=== PATIENT | female | born 1965 | race Caucasian/White ===

== ENCOUNTER 2019-12-26 17:59 | Emergency (ER) | payer OTHER, SELFPAY ==
[2019-12-26 18:18] VITALS: BP 133/88; PULSE 90; RESP 16; TEMP 37.1; O2SAT 97; BMI 26.2
--- NOTE | 2019-12-26 18:21 | XR_ITS ---
WS: [id number] XR chest 1V portable [id number] REASON FOR EXAM: cp FINDINGS: Borderline cardiomegaly is noted. The lung cain are well aerated. No pneumonia, pleural effusion, pulmonary edema, no mass effect. No pneumothorax. The hilum and apices are normal. No osseous abnormalities. XR/XR chest 1V portable [id number] IMPRESSION: Borderline cardiomegaly. Negative chest.
--- NOTE | 2019-12-26 18:22 | ECG_ITS ---
Measurements Intervals [place] Rate: 75 P: 45 OR: 196 QRS: 21 QRSD: 89 T: 41 QT: 399 QTc: 446 SINUS RHYTHM LOW QRS VOLTAGE IN PRECORDIAL LEADS [QRS DEFLECTION < 1.0 mV IN CHEST LEADS] POSSIBLE INFERIOR MYOCARDIAL INFARCTION , PROBABLY OLD [30 ms Q WAVE IN II/aVF] No previous ECG available for comparison Electronically Signed On 12-27-2019 16:54:36 [employer] CART[employer] by Polo Blanco M.D. [id number]
[2019-12-26 18:42] VITALS: BP 140/102; PULSE 74; RESP 18; O2SAT 98
--- NOTE | 2019-12-26 18:42 | CTR_ITS ---
PROCEDURE INFORMATION: Exam: CT Angiography Chest With Contrast Exam date and time: 12/26/2019 8:05 PM Age: 54 years old Clinical indication: Other: Chest pain; Additional info: Dyspnea TECHNIQUE: Imaging protocol: Computed tomographic angiography of the chest with intravenous contrast. 3D rendering: MIP and/or 3D reconstructed images were created by the technologist. Total DLP: 558.66 mGy-cm Radiation optimization: All CT scans at this facility use at least one of these dose optimization techniques: automated exposure control; mA and/or kV adjustment per patient size (includes targeted exams where dose is matched to clinical indication); or iterative reconstruction. Contrast material: OMNI; Contrast volume: 95 ml; Contrast route: IV; COMPARISON: CR XR chest 1V portable [id number] 12/26/2019 6:48 PM FINDINGS: Pulmonary arteries: There is no evidence of filling defects within the pulmonary arterial circulation to suggest pulmonary embolism. Aorta: Unremarkable. No aortic aneurysm. No aortic dissection. Lungs: Severe centrilobular emphysematous changes are present. There is mild dependent atelectasis at the lung bases. Pleural space: Unremarkable. No pneumothorax. No pleural effusion. Heart: Unremarkable. No cardiomegaly. No pericardial effusion. Lymph nodes: There are few mildly prominent prevascular lymph nodes measuring up to 9 x 18 mm. There also some mildly prominent subcarinal and paraesophageal lymph nodes but no gross adenopathy. Bones/joints: Unremarkable. No acute fracture. Soft tissues: Unremarkable. CT/CT angio chest PE protcl [id number] IMPRESSION: No evidence of pulmonary embolism. Radiation Dose CTDIVOL = (mGy): DLP = 558.66 (mGy-cm)
--- NOTE | 2019-12-26 18:47 | W.ED.CHESTPA ---
HPI - Chest Pain General: Chief Complaint: Chest Pain Stated Complaint: cp Time Seen by Provider: 12/26/19 18:36 Source: patient Mode of arrival: ambulatory Limitations: no limitations History of Present Illness: HPI narrative: 54-year-old female states she had chest pain over the last couple hours. States the pain is in the left chest and is a pressure type pain. She denies any vomiting or diarrhea but has had nausea. States she also has pain with deep inspiration. She has had swelling over her left leg over the last day or 2. Denies any worsening or improving factors. MD complaint: chest pain Onset (ago): hour(s) Timing of current episode: constant Onset: during rest Pain radiation: left arm Severity: moderate Quality: heaviness Relieving factors: nothing Exacerbating factors: nothing Associated symptoms: Reports dyspnea and nausea; Deny abdominal pain, fever(s) or vomiting Review of Systems Const: Denies: fever, chills, body aches or change in appetite Eyes: Denies: blurry vision or eye discomfort ENMT: Denies: throat pain or dental pain Card: Reports: chest pain Resp: Reports: shortness of breath GI: Reports: nausea; Denies: abdominal pain, vomiting or diarrhea : Denies: painful urination Musc: Denies: neck pain or back pain Skin/Breast: Denies: rash Neuro: Denies: headache Psych: Denies: depression Nixon/Lymph: Denies: easy bruising All/Imm: Denies: hives [facility] ED PFSH: Social History Smoking and tobacco status: current every day smoker Physical Exam Const: COMMON NORMALS: no apparent distress, oriented x3 and healthy appearing HENMT: COMMON NORMALS: normocephalic and head/scalp atraumatic HEAD & SCALP: normocephalic and atraumatic Eye: COMMON NORMALS: PERRL and EOMs intact bilaterally PUPIL: Yes PERRL Neck/C-Spine: COMMON NORMALS: full ROM and supple Chest: COMMONS NORMALS: inspection of chest normal and palpation of chest normal Resp: COMMON NORMALS: normal respiratory effort, no retractions, no use of accessory muscles and clear to auscultation bilaterally AUSCULTATION: clear to auscultation bilaterally Cardio: COMMON NORMALS: regular rate, regular rhythm and no murmurs RATE: regular rate RHYTHM: regular rhythm GI: COMMON NORMALS: normal to inspection, nondistended, normoactive bowel sounds, soft to palpation, non-tender and no masses PALPATION: Yes soft Extremity: COMMON NORMALS: normal to inspection and full ROM NARRATIVE EXTREMITY EXAM: left lower leg swelling Neuro: COMMON NORMALS: oriented x3, moves all extremities and no focal motor deficits Psych: COMMON NORMALS: mental status grossly normal, thought process normal and cooperative THOUGHT PROCESS: normal thought process Skin: COMMON NORMALS: no rashes or lesions noted and no wounds GENERAL SKIN EXAM: no rashes or lesions noted Course Vital Signs: Vital signs: Vital Signs Temperature 98.8 F 12/26/19 18:18 Pulse Rate 90 12/26/19 21:50 Respiratory Rate 18 12/26/19 21:50 Blood Pressure 129/75 12/26/19 21:50 Pulse Oximetry 94 12/26/19 21:50 MDM - Chest Pain MDM Narrative: Medical decision making narrative: Patient presents here with chest pain that is atypical in nature. Patient's initial and repeat troponin are both negative. CT scan here showed no sign of pulmonary embolism. Her pain is resolved here. Patient has minimal risk factors and is well-appearing here. I did discuss possible admission with her and discussed her heart score and her risk factors smoking in both of her heart enzymes being negative. She stated she would rather follow-up outpatient get an outpatient stress test. I believe this is acceptable as well informed her she needs to follow-up with her primary care doctor within a week for follow-up and return to the ER if she has any chest pain. She understands and agrees to this plan. Lab Data: Labs: Lab Results 12/26/19 12/26/19 12/26/19 Range/Units 18:40 18:40 18:40 WBC 14.3 H (4.0-10.0) 10^3/ uL RBC 4.91 (4.1-5.3) 10^6/u L Hgb 14.8 (11.5-15.3) g/dL Hct 44.7 (37.0-47.0) % MCV 91.0 (81-99) fL MCH 30.1 (28.0-34.0) pg MCHC 33.1 (30.0-36.0) g/dL RDW 13.2 (12.1-15.1) % Plt Count 340 (130-400) 10^3/c mm MPV 11.3 H (7.4-10.4) fL Neut % (Auto) 57.6 % Lymph % (Auto) 34.8 % [place] % (Auto) 4.8 % Eos % (Auto) 2.0 % Baso % (Auto) 0.6 % Neut # (Auto) 8.3 H (1.8-7.7) 10^3/u L Lymph # (Auto) 5.0 H (0.8-4.8) 10^3/u L [place] # (Auto) 0.7 (0.2-0.9) 10^3/u L Eos # (Auto) 0.3 (0.0-0.8) 10^3/u L Baso # (Auto) 0.1 (0.0-0.1) 10^3/u L Nucleated RBC % (a uto) 0 % Nucleated RBCs # 0.0 /100WBC Sodium 140 (136-145) mmol/L Potassium 3.4 L (3.5-5.1) mmol/L Chloride 104 (98-107) mmol/L Carbon Dioxide 23 (22-29) mmol/L Anion Gap 16.4 (5-19) BUN 11 (6-20) mg/dL Creatinine 0.5 (0.5-0.9) mg/dL GFR Calculation 129.1 (90-130) mL/min Glucose 85 (65-115) mg/dL Calcium 9.8 (8.5-10.5) mg/dL Total Bilirubin 0.2 (0.15-1.2) mg/dL AST 15 (0-32) U/L ALT 13 (0-33) U/L Alkaline Phosphata se 86 (35-105) IU/L Troponin T Baselin e 6 (0-10) ng/mL Troponin T 120 Min [place] (0-10) ng/mL Delta Troponin T (0-10) ABS# NT-Pro-B Natriuret Pep 49 (0-125) pg/mL Total Protein 7.7 (6.6-8.7) g/dL Albumin 4.5 (3.5-5.2) g/dL Globulin 3.2 (1.3-4.6) g/dL 03/04/20 Range/Units 20:35 WBC (4.0-10.0) 10^3/ uL RBC (4.1-5.3) 10^6/u L Hgb (11.5-15.3) g/dL Hct (37.0-47.0) % MCV (81-99) fL MCH (28.0-34.0) pg MCHC (30.0-36.0) g/dL RDW (12.1-15.1) % Plt Count (130-400) 10^3/c mm MPV (7.4-10.4) fL Neut % (Auto) % Lymph % (Auto) % [place] % (Auto) % Eos % (Auto) % Baso % (Auto) % Neut # (Auto) (1.8-7.7) 10^3/u L Lymph # (Auto) (0.8-4.8) 10^3/u L [place] # (Auto) (0.2-0.9) 10^3/u L Eos # (Auto) (0.0-0.8) 10^3/u L Baso # (Auto) (0.0-0.1) 10^3/u L Nucleated RBC % (a uto) % Nucleated RBCs # /100WBC Sodium (136-145) mmol/L Potassium (3.5-5.1) mmol/L Chloride (98-107) mmol/L Carbon Dioxide (22-29) mmol/L Anion Gap (5-19) BUN (6-20) mg/dL Creatinine (0.5-0.9) mg/dL GFR Calculation (90-130) mL/min Glucose (65-115) mg/dL Calcium (8.5-10.5) mg/dL Total Bilirubin (0.15-1.2) mg/dL AST (0-32) U/L ALT (0-33) U/L Alkaline Phosphata se (35-105) IU/L Troponin T Baselin e (0-10) ng/mL Troponin T 120 Min [place] 6.00 (0-10) ng/mL Delta Troponin T 0 (0-10) ABS# NT-Pro-B Natriuret Pep (0-125) pg/mL Total Protein (6.6-8.7) g/dL Albumin (3.5-5.2) g/dL Globulin (1.3-4.6) g/dL Imaging Data^: CXR: Attestation: I personally reviewed and interpreted this imaging study as follows: My impression: no acute abnormality CT Chest: Attestation: I personally reviewed and interpreted this imaging study as follows: Radiologist's impression: [address] [address] [address] Scan Report Signed Patient: Guillermina Mosquera Unit #: [id number] : 1965 Age/Sex: 54 / F ADM Date: 12/26/19 Loc: ER Room/Bed: Attending Dr: Ordering Provider/Ordering MD: Yarelis Elmore MD Date of Service: 12/26/19 Procedure(s): CT angio chest PE protcl [id number] Accession Number(s): [id number] Report Number: [id number] PROCEDURE INFORMATION: Exam: CT Angiography Chest With Contrast Exam date and time: 12/26/2019 8:05 PM Age: 54 years old Clinical indication: Other: Chest pain; Additional info: Dyspnea TECHNIQUE: Imaging protocol: Computed tomographic angiography of the chest with intravenous contrast. 3D rendering: MIP and/or 3D reconstructed images were created by the technologist. Total DLP: 558.66 mGy-cm Radiation optimization: All CT scans at this facility use at least one of these dose optimization techniques: automated exposure control; mA and/or kV adjustment per patient size (includes targeted exams where dose is matched to clinical indication); or iterative reconstruction. Contrast material: OMNI; Contrast volume: 95 ml; Contrast route: IV; COMPARISON: CR XR chest 1V portable [id number] 12/26/2019 6:48 PM FINDINGS: Pulmonary arteries: There is no evidence of filling defects within the pulmonary arterial circulation to suggest pulmonary embolism. Aorta: Unremarkable. No aortic aneurysm. No aortic dissection. Lungs: Severe centrilobular emphysematous changes are present. There is mild dependent atelectasis at the lung bases. Pleural space: Unremarkable. No pneumothorax. No pleural effusion. Heart: Unremarkable. No cardiomegaly. No pericardial effusion. Lymph nodes: There are few mildly prominent prevascular lymph nodes measuring up to 9 x 18 mm. There also some mildly prominent subcarinal and paraesophageal lymph nodes but no gross adenopathy. Bones/joints: Unremarkable. No acute fracture. Soft tissues: Unremarkable. CT/CT angio chest PE protcl [id number] IMPRESSION: No evidence of pulmonary embolism. EKG Data^: EKG 1: Attestation: I personally reviewed and interpreted this EKG as follows: EKG interpretation date: 12/26/19 EKG interpretation time: 08:33 Interpretation: nsr hr [address] or t wave abnormalities qrs 88 qtc 400 Discharge Plan Discharge Patient Disposition: Home, Self-Care Clinical Impression: Chest pain Qualifiers: Chest pain type: unspecified Qualified Code(s): R07.9 - Chest pain, unspecified Condition: Stable Prescriptions: No Action ibuprofen 200 mg Tablet 200 mg PO Q6H PRN (Reason: Pain) RF: 0 Super B/C Capsule 1 cap PO DAILY RF: 0 Aleve PM 220-25 mg Tablet 1 tab PO QPM RF: 0 bupropion HCl (smoking deter) 150 mg Tablet Extended Release 12 Hr 150 mg PO DAILY RF: 0 Discharge Orders: Discharge Order (Routine); Ordered 12/26/19 Ordered By: Yarelis Elmore Referrals: Sherrie Chen MD [Primary Care Provider] - 4-7 days Discharge Diet: Advance as tolerated Discharge Activity: Resume usual activity Patient Instructions: Chest Pain (ED) Stand Alone Forms: Work/School Release Discharge Date/Time: 12/26/19 21:54 Coding Level of Care Code 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
[2019-12-26] MEDS: nitroglycerin 0.4 mg sublingual Tablet SUBLINGUAL (18:50)
[2019-12-26 19:05] LABS: Basophils # 0.1 10^3/uL (0.0-0.1); Basophils % 0.6 %; Eosinophils # 0.3 10^3/uL (0.0-0.8); Hematocrit 44.7 % (37.0-47.0); Hemoglobin 14.8 g/dL (11.5-15.3); Lymphocytes % 34.8 %; Mean Corpuscular HGB Conc 33.1 g/dL (30.0-36.0); Mean Corpuscular Hemoglobin 30.1 pg (28.0-34.0); Mean Platelet Volume 11.3 fL (7.4-10.4); Monocytes # 0.7 10^3/uL (0.2-0.9); Monocytes % 4.8 %; Neutrophils # 8.3 10^3/uL (1.8-7.7); Neutrophils % 57.6 %; Nucleated Red Blood Cells % 0 %; Platelet Count 340 10^3/cmm (130-400); Red Blood Count 4.91 10^6/uL (4.1-5.3); Red Cell Distribution Width 13.2 % (12.1-15.1); White Blood Count 14.3 10^3/uL (4.0-10.0)
[2019-12-26 19:22] LABS: Troponin(5th) Baseline 6 ng/mL (0-10)
[2019-12-26 19:29] LABS: Alanine Aminotransferase 13 U/L (0-33); Albumin Level 4.5 g/dL (3.5-5.2); Alkaline Phosphatase 86 IU/L (35-105); Anion Gap 16.4 (5-19); Aspartate Amino Transferase 15 U/L (0-32); Blood Urea Nitrogen 11 mg/dL (6-20); Calcium 9.8 mg/dL (8.5-10.5); Carbon Dioxide 23 mmol/L (22-29); Chloride 104 mmol/L (98-107); Globulin 3.2 g/dL (1.3-4.6); Glomerular Filtration Rate 129.1 mL/min (90-130); Glucose 85 mg/dL (65-115); NT Pro B Type Natriuretic Pept 49 pg/mL (0-125); Potassium 3.4 mmol/L (3.5-5.1); Sodium 140 mmol/L (136-145); Total Bilirubin 0.2 mg/dL (0.15-1.2); Total Protein 7.7 g/dL (6.6-8.7)
--- NOTE | 2019-12-26 20:22 | ECG_ITS ---
Measurements Intervals [place] Rate: 76 P: 58 [place]: 193 QRS: 20 QRSD: 88 T: 56 QT: 370 QTc: 417 SINUS RHYTHM WITH OCCASIONAL ECTOPIC PREMATURE COMPLEXES WITH MARKED RHYTHM IRREGULARITY, POSSIBLE NON-CONDUCTED PAC, SA BLOCK, LOW QRS VOLTAGE IN PRECORDIAL LEADS [QRS DEFLECTION < 1.0 mV IN CHEST LEADS] POSSIBLE INFERIOR MYOCARDIAL INFARCTION [30 ms Q WAVE IN II/aVF], PROBABLY OLD ABNORMAL RHYTHM ECG No previous ECG available for comparison Electronically Signed On 12-27-2019 17:00:57 COMPUT[employer]ED MILL RECORDER by Polo Blanco M.D. [id number]
--- NOTE | 2019-12-26 20:35 | PC.NURSE ---
EKG done at 2031 and shown to ER doctor
[2019-12-26] MEDS: iohexol 350 mg/mL 100 mL Btl 95 ML IV (20:53)
[2019-12-26 21:04] LABS: Troponin 5 2HR Delta 0 ABS# (0-10)
[2019-12-26 21:50] VITALS: BP 129/75; PULSE 90; RESP 18; O2SAT 94
== END 2019-12-26 21:54 | disposition home or self-care (01) ==
PROVIDERS: Emergency Provider Emergency Medicine; Family Provider Family Medicine; PCP Family Medicine
DX: R07.9 Chest pain, unspecified (principal); F17.210 Nicotine dependence, cigarettes, uncomplicated; R06.00 Dyspnea, unspecified; R11.0 Nausea; M79.602 Pain in left arm; R94.31 Abnormal electrocardiogram [ECG] [EKG]
CPT/HCPCS: 12345; 36415; 71045; 71275; 80053; 83880; 84484; 85025; 93005; 99282; 99284; Q9967

== ENCOUNTER 2020-03-04 08:12 | Outpatient (CLI) | payer OTHER, SELFPAY ==
--- NOTE | 2020-03-04 08:37 | ECG_ITS ---
NAME OF STUDY: LEXISCAN SESTAMIBI STRESS TEST INDICATION: Chest Pressure, PROCEDURE: At the baseline, the EKG revealed sinus bradycardia with some nonspecific T wave changes. The baseline blood pressure was 132/70 mm Hg with a heart rate of 58 beats/min. Lexiscan was infused over a period of 20 seconds. A total of 0.4 milligrams of Lexiscan was infused. The stress phase was continued for a total of 5 minutes. Heart rate at the end of the stress phase was 84 with a blood pressure 119/68. The EKG at the peak infusion revealed no significant changes. Sestamibi was injected 20 seconds after the Lexiscan infusion. Blood pressure at the end of the recovery phase was 120/71 with a heart rate of 84 per minute. CONCLUSION: 1. No significant EKG changes with the LexiScan infusion 2. No LexiScan induced chest pain or cardiac arrhythmia 3. Normal blood pressure and heart rate response 4. Sestamibi/sestamibi perfusion scan pending; see separate report. Electronically Signed On 03-05-2020 10:49:43 CDT by Taylor Robles M.D. [id number]
--- NOTE | 2020-03-04 08:38 | NMCV_ITS ---
NM nikolay perf SPECT r/s* [id number] Guillermina Mosquera Age: 54 Gender: F : 1965 Exam Date: 03/04/2020 09:37 Ordering Phys: Sherrie Chen MD Technologist: HELENA Vergara Exam [facility]: [facility] Indications: Chest pressure STRESS TEST Please see separate stress test report in [facility] for full findings IMAGE PROTOCOL Rest/Stress 1 Lexiscan Day Radiopharmaceutical Dose (mCi) Administration Site Administered by Rest: Tc-99m 10.6 IV HELENA Vergara Sestamibi Stress:Tc-99m 32.9 IV HELENA Vergara Sestamibi Rest: 03/04/2020 60 Discovery 630 Stress: 03/04/2020 45 Discovery 630 0.4mg Lexiscan. Images obtained in supine and prone position. SPECT RESULTS Technical Quality: Good Raw Data Analysis: Breast attenuation Image Corrections: No attenuation or motion correction applied Summed Stress Score: 4 Summed Rest Score: 0 Summed Difference Score: 4 PERFUSION FINDINGS Small area of decreased tracer uptake in the apical inferior and LV apex, with some reversibility FUNCTIONAL RESULTS (calculated via Gated SPECT) Stress Image LV EF (%): 79 Stress EDV (mL):81 TID: 1 Stress ESV (mL):17 FUNCTIONAL FINDINGS: LV wall motion analysis revealing no gross wall motion normalities. IMPRESSIONS 1. Myocardial perfusion imaging revealing a small area of reversible defect in the apical inferior and LV apex, suggestive of ischemia in the distribution of the right coronary artery. 2. Normal LV ejection fraction 79%. 3. LV wall motion analysis revealing no gross wall motion abnormalities. 4. Normal LV volume. No similar previous studies are available for comparison Dr Taylor Robles MD FACC (Electronically Signed) Final Date: 04 Mar 2020 13:14 S
[2020-03-04 09:25] VITALS: BMI 29.1
[2020-03-04] MEDS: regadenoson 0.4 Mg/5 ml Syringe IVP (10:28)
[2020-03-04 10:50] VITALS: BP 117/67; PULSE 83
== END 2020-03-04 08:13 | disposition home or self-care (01) ==
LOC: RAD 08:15
PROVIDERS: Family Provider Family Medicine; PCP Family Medicine; Visit Provider Family Medicine
DX: R07.89 Other chest pain (principal)
CPT/HCPCS: 78452; 93017; A9500; J2785

== ENCOUNTER 2020-04-14 12:07 | Inpatient (IN) | payer OTHER, SELFPAY ==
[2020-04-14] VITALS (21 sets, daily range): BP systolic 90–127; BP diastolic 53–85; PULSE 61–84; RESP 16–20; TEMP 36.5–37.1; O2SAT 91–99; BMI 28.8
--- NOTE | 2020-04-14 12:15 | XRR_ITS ---
PROCEDURE INFORMATION: Exam: XR Chest, 1 View Exam date and time: 04/14/2020 12:31 PM Age: 54 years old Clinical indication: Chest pain; Type not specified TECHNIQUE: Imaging protocol: XR of the chest Views: 1 view. COMPARISON: No relevant prior studies available. FINDINGS: Lungs: Hyperinflation and interstitial prominence. No acute airspace disease. Pleural space: No pleural effusion. Heart/Mediastinum: Cardiac silhouette upper limits of normal in size. Bones/joints: Unremarkable. XR/XR chest 1V portable [id number] IMPRESSION: Hyperinflation and interstitial prominence, without acute airspace disease.
--- NOTE | 2020-04-14 12:16 | ECG_ITS ---
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 Measurements Intervals [place] Rate: 72 P: 24 [place]: 200 QRS: -14 QRSD: 90 T: 12 QT: 406 QTc: 445 Interpretive Statements SINUS RHYTHM POSSIBLE ANTERIOR MYOCARDIAL INFARCTION , PROBABLY OLD [30 ms Q WAVE IN V3/V4, OR R < 0.2 mV IN V4] Compared to ECG 12/26/2019 20:37:04 No significant changes Electronically Signed On 04-14-2020 18:26:56 CDT by Lyndsay Wyatt M.D. [id number]
--- NOTE | 2020-04-14 12:26 | ED_ITS ---
HPI - Chest Pain General: Chief Complaint: Chest Pain Stated Complaint: CHEST PAIN Time Seen by Provider: 04/14/20 12:15 History of Present Illness: HPI narrative: Guillermina is a nice 54-year-old female comes in for chest pain. She is been having chest pain off and on since December. Patient has had an abnormal stress test and is scheduled to have a echo done tomorrow to look for wall motion abnormalities by the order of Dr. Robles. Patient states that her chest pain got severe today and that is what prompted her to come in. She took 1 sublingual nitroglycerin and then was given 3 more by EMS and her pain is now a 1 or 2 out of 10. Patient states that she had associated shortness of breath but denies any nausea vomiting or diaphoresis. Associated symptoms: Reports dyspnea; Deny abdominal pain, diaphoresis, fever(s), nausea, palpitations, syncope or vomiting Review of Systems Const: Denies: fever(s), chills, body aches, fatigue, malaise or diaphoresis Eyes: Denies: change in vision, blurry vision, blind spots, photophobia, eye discharge or eye redness ENMT: Denies: throat pain, odynophagia, hoarseness, swelling of lips/tongue, oral sores, ear or mastoid pain, ear discharge, change in hearing or nasal discharge Card: Reports: chest pain; Denies: palpitations, irregular heart rhythm, edema, lightheadedness, syncope, pre-syncope, dyspnea on exertion or orthopnea Resp: Reports: dyspnea; Denies: productive cough, non-productive cough, wheezing, hemoptysis or chest congestion GI: Denies: abdominal pain, nausea, vomiting, hematemesis, coffee ground emesis, heartburn, diarrhea, constipation, GI cramping, hematochezia or melena : Denies: flank pain, dysuria, urinary frequency, urinary urgency or hematuria Musc: Denies: neck pain, back pain, extremity pain, extremity swelling, joint pain, joint swelling, joint redness, joint warmth or joint stiffness Skin/Breast: Denies: rash, pruritus, erythema, skin tenderness or jaundice Neuro: Denies: headache(s), numbness in extremities, weakness in extremities, sensory changes, lack of coordination, difficulty walking, dizziness, vertigo, confusion, Slurred speech present or seizure-like activity Nixon/Lymph: Denies: easy bruising, easy bleeding, petechiae, purpura or enlarged lymph nodes All/Imm: Denies: urticaria, throat swelling, tongue swelling, facial swelling or acute wheezing PFSH ED PFSH: Medical History Atypical chest pain The EKG from 12/26/2019 revealed normal sinus rhythm with some nonspecific T wave changes. Features of possible old inferior wall myocardial infarction. Normal IA and QRS duration. Dyslipidemia Smoking SOB (shortness of breath) Tobacco abuse Surgical History History of arthroscopic knee surgery Hx of cholecystectomy Family History Father CAD (coronary artery disease) Hyperlipidemia Hypertension Lung disease Other Cancer Stroke Social History Smoking and tobacco status: current every day smoker Alcohol intake: never Physical Exam Const: COMMON NORMALS: no acute distress, patient oriented x3, no limitations, healthy appearing and well nourished GENERAL APPEARANCE: cooperative, well kempt and well developed HENMT: COMMON NORMALS: normocephalic, atraumatic, external ears normal, EAC's normal and Normal external nose present HEAD & SCALP: normal to inspection, normocephalic and atraumatic FACE & SINUS: normal facial exam and face symmetric NOSE: Normal external nose present and Normal nares present EXTERNAL EAR: Yes external ears normal EXTERNAL AUDITORY CANAL: EAC's normal MOUTH: Normal oral and palatal mucosa present, lip normal and tongue normal Eye: COMMON NORMALS: Equal, round and reactive pupils present and conjunctivae normal GENERAL EYE: appearance normal, both eyes and all related structures ALIGNMENT: Yes alignment normal PERIORBITAL: periorbital findings normal EYELID: eyelids normal CONJUNCTIVA: Yes conjunctivae normal SCLERA: sclerae normal PUPIL: Yes Equal, round and reactive pupils present Neck/C-Spine: COMMON NORMALS: full ROM, no lymphadenopathy, supple, no meningeal signs and no JVD GENERAL: Yes normal visual inspection and Yes trachea midline Chest: COMMONS NORMALS: normal inspection of the chest and normal palpation of entire chest wall Resp: COMMON NORMALS: normal respiratory effort, No retractions and No use of accessory muscles EFFORT & INSPECTION: Yes able to speak in complete sentences and Yes symmetric chest movement AUSCULTATION: no crackles, no rales, no rhonchi and no wheezes Cardio: COMMON NORMALS: no JVD, regular rate, regular rhythm, S1 normal heart sound present and S2 normal heart sound present RATE: regular rate RHYTHM: regular rhythm HEART SOUNDS: S1 normal heart sound present, S2 normal heart sound present, no click, no gallops, no murmurs, no rubs and abnormal split S2 GI: COMMON NORMALS: Soft to palpation and No hepatosplenomegaly present PALPATION: Yes Soft to palpation, No Tenderness to palpation present (GI), No Guarding due to palpation present (GI), No Rigid due to palpation, Yes No hepatosplenomegaly present, No Hernia present, No Palpable mass present and No Pulsatile mass present : COMMON NORMALS: Yes no CVA tenderness BLADDER/KIDNEY EXAM: Yes no CVA tenderness EXTERNAL FEMALE EXAM: No Hernia present Back/Pelvis: COMMON NORMALS: no CVA tenderness, thoracic and lumbar spine normal to inspection, no thoracic nor lumbar tenderness and thoraco-lumbar ROM normal Extremity: COMMON NORMALS: normal to inspection, full ROM, capillary refill normal, no joint enlargement, no clubbing, cyanosis or edema and no calf tenderness Neuro: COMMON NORMALS: patient oriented x3, CN's II-XII intact bilaterally, moves all extremities, no focal motor deficits and no sensory deficits noted MENINGEAL SIGNS: Yes no meningeal signs SPEECH: speech normal Psych: COMMON NORMALS: mental status grossly normal, Normal thought process present, cooperative, normal affect, speech normal and activity/motor behavior normal APPEARANCE: Yes well kempt SPEECH: Yes normal speech THOUGHT PROCESS: Normal thought process present Skin: COMMON NORMALS: no rashes or lesions noted, turgor normal, no jaundice, no petechiae and no mottling GENERAL SKIN EXAM: no rashes or lesions noted and turgor normal Course ED course: 1239 -Case reviewed with Dr. Robles. Patient was to have a stress echo tomorrow but he states that the possibility of having to work her up further exists. He would like her to go ahead and to be admitted to the hospitalist service, he would like to be consulted and he will evaluate further from there. Vital Signs: Vital signs: Vital Signs Temperature 97.9 F 06/22/20 12:16 Pulse Rate 84 04/14/20 17:51 Respiratory Rate 18 04/14/20 17:51 Blood Pressure 127/85 04/14/20 17:51 Pulse Oximetry 98 04/14/20 17:51 MDM - Chest Pain MDM Narrative: Medical decision making narrative: The patient has had ongoing chest pain and is supposed to have a outpatient stress echo tomorrow. The case was reviewed with Dr. 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 He believes the patient should be admitted to the hospital for further evaluation and care. I will move forward with this plan. The case was reviewed with Dr. Reyes he is agreeable to admission. Lab Data: Attestation: I reviewed the patient's lab results. Labs: Lab Results 04/14/20 04/14/20 04/14/20 Range/Units 12:50 12:50 12:50 WBC 8.1 (4.0-10.0) 10^3/ uL RBC 4.32 (4.1-5.3) 10^6/u L Hgb 13.1 (11.5-15.3) g/dL Hct 40.9 (37.0-47.0) % MCV 94.7 (81-99) fL MCH 30.3 (28.0-34.0) pg MCHC 32.0 (30.0-36.0) g/dL RDW 13.1 (12.1-15.1) % Plt Count 280 (130-400) 10^3/c mm MPV 11.6 H (7.4-10.4) fL Neut % (Auto) 44.3 % Lymph % (Auto) 46.0 % Pacific % (Auto) 5.8 % Eos % (Auto) 2.5 % Baso % (Auto) 1.0 % Neut # (Auto) 3.6 (1.8-7.7) 10^3/u L Lymph # (Auto) 3.7 (0.8-4.8) 10^3/u L Pacific # (Auto) 0.5 (0.2-0.9) 10^3/u L Eos # (Auto) 0.2 (0.0-0.8) 10^3/u L Baso # (Auto) 0.1 (0.0-0.1) 10^3/u L Nucleated RBC % (a uto) 0 % Nucleated RBCs # 0.0 /100WBC PT 13.10 (10.5-13.3) SECO NDS INR 0.96 (0.8-1.2) D-Dimer <= 0.27 (0-0.59) ug/mIFE U Sodium 141 (136-145) mmol/L Potassium 3.5 (3.5-5.1) mmol/L Chloride 106 (98-107) mmol/L Carbon Dioxide 22 (22-29) mmol/L Anion Gap 16.5 (5-19) BUN 9 (6-20) mg/dL Creatinine 0.5 (0.5-0.9) mg/dL GFR Calculation 129.1 (90-130) mL/min Glucose 90 (65-115) mg/dL Estimat Average Gl ucose Hemoglobin A1c (4.0-6.0) % Calculated Osmolal ity 288 (285-295) mOsm/k g Calcium 9.0 (8.5-10.5) mg/dL Magnesium 2.1 (1.7-2.3) mg/dL Total Bilirubin 0.2 (0.15-1.2) mg/dL AST 12 (0-32) U/L ALT 11 (0-33) U/L Alkaline Phosphata se 71 (35-105) IU/L Troponin T Baselin e (0-10) ng/L NT-Pro-B Natriuret Pep 55 (0-125) pg/mL Total Protein 6.9 (6.6-8.7) g/dL Albumin 3.9 (3.5-5.2) g/dL Globulin 3.0 (1.3-4.6) g/dL Lipase 20 (13-60) U/L Urine Color (Yellow) Urine Appearance (CLEAR) Urine pH (5-7) Ur Specific Gravit y (1.005-1.030) Urine Protein (Negative) Urine Glucose (UA) (Normal) Urine Ketones (Negative) Urine Blood (Negative) Urine Nitrate (Negative) Urine Bilirubin (NEGATIVE) Urine Urobilinogen (Negative) mg/dL Ur Leukocyte Mary ase (Negative) Urine RBC (0-2) /hpf Urine WBC (0-5) /hpf Ur Squamous Epith Cells (0-5) Amorphous Sediment Urine Bacteria (NONE) 04/14/20 04/14/20 04/14/20 Range/Units 12:50 12:50 12:50 WBC (4.0-10.0) 10^3/ uL RBC (4.1-5.3) 10^6/u L Hgb (11.5-15.3) g/dL Hct (37.0-47.0) % MCV (81-99) fL MCH (28.0-34.0) pg MCHC (30.0-36.0) g/dL RDW (12.1-15.1) % Plt Count (130-400) 10^3/c mm MPV (7.4-10.4) fL Neut % (Auto) % Lymph % (Auto) % Pacific % (Auto) % Eos % (Auto) % Baso % (Auto) % Neut # (Auto) (1.8-7.7) 10^3/u L Lymph # (Auto) (0.8-4.8) 10^3/u L Pacific # (Auto) (0.2-0.9) 10^3/u L Eos # (Auto) (0.0-0.8) 10^3/u L Baso # (Auto) (0.0-0.1) 10^3/u L Nucleated RBC % (a uto) % Nucleated RBCs # /100WBC PT (10.5-13.3) SECO NDS INR (0.8-1.2) D-Dimer (0-0.59) ug/mIFE U Sodium (136-145) mmol/L Potassium (3.5-5.1) mmol/L Chloride (98-107) mmol/L Carbon Dioxide (22-29) mmol/L Anion Gap (5-19) BUN (6-20) mg/dL Creatinine (0.5-0.9) mg/dL GFR Calculation (90-130) mL/min Glucose (65-115) mg/dL Estimat Average Gl ucose 108 Hemoglobin A1c 5.4 (4.0-6.0) % Calculated Osmolal ity (285-295) mOsm/k g Calcium (8.5-10.5) mg/dL Magnesium (1.7-2.3) mg/dL Total Bilirubin (0.15-1.2) mg/dL AST (0-32) U/L ALT (0-33) U/L Alkaline Phosphata se (35-105) IU/L Troponin T Baselin e 6 (0-10) ng/L NT-Pro-B Natriuret Pep (0-125) pg/mL Total Protein (6.6-8.7) g/dL Albumin (3.5-5.2) g/dL Globulin (1.3-4.6) g/dL Lipase (13-60) U/L Urine Color Yellow (Yellow) Urine Appearance Cloudy (CLEAR) Urine pH 6.5 (5-7) Ur Specific Gravit y 1.010 (1.005-1.030) Urine Protein Neg (Negative) Urine Glucose (UA) Norm (Normal) Urine Ketones Negative (Negative) Urine Blood Neg (Negative) Urine Nitrate Negative (Negative) Urine Bilirubin Neg (NEGATIVE) Urine Urobilinogen Neg (Negative) mg/dL Ur Leukocyte Mary ase Negative (Negative) Urine RBC None (0-2) /hpf Urine WBC 0-4 H (0-5) /hpf Ur Squamous Epith Cells 0-4 H (0-5) Amorphous Sediment 1+ Urine Bacteria 3+ H (NONE) Imaging Data^: CXR: My impression: Borderline cardiomegaly, otherwise no acute findings. EKG Data^: EKG 1: Attestation: I personally reviewed and interpreted this EKG as follows: EKG interpretation date: 04/14/20 EKG interpretation time: 12:38 Interpretation: Normal sinus rhythm at 72 beats a minute, inversions in V2 with prominent R wave, prominent R wave is consistent with previous EKGs but T wave is slightly more inverted than previous. Otherwise no acute ST-T wave changes. Discharge Plan Discharge Patient Disposition: Admitted As Inpatient Admit Provider: Johnson Reyes Clinical Impression: Chest pain Qualifiers: Chest pain type: unspecified Qualified Code(s): R07.9 - Chest pain, unspecified Condition: Stable Discharge Date/Time: 04/14/20 16:00 Coding Level of Care Code ED Construction Assistant for g Fwd Exam Comprehensive
[2020-04-14] MEDS: nitroglycerin 1 gm/inch oint Pkt 1 INCH TOPICAL (12:54)
[2020-04-14] MEDS: HYDROmorphone 1 mg/mL INJ 1 mL 0.5 MG IVP ×2 (12:54→15:35)
[2020-04-14] MEDS: ondansetron 2 mg/ML SDV 2 mL 4 MG IVP ×2 (12:54→15:35)
[2020-04-14 13:04] LABS: Basophils # 0.1 10^3/uL (0.0-0.1); Eosinophils # 0.2 10^3/uL (0.0-0.8); Eosinophils % 2.5 %; Hematocrit 40.9 % (37.0-47.0); Hemoglobin 13.1 g/dL (11.5-15.3); Lymphocytes # 3.7 10^3/uL (0.8-4.8); Mean Corpuscular Hemoglobin 30.3 pg (28.0-34.0); Mean Corpuscular Volume 94.7 fL (81-99); Mean Platelet Volume 11.6 fL (7.4-10.4); Monocytes # 0.5 10^3/uL (0.2-0.9); Monocytes % 5.8 %; Neutrophils # 3.6 10^3/uL (1.8-7.7); Neutrophils % 44.3 %; Nucleated Red Blood Cells % 0 %; Platelet Count 280 10^3/cmm (130-400); Red Blood Count 4.32 10^6/uL (4.1-5.3); Red Cell Distribution Width 13.1 % (12.1-15.1); White Blood Count 8.1 10^3/uL (4.0-10.0)
[2020-04-14 13:12] LABS: INR 0.96 (0.8-1.2)
[2020-04-14 13:15] LABS: D Dimer <= 0.27 ug/mIFEU (0-0.59)
[2020-04-14 13:20] LABS: Bilirubin Urine Neg (NEGATIVE); Blood Urine Neg (Negative); Glucose Urine UA Norm (Normal); Ketones Urine Negative (Negative); Leukocyte Esterase Urine Negative (Negative); Nitrate Urine Negative (Negative); Protein Urine Neg (Negative); Urine Appearance Cloudy (CLEAR); Urine Color Yellow (Yellow); Urobilinogen Urine Neg (Negative); pH Urine 6.5 (5-7)
[2020-04-14 13:25] LABS: Add Urine Culture? Yes; Amorphous Sediment Urine 1+; Bacteria Urine 3+; Squamous Epithelial Cell Urine 0-4 (0-5); WBC Urine 0-4 /hpf (0-5)
[2020-04-14 13:30] LABS: Troponin(5th) Baseline 6 ng/L (0-10)
[2020-04-14 13:40] LABS: Alanine Aminotransferase 11 U/L (0-33); Albumin Level 3.9 g/dL (3.5-5.2); Alkaline Phosphatase 71 IU/L (35-105); Anion Gap 16.5 (5-19); Aspartate Amino Transferase 12 U/L (0-32); Blood Urea Nitrogen 9 mg/dL (6-20); Carbon Dioxide 22 mmol/L (22-29); Chloride 106 mmol/L (98-107); Glomerular Filtration Rate 129.1 mL/min (90-130); Glucose 90 mg/dL (65-115); Lipase 20 U/L (13-60); Magnesium 2.1 mg/dL (1.7-2.3); NT Pro B Type Natriuretic Pept 55 pg/mL (0-125); Osmolality Calculated 288 mOsm/kg (285-295); Potassium 3.5 mmol/L (3.5-5.1); Sodium 141 mmol/L (136-145); Total Bilirubin 0.2 mg/dL (0.15-1.2); Total Protein 6.9 g/dL (6.6-8.7)
--- NOTE | 2020-04-14 14:16 | ECG_ITS ---
[facility] Test Date: 2020-04-14 Pat Name: Guillermina Mosquera Department: Room: Gender: Female Natural Resources Specialist: : 1965 Requested By: Talita Davison Order Number: [id number] Fawn MD: Lyndsay Wyatt M.D. Measurements Intervals [place] Rate: 64 P: 33 CT: 205 QRS: 4 QRSD: 91 T: 9 QT: 422 QTc: 436 Interpretive Statements SINUS RHYTHM LOW QRS VOLTAGE IN PRECORDIAL LEADS [QRS DEFLECTION < 1.0 mV IN CHEST LEADS] INFERIOR MYOCARDIAL INFARCTION , PROBABLY OLD [40+ ms Q WAVE AND/OR ST/T ABNORMALITY IN II/aVF] Compared to ECG 04/14/2020 12:38:05 Low QRS voltage now present Myocardial infarct finding still present Electronically Signed On 04-14-2020 18:35:43 CDT by Lyndsay Wyatt M.D. [id number]
--- NOTE | 2020-04-14 14:22 | P.HP_ITS ---
Providers/Chief Complaint Primary Care Provider: Sherrie Chen MD Chief Complaint: CHEST PAIN History of Present Illness Guillermina Mosquera is a 54 year old female who is a current smoker, recent history of positive stress test and chest pain, presents to [facility] due to complaints of chest pain. Patient states that since November she has been having chest pain, her typical chest pain is substernal, nonradiating, described as a pressure-like pain, something sitting on her chest, pain is usually 3-4 out of 10, associate with shortness of breath, can occur at rest, can exert with exertion, can occur during the night waking her up from sleep, no lightheadedness, no dizziness, no diaphoresis, has an extensive family history of CAD, did have an ER visit back in November which prompted a stress test, her stress test was positive, so she followed up with Dr. Robles, Dr. Robles set up a stress echocardiogram to be done tomorrow. 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 No recent fevers, cough, chest wall pain, no recent sick contacts no exposure to COVID-19. Review of Systems Const: Denies: fever(s), chills, fatigue or malaise Eyes: Denies: change in vision or blurry vision ENMT: Denies: nasal congestion Card: Reports: chest pain and dyspnea on exertion; Denies: palpitations, irregular heart rhythm, lightheadedness, syncope, pre- syncope or orthopnea Resp: Denies: dyspnea, productive cough, non-productive cough or wheezing GI: Denies: abdominal pain, nausea, vomiting, hematemesis, diarrhea, constipation, hematochezia or melena : Denies: flank pain, dysuria or urinary frequency Musc: Denies: neck pain or back pain Skin/Breast: Denies: rash Neuro: Denies: headache(s), dizziness or vertigo Psych: Denies: anxiety or depression Endo: Denies: polyuria or polydipsia Medications/Allergies Home Medications Medication Instructions Recorded Confirmed Last Taken Type bupropion HCl (smoking deter) 150 mg PO DAILY 12/26/19 04/14/20 04/14/20 History ibuprofen 200 mg PO Q6H PRN 12/26/19 04/14/20 12/26/19 History aspirin 81 mg tablet,delayed 81 mg PO DAILY 30 Days #30 tab 03/12/20 04/14/20 04/13/20 Rx release metoprolol tartrate 25 mg tablet 12.5 mg PO BID 30 Days #30 tab 03/12/20 04/14/20 04/14/20 Rx nitroglycerin 0.4 mg sublingual 0.4 mg SUBLINGUAL Q5M PRN 30 Days 03/12/20 04/14/20 Unknown Rx tablet #30 tab rosuvastatin 10 mg PO DAILY 04/14/20 04/14/20 04/13/20 History Allergies Allergy/AdvReac Type Severity Reaction Status Date / Time morphine Allergy ADR-Vomitin Verified 12/26/19 18:23 g PFSH Acute PFSH: Medical History Atypical chest pain The EKG from 12/26/2019 revealed normal sinus rhythm with some nonspecific T wave changes. Features of possible old inferior wall myocardial infarction. Normal OH and QRS duration. Dyslipidemia Smoking SOB (shortness of breath) Tobacco abuse Surgical History History of arthroscopic knee surgery Hx of cholecystectomy Family History Father CAD (coronary artery disease) Hyperlipidemia Hypertension Lung disease Other Cancer Stroke Social History Smoking and tobacco status: current every day smoker Alcohol intake: never Vitals/I&O/Wt Last Vital Signs Temp 97.9 F 04/14/20 12:16 Pulse 81 04/14/20 12:16 Resp 18 04/14/20 12:54 BP 106/72 04/14/20 12:16 Pulse Ox 98 04/14/20 12:54 Weight last 48 hrs Weight 78.471 kg Physical Exam Const: COMMON NORMALS: no acute distress and patient oriented x3 GENERAL APPEARANCE: cooperative and comfortable HENMT: COMMON NORMALS: normocephalic HEAD & SCALP: normocephalic Eye: COMMON NORMALS: Equal, round and reactive pupils present, EOMs intact bilaterally and no papilledema GENERAL EYE: appearance normal, both eyes and all related structures PUPIL: Yes Equal, round and reactive pupils present DIRECT OPHTHALMOSCOPY: Yes no papilledema Neck/C-Spine: COMMON NORMALS: full ROM, no lymphadenopathy, no JVD and Thyroid normal THYROID: Thyroid normal Lymph: LYMPHATIC: no lymphadenopathy noted Resp: COMMON NORMALS: normal respiratory effort, No retractions, No use of accessory muscles and clear to auscultation bilaterally AUSCULTATION: clear t o auscultation bilaterally Cardio: COMMON NORMALS: no JVD, regular rate, regular rhythm, S1 normal heart sound present, S2 normal heart sound present, No gallops present (Cardio), No clicks present (Cardio) and No murmurs present (Cardio) RATE: regular rate RHYTHM: regular rhythm HEART SOUNDS: S1 normal heart sound present and S2 normal heart sound present GI: COMMON NORMALS: Normal to inspection, nondistended, normoactive bowel sounds present, Soft to palpation, non-tender and No hepatosplenomegaly present PALPATION: Yes Soft to palpation and Yes No hepatosplenomegaly present Extremity: COMMON NORMALS: normal to inspection, full ROM and no pedal edema Neuro: COMMON NORMALS: patient oriented x3, CN's II-XII intact bilaterally, moves all extremities and no focal motor deficits Psych: COMMON NORMALS: mental status grossly normal, Normal thought process present and cooperative THOUGHT PROCESS: Normal thought process present Data : 04/14/20 12:50 04/14/20 12:50 A&P Assessment and plan (1) Chest pain: -Chest pain sounds cardiac in nature -Has extensive family history of CAD including both her parents, has a family history of sudden cardiac -EKG does show T wave inversions V1 V2 -Initial troponin 6 -She did have a cardiac stress test on March 04, 2020, which showed a small area of reversible defect in the apical inferior and left ventricular apex, suggestive of ischemia in the distribution of the right coronary artery -Patient also had a CT angiogram of her chest on December 26, 2019, no evidence of pulmonary embolism, aortic aneurysm, aortic dissection Plan: -Aspirin, statin, beta-jian -Nitroglycerin for pain -Continue telemetry monitoring -N.p.o. midnight, for a stress echocardiogram tomorrow morning -Dr. Robles on consult Status: Acute (2) SOB (shortness of breath): -Patient has greater than 19-maxp-yxwm history of smoking, likely has COPD -We will start her on albuterol inhaler as needed and Advair daily -CT angiogram of the chest on 12/26/2019 showed severe centrilobular emphysematous changes Status: Acute (3) Smoking: Advised of smoking cessation Status: Acute (4) Dyslipidemia: Status: Acute Attestations Medical Necessity Statement*: Patient requires hospitalization, outpatient, for chest pain Coding Level of Care Code Acute Division Controller for [facility] Diagnoses Chest pain R07.9 SOB (shortness of breath) R06.02 Smoking F17.200 Dyslipidemia E78.5
[2020-04-14 15:20] LABS: Troponin 5 2HR Delta 0 ABS# (0-10)
--- NOTE | 2020-04-14 15:22 | ECG_ITS ---
[facility] Test Date: 2020-04-14 Pat Name: Guillermina Mosquera Department: Room: 104 Gender: Female Family Sociologist: : 1965 Requested By: Talita Davison Order Number: [id number] Fawn MD: Lyndsay Wyatt M.D. Measurements Intervals [place] Rate: 60 P: 31 DC: 204 QRS: -5 QRSD: 89 T: 6 QT: 429 QTc: 431 Interpretive Statements SINUS RHYTHM LOW QRS VOLTAGE IN PRECORDIAL LEADS [QRS DEFLECTION < 1.0 mV IN CHEST LEADS] SEPTAL MYOCARDIAL INFARCTION , PROBABLY OLD [40+ ms Q WAVE IN V1/V2] INFERIOR MYOCARDIAL INFARCTION , PROBABLY OLD [40+ ms Q WAVE AND/OR ST/T ABNORMALITY IN II/aVF] Compared to ECG 04/14/2020 14:30:19 No significant changes Electronically Signed On 04-14-2020 18:26:30 CDT by Lyndsay Wyatt M.D. [id number]
--- NOTE | 2020-04-14 15:59 | USCV_ITS ---
Demetri Guillermina Age: 54 Gender: F : 1965 Exam Date: 04/14/2020 21:43 Ordering Phys: Johnson Reyes MD Technologist: Nando Genao Exam Location: [facility] [place] Indication: CHEST PAIN BP: 134 / 74 HR: 61 Rhythm: Sinus Technical Quality: Fair MEASUREMENTS (Male / Female) Normal Values 2D ECHO LVOT Diameter 2.1 cm LV Ejection Fraction MOD 2C 73.6 % LV Ejection Fraction 2C AL 73.3 % LA Diameter 4.9 cm LA Width 3.1 cm LA Height 5.6 cm RA Width 3.2 cm RA Height 5.0 cm Aorta at Sinotubular Diameter 3.0 cm M-MODE LV Diastolic Diameter MM 5.1 cm 4.2 - 5.9 / 3.9 - 5.3 cm LV Systolic Diameter MM 4.2 cm LV Ejection Fraction MM Teich 36.2 % IVS Diastolic Thickness MM 0.9 cm 0.6 - 1.0 / 0.6 - 0.9 cm IVS Systolic Thickness MM 1.4 cm LVPW Diastolic Thickness MM 0.9 cm 0.6 - 1.0 / 0.6 - 0.9 cm LVPW Systolic Thickness MM 1.5 cm RV Diastolic Diameter MM 1.4 cm Aortic Annulus Diameter 4.0 cm LA Ao Ratio MM 1.2 MV E Point Septal Separation 1.4 cm DOPPLER AV Peak Velocity 155.0 cm/s LVOT Peak Velocity 104.0 cm/s AV Area Cont Eq vti 2.6 cm squared AV Area Cont Eq pk 2.3 cm squared MV Area PHT 4.6 cm squared Mitral E to A Ratio 1.5 MV E' Velocity 11.0 cm/s Mitral E to MV E' Ratio 7.8 Mitral E to LV E' Lateral Ratio 9.6 Mitral E to LV E' Septal Ratio 6.6 TR Peak Velocity 182.0 cm/s TR Peak Gradient 13.2 mmHg TV Peak E Velocity 74.0 cm/s Right Atrial Pressure 3.0 mmHg Pulmonary Artery Systolic Pressu 16.2 mmHg FINDINGS Left Ventricle Normal left ventricular size and systolic function, EF 72 %. No regional wall motion abnormalities. Right Ventricle The right ventricle is normal in size and function. Right Atrium The right atrium is normal in size. Left Atrium The left atrium is normal in size. Mitral Valve Thickened mitral valve. Aortic Valve No gross abnormalities noted Tricuspid Valve No gross abnormalities noted Pulmonic Valve Structurally normal pulmonic valve without significant stenosis. There is no pulmonic regurgitation. Pericardium No pericardial effusion. Aorta Normal ascending aorta dimension. CONCLUSIONS Normal left ventricular size and systolic function, EF 72 %. No regional wall motion abnormalities. Thickened mitral valve. No significant stenotic or regurgitant lesions. Normal chamber sizes. No pericardial effusion. Technically somewhat difficult study because of the poor ultrasonic window. No previous study is available for comparison. Dr Taylor Robles MD FAC (Electronically Signed) Final Date: 15 April 2020 06:51 S
--- NOTE | 2020-04-14 16:30 | PC.NURSE ---
Patient denies the need for a password to be placed on her account at this time.
[2020-04-14 16:53] LABS: Estmated Average Glucose 108; Hemoglobin A1C 5.4 % (4.0-6.0)
[2020-04-14] MEDS: enoxaparin 40 mg/0.4 mL Syringe SUBCUT ×2 (17:11→22:19)
--- NOTE | 2020-04-14 17:11 | PC.NURSE ---
medication rounding delayed due to patient care
--- NOTE | 2020-04-14 17:38 | P.CONIM_ITS ---
Providers/Reason For Consult Consulting Physican/Specialty*: Myke Robles MD/cardiology Reason for Consult*: Patient with chest pain and abnormal myocardial perfusion imaging Attending Physician: Johnson Reyes MD Primary Care Provider: Sherrie Chen MD History of Present Illness History of Present Illness Guillermina Mosquera is a 54 year old female with a history of her smoking abuse and dyslipidemia, is admitted to hospital through the emergency room, where she presented with complaints of rather sudden onset of substernal chest pain. 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 All of a sudden, she started having pain in the upper substernal region, associate with the shortness of breath, nausea, sweating and dizziness. The intensity of the pain was 9/10. She has no other associated symptoms or radiation of pain. She took 1 sublingual nitro which brought down the intensity of the pain to 6/10. At that point, her employer called the ambulance. In the ambulance, she was given 3 more sublingual nitroglycerin and and a baby aspirin. Her's pain level came down to 2/10. She was given pain medications , GI cocktail and other symptomatic measures. The pain level came down to around 1/10 now. As of December of this year, patient has been having a more or less constant feeling of tightness in the chest with intermittent waxing and waning. She had more low similar presentation of the symptoms at that time. She was seen in the emergency room and had initial cardiac work-up which were negative. She subsequently had a myocardial perfusion imaging on 04 March and was found to have a small area of reversible defect in the distribution of the left circumflex artery. Further treatment options were discussed and it was decided to optimize her medical treatment. She denies any fever, chills or cough. Continues to smoke but lately is cutting back to 4 cigarettes a day. She has a 30 to 40 pack year history of smoking abuse. She has no previous history for any myocardial infarction, or congestive heart failure. She has been having shortness of breath with activities. She continues to smoke. No recent respiratory infections. Review of Systems Narrative: CONSTITUTIONAL: No fever or chills. EYES: No blurring of vision or other visual disturbances lately. ENT: No hoarseness of voice, auditory disturbances or sore throat. CARDIOVASCULAR: As mentioned above. RESPIRATORY: No significant cough. GASTROINTESTINAL: No hematemesis or melena. GENITOURINARY: No dysuria or hematuria. INTEGUMENTARY: No skin rashes or history of skin cancer. NEURO: No transient ischemic attacks or amaurosis. PSYCHIATRIC: No history of psychosis or major depression. HEMATOLOGIC: No bleeding disorders or significant anemia. ENDOCRINE: No history of polyuria or polydipsia. MUSCULOSKELETAL: No recent joint pain or swelling. ALLERGY/IMMUNOLOGY: As mentioned above. Meds/Allergies Home Medications and Allergies Home Medications Medication Instructions Recorded Confirmed Last Taken Type bupropion HCl (smoking deter) 150 mg PO DAILY 12/26/19 04/14/20 04/14/20 History ibuprofen 200 mg PO Q6H PRN 12/26/19 04/14/20 12/26/19 History aspirin 81 mg tablet,delayed 81 mg PO DAILY 30 Days #30 tab 03/12/20 04/14/20 04/13/20 Rx release metoprolol tartrate 25 mg tablet 12.5 mg PO BID 30 Days #30 tab 03/12/20 04/14/20 04/14/20 Rx nitroglycerin 0.4 mg sublingual 0.4 mg SUBLINGUAL Q5M PRN 30 Days 03/12/20 04/14/20 Unknown Rx tablet #30 tab rosuvastatin 10 mg PO DAILY 04/14/20 04/14/20 04/13/20 History Allergies Allergy/AdvReac Type Severity Reaction Status Date / Time morphine Allergy ADR-Vomitin Verified 12/26/19 18:23 g Current Medications Current Medications Generic Name Dose Route Start Last Admin Trade Name Freq PRN Reason Stop Dose Admin Enoxaparin Sodium 40 mg 04/14/20 15:59 04/14/20 17:11 Lovenox SUBCUT 40 mg Q24H BRIGITTE Administration PFSH Acute PFSH: Medical History Atypical chest pain The EKG from 12/26/2019 revealed normal sinus rhythm with some nonspecific T wave changes. Features of possible old inferior wall myocardial infarction. Normal [place] and QRS duration. Dyslipidemia Smoking SOB (shortness of breath) Tobacco abuse Surgical History History of arthroscopic knee surgery Hx of cholecystectomy Family History Father CAD (coronary artery disease) Hyperlipidemia Hypertension Lung disease Other Cancer Stroke Social History Smoking and tobacco status: current every day smoker Alcohol intake: never Vitals/I&O/Wt Last Vital Signs Temp 97.9 F 04/14/20 12:16 Pulse 61 04/14/20 16:12 Resp 16 04/14/20 16:12 BP 90/53 04/14/20 16:12 Pulse Ox 93 04/14/20 16:12 Weight last 48 hrs Weight 173 lb Physical Exam Narrative: EXAM NARRATIVE: GENERAL: The patient is alert and oriented times three. Not in any acute distress. HEENT: No significant pallor, icterus or lymphadenopathy. The pupils are reactant to light. Oral cavity: There are no mucous membrane lesions. Funduscopic examination: The disk margins appear to be sharp with no exudates or hemorrhages. NECK: Trachea appears to be central. No masses noted. No JVD or thyromegaly appreciated. No carotid bruit. RESPIRATORY: Chest is symmetrical. No intercostals muscle retraction or any accessory muscle activation. There is no chest wall tenderness. Breath sounds are heard bilaterally. No rales or rhonchi heard. No evidence of any consolidation. BREASTS: Deferred. HEART: The PMI is in the 5th left intercostals space just inside the midclavicular line. No palpable precordial events. S1 and S2 are normal. No S3 or S4 heard. No pericardial rub or any click heard. ABDOMEN: No vessel pulsations or distention. No tenderness. No organomegaly appreciated. No abdominal bruit. Bowel sounds are normally heard. : Deferred. RECTAL: Deferred. LYMPHATIC: No lymphadenopathy noted in the neck or groin. EXTREMITIES: No edema or cyanosis. No clubbing. The pulses are symmetrical bilaterally. The radial, femoral, dorsalis pedis and the posterior tibial pulses are palpated and found to be in good volume and amplitude. MUSCULOSKELETAL: No acute joint deformities or swelling SKIN: There are no significant scars or skin rash noted. NEUROPSYCHIATRIC: The patient is alert and oriented x3. Appears to be in a good mood. The higher functions are grossly within normal limits. No tremors or rigidity noted. Data Labs: Other Labs: Laboratory Last Values WBC 8.1 10^3/uL (4.0- 10.0) 04/14/20 12:50 RBC 4.32 10^6/uL (4.1 -5.3) 04/14/20 12:50 Hgb 13.1 g/dL (11.5-1 5.3) 04/14/20 12:50 Hct 40.9 % (37.0-47.0 ) 04/14/20 12:50 MCV 94.7 fL (81-99) 04/14/20 12:50 MCH 30.3 pg (28.0-34. 0) 04/14/20 12:50 MCHC 32.0 g/dL (30.0-3 6.0) 04/14/20 12:50 RDW 13.1 % (12.1-15.1 ) 04/14/20 12:50 Plt Count 280 10^3/cmm (130 -400) 04/14/20 12:50 MPV 11.6 fL (7.4-10.4 ) H 04/14/20 12:50 Neut % (Auto) 44.3 % 04/14/20 12:50 Lymph % (Auto) 46.0 % 04/14/20 12:50 [place] % (Auto) 5.8 % 04/14/20 12:50 Eos % (Auto) 2.5 % 04/14/20 12:50 Baso % (Auto) 1.0 % 04/14/20 12:50 Neut # (Auto) 3.6 10^3/uL (1.8- 7.7) 04/14/20 12:50 Lymph # (Auto) 3.7 10^3/uL (0.8- 4.8) 04/14/20 12:50 [place] # (Auto) 0.5 10^3/uL (0.2- 0.9) 04/14/20 12:50 Eos # (Auto) 0.2 10^3/uL (0.0- 0.8) 04/14/20 12:50 Baso # (Auto) 0.1 10^3/uL (0.0- 0.1) 04/14/20 12:50 Nucleated RBC % (a uto) 0 % 04/14/20 12:50 Nucleated RBCs # 0.0 /100WBC 04/14/20 12:50 PT 13.10 SECONDS (10 .5-13.3) 04/14/20 12:50 INR 0.96 (0.8-1.2) 04/14/20 12:50 D-Dimer <= 0.27 ug/mIFEU (0-0.59) 04/14/20 12:50 Sodium 141 mmol/L (136-1 45) 04/14/20 12:50 Potassium 3.5 mmol/L (3.5-5 .1) 04/14/20 12:50 Chloride 106 mmol/L (98-10 7) 04/14/20 12:50 Carbon Dioxide 22 mmol/L (22-29) 04/14/20 12:50 Anion Gap 16.5 (5-19) 04/14/20 12:50 BUN 9 mg/dL (6-20) 04/14/20 12:50 Creatinine 0.5 mg/dL (0.5-0. 9) 04/14/20 12:50 GFR Calculation 129.1 mL/min (90- 130) 04/14/20 12:50 Glucose 90 mg/dL (65-115) 04/14/20 12:50 Estimat Average Gl ucose 108 04/14/20 12:50 Hemoglobin A1c 5.4 % (4.0-6.0) 04/14/20 12:50 Calculated Osmolal ity 288 mOsm/kg (285- 295) 04/14/20 12:50 Calcium 9.0 mg/dL (8.5-10 .5) 04/14/20 12:50 Magnesium 2.1 mg/dL (1.7-2. 3) 04/14/20 12:50 Total Bilirubin 0.2 mg/dL (0.15-1 .2) 04/14/20 12:50 AST 12 U/L (0-32) 04/14/20 12:50 ALT 11 U/L (0-33) 04/14/20 12:50 Alkaline Phosphata se 71 IU/L (35-105) 04/14/20 12:50 Troponin T Baselin e 6 ng/L (0-10) 04/14/20 12:50 Troponin T 120 Min [place] 6.00 ng/L (0-10) 04/14/20 14:51 Delta Troponin T 0 ABS# (0-10) 04/14/20 14:51 NT-Pro-B Natriuret Pep 55 pg/mL (0-125) 04/14/20 12:50 Total Protein 6.9 g/dL (6.6-8.7 ) 04/14/20 12:50 Albumin 3.9 g/dL (3.5-5.2 ) 04/14/20 12:50 Globulin 3.0 g/dL (1.3-4.6 ) 04/14/20 12:50 Lipase 20 U/L (13-60) 04/14/20 12:50 Urine Color Yellow (Yellow) 04/14/20 12:50 Urine Appearance Cloudy (CLEAR) 04/14/20 12:50 Urine pH 6.5 (5-7) 04/14/20 12:50 Ur Specific Gravit y 1.010 (1.005-1.0 30) 04/14/20 12:50 Urine Protein Neg (Negative) 04/14/20 12:50 Urine Glucose (UA) Norm (Normal) 04/14/20 12:50 Urine Ketones Negative (Negati ve) 04/14/20 12:50 Urine Blood Neg (Negative) 04/14/20 12:50 Urine Nitrate Negative (Negati ve) 04/14/20 12:50 Urine Bilirubin Neg (NEGATIVE) 04/14/20 12:50 Urine Urobilinogen Neg mg/dL (Negati ve) 04/14/20 12:50 Ur Leukocyte [place] Negative (Negati ve) 04/14/20 12:50 Urine RBC None /hpf (0-2) 04/14/20 12:50 Urine WBC 0-4 /hpf (0-5) H 04/14/20 12:50 Ur Squamous Epith Cells 0-4 (0-5) H 04/14/20 12:50 Amorphous Sediment 1+ 04/14/20 12:50 Urine Bacteria 3+ (NONE) H 04/14/20 12:50 Imaging^: CXR: My impression: The chest x-ray from 04/14/2020 revealed normal cardiac silhouette with no lung infiltrate. No acute pathology noted. Myocardial perfusion imaging: My impression: 03/04/2020 1. Myocardial perfusion imaging revealing a small area of reversible defect in the apical inferior and LV apex, suggestive of ischemia in the distribution of the right coronary artery. 2. Normal LV ejection fraction 79%. 3. LV wall motion analysis revealing no gross wall motion abnormalities. 4. Normal LV volume. EKG^: EKG 1: My Interpretation: The EKG revealed normal sinus rhythm with nonspecific T wave changes in the anterior leads. Low voltage complexes in the precordial leads. Possible old inferior wall myocardial infarction with posterior extension A&P Assessment and plan (1) Unstable angina: Patient's chest pain symptoms may suggest an unstable angina. Her EKGs are nonspecific. In view of her risk factors and abnormal myocardial perfusion imaging, possibility of her having underlying coronary disease causing this is a strong consideration. Myocardial infarction will be ruled out with serial enzymes and EKGs. Patient may be treated with subcu Lovenox, beta-jian, aspirin and statin. Echocardiogram will be helpful to evaluate LV function and rule out any other pathology. Status: Acute (2) Dyslipidemia: Patient may be continued on the current dose of the rosuvastatin. Status: Acute (3) Smoking: Patient is strongly advised to quit smoking. The cardiovascular implications were discussed. Status: Acute (4) SOB (shortness of breath): This could be multifactorial. Ongoing smoking abuse, coronary ischemia, etc. are contributing factors. Status: Acute Additional A&P Information After reviewing the above and also based on the patient clinical progress, further recommendations will be made. For further evaluation of the symptoms, it would be appropriate to go ahead and do a cardiac authorization. The risk of bleeding, hematoma, vascular injury, myocardial infarction, CVA, renal failure and other concomitant complications were explained in detail. Patient understood this well and consented to proceed. We may go ahead and made arrangements to have the angiogram done tomorrow, unless echocardiogram shows something different Coding Level of Care Code Acute Multiple Coil Winder for g Fwd History Detailed Exam Detailed Medical Decision Making High Complexity Diagnoses Unstable angina I20.0 Dyslipidemia E78.5 Smoking F17.200 SOB (shortness of breath) R06.02
--- NOTE | 2020-04-14 18:16 | ECG_ITS ---
[facility] ED Test Date: 2020-04-14 Pat Name: Guillermina Mosquera Department: Room: 104 Gender: Female [employer]: : 1965 Requested By: Talita Davison Order Number: [id number] Fawn MD: Lyndsay Wyatt M.D. Measurements Intervals [place] Rate: 67 P: 28 IA: 211 QRS: -9 QRSD: 93 T: 7 QT: 408 QTc: 431 Interpretive Statements SINUS RHYTHM WITH FIRST DEGREE AV BLOCK LOW QRS VOLTAGE IN PRECORDIAL LEADS [QRS DEFLECTION < 1.0 mV IN CHEST LEADS] NON SPECIFIC T WAVE ABNORMALITY Compared to ECG 04/14/2020 15:35:20 First degree AV block now present Myocardial infarct finding no longer present Electronically Signed On 04-14-2020 18:33:08 CDT by Lyndsay Wyatt M.D. [id number]
--- NOTE | 2020-04-14 19:25 | PC.NURSE ---
Patient c/o headache and chest pain 03/02. Informed Dr Reyes and received orders for Tylenol 650mg PO every 4 hours and an order for Morphine 1mg IVP every 4 hour both as needed. Patient refused to take Morphine stating it makes me sick and nauseous . Informed Dr Mauricio that patient refused the morphine. No other order received.
[2020-04-14] MEDS: acetaminophen 325 mg Tablet 650 MG PO ×2 (19:28→23:26)
--- NOTE | 2020-04-14 19:38 | PC.NURSE ---
Received bedside report from Liv Oden RN. Patient lying in bed. C/o headache and chest pain which Dr Reyes was notified. l See previous RN note. Assessment completed as documented.
[2020-04-14 19:43] LABS: Troponin 5 6HR Delta 0 ng/L (0-12)
--- NOTE | 2020-04-14 21:50 | PC.NURSE ---
Received call from Dr Robles verifying need for Lovenox. Reported to Dr Robles that patient was given Lovenox 40mg SQ at 1711. Dr requested one additional dose of Lovenox 40mg SQ to be given now and then start Lovenox 80mg SQ every 12 hours to begin on 04/15/20 at 0900.
--- NOTE | 2020-04-14 23:31 | PC.NURSE ---
Obtanined consent for Left Heart Catheterization scheduled for 04/15/20. Patient has been prepped for procedure as well. Patient expressed understanding of expectations during procedure. Patient stated, I have all the li in Dr Robles. I really like him. He has been my 's doctor for a while .
[2020-04-15] VITALS (62 sets, daily range): BP systolic 93–125; BP diastolic 56–83; PULSE 57–92; RESP 16–21; TEMP 36.6–37.6; O2SAT 91–96
[2020-04-15 04:47] LABS: Basophils # 0.1 10^3/uL (0.0-0.1); Basophils % 0.6 %; Eosinophils # 0.2 10^3/uL (0.0-0.8); Eosinophils % 1.6 %; Hematocrit 36.7 % (37.0-47.0); Hemoglobin 11.9 g/dL (11.5-15.3); Lymphocytes # 4.2 10^3/uL (0.8-4.8); Lymphocytes % 35.5 %; Mean Corpuscular HGB Conc 32.4 g/dL (30.0-36.0); Mean Corpuscular Hemoglobin 30.4 pg (28.0-34.0); Mean Corpuscular Volume 93.6 fL (81-99); Mean Platelet Volume 11.6 fL (7.4-10.4); Monocytes # 0.6 10^3/uL (0.2-0.9); Neutrophils # 6.7 10^3/uL (1.8-7.7); Nucleated Red Blood Cells % 0 %; Platelet Count 266 10^3/cmm (130-400); Red Blood Count 3.92 10^6/uL (4.1-5.3); Red Cell Distribution Width 13.3 % (12.1-15.1); White Blood Count 11.8 10^3/uL (4.0-10.0)
[2020-04-15 05:04] LABS: Alanine Aminotransferase 9 U/L (0-33); Albumin Level 3.6 g/dL (3.5-5.2); Alkaline Phosphatase 65 IU/L (35-105); Anion Gap 14.6 (5-19); Aspartate Amino Transferase 10 U/L (0-32); Blood Urea Nitrogen 13 mg/dL (6-20); Carbon Dioxide 23 mmol/L (22-29); Chloride 108 mmol/L (98-107); Globulin 2.5 g/dL (1.3-4.6); Glucose 88 mg/dL (65-115); Osmolality Calculated 290 mOsm/kg (285-295); Phosphorus 3.9 mg/dL (2.5-4.5); Potassium 3.6 mmol/L (3.5-5.1); Sodium 142 mmol/L (136-145); Total Bilirubin 0.4 mg/dL (0.15-1.2); Total Protein 6.1 g/dL (6.6-8.7)
[2020-04-15 05:13] LABS: Chol HDL Ratio 3.87 mg/dL (0.0-4.40); Cholesterol 151 mg/dL (0-200); HDL Cholesterol 39 mg/dL (60-100); LDL Cholesterol Calculated 90 mg/dL (50-129); LDL HDL Ratio 2.31 RATIO (0.00-3.22); Triglycerides 112 mg/dL (0-150)
[2020-04-15] MEDS: diphenhydrAMINE 50 mg Capsule PO (05:58)
[2020-04-15] MEDS: sodium chloride 0.9% 1,000 ML 50 ML IV (05:59)
--- NOTE | 2020-04-15 07:00 | XACV_ITS ---
Exam Room: [facility] Ht: 165 cm Wt: 78 kg BSA: 1.92 m2 Gender: Female : 1965 Any Known Allergies: Morphine Exam Priority: Routine Procedure(s): Procedure Description: Diagnostic procedure Procedure Description: PCI procedure Procedure Description: Left Heart Catheterization Procedure Description: Left ventriculography Procedure Description: Drug Eluting Coronary Stent Procedure Description: PTCA Procedure Description: Coronary Angiography Diagnostic Cath Status: Elective Diagnostic Findings LM has 0% stenosis. LAD has 0% stenosis. CX has 0% stenosis. Mid Right Coronary Artery: Severe 90% stenosis, 12.00 mm in length, minimally calcified, eccentric plaque, minimal proximal segment tortuosity, moderately angulated segment, KIKI: 3 flow, non-high/c lesion. Mid Right Coronary Artery: has lesion. Coronary angiography shows right dominance. The left main is a medium caliber vessel with no significant stenotic lesion. The left anterior descending artery is a medium caliber vessel which appears to wrap around the LV apex minimally. Right after the first diagonal branch, there is a 40% narrowing in the mid LAD. Intimal irregularities were noted throughout the mid LAD. The left circumflex artery circumflex are dominant vessel which was found to have no significant stenotic lesions. The right coronary artery is a medium caliber vessel, codominant vessel which appears to bifurcates to the PDA and PLV branch right after the first RV branch. PDA branch was found to have a high-grade stenosis of around 90% in the proximal segment. The PLV branch appears to be of a small caliber vessel. PCI Status: Elective PCI LVEF Assessed: Yes PCI Indication: NSTE - ACS Interventional Findings The right coronary artery is a codominant vessel with a 99% stenosis at the acute margin. The stent would not pass without predilatation. Angioplasty was performed followed by a 2.5 mm x 15 mm stent placement without incident. Decision for PCI with Surgical Consult: No PCI for Multi-vessel Disease: No Conclusions This is a 54-year-old white female with history of high cholesterol and smoking abuse, presenting with recurrent episodes of chest pain. Her clinical features are consistent with unstable angina. For further evaluation of her coronary status, a cardiac catheterization was recommended. She had a myocardial perfusion imaging, few months ago which revealed a small area of ischemia in the apical lateral segment. Patient underwent left heart catheterization with a left and right coronary angiogram and LV angiogram today. The findings are as follows. High-grade lesion in the proximal segment of the PDA branch of the right coronary artery, a codominant vessel. Mild diffuse disease in the other vessels. LV ejection fraction 55%. LVEDP of 13 mmHg. Based on the angiogram findings and the patient's clinical presentation, PCI of the RCA lesion was thought to be appropriate. I discussed and reviewed the cardiac catheterization data with Dr. Blanco. Who agreed with this plan and took over further management of this patient at this point. Recommendations Continue current medical management and risk factor modification. Diagnostic RX Recommendation: PCI w/o planned CABG Ejection Fraction: 55.0 % LV EDP: 13 mmHg Left Ventriculography Findings: LV gram was performed the VALDEZ position. There was mild hypokinesia of the LV apex. No significant mitral valve prolapse or mitral regurgitation. No filling defects were noted. Pressures Phase:Rest AO : 110 mmHg / 66 mmHg ( 85 mmHg ) @ 2:49:00 AM 109 mmHg / 65 mmHg ( 84 mmHg ) @ 2:49:00 AM 109 mmHg / 63 mmHg ( 83 mmHg ) @ 2:50:00 AM 119 mmHg / 64 mmHg ( 86 mmHg ) @ 3:05:00 AM 117 mmHg / 62 mmHg ( 85 mmHg ) @ 3:05:00 AM 91 mmHg / 64 mmHg ( 77 mmHg ) @ 3:26:00 AM 90 mmHg / 72 mmHg ( 81 mmHg ) @ 3:36:00 AM LV : 103 mmHg / 4 mmHg / @ 2:49:00 AM 104 mmHg / 3 mmHg / @ 2:49:00 AM 117 mmHg / -7 mmHg / @ 3:02:00 AM 121 mmHg / -11 mmHg / @ 3:03:00 AM 113 mmHg / 0 mmHg / @ 3:04:00 AM 110 mmHg / 0 mmHg / @ 3:05:00 AM Valves Phase:DefaultPhase AV : 0.0 mmHg @ 8:43:39 AM 0.0 mmHg @ 1:34:33 PM 0.0 mmHg @ 1:34:54 PM 0.0 mmHg @ 1:34:54 PM AV Mean Gradient: 0.0 mmHg @ 8:43:39 AM 0.0 mmHg @ 1:34:33 PM 0.0 mmHg @ 1:34:54 PM 0.0 mmHg @ 1:34:54 PM Clinical Evaluation EBL: 5mL-10mL Procedural Details Procedure Consent Obtained. Current Diagnosis : Chest Pain. Pre-Procedure Time Out. Identified patient by full name and date of as verbalized by the patient/guarantor. Does the consent match the physician's order: Yes. Accurate & Complete Informed Consent: Yes. Inpatient/Outpatient History & Physical on Chart: Yes. If H&P is completed, is and addenduem needed: No; If yes, is the addendum complete: N/A. Visualize and Verify Site with Patient/Guarantor: N/A. Relevant Radiology Images available: Yes. Pre-op teaching completed and patient verbalized understanding. The risks, benefits, and alternatives of sedation and/or procedure were discussed by physician. The patient agrees to continue. Procedure started. [facility] Clinical Fraility Score: 3: Managing Well. Accounting Manager Indications: Suspected CAD. Chest Pain Symptom Assessment: Typical Angina Symptoms. Correct patient, site and procedure confirmed by cath team. Current diagnosis: Chest Pain. PERRLA. 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 Lungs clear x 5 lobes. IV Site on Arrival: 18 gauge in the left anticubital. IV Fluids: 0.9% NaCl at KVO. 0 mL infused prior to [employer]. Pre Procedural Pulses: bilateral dorsalis pedis was 2+. Pre Procedural Pulses: bilateral posterior tibial was 2+. Pre Procedural Pulses: bilateral radial was 2+. Oxygen started at 2liters/min via nasal canula. right groin was prepped with chloroprep then draped in the usual sterile fashion. right radial was prepped with chloroprep then draped in the usual sterile fashion. Physician notified. Dr. Robles will update family by phone after the procedure. Physician arrived. Baseline sample Acquired. HR: 75 BPM. Physician scrubbed in. Immediate Pre-Procedure Time Out. Correct Patient: Yes; Correct Procedure: Yes; Correct Site: Yes; Correct Patient Position: Yes; Correct Supplies: Yes; Dried Flammable Prep: Yes; Blood Products Available: N/A;. Lidocaine 1% infiltrated to the right radial. Arterial access obtained. A 5 nigerian Praneeth catheter in over wire. Catheter removed over the exchange wire. Catheter removed over the exchange wire. TR band placed. Hemostasis obtained. A TR Band was successful obtaining hemostatsis at the Right Radial artery insertion site. Lidocaine 1% infiltrated to the right groin. Arterial access obtained with micropuncture set. A 5 nigerian JL4 catheter in over wire. EDP Sample taken: LV 103/4,13; HR: 72 BPM; SpO2: 97%. Pullback taken: LV 104/3,14; AO 110/66(85); Mean: 0mmHg, Peak to Peak: 0mmHg, SEP: 5sec/min; HR: 74 BPM; SpO2: 97%. Multiple views taken of left coronary artery. Catheter removed over the exchange wire. A 5 nigerian JR4 catheter in over wire. Multiple views taken of right coronary artery. Catheter removed over the standard wire. A 5 nigerian Angled Pig catheter in over wire. Dr. Blanco called to review films. EDP Sample taken: LV 117/-8,16; HR: 77 BPM; SpO2: 98%. EDP Sample taken: LV 121/-12,14; HR: 74 BPM; SpO2: 98%. LV gram performed in VALDEZ @ 10 mL/second for a total of 30 mL. EDP Sample taken: LV 113/0,12; HR: 75 BPM; SpO2: 98%. Pullback taken: LV 110/0,11; AO 119/64(86); Mean: 0mmHg, Peak to Peak: 0mmHg, SEP: 4sec/min; HR: 72 BPM; SpO2: 98%. Catheter removed over the standard wire. Dr. Robles scrubbed out. Dr. Blanco arrived. Dr. Blanco scrubbed in to perform intervention. Patient's family updated. Sheath upsized to a 6 Fr. 6 nigerian JR 4 guide catheter was inserted over the wire. Plaza guidewire was advanced through the guide catheter to lesion in the mid RCA. 2.5x15 Russell stent inserted and advanced OTW. Intact stent out OTW. Inflation number : 1 A AB TREK 2.50X12 RX BALLOON was prepped and advanced across the Mid RCA , then inflated to 10 KOKO for 0:30 seconds. Balloon out. Inflation Number : 2 A MDT R NARCISO 2.5X15 HAIM -Lot Number# _[id number] Exp. 09/30/2021 was prepped and advanced across the Mid RCA. The stent was deployed at 12 KOKO for 0:46 seconds. Stent balloon and wire out. Guide catheter out. Sheath(s) sutured into position with 2-0 silk and sterile 4x4's and Op-site applied over the site. No oozing or signs and symptoms of hematoma noted. Arterial sheath flushed and connected to tranducer and pressure bag with heparinized saline. Post Procedure: Pulses reassessed and unchanged. PERRLA. 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 No VTE prophylaxis required. Medication's Wasted: Heparin = 1000 units. Medication's Wasted: Lidocaine 1% = 2 mL. Medication's Wasted: Nitro = 49.5 mcg. Medication's Wasted: Other = Fentanyl 50 mg. Total IV fluids: 300 mL. Contrast type used: Visipaque 320 mgI/mL, 500 mL bottle. PCI Indication: New Onset Angina. Post-op diagnosis: CAD. Complications: None. Estimated blood loss: 5mL-10mL. Procedure completed. Patient transferred by bed to 1st floor. A Suture was successful obtaining hemostatsis at the Right Femoral artery insertion site. Vital chart was stopped. Procedure Consent Obtained. Current Diagnosis : Chest Pain. Pre-Procedure Time Out. Identified patient by full name and date of as verbalized by the patient/guarantor. Does the consent match the physician's order: Yes. Accurate & Complete Informed Consent: Yes. Inpatient/Outpatient History & Physical on Chart: Yes. If H&P is completed, is and addenduem needed: No; If yes, is the addendum complete: N/A. Visualize and Verify Site with Patient/Guarantor: N/A. Relevant Radiology Images available: Yes. Pre-op teaching completed and patient verbalized understanding. The risks, benefits, and alternatives of sedation and/or procedure were discussed by physician. The patient agrees to continue. Procedure started. [facility] Clinical Fraility Score: 3: Managing Well. Accounting Manager Indications: Suspected CAD. Chest Pain Symptom Assessment: Typical Angina Symptoms. Correct patient, site and procedure confirmed by cath team. Current diagnosis: Chest Pain. PERRLA. 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 Lungs clear x 5 lobes. IV Site on Arrival: 18 gauge in the left anticubital. IV Fluids: 0.9% NaCl at KVO. 0 mL infused prior to [employer]. Pre Procedural Pulses: bilateral dorsalis pedis was 2+. Pre Procedural Pulses: bilateral posterior tibial was 2+. Pre Procedural Pulses: bilateral radial was 2+. Oxygen started at 2liters/min via nasal canula. right groin was prepped with chloroprep then draped in the usual sterile fashion. right radial was prepped with chloroprep then draped in the usual sterile fashion. Physician notified. Dr. Robles will update family by phone after the procedure. Physician arrived. Baseline sample Acquired. HR: 75 BPM. Physician scrubbed in. Immediate Pre-Procedure Time Out. Correct Patient: Yes; Correct Procedure: Yes; Correct Site: Yes; Correct Patient Position: Yes; Correct Supplies: Yes; Dried Flammable Prep: Yes; Blood Products Available: N/A;. Lidocaine 1% infiltrated to the right radial. Arterial access obtained. A 5 nigerian Praneeth catheter in over wire. Catheter removed over the exchange wire. A 5Fr Tig catheter inserted OTW. Catheter removed over the exchange wire. TR band placed. Hemostasis obtained. A TR Band was successful obtaining hemostatsis at the Right Radial artery insertion site. Lidocaine 1% infiltrated to the right groin. Arterial access obtained with micropuncture set. A 5 nigerian JL4 catheter in over wire. EDP Sample taken: LV 103/4,13; HR: 72 BPM; SpO2: 97%. Pullback taken: LV 104/3,14; AO 110/66(85); Mean: 0mmHg, Peak to Peak: 0mmHg, SEP: 5sec/min; HR: 74 BPM; SpO2: 97%. Multiple views taken of left coronary artery. Catheter removed over the exchange wire. A 5 nigerian JR4 catheter in over wire. Multiple views taken of right coronary artery. Catheter removed over the standard wire. A 5 nigerian Angled Pig catheter in over wire. Dr. Blanco called to review films. EDP Sample taken: LV 117/-8,16; HR: 77 BPM; SpO2: 98%. EDP Sample taken: LV 121/-12,14; HR: 74 BPM; SpO2: 98%. LV gram performed in VALDEZ @ 10 mL/second for a total of 30 mL. EDP Sample taken: LV 113/0,12; HR: 75 BPM; SpO2: 98%. Pullback taken: LV 110/0,11; AO 119/64(86); Mean: 0mmHg, Peak to Peak: 0mmHg, SEP: 4sec/min; HR: 72 BPM; SpO2: 98%. Catheter removed over the standard wire. Dr. Robles scrubbed out. Dr. Blanco arrived. Dr. Blanco scrubbed in to perform intervention. Patient's family updated. Sheath upsized to a 6 Fr. 6 nigerian JR 4 guide catheter was inserted over the wire. Plaza guidewire was advanced through the guide catheter to lesion in the mid RCA. 2.5x15 Russell stent inserted and advanced OTW. Intact stent out OTW. Inflation number : 1 A AB TREK 2.50X12 RX BALLOON was prepped and advanced across the Mid RCA , then inflated to 10 KOKO for 0:30 seconds. Balloon out. Inflation Number : 2 Ramirez Angela NARCISO 2.5X15 HAIM -Lot Number# _[id number] Exp. 09/30/2021 was prepped and advanced across the Mid RCA. The stent was deployed at 12 KOKO for 0:46 seconds. Stent balloon and wire out. Guide catheter out. Sheath(s) sutured into position with 2-0 silk and sterile 4x4's and Op-site applied over the site. No oozing or signs and symptoms of hematoma noted. Arterial sheath flushed and connected to tranducer and pressure bag with heparinized saline. Post Procedure: Pulses reassessed and unchanged. PERRLA. 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 No VTE prophylaxis required. Medication's Wasted: Heparin = 1000 units. Medication's Wasted: Lidocaine 1% = 2 mL. Medication's Wasted: Nitro = 49.5 mcg. Medication's Wasted: Other = Fentanyl 50 mg. Total IV fluids: 300 mL. Contrast type used: Visipaque 320 mgI/mL, 500 mL bottle. PCI Indication: New Onset Angina. Post-op diagnosis: CAD. Complications: None. Estimated blood loss: 5mL-10mL. Procedure completed. Patient transferred by bed to 1st floor. A Suture was successful obtaining hemostatsis at the Right Femoral artery insertion site. Vital chart was stopped. Procedure Consent Obtained. Current Diagnosis : Chest Pain. Pre-Procedure Time Out. Identified patient by full name and date of as verbalized by the patient/guarantor. Does the consent match the physician's order: Yes. Accurate & Complete Informed Consent: Yes. Inpatient/Outpatient History & Physical on Chart: Yes. If H&P is completed, is and addenduem needed: No; If yes, is the addendum complete: N/A. Visualize and Verify Site with Patient/Guarantor: N/A. Relevant Radiology Images available: Yes. Pre-op teaching completed and patient verbalized understanding. The risks, benefits, and alternatives of sedation and/or procedure were discussed by physician. The patient agrees to continue. Procedure started. [facility] Clinical Fraility Score: 3: Managing Well. Accounting Manager Indications: Suspected CAD. Chest Pain Symptom Assessment: Typical Angina Symptoms. Correct patient, site and procedure confirmed by cath team. Current diagnosis: Chest Pain. PERRLA. 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 Lungs clear x 5 lobes. IV Site on Arrival: 18 gauge in the left anticubital. IV Fluids: 0.9% NaCl at KVO. 0 mL infused prior to [employer]. Pre Procedural Pulses: bilateral dorsalis pedis was 2+. Pre Procedural Pulses: bilateral posterior tibial was 2+. Pre Procedural Pulses: bilateral radial was 2+. Oxygen started at 2liters/min via nasal canula. right groin was prepped with chloroprep then draped in the usual sterile fashion. right radial was prepped with chloroprep then draped in the usual sterile fashion. Physician notified. Dr. Robles will update family by phone after the procedure. Physician arrived. Baseline sample Acquired. HR: 75 BPM. Physician scrubbed in. Immediate Pre-Procedure Time Out. Correct Patient: Yes; Correct Procedure: Yes; Correct Site: Yes; Correct Patient Position: Yes; Correct Supplies: Yes; Dried Flammable Prep: Yes; Blood Products Available: N/A;. Lidocaine 1% infiltrated to the right radial. Arterial access obtained. A 5 nigerian Praneeth catheter in over wire. Catheter removed over the exchange wire. A 5Fr Tig catheter inserted OTW. Catheter removed over the exchange wire. TR band placed. Hemostasis obtained. A TR Band was successful obtaining hemostatsis at the Right Radial artery insertion site. Lidocaine 1% infiltrated to the right groin. Arterial access obtained with micropuncture set. A 5 nigerian JL4 catheter in over wire. EDP Sample taken: LV 103/4,13; HR: 72 BPM; SpO2: 97%. Pullback taken: LV 104/3,14; AO 110/66(85); Mean: 0mmHg, Peak to Peak: 0mmHg, SEP: 5sec/min; HR: 74 BPM; SpO2: 97%. Multiple views taken of left coronary artery. Catheter removed over the exchange wire. A 5 nigerian JR4 catheter in over wire. Multiple views taken of right coronary artery. Catheter removed over the standard wire. A 5 nigerian Angled Pig catheter in over wire. Dr. Blanco called to review films. EDP Sample taken: LV 117/-8,16; HR: 77 BPM; SpO2: 98%. EDP Sample taken: LV 121/-12,14; HR: 74 BPM; SpO2: 98%. LV gram performed in VALDEZ @ 10 mL/second for a total of 30 mL. EDP Sample taken: LV 113/0,12; HR: 75 BPM; SpO2: 98%. Pullback taken: LV 110/0,11; AO 119/64(86); Mean: 0mmHg, Peak to Peak: 0mmHg, SEP: 4sec/min; HR: 72 BPM; SpO2: 98%. Catheter removed over the standard wire. Dr. Robles scrubbed out. Dr. Blanco arrived. Dr. Blanco scrubbed in to perform intervention. Patient's family updated. Sheath upsized to a 6 Fr. 6 nigerian JR 4 guide catheter was inserted over the wire. Plaza guidewire was advanced through the guide catheter to lesion in the mid RCA. 2.5x15 Narciso stent inserted and advanced OTW. Intact stent out OTW. Inflation number : 1 A AB TREK 2.50X12 RX BALLOON was prepped and advanced across the Mid RCA , then inflated to 10 KOKO for 0:30 seconds. Balloon out. Inflation Number : 2 A PATRICE Angela NARCISO 2.5X15 HAIM -Lot Number# _[id number] Exp. 09/30/2021 was prepped and advanced across the Mid RCA. The stent was deployed at 12 KOKO for 0:46 seconds. Stent balloon and wire out. Guide catheter out. Sheath(s) sutured into position with 2-0 silk and sterile 4x4's and Op-site applied over the site. No oozing or signs and symptoms of hematoma noted. Arterial sheath flushed and connected to tranducer and pressure bag with heparinized saline. Post Procedure: Pulses reassessed and unchanged. PERRLA. 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 No VTE prophylaxis required. Medication's Wasted: Heparin = 1000 units. Medication's Wasted: Lidocaine 1% = 2 mL. Medication's Wasted: Nitro = 49.5 mcg. Medication's Wasted: Other = Fentanyl 50 mg. Total IV fluids: 300 mL. Contrast type used: Visipaque 320 mgI/mL, 500 mL bottle. PCI Indication: New Onset Angina. Post-op diagnosis: CAD. Complications: None. Estimated blood loss: 5mL-10mL. Procedure completed. Patient transferred by bed to 1st floor. A Suture was successful obtaining hemostatsis at the Right Femoral artery insertion site. Vital chart was stopped. Site: Right Radial artery Sheath Size: 6 Fr Hemostasis Method: TR Band Hemostasis Success: Successful Site: Right Femoral artery Sheath Size: 5 Fr Hemostasis Method: Suture Hemostasis Success: Successful Complication Findings: No complications occurred during the procedure. Intra/Post-Procedure Events Stroke - Undetermined: No Cardiac Arrest: No Procedure Medications Start: 7:16 AM Stop: 7:16 AM Medication: Versed Amount: 1 mg Route: I.V. Start: 7:21 AM Stop: 7:21 AM Medication: Nitrogylcerin Amount: 50 mcg Start: 7:25 AM Stop: 7:25 AM Medication: 0.9% Saline Amount: 250 ml Route: I.V. bolus Start: 7:25 AM Stop: 7:25 AM Medication: Verapamil Amount: 5 mg Route: I.A. Start: 7:25 AM Stop: 7:25 AM Medication: Nitrogylcerin Amount: 200 mcg Route: I.A. Start: 7:29 AM Stop: 7:29 AM Medication: Heparin Amount: 5000 units Route: I.V. Start: 7:43 AM Stop: 7:43 AM Medication: Versed 1 mg and Fentanyl 25 mcg Amount: 1 Route: I.V. Start: 7:44 AM Stop: 7:44 AM Medication: Versed 1 mg and Fentanyl 25 mcg Amount: 1 Route: I.V. Start: 8:37 AM Stop: 8:37 AM Medication: Plavix Amount: 600 mg Route: P.O. I, the attending physician, have reviewed and verified all procedure medications. Yes, all medications given per verbal order History/Risk Factors Hypertension: No Dyslipidemia: Yes Peripheral Arterial Disease (PAD): No Myocardial Infarction ([place]): No Obesity: No Renal Disease: No Tobacco Use: Current/Recent(w/in 1 year) Prior Interventions PCI: No CABG: No Valve Surgery: No Report Signatures Diagnostic Workflow - Finalized by:Dr Taylor Robles MD [facility] on 04/16/2020 10:10:55 AM Interventional Workflow - Finalized by: Dr. Polo Blanco MD on 04/15/2020 8:53:15 AM
--- NOTE | 2020-04-15 07:01 | W.PM.OPSUD ---
Surgery/Procedure H&P Update DATE OF PROCEDURE: April 15, 2020 DATE H&P PERFORMED: 04/14/20 H&P UPDATE INFORMATION: I have reviewed H&P completed within last 30 days, I have examined patient prior to procedure and No changes to prior documentation PREOP DIAGNOSIS: Unstable angina PLANNED PROCEDURE: Operation Date: 04/15/20 07:00 Proposed Procedures p Cardiac Catheterization(Not Applicable) - Taylor Robles MD PATIENT REASSESSED PRIOR TO SEDATION, WITH NO CHANGE NOTED: Yes PHYSICAL EXAM: alert, oriented x 3, clear to auscultation bilaterally and regular rate & rhythm AIRWAY EVAL/ANESTHESIA PLAN: normal airway, ASA III, Monitored Anesthesia, Local Anesthesia, Risks, benefits & alternatives of sedation and/or procedure discussed and Patient agrees to continue as planned
--- NOTE | 2020-04-15 07:02 | PM.PN ---
Subjective Subjective: Interval history: Patient continues to have chest pain through the night. Her vital signs remained stable. No significant arrhythmias are noted on the monitor. Denies any fever, chills or cough. No other specific complaints. Medications: Reviewed: Yes Medication Review Details: Current Medications Acetaminophen (Tylenol) 650 mg PO Q4H PRN PRN Reason: MILD PAIN OR INCREASE TEMP Last Admin: 04/14/20 23:26 Dose: 650 mg Documented by: Albuterol Sulfate (Albuterol) 2.5 mg INHALATION Q4H.RESPIRATORY PRN PRN Reason: SHORTNESS OF BREATH Aspirin (Aspirin Ec) 81 mg PO DAILY [facility] Atorvastatin Calcium (Lipitor) 40 mg PO DAILY [facility] Bupropion HCl (Wellbutrin Xl (24 Hr)) 150 mg PO DAILY [facility] Enoxaparin Sodium (Lovenox) 80 mg SUBCUT Q12H [facility] Sodium Chloride (Sodium Chloride 0.9%) 1,000 mls @ 50 mls/hr IV .Q20H ONE Stop: 04/16/20 01:59 Last Admin: 04/15/20 05:59 Dose: 50 mls/hr Documented by: Metoprolol Tartrate (Lopressor) 12.5 mg PO BID [facility] Last Admin: 04/14/20 18:12 Dose: Not Given Documented by: Nitroglycerin (Nitrostat) 0.4 mg SUBLINGUAL Q5M PRN PRN Reason: chest pain Ondansetron HCl (Zofran) 4 mg IVP Q8H PRN PRN Reason: vomiting, or N/V if npo Fluticasone/Salmeterol (Advair Diskus 100-50) 1 puff INHALATION BID.RESPIRATORY [facility] Last Admin: 04/14/20 19:39 Dose: 1 puff Documented by: Vitals/I&O/Wt Last Vital Signs Temp 97.9 F 04/15/20 03:42 Pulse 71 04/15/20 03:42 Resp 18 04/15/20 03:42 BP 117/65 04/15/20 03:42 Pulse Ox 94 04/15/20 03:42 04/14/20 04/15/20 04/15/20 22:59 06:59 14:59 Intake Total 240 / 240 Balance 240 / 240 Weight last 48 hrs Weight 173 lb Physical Exam Narrative: EXAM NARRATIVE: GENERAL: The patient is alert and oriented times three. Not in any acute distress. HEENT: No significant pallor, icterus or lymphadenopathy. The pupils are reactant to light. Oral cavity: There are no mucous membrane lesions. NECK: Trachea appears to be central. No masses noted. No JVD or thyromegaly appreciated. No carotid bruit. RESPIRATORY: Chest is symmetrical. No intercostals muscle retraction or any accessory muscle activation. There is no chest wall tenderness. Breath sounds are heard bilaterally. No rales or rhonchi heard. No evidence of any consolidation. BREASTS: Deferred. HEART: The PMI is in the 5th left intercostals space just inside the midclavicular line. No palpable precordial events. S1 and S2 are normal. No S3 or S4 heard. No pericardial rub or any click heard. ABDOMEN: No vessel pulsations or distention. No tenderness. No organomegaly appreciated. No abdominal bruit. Bowel sounds are normally heard. : Deferred. RECTAL: Deferred. LYMPHATIC: No lymphadenopathy noted in the neck or groin. EXTREMITIES: No edema or cyanosis. No clubbing. The pulses are symmetrical bilaterally. The radial, femoral, dorsalis pedis and the posterior tibial pulses are palpated and found to be in good volume and amplitude. MUSCULOSKELETAL: No acute joint deformities or swelling SKIN: There are no significant scars or skin rash noted. NEUROPSYCHIATRIC: The patient is alert and oriented x3. Appears to be in a good mood. The higher functions are grossly within normal limits. No tremors or rigidity noted. Const: COMMON NORMALS: alert Resp: COMMON NORMALS: clear to auscultation bilaterally AUSCULTATION: clear to auscultation bilaterally Neuro: SENSORIUM/ORIENTATION: Yes alert Data : 04/16/20 03:07 04/16/20 03:07 A&P Assessment and plan (1) Unstable angina: In view of her ongoing symptoms and the abnormal myocardial perfusion imaging, in order to further evaluate her coronary status, a cardiac catheterization would be appropriate. The risk of bleeding, hematoma, vascular injury, myocardial infarction, CVA, renal failure and other concomitant complications were explained in detail. Patient understood this well and consented to proceed. Status: Acute (2) Dyslipidemia: Patient may be continued on the current dose of the rosuvastatin. Status: Acute (3) Smoking: Patient is strongly advised to quit smoking. The cardiovascular implications were discussed. Status: Acute (4) SOB (shortness of breath): This could be multifactorial. Ongoing smoking abuse, coronary ischemia, etc. are contributing factors. Status: Acute Additional A&P Information Based on the results of the cardiac catheterization, further recommendations will be made. Attestations Medical Necessity Statement*: Patient requires continued hospital stay for close monitoring and further management Coding Level of Care Code Acute Medical Oncologist for [facility] Fwd Exam Expanded Problem Focused Diagnoses Unstable angina I20.0 Dyslipidemia E78.5 Smoking F17.200 SOB (shortness of breath) R06.02
--- NOTE | 2020-04-15 07:52 | PC.NURSE ---
off unit to lab associate pt is still in the lab associate
[2020-04-15] MEDS: ondansetron 2 mg/ML SDV 2 mL 4 MG IVP (09:45)
[2020-04-15] MEDS: aspirin 81 mg EC Tablet PO (09:48)
[2020-04-15] MEDS: metoprolol tartrate 25 mg Tablet 12.5 MG PO ×2 (09:48→17:40)
[2020-04-15] MEDS: atorvastatin 40 mg Tablet PO (09:49)
[2020-04-15] MEDS: buPROPion XL (24 HR) 150 mg Tablet PO (09:49)
[2020-04-15] MEDS: sodium chloride 0.9% 1,000 ML 100 ML IV (09:50)
--- NOTE | 2020-04-15 09:51 | PC.NURSE ---
From pharmaceutical laboratory technician Received pt via bed. Pt is awake, alert, oriented. Pain on back is relieved by positioning HOB 20 degrees. Tr Band intact. no hematoma or swelling or pain. radial pulse is palpable +3. Right froin has 6 fr sheath attached to pressure bag. no hematoma, swelling or bleeding. DP and PT are palpable +3. Instructed pt on activity restrictions and bedrest. and to monitor for unusual pain, wetness and pain. pt verbalizes understanding.
[2020-04-15] MEDS: fentaNYL 50 mcg/mL INJ 2mL IVP (11:10)
--- NOTE | 2020-04-15 11:15 | PC.NURSE ---
TR Band removal/Femoral Sheath removal TR Band removed on right wrist. No hematoma, swelling, bleeding noted. Small 2x1 cm bruising noted above the TR band. No Hematoma palpated. Mild soreness and tenderness reported by pt. Radial pulse is palpable +3. Dressing applied to site. Covered with transparent dressing. Explained to pt about sheath removal. Pre-medicated with Fentanyl as ordered pior to sheath removal. Right Femoral Artery palpated. Sheath removed in right groin. No hematoma, swelling or bleeding noted. Activity restrictions discuss to pt. Pt verbalizes understanding. Will monitor.
--- NOTE | 2020-04-15 12:53 | PC.CHAP ---
Pastoral Care Encounter/Spiritual Assessment Type of Contact [] Declined reconnaissance crewmember visit [] Patient/Family/Request visit [] Outpatient visit [] Follow-up visit [] Physician referral [] Code/Alert [x] Routine visit [] Staff referral [] Actively dying [] Patient sleeping [] Family support [] [] Out of room [] Palliative care [] [x] Receiving care in room [] Pre-surgical visit [] Trauma [] Long length of stay [] ICU visit [] Other: Relational/Emotional Strength [x] Patient feels connected with others/family/visitors/staff [] Distress [] Loneliness/isolation [] Abandonment Spirituality of Patient [x] Person of Ashley [] Attends Jain of their Ashley [x] Believes in Prayer [] Reads Bible or Adventism materials [] There are Spiritual issues to be addressed Deckhand Fishing Vessel Interventions [x] Prayer [x] Active listening [x] Non-anxious presence [x] Spiritual/emotional support [] Crisis/trauma care [x] Spiritual counseling [] Bereavement support [] Provided bereavement packet [] Provided Bible/devotional materials [] Provided toy/stuffed animal, coloring book to patient or family member [] Provided Communion [] Anointing/[place] [] Salvation [x] Completed spiritual assessment [] Other: Impact on Illness or Injury [] Angry [] Fearful [] Anxious [] Often cries [] Exhaustion [] Unable to work [] Unable to attend yazidism [] Unable to walk/stand [] Unable to read [] Unable to drive [] Unable to eat/drink [] Unable to sleep [] Unable to be with family [] Patient intubated [] Other: Summary Chest / replaced battery in pacemaker Time spent with patient 10 mins
--- NOTE | 2020-04-15 13:39 | PM.PN ---
Subjective Subjective: Interval history: This morning patient was seen after her cardiac catheterization procedure, she had a stent placed to RCA, she states that she is doing better, no shortness of breath, no chest pain currently, is eating breakfast Vitals/I&O/Wt Last Vital Signs Temp 97.9 F 04/15/20 03:42 Pulse 73 04/15/20 09:15 Resp 18 04/15/20 09:00 BP 109/66 04/15/20 09:15 Pulse Ox 92 04/15/20 11:10 04/14/20 04/15/20 04/15/20 22:59 06:59 14:59 Intake Total 240 / 240 360 / 360 Output Total 950 / 950 Balance 240 / 240 -590 / -590 Weight last 48 hrs Weight 78.471 kg Physical Exam Const: COMMON NORMALS: no acute distress and patient oriented x3 HENMT: COMMON NORMALS: normocephalic HEAD & SCALP: normocephalic Neck/C-Spine: COMMON NORMALS: no JVD Resp: COMMON NORMALS: normal respiratory effort, No retractions, No use of accessory muscles and clear to auscultation bilaterally AUSCULTATION: clear to auscultation bilaterally Cardio: COMMON NORMALS: no JVD, regular rate, regular rhythm, S1 normal heart sound present and S2 normal heart sound present RATE: regular rate RHYTHM: regular rhythm HEART SOUNDS: S1 normal heart sound present and S2 normal heart sound present GI: COMMON NORMALS: Normal to inspection, nondistended, normoactive bowel sounds present, Soft to palpation, non-tender, No hepatosplenomegaly present, no masses and no bruits PALPATION: Yes Soft to palpation and Yes No hepatosplenomegaly present Extremity: COMMON NORMALS: capillary refill normal, no clubbing, cyanosis or edema, no calf tenderness and no pedal edema Neuro: COMMON NORMALS: patient oriented x3 Psych: COMMON NORMALS: mental status grossly normal Data : 04/15/20 03:47 04/15/20 03:47 Micro: Microbiology 04/14/20 12:50 Urine Culture - Preliminary Urine,Clean Catch A&P Assessment and plan (1) Chest pain: -Chest pain sounds cardiac in nature -Has extensive family history of CAD including both her parents, has a family history of sudden cardiac -EKG does show T wave inversions V1 V2 -Initial troponin 6 -She did have a cardiac stress test on March 04, 2020, which showed a small area of reversible defect in the apical inferior and left ventricular apex, suggestive of ischemia in the distribution of the right coronary artery -Patient also had a CT angiogram of her chest on December 26, 2019, no evidence of pulmonary embolism, aortic aneurysm, aortic dissection -Status post coronary angiogram this morning, 98% lesion in RCA, status post stent placement Plan: -Aspirin, Plavix, statin, beta-jian -Nitroglycerin for pain -Continue telemetry monitoring -Dr. Robles on consult Status: Acute Qualifiers: Chest pain type: unspecified Qualified Code(s): R07.9 - Chest pain, unspecified (2) SOB (shortness of breath): -Patient has greater than 15-dlhy-syww history of smoking, likely has COPD -We will start her on albuterol inhaler as needed and Advair daily -CT angiogram of the chest on 12/26/2019 showed severe centrilobular emphysematous changes Status: Acute (3) Smoking: Advised of smoking cessation Status: Acute (4) Dyslipidemia: Status: Acute Attestations Medical Necessity Statement*: Patient requires continued hospitalization for chest pain, status post cardiac stenting to RCA, Coding Level of Care Code Acute Allocations Clerk for [facility] Diagnoses Chest pain R07.9 Chest pain type: unspecified SOB (shortness of breath) R06.02 Smoking F17.200 Dyslipidemia E78.5
--- NOTE | 2020-04-15 18:04 | PC.NURSE ---
Ambulated Pt up in room to go to bedside commode. Pt voided. Tolerated activity well. Dressing to right wrist and groin are dry and intact. No hematoma, swelling or bleeding noted. Radial, DP, PT pulses are palpable +3.
--- NOTE | 2020-04-15 19:03 | PC.NURSE ---
Received bedside report from ÁNGELA Roldan. Patient resting in bed watching tv. Patient is s/p [facility] with attempted right radial access and right femoral access. Dressings to both sites remain c,d,i. No s/s of bleeding or hematoma formation observed. Patient denies discomfort to both sites. Patient is able to ambulate and reposition as needed.
[2020-04-16] VITALS (7 sets, daily range): BP systolic 92–117; BP diastolic 64–81; PULSE 75–85; RESP 14–20; TEMP 36.5–37.2; O2SAT 91–96
[2020-04-16 03:53] LABS: Basophils % 0.4 %; Eosinophils # 0.1 10^3/uL (0.0-0.8); Eosinophils % 1.3 %; Hematocrit 38.9 % (37.0-47.0); Hemoglobin 12.4 g/dL (11.5-15.3); Lymphocytes # 3.9 10^3/uL (0.8-4.8); Mean Corpuscular HGB Conc 31.9 g/dL (30.0-36.0); Mean Corpuscular Hemoglobin 29.2 pg (28.0-34.0); Mean Corpuscular Volume 91.5 fL (81-99); Mean Platelet Volume 11.7 fL (7.4-10.4); Monocytes # 0.8 10^3/uL (0.2-0.9); Monocytes % 6.9 %; Neutrophils # 6.3 10^3/uL (1.8-7.7); Neutrophils % 56.2 %; Nucleated Red Blood Cells % 0 %; Platelet Count 269 10^3/cmm (130-400); Red Blood Count 4.25 10^6/uL (4.1-5.3); Red Cell Distribution Width 13.2 % (12.1-15.1); White Blood Count 11.1 10^3/uL (4.0-10.0)
[2020-04-16 04:52] LABS: Alanine Aminotransferase 8 U/L (0-33); Albumin Level 3.5 g/dL (3.5-5.2); Alkaline Phosphatase 71 IU/L (35-105); Anion Gap 16.5 (5-19); Aspartate Amino Transferase 9 U/L (0-32); Blood Urea Nitrogen 7 mg/dL (6-20); Calcium 8.9 mg/dL (8.5-10.5); Carbon Dioxide 22 mmol/L (22-29); Chloride 105 mmol/L (98-107); Globulin 3.2 g/dL (1.3-4.6); Glucose 93 mg/dL (65-115); Magnesium 2.1 mg/dL (1.7-2.3); Osmolality Calculated 286 mOsm/kg (285-295); Phosphorus 3.2 mg/dL (2.5-4.5); Potassium 3.5 mmol/L (3.5-5.1); Sodium 140 mmol/L (136-145); Total Bilirubin 0.5 mg/dL (0.15-1.2); Total Protein 6.7 g/dL (6.6-8.7)
[2020-04-16] MEDS: metoprolol tartrate 25 mg Tablet 12.5 MG PO (08:02)
[2020-04-16] MEDS: clopidogrel 75 mg Tablet PO (08:02)
[2020-04-16] MEDS: atorvastatin 40 mg Tablet PO (08:02)
[2020-04-16] MEDS: buPROPion XL (24 HR) 150 mg Tablet PO (08:02)
[2020-04-16] MEDS: aspirin 81 mg EC Tablet PO (08:02)
--- NOTE | 2020-04-16 09:32 | P.PN_ITS ---
Subjective Subjective: Interval history: Heart catheterization with a left and right coronary angiogram and LV angiogram study. She was found to have a high-grade lesion in the right coronary artery for which she underwent PCI. Since the PCI, she has been doing okay with no significant chest pain. She is getting up and moving around without any specific complaints. Medications: Reviewed: Yes Medication Review Details: Current Medications Acetaminophen (Tylenol) 650 mg PO Q4H PRN PRN Reason: MILD PAIN OR INCREASE TEMP Last Admin: 04/14/20 23:26 Dose: 650 mg Documented by: Albuterol Sulfate (Albuterol) 2.5 mg INHALATION Q4H.RESPIRATORY PRN PRN Reason: SHORTNESS OF BREATH Aspirin (Aspirin Ec) 81 mg PO DAILY [facility] Last Admin: 04/16/20 08:02 Dose: 81 mg Documented by: Atorvastatin Calcium (Lipitor) 40 mg PO DAILY [facility] Last Admin: 04/16/20 08:02 Dose: 40 mg Documented by: Bupropion HCl (Wellbutrin Xl (24 Hr)) 150 mg PO DAILY [facility] Last Admin: 04/16/20 08:02 Dose: 150 mg Documented by: Clopidogrel Bisulfate (Plavix) 75 mg PO DAILY [facility] Last Admin: 04/16/20 08:02 Dose: 75 mg Documented by: Fentanyl (Sublimaze) 50 mcg IVP PRN PRN PRN Reason: Prior to sheath removal Last Admin: 04/15/20 11:10 Dose: 50 mcg Documented by: Metoprolol Tartrate (Lopressor) 12.5 mg PO BID [facility] Last Admin: 04/16/20 08:02 Dose: 12.5 mg Documented by: Nitroglycerin (Nitrostat) 0.4 mg SUBLINGUAL Q5M PRN PRN Reason: chest pain Ondansetron HCl (Zofran) 4 mg IVP Q8H PRN PRN Reason: vomiting, or N/V if npo Last Admin: 04/15/20 09:45 Dose: 4 mg Documented by: Fluticasone/Salmeterol (Advair Diskus 100-50) 1 puff INHALATION BID.RESPIRATORY [facility] Last Admin: 04/16/20 07:44 Dose: Not Given Documented by: Vitals/I&O/Wt Last Vital Signs Temp 98.4 F 04/16/20 07:48 Pulse 82 04/16/20 09:23 Resp 16 04/16/20 09:23 BP 116/81 04/16/20 09:23 Pulse Ox 94 04/16/20 09:23 04/15/20 04/16/20 04/16/20 22:59 06:59 14:59 Intake Total 1360 / 1720 840 / 840 Output Total Balance 1360 / 770 838 / 838 Weight last 48 hrs Weight 173 lb Physical Exam Narrative: EXAM NARRATIVE: GENERAL: The patient is alert and oriented times three. Not in any acute distress. HEENT: No significant pallor, icterus or lymphadenopathy. The pupils are reactant to light. Oral cavity: There are no mucous membrane lesions. NECK: Trachea appears to be central. No masses noted. No JVD or thyromegaly appreciated. No carotid bruit. RESPIRATORY: Chest is symmetrical. No intercostals muscle retraction or any accessory muscle activation. There is no chest wall tenderness. Breath sounds ar e heard bilaterally. No rales or rhonchi heard. No evidence of any consolidation. BREASTS: Deferred. HEART: The heart sounds are normal with no S3 or S4. No significant murmurs. No pericardial rub. ABDOMEN: No vessel pulsations or distention. No tenderness. No organomegaly appreciated. No abdominal bruit. Bowel sounds are normally heard. : Deferred. RECTAL: Deferred. LYMPHATIC: No lymphadenopathy noted in the neck or groin. EXTREMITIES: The right radial pulse is good. No hematoma or bleeding at the arterial puncture site. No hematoma bleeding in the right groin. MUSCULOSKELETAL: No acute joint deformities or swelling SKIN: There are no significant scars or skin rash noted. NEUROPSYCHIATRIC: The patient is alert and oriented x3. Appears to be in a good mood. The higher functions are grossly within normal limits. No tremors or rigidity noted. Const: COMMON NORMALS: alert Resp: COMMON NORMALS: clear to auscultation bilaterally AUSCULTATION: clear to auscultation bilaterally Neuro: SENSORIUM/ORIENTATION: Yes alert Data : 04/16/20 03:07 04/16/20 03:07 Micro: Microbiology 04/14/20 12:50 Urine Culture - Preliminary Urine,Clean Catch A&P Assessment and plan (1) Unstable angina: Patient status post cardiac catheterization , status post PCI. Currently stable. May continue on the current medications. Status: Acute (2) Dyslipidemia: Patient may be continued on the current dose of the rosuvastatin. Status: Acute (3) Smoking: Patient is strongly advised to quit smoking. The cardiovascular implications were discussed. Status: Acute (4) SOB (shortness of breath): Has significantly improved since the PCI. Status: Acute Additional A&P Information Since the patient remained stable with no new symptoms, she may be discharged home today. May continue on the metoprolol, Plavix, aspirin and Crestor. She need to be seen in the heart care services next Tuesday by the nurse practitioner. I may see her in the office in 1 month. In the event of she developing any chest pain, palpitations or any new symptoms, advised to give us a call. Attestations Medical Necessity Statement*: Possible discharge home today. Coding Level of Care Code Acute Staging Technician for [facility] Diagnoses Unstable angina I20.0 Dyslipidemia E78.5 Smoking F17.200 SOB (shortness of breath) R06.02
--- NOTE | 2020-04-16 09:57 | PC.CHAP ---
Pastoral Care Encounter/Spiritual Assessment Type of Contact [] Declined sueding machine operator visit [] Patient/Family/Request visit [] Outpatient visit [] Follow-up visit [] Physician referral [] Code/Alert [x] Routine visit [] Staff referral [] Actively dying [] Patient sleeping [] Family support [] [] Out of room [] Palliative care [] [] Receiving care in room [] Pre-surgical visit [] Trauma [] Long length of stay [] ICU visit [] Other: Relational/Emotional Strength [] Patient feels connected with others/family/visitors/staff [] Distress [] Loneliness/isolation [] Abandonment Spirituality of Patient [] Person of Ashley [] Attends Faith of their [place] [] Believes in Prayer [] Reads Bible or Hindu materials [] There are Spiritual issues to be addressed Animal Eviscerator Interventions [x] Prayer [x] Active listening [x] Non-anxious presence [x] Spiritual/emotional support [] Crisis/trauma care [] Spiritual counseling [] Bereavement support [] Provided bereavement packet [] Provided Bible/devotional materials [] Provided toy/stuffed animal, coloring book to patient or family member [] Provided Communion [] Anointing/[place] [] Salvation [x] Completed spiritual assessment [] Other: Impact on Illness or Injury [] Angry [] Fearful [] Anxious [] Often cries [] Exhaustion [] Unable to work [] Unable to attend presybeterian [] Unable to walk/stand [] Unable to read [] Unable to drive [] Unable to eat/drink [] Unable to sleep [] Unable to be with family [] Patient intubated [] Other: Summary Patient feeling amazingly better. Praises her doctors. Time spent with patient 10 min
--- NOTE | 2020-04-16 11:04 | P.DS_ITS ---
Discharge Providers Date of Admission: 04/15/20 09:06 Date of Discharge: April 16, 2020 Attending Provider at Admission: Johnson Reyes MD Attending Provider at Discharge: Johnson Reyes MD Primary Care Provider: Sherrie Chen MD Diagnoses at Discharge Discharge Diagnosis (1) Unstable angina: Status: Acute (2) Dyslipidemia: Status: Acute (3) Smoking: Status: Acute (4) SOB (shortness of breath): Status: Acute Reason for Visit Reason for Visit: CHEST PAIN Hospital Course Discharge Summary: Guillermina Mosquera is a 54 year old female who is a current smoker, recent history of positive stress test and chest pain, presents to [facility] due to complaints of chest pain. Patient was admitted to [facility] for unstable angina, she received a left and right cardiac angiogram, and left ventricular angiogram study by Dr. Robles, she was found to have a high-grade lesion in the right coronary artery status post PCI, tolerated this procedure well, no chest pain afterwards. Patient was discharged on aspirin, Plavix, statin, beta-jian, with close follow-up with cardiology as outpatient. In addition patient was advised to quit smoking on discharge. Patient has a greater than 25-qcul-fudy history of smoking, CT angiogram on 12/26/2019 showed severe centrilobular emphysematous changes, likely she has COPD. Patient was discharged on albuterol, Advair, with close follow-up with Dr. Rodriguez as outpatient for pulmonary function testing. Physical Exam Const: COMMON NORMALS: no acute distress and patient oriented x3 HENMT: COMMON NORMALS: normocephalic HEAD & SCALP: normocephalic Neck/C-Spine: COMMON NORMALS: no JVD Resp: COMMON NORMALS: normal respiratory effort, No retractions, No use of accessory muscles and clear to auscultation bilaterally AUSCULTATION: clear to auscultation bilaterally Cardio: COMMON NORMALS: no JVD, regular rate, regular rhythm, S1 normal heart sound present and S2 normal heart sound present RATE: regular rate RHYTHM: regular rhythm HEART SOUNDS: S1 normal heart sound present and S2 normal heart sound present GI: COMMON NORMALS: Normal to inspection, nondistended, normoactive bowel sounds present, Soft to palpation, non-tender, No hepatosplenomegaly present, no masses and no bruits PALPATION: Yes Soft to palpation and Yes No hepatosplenomegaly present Extremity: COMMON NORMALS: capillary refill normal, no clubbing, cyanosis or edema, no calf tenderness and no pedal edema Neuro: COMMON NORMALS: patient oriented x3 Psych: COMMON NORMALS: mental status grossly normal Discharge Data Data Completed and Pending: Completed Studies During Hospitalization Category Date Time Status 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 Routin e Exams 04/15/20 07:00 Completed XR chest 1V marybeth ble [id number] Stat Exams 04/14/20 12:15 Completed CV echo complete* [id number] Routine Ultrasound 04/14/20 15:59 Completed Pending at discharge Category Date Time Status Complete Blood Co unt w/Auto AM LABS Lab 04/17/20 04:00 Ordered Comprehensive Met abolic Panel AM LA BS Lab 04/17/20 04:00 Ordered Magnesium AM LABS Lab 04/17/20 04:00 Ordered Phosphorus AM LAB S Lab 04/17/20 04:00 Ordered Urine Culture Sta t Lab 04/14/20 12:50 Results Labs from last 24 hours 04/16/20 04/16/20 03:07 03:07 WBC 11.1 H RBC 4.25 Hgb 12.4 Hct 38.9 MCV 91.5 MCH 29.2 MCHC 31.9 RDW 13.2 Plt Count 269 MPV 11.7 H Neut % (Auto) 56.2 Lymph % (Auto) 35.0 Pender % (Auto) 6.9 Eos % (Auto) 1.3 Baso % (Auto) 0.4 Neut # (Auto) 6.3 Lymph # (Auto) 3.9 [place] # (Auto) 0.8 Eos # (Auto) 0.1 Baso # (Auto) 0.0 Nucleated RBC % (a uto) 0 Nucleated RBCs # 0.0 Sodium 140 Potassium 3.5 Chloride 105 Carbon Dioxide 22 Anion Gap 16.5 BUN 7 Creatinine 0.4 L GFR Calculation 167.0 H Glucose 93 Calculated Osmolal ity 286 Calcium 8.9 Phosphorus 3.2 Magnesium 2.1 Total Bilirubin 0.5 AST 9 ALT 8 Alkaline Phosphata se 71 Total Protein 6.7 Albumin 3.5 Globulin 3.2 Vitals: Last Vital Signs Temp 98.4 F 04/16/20 07:48 Pulse 82 04/16/20 09:23 Resp 16 04/16/20 09:23 BP 116/81 04/16/20 09:23 Pulse Ox 94 04/16/20 09:23 Discharge Plan Discharge Patient Disposition: Home, Self-Care Condition: Stable Prescriptions: New Crestor 20 mg tablet 20 mg PO DAILY 30 Days Qty: 30 RF: 0 clopidogrel 75 mg Tablet 75 mg PO DAILY 30 Days Qty: 30 RF: 0 Advair Diskus 100-50 mcg/dose Blister With Device 1 ea inhalation BID.RESPIRATORY Qty: 60 RF: 0 albuterol sulfate 90 mcg/actuation HFA aerosol inhaler 1 inh INHALATION Q6H PRN (Reason: shortness of breath or wheezing) Qty: 18 RF: 0 Continued bupropion HCl (smoking deter) 150 mg Tablet Extended Release 12 Hr 150 mg PO DAILY RF: 0 Adult Aspirin Regimen 81 mg tablet,delayed release (DR/EC) 81 mg PO DAILY 30 Days Qty: 30 RF: 0 nitroglycerin 0.4 mg tablet, sublingual 0.4 mg SUBLINGUAL Q5M PRN (Reason: chest pain) 3 Days Qty: 3 RF: 0 metoprolol tartrate 25 mg tablet 12.5 mg PO BID 30 Days Qty: 30 RF: 0 Discontinued ibuprofen 200 mg Tablet 200 mg PO Q6H PRN (Reason: Pain) RF: 0 rosuvastatin 10 mg tablet 10 mg PO DAILY RF: 0 Discharge Orders: Discharge Order (Routine); Ordered 04/16/20 Ordered By: Johnson Reyes Other Ambulatory Orders: Complete Blood Count w/Auto (Routine) Timeframe: 1 Week Location: Determined by Patient Ordered By: Johnson Reyes Comprehensive Metabolic Panel (Routine) Timeframe: 1 Week Facility: [facility] - Location: Lab - Main Lab Ordered By: Johnson Reyes Referrals: Taylor Robles MD [Physician] - 1 week (s/p cath) Cammy Esposito FNP [Nurse Practitioner] - Marilyn Rodriguez MD [Physician] - 2 weeks (copd) Patient Instructions: Left Heart Catheterization (DC), How to Stop Smoking (GEN), Emphysema (GEN), Chronic Obstructive Pulmonary Disease (GEN), Chest Pain Stoplight, Post Angiogram Home Care Instructions Activity Restrictions/Additional Instructions: -If you have recurrent chest pain please come back to the emergency room -Please monitor for bloody or black stools or lightheadedness or dizziness and if so come back to emergency room -Please use inhalers as prescribed -Please follow-up with Dr. Rodriguez for pulmonary function testing -Please follow-up with Dr. Robles office in 1 week Discharge Attestations Time Spent in Discharge Care*: less than 30 min Quality Metrics Clinical Quality Measures During this hospital stay, did patient experience: AMI Clinical Trial Participant: No Contraindication to aspirin (AMI): Aspirin given Contraindication to statin: Statin prescribed Coding Level of Care Code Acute Clinical Nurse Leader for [facility] Fwd Diagnoses Unstable angina I20.0 Dyslipidemia E78.5 Smoking F17.200 SOB (shortness of breath) R06.02
--- NOTE | 2020-04-16 13:54 | PC.NURSE ---
Patient called asking for clarification of which medications were administered this morning and which meds the patient should take tonight. This nurse went through discharge medications with patient. Patient now verbalized understanding of when to take medications. Patient instructed to call back for any further questions.
--- NOTE | 2020-04-16 15:24 | PC.RESP ---
Smoking Cessation information and a schedule of classes to patient.
== END 2020-04-16 12:09 | disposition home or self-care (01) | DRG 247 ==
LOC: ER 12:54 → CSU 15:21
PROVIDERS: Emergency Medicine; Internal Medicine Cardiovascular Disease; Admitting Provider Family Medicine; PCP Family Medicine; Visit Provider Family Medicine
PROC: 027034Z Dilation of Coronary Artery, One Artery with Drug-eluting Intraluminal Device, Percutaneous Approach (ICD-10-PCS; principal; 2020-04-15 07:00)
DX: I25.110 Atherosclerotic heart disease of native coronary artery with unstable angina pectoris (principal); E78.5 Hyperlipidemia, unspecified; F17.210 Nicotine dependence, cigarettes, uncomplicated; Z79.82 Long term (current) use of aspirin; Z82.49 Family history of ischemic heart disease and other diseases of the circulatory system
CPT/HCPCS: 12345; 36415; 71045; 80053; 80061; 81001; 83036; 83690; 83735; 83880; 84100; 84484; 85025; 85378; 85610; 87086; 93005; 93306; 93452; 94640; 94664; 96372; 96375; 99282; C1725; C1769; C1874; C1887; C1894; C9600; J1170; J1644; J1650; J2001; J2250; J2405; J3010; J3490; J7030; Q0163; Q9967

== ENCOUNTER → 2020-04-22 11:00 | Outpatient (BNVA) | payer OTHER, SELFPAY | PROVIDERS: PCP Family Medicine; Visit Provider Internal Medicine Cardiovascular Disease | DX: I25.10 Atherosclerotic heart disease of native coronary artery without angina pectoris (principal); E78.5 Hyperlipidemia, unspecified; F17.200 Nicotine dependence, unspecified, uncomplicated | CPT/HCPCS: 80048; 85025 ==

== ENCOUNTER 2020-05-14 08:16 | Outpatient (CLI) | payer OTHER, SELFPAY ==
[2020-05-14 09:08] VITALS: O2SAT 98
--- NOTE | 2020-05-14 14:22 | PFTS_ITS ---
Date of Study:05/14/20 Date of Dictation: MECHANICS: Forced vital capacity (FVC) is normal. Forced expiratory volume in one second (FEV1) is normal. FEV1/FVC is normal. FLOW VOLUME LOOP: There is no peak in the early forced expiratory maneuver. The shape of the flow volume loop is likely effort related. LUNG VOLUMES: Total lung capacity (TLC) is normal. Residual volume (RV) is reduced. DIFFUSING CAPACITY FOR CARBON MONOXIDE: Normal. INTERPRETATION: Spirometry is normal. Total lung capacity is normal with mild reduction in residual volume which is nonspecific. Gas exchange (DLCO) is normal. The shape of the flow volume loop is likely effort related. However absence of peak expiratory flow and a plateau of the expiratory flow can be seen in intrathoracic variable obstruction from endoluminal occlusion. MTDD
== END 2020-05-14 08:17 | disposition home or self-care (01) ==
LOC: RT 08:19
PROVIDERS: PCP Family Medicine; Visit Provider Internal Medicine Critical Care Medicine
DX: J43.9 Emphysema, unspecified (principal)
CPT/HCPCS: 94010; 94726; 94729

== ENCOUNTER 2020-05-14 13:16 | Outpatient (RCR) | payer OTHER, SELFPAY | END 2020-05-23 23:59 | disposition home or self-care (01) | LOC: CR 13:16 | PROVIDERS: Family Provider Family Medicine; PCP Family Medicine; Referring Provider Internal Medicine Cardiovascular Disease; Visit Provider Internal Medicine Cardiovascular Disease | DX: I25.10 Atherosclerotic heart disease of native coronary artery without angina pectoris (principal); Z95.5 Presence of coronary angioplasty implant and graft | CPT/HCPCS: 93798 ==

== ENCOUNTER 2020-05-27 09:18 | Outpatient (RCR) | payer OTHER, SELFPAY | END 2020-06-23 23:59 | disposition home or self-care (01) | LOC: CR 09:18 | PROVIDERS: Family Provider Family Medicine; PCP Family Medicine; Referring Provider Internal Medicine Cardiovascular Disease; Visit Provider Internal Medicine Cardiovascular Disease | DX: Z95.5 Presence of coronary angioplasty implant and graft (principal) | CPT/HCPCS: 93798 ==

== ENCOUNTER 2020-06-24 12:26 | Outpatient (RCR) | payer OTHER, SELFPAY | END 2020-07-23 23:59 | disposition home or self-care (01) | LOC: CR 12:26 | PROVIDERS: Family Provider Family Medicine; PCP Family Medicine; Referring Provider Internal Medicine Cardiovascular Disease; Visit Provider Internal Medicine Cardiovascular Disease | DX: I25.10 Atherosclerotic heart disease of native coronary artery without angina pectoris (principal); Z95.5 Presence of coronary angioplasty implant and graft; Z98.890 Other specified postprocedural states | CPT/HCPCS: 93798 ==

== ENCOUNTER 2020-07-02 13:46 | Observation (INO) | payer OTHER, SELFPAY ==
[2020-07-02] VITALS (7 sets, daily range): BP systolic 97–126; BP diastolic 61–82; PULSE 66–72; RESP 18; TEMP 36.4–36.7; O2SAT 92–98; BMI 31.2
--- NOTE | 2020-07-02 13:52 | XRR_ITS ---
PROCEDURE INFORMATION: Exam: XR Chest, 1 View Exam date and time: 07/02/2020 2:17 PM Age: 55 years old Clinical indication: Chest pain TECHNIQUE: Imaging protocol: XR of the chest Views: 1 view. COMPARISON: CR XR chest 1V portable [id number] 04/14/2020 12:36 PM FINDINGS: Lungs: Unremarkable. No consolidation. Pleural space: Unremarkable. No pleural effusion. No pneumothorax. Heart/Mediastinum: Unremarkable. No cardiomegaly. Bones/joints: Unremarkable. XR/XR chest 1V portable [id number] IMPRESSION: No acute findings.
--- NOTE | 2020-07-02 13:53 | ECG_ITS ---
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 Measurements Intervals [place] Rate: 66 P: 23 OR: 190 QRS: 4 QRSD: 102 T: 6 QT: 417 QTc: 438 Interpretive Statements SINUS RHYTHM LOW QRS VOLTAGE IN PRECORDIAL LEADS [QRS DEFLECTION < 1.0 mV IN CHEST LEADS] POSSIBLE ANTERIOR MYOCARDIAL INFARCTION , OF INDETERMINATE AGE [30 ms Q WAVE IN V3/V4, OR R < 0.2 mV IN V4] Compared to ECG 04/14/2020 17:47:46 Myocardial infarct finding now present First degree AV block no longer present T-wave abnormality no longer present Electronically Signed On 07-02-2020 19:54:00 CDT by Taylor Robles M.D. [id number]
--- NOTE | 2020-07-02 14:12 | W.ED.CHESTPA ---
HPI - Chest Pain General: Chief Complaint: Chest Pain Stated Complaint: chest pain Time Seen by Provider: 07/02/20 13:54 Source: patient Mode of arrival: ambulatory Limitations: no limitations History of Present Illness: HPI narrative: Guillermina is a nice 55-year-old female who comes in complaining of worsening chest pain for the past week. She states that she has pain that describes stabbing in the center of her chest that radiates through to her back. She has associated shortness of breath with this. She also has associated diaphoresis. Patient states that rest and nitroglycerin make her symptoms better but any type of exertion or heavy activity will makes her symptoms worse. Patient states this is similar to when she had a heart problem back in March of this year. Patient states that she came and and ultimately had a stent placed in her heart at that time. Patient denies any fevers, chills, vomiting or nausea. She denies any productive cough or nonproductive cough. She states been compliant with her medications and the nitroglycerin does make her symptoms better and she is having to take up to 4 of them a day. Currently she states her pain is a 4 out of 10. Associated symptoms: Reports diaphoresis and dyspnea; Deny abdominal pain, fever(s), nausea, palpitations, syncope or vomiting Review of Systems Const: Reports: diaphoresis; Denies: fever(s), chills, body aches, fatigue or malaise Eyes: Denies: change in vision, blurry vision, photophobia, eye discomfort, eye discharge or eye redness ENMT: Denies: throat pain, odynophagia, hoarseness, swelling of lips/tongue, ear or mastoid pain, ear discharge, change in hearing or nasal discharge Card: Reports: chest pain; Denies: palpitations, irregular heart rhythm, edema, lightheadedness, syncope, pre-syncope, dyspnea on exertion or orthopnea Resp: Reports: dyspnea; Denies: productive cough, non-productive cough, wheezing, hemoptysis or chest congestion GI: Denies: abdominal pain, nausea, vomiting, hematemesis, coffee ground emesis, heartburn, diarrhea, constipation, GI cramping, hematochezia or melena : Denies: flank pain, dysuria, urinary frequency, urinary urgency or hematuria Musc: Denies: neck pain, back pain, extremity pain, extremity swelling, joint pain, joint swelling, joint redness, joint warmth or joint stiffness Skin/Breast: Denies: rash, pruritus, erythema or skin tenderness Neuro: Denies: headache(s), numbness in extremities, weakness in extremities, sensory changes, lack of coordination, difficulty walking, dizziness, vertigo, confusion, Slurred speech present or seizure-like activity Nixon/Lymph: Denies: easy bruising, easy bleeding, petechiae, purpura or enlarged lymph nodes All/Imm: Denies: urticaria, throat swelling, tongue swelling, facial swelling or acute wheezing PFSH ED PFSH: Medical History Atherosclerotic heart disease of [place] coronary artery without angina pectoris Patient had a high-grade lesion of the RCA which was intervened. Atypical chest pain The EKG from 12/26/2019 revealed normal sinus rhythm with some nonspecific T wave changes. Features of possible old inferior wall myocardial infarction. Normal IL and QRS duration. ANDERSON (dyspnea on exertion) Dyslipidemia Dyslipidemia (high LDL; low HDL) Smoking SOB (shortness of breath) Tobacco abuse Unstable angina Surgical History History of arthroscopic knee surgery Hx of cholecystectomy Family History Father CAD (coronary artery disease) Hyperlipidemia Hypertension Lung disease Other Cancer Stroke Social History Smoking and tobacco status: former smoker Quit status (tobacco): has quit using tobacco Year quit tobacco: 2019 - 0.5 PPD x 40 Years Alcohol intake: never Lives independently: Yes Household members: spouse Marital status: Current occupational status: employed 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 Current occupational exposures/hazards: No History of recent travel: No Current gender identity: Female Physical Exam Const: COMMON NORMALS: no acute distress, patient oriented x3, no limitations, healthy appearing and well nourished GENERAL APPEARANCE: cooperative, well kempt and well developed HENMT: COMMON NORMALS: normocephalic, atraumatic, external ears normal, EAC's normal and Normal external nose present HEAD & SCALP: normal to inspection, normocephalic and atraumatic FACE & SINUS: normal facial exam and face symmetric NOSE: Normal external nose present and Normal nares present EXTERNAL EAR: Yes external ears normal EXTERNAL AUDITORY CANAL: EAC's normal MOUTH: Normal oral and palatal mucosa present, lip normal and tongue normal Eye: COMMON NORMALS: Equal, round and reactive pupils present and conjunctivae normal GENERAL EYE: appearance normal, both eyes and all related structures ALIGNMENT: Yes alignment normal PERIORBITAL: periorbital findings normal EYELID: eyelids normal CONJUNCTIVA: Yes conjunctivae normal SCLERA: sclerae normal PUPIL: Yes Equal, round and reactive pupils present Neck/C-Spine: COMMON NORMALS: full ROM, no lymphadenopathy, supple, no meningeal signs and no JVD GENERAL: Yes normal visual inspection and Yes trachea midline Chest: COMMONS NORMALS: normal inspection of the chest and normal palpation of entire chest wall Resp: COMMON NORMALS: normal respiratory effort, No retractions, No use of accessory muscles and clear to auscultation bilaterally EFFORT & INSPECTION: Yes able to speak in complete sentences and Yes symmetric chest movement AUSCULTATION: clear to auscultation bilaterally, no crackles, no rales, no rhonchi and no wheezes Cardio: COMMON NORMALS: no JVD, regular rate, regular rhythm, S1 normal heart sound present and S2 normal heart sound present RATE: regular rate RHYTHM: regular rhythm HEART SOUNDS: S1 normal heart sound present, S2 normal heart sound present, no click, no gallops, no murmurs, no rubs and abnormal split S2 GI: COMMON NORMALS: Soft to palpation and No hepatosplenomegaly present PALPATION: Yes Soft to palpation, No Tenderness to palpation present (GI), No Guarding due to palpation present (GI), No Rigid due to palpation, Yes No hepatosplenomegaly present, No Hernia present, No Palpable mass present and No Pulsatile mass present : COMMON NORMALS: Yes no CVA tenderness BLADDER/KIDNEY EXAM: Yes no CVA tenderness EXTERNAL FEMALE EXAM: No Hernia present Back/Pelvis: COMMON NORMALS: no CVA tenderness, thoracic and lumbar spine normal to inspection, no thoracic nor lumbar tenderness and thoraco-lumbar ROM normal Extremity: COMMON NORMALS: normal to inspection, full ROM, capillary refill normal, no joint enlargement, no clubbing, cyanosis or edema and no calf tenderness Neuro: COMMON NORMALS: patient oriented x3, CN's II-XII intact bilaterally, moves all extremities, no focal motor deficits and no sensory deficits noted MENINGEAL SIGNS: Yes no meningeal signs SPEECH: speech normal Psych: COMMON NORMALS: mental status grossly normal, Normal thought process present, cooperative, normal affect, speech normal and activity/motor behavior normal APPEARANCE: Yes well kempt SPEECH: Yes normal speech THOUGHT PROCESS: Normal thought process present Skin: COMMON NORMALS: no rashes or lesions noted, turgor normal, no jaundice, no petechiae and no mottling GENERAL SKIN EXAM: no rashes or lesions noted and turgor normal Course ED course: 1450 -patient is chest pain-free after 2 sublingual nitroglycerin. Vital Signs: Vital signs: Vital Signs Temperature 97.8 F 07/02/20 13:48 Pulse Rate 70 07/02/20 13:48 Respiratory Rate 18 07/02/20 13:48 Blood Pressure 126/82 07/02/20 13:48 Pulse Oximetry 96 07/02/20 14:18 MDM - Chest Pain Lab Data: Labs: Lab Results 07/02/20 07/02/20 07/02/20 Range/Units 14:08 14:08 14:08 WBC 9.7 (4.0-10.0) 10^3/ uL RBC 4.57 (4.1-5.3) 10^6/u L Hgb 13.3 (11.5-15.3) g/dL Hct 41.9 (37.0-47.0) % MCV 91.7 (81-99) fL MCH 29.1 (28.0-34.0) pg MCHC 31.7 (30.0-36.0) g/dL RDW 13.0 (12.1-15.1) % Plt Count 332 (130-400) 10^3/c mm MPV 10.9 H (7.4-10.4) fL Neut % (Auto) 50.3 % Lymph % (Auto) 39.9 % [place] % (Auto) 6.4 % Eos % (Auto) 2.4 % Baso % (Auto) 0.8 % Neut # (Auto) 4.85 (1.8-7.7) 10^3/u L Lymph # (Auto) 3.9 (0.8-4.8) 10^3/u L [place] # (Auto) 0.6 (0.2-0.9) 10^3/u L Eos # (Auto) 0.2 (0.0-0.8) 10^3/u L Baso # (Auto) 0.1 (0.0-0.1) 10^3/u L Nucleated RBC % (a uto) 0 % Nucleated RBCs # 0.0 /100WBC Sodium 139 (136-145) mmol/L Potassium 3.7 (3.5-5.1) mmol/L Chloride 106 (98-107) mmol/L Carbon Dioxide 21 L (22-29) mmol/L Anion Gap 15.7 (5-19) BUN 10 (6-20) mg/dL Creatinine 0.5 (0.5-0.9) mg/dL GFR Calculation 128.6 (90-130) mL/min Glucose 96 (65-115) mg/dL Calculated Osmolal ity 284 L (285-295) mOsm/k g Calcium 9.0 (8.5-10.5) mg/dL Total Bilirubin 0.3 (0.15-1.2) mg/dL AST 12 (0-32) U/L ALT 11 (0-33) U/L Alkaline Phosphata se 85 (35-105) IU/L Troponin T Baselin e 6 (0-10) ng/L Total Protein 7.5 (6.6-8.7) g/dL Albumin 4.0 (3.5-5.2) g/dL Globulin 3.5 (1.3-4.6) g/dL Lipase (13-60) U/L 07/02/20 Range/Units 14:08 WBC (4.0-10.0) 10^3/ uL RBC (4.1-5.3) 10^6/u L Hgb (11.5-15.3) g/dL Hct (37.0-47.0) % MCV (81-99) fL MCH (28.0-34.0) pg MCHC (30.0-36.0) g/dL RDW (12.1-15.1) % Plt Count (130-400) 10^3/c mm MPV (7.4-10.4) fL Neut % (Auto) % Lymph % (Auto) % [place] % (Auto) % Eos % (Auto) % Baso % (Auto) % Neut # (Auto) (1.8-7.7) 10^3/u L Lymph # (Auto) (0.8-4.8) 10^3/u L [place] # (Auto) (0.2-0.9) 10^3/u L Eos # (Auto) (0.0-0.8) 10^3/u L Baso # (Auto) (0.0-0.1) 10^3/u L Nucleated RBC % (a uto) % Nucleated RBCs # /100WBC Sodium (136-145) mmol/L Potassium (3.5-5.1) mmol/L Chloride (98-107) mmol/L Carbon Dioxide (22-29) mmol/L Anion Gap (5-19) BUN (6-20) mg/dL Creatinine (0.5-0.9) mg/dL GFR Calculation (90-130) mL/min Glucose (65-115) mg/dL Calculated Osmolal ity (285-295) mOsm/k g Calcium (8.5-10.5) mg/dL Total Bilirubin (0.15-1.2) mg/dL AST (0-32) U/L ALT (0-33) U/L Alkaline Phosphata se (35-105) IU/L Troponin T Baselin e (0-10) ng/L Total Protein (6.6-8.7) g/dL Albumin (3.5-5.2) g/dL Globulin (1.3-4.6) g/dL Lipase 19 (13-60) U/L Imaging Data^: CXR: Attestation: I personally reviewed and interpreted this imaging study as follows: My impression: No acute cardiopulmonary findings. EKG Data^: EKG 1: Attestation: I personally reviewed and interpreted this EKG as follows: EKG interpretation date: 07/02/20 EKG interpretation time: 14:03 Interpretation: Normal sinus rhythm at 66 beats a minute, normal axis, no blocks, normal intervals, T wave inversion in V1, V2 and V3. Findings are similar to previous. Discharge Plan Discharge Prescriptions: No Action Anoro Ellipta 62.5-25 mcg/actuation blister with device 1 inh INHALATION Q24H 30 Days Qty: 60 RF: 2 metoprolol tartrate 25 mg tablet 12.5 mg PO BID Qty: 90 RF: 1 rosuvastatin 20 mg tablet 20 mg PO DAILY Qty: 90 RF: 3 clopidogrel 75 mg tablet 75 mg PO DAILY Qty: 90 RF: 3 bupropion HCl (smoking deter) 150 mg Tablet Extended Release 12 Hr 150 mg PO DAILY RF: 0 albuterol sulfate 90 mcg/actuation HFA aerosol inhaler 1 inh INHALATION Q6H PRN (Reason: shortness of breath or wheezing) Qty: 18 RF: 0 aspirin [Adult Aspirin Regimen] 81 mg tablet,delayed release (DR/EC) 81 mg PO DAILY 30 Days Qty: 30 RF: 0 nitroglycerin 0.4 mg tablet, sublingual 0.4 mg SUBLINGUAL Q5M PRN (Reason: chest pain) 3 Days Qty: 3 RF: 0 Pepcid AC 20 mg Tablet 20 mg PO DAILY RF: 0 Coding Level of Care Code 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
[2020-07-02] MEDS: aspirin 325 mg Tablet PO (14:13)
[2020-07-02] MEDS: nitroglycerin 0.4 mg sublingual Tablet SUBLINGUAL ×2 (14:14→14:47)
[2020-07-02 14:19] LABS: Basophils # 0.1 10^3/uL (0.0-0.1); Basophils % 0.8 %; Eosinophils # 0.2 10^3/uL (0.0-0.8); Eosinophils % 2.4 %; Hematocrit 41.9 % (37.0-47.0); Hemoglobin 13.3 g/dL (11.5-15.3); Lymphocytes # 3.9 10^3/uL (0.8-4.8); Lymphocytes % 39.9 %; Mean Corpuscular HGB Conc 31.7 g/dL (30.0-36.0); Mean Corpuscular Hemoglobin 29.1 pg (28.0-34.0); Mean Corpuscular Volume 91.7 fL (81-99); Mean Platelet Volume 10.9 fL (7.4-10.4); Monocytes # 0.6 10^3/uL (0.2-0.9); Monocytes % 6.4 %; Neutrophils # 4.85 10^3/uL (1.8-7.7); Neutrophils % 50.3 %; Nucleated Red Blood Cells % 0 %; Platelet Count 332 10^3/cmm (130-400); Red Blood Count 4.57 10^6/uL (4.1-5.3); White Blood Count 9.7 10^3/uL (4.0-10.0)
[2020-07-02 14:33] LABS: Alanine Aminotransferase 11 U/L (0-33); Alkaline Phosphatase 85 IU/L (35-105); Anion Gap 15.7 (5-19); Aspartate Amino Transferase 12 U/L (0-32); Blood Urea Nitrogen 10 mg/dL (6-20); Carbon Dioxide 21 mmol/L (22-29); Chloride 106 mmol/L (98-107); Globulin 3.5 g/dL (1.3-4.6); Glomerular Filtration Rate 128.6 mL/min (90-130); Glucose 96 mg/dL (65-115); Osmolality Calculated 284 mOsm/kg (285-295); Potassium 3.7 mmol/L (3.5-5.1); Sodium 139 mmol/L (136-145); Total Bilirubin 0.3 mg/dL (0.15-1.2); Total Protein 7.5 g/dL (6.6-8.7); Troponin(5th) Baseline 6 ng/L (0-10)
[2020-07-02 14:47] LABS: Lipase 19 U/L (13-60)
[2020-07-02] MEDS: nitroglycerin 1 gm/inch oint Pkt 1 INCH TOPICAL (15:11)
--- NOTE | 2020-07-02 15:46 | ECG_ITS ---
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 Measurements Intervals [place] Rate: 71 P: 188 IN: 137 QRS: 76 QRSD: 10 T: 0 QT: 110 QTc: 120 Interpretive Statements SINUS RHYTHM WITH OCCASIONAL ECTOPIC PREMATURE COMPLEXES LOW QRS VOLTAGE [QRS DEFLECTION < 0.5/1.0 mV IN LIMB/CHEST LEADS] POSSIBLE ANTERIOR MYOCARDIAL INFARCTION , OF INDETERMINATE AGE [30 ms Q WAVE IN V3/V4, OR R < 0.2 mV IN V4] T wave changes, suggestive of anterior wall ischemia. Compared to ECG 07/02/2020 14:03:30 ST (T wave) deviation now present Myocardial infarct finding still present Electronically Signed On 07-02-2020 19:57:17 CDT by Taylor Robles M.D. [id number]
--- NOTE | 2020-07-02 15:53 | ECG_ITS ---
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 Measurements Intervals [place] Rate: 59 P: 16 AR: 194 QRS: -12 QRSD: 85 T: -5 QT: 428 QTc: 426 Interpretive Statements SINUS BRADYCARDIA LOW QRS VOLTAGE IN PRECORDIAL LEADS [QRS DEFLECTION < 1.0 mV IN CHEST LEADS] Compared to ECG 07/02/2020 16:02:49 Nonspecific T wave changes Sinus rhythm no longer present Myocardial infarct finding no longer present ST (T wave) deviation no longer present Electronically Signed On 07-02-2020 20:12:18 CDT by Taylor Robles M.D. [id number]
[2020-07-02] MEDS: enoxaparin 80 mg/0.8 mL Syringe SUBCUT (16:11)
[2020-07-02] MEDS: HYDROmorphone 1 mg/mL INJ 1 mL 0.5 MG IVP (16:12)
--- NOTE | 2020-07-02 16:30 | PM.HP ---
Providers/Chief Complaint Admitting Physician: Jimmy Paige MD Chief Complaint: chest pain History of Present Illness Guillermina Mosquera is a 55 year old female presenting to the hospital with complaints of chest discomfort. She reports it is sharp, substernal. This can occur at rest or with activity. She reports it is very responsive to nitroglycerin, and typically will go away for 2 days hours after taking. She reports for the last week it is been worse than usual, and she has had to take 2 nitroglycerin every day. She states it was rather rare before with 1 nitroglycerin every 4 weeks. Discomfort is very similar to her pain she had when coronary stenting was required. She has a past history of coronary disease with history of RCA stenting in March 2020. Over the last week or so she added Pepcid to her regimen of medicine just in case reflux could be playing a role. She denies any specific reflux but does admit to dysphagia, with food lodging in her epigastric area, solids, if she does not chew well. She occasionally will regurgitate if it will not go down with liquid. She does not have dysphagia to liquid alone. She denies any blood in her stool or black or tarry bowel movements. She has had no hematemesis. She has been compliant with her Plavix. No anti-inflammatories. Some nausea lately. No history of COVID, or exposure to COVID. Review of Systems General: Reports: 10 or more systems reviewed and unremarkable except in HPI and below Const: Denies: fever(s) Eyes: Denies: change in vision ENMT: Denies: throat pain Card: Reports: chest pain Resp: Denies: dyspnea GI: Reports: nausea; Denies: abdominal pain or vomiting : Denies: flank pain Musc: Denies: neck pain Skin/Breast: Denies: rash Neuro: Denies: headache(s) Psych: Denies: anxiety Endo: Denies: polyuria Nixon/Lymph: Denies: easy bruising All/Imm: Denies: urticaria Medications/Allergies Home Medications Medication Instructions Recorded Confirmed Last Taken Type bupropion HCl (smoking deter) 150 mg PO DAILY 12/26/19 07/02/20 07/02/20 History albuterol sulfate 1 inh INHALATION Q6H PRN #18 gm 04/16/20 07/02/20 07/02/20 Rx aspirin [Adult Aspirin Regimen] 81 mg PO DAILY 30 Days #30 tab 04/16/20 07/02/20 07/02/20 Rx nitroglycerin 0.4 mg SUBLINGUAL Q5M PRN 3 Days 04/16/20 07/02/20 07/02/20 Rx #3 tab umeclidinium 62.5 mcg-vilanterol 1 inh INHALATION Q24H 30 Days #60 04/30/20 07/02/20 07/02/20 Rx 25 mcg/actuation powdr for each inhalation metoprolol tartrate 25 mg tablet 12.5 mg PO BID #90 tab 05/12/20 07/02/20 07/02/20 Rx clopidogrel 75 mg tablet 75 mg PO DAILY #90 tab 05/13/20 07/02/20 07/02/20 Rx rosuvastatin 20 mg tablet 20 mg PO DAILY #90 tab 05/13/20 07/02/20 07/01/20 Rx famotidine [Pepcid AC] 20 mg PO DAILY 07/02/20 07/02/20 07/01/20 History Allergies Allergy/AdvReac Type Severity Reaction Status Date / Time morphine Allergy ADR-Vomitin Verified 07/02/20 14:22 g PFSH Acute PFSH: Medical History (Updated 07/02/20 @ 16:40 by Jimmy Paige MD) Atherosclerotic heart disease of [place] coronary artery without angina pectoris Patient had a high-grade lesion of the RCA which was intervened March, Atypical chest pain COPD (chronic obstructive pulmonary disease) ANDERSON (dyspnea on exertion) Dyslipidemia (high LDL; low HDL) GERD (gastroesophageal reflux disease) SOB (shortness of breath) Tobacco abuse Unstable angina Surgical History (Updated 07/02/20 @ 16:35 by Jimmy Paige MD) History of arthroscopic knee surgery History of coronary angiogram Hx of cholecystectomy Family History Father CAD (coronary artery disease) Hyperlipidemia Hypertension Lung disease Other Cancer Stroke Social History Smoking and tobacco status: former smoker Quit status (tobacco): has quit using tobacco Year quit tobacco: 2020 - 0.5 PPD x 40 Years Alcohol intake: never Lives independently: Yes Household members: spouse Marital status: Current occupational status: employed Current occupation: [employer] Current occupational exposures/hazards: No History of recent travel: No Current gender identity: Female Vitals/I&O/Wt Last Vital Signs Temp 97.8 F 07/02/20 13:48 Pulse 70 07/02/20 13:48 Resp 18 07/02/20 16:12 BP 126/82 07/02/20 13:48 Pulse Ox 96 07/02/20 16:12 Weight last 48 hrs Weight 85.275 kg Physical Exam Narrative: EXAM NARRATIVE: General exam is a white female, no apparent distress HEENT: Pupils equally round. Oropharynx clear. Neck is supple no lymphadenopathy or thyromegaly Cardiovascular regular rate and rhythm without murmur. No pain to palpation. No S3. Lungs clear no wheezing or crackles Abdomen is soft with positive bowel sounds. No obvious organomegaly was deferred Extremities no cyanosis clubbing or edema, cap refill brisk Skin no rash Neuro no focal deficits Data : 07/02/20 14:08 07/02/20 14:08 Other data: Chest x-ray no infiltrate EKG demonstrates normal sinus rhythm, normal axis, flipped T waves 3, V1 and V2. This is unchanged from prior EKG. LFTs and lipase are within normal limits A&P Assessment and plan (1) Atypical chest pain: Chest pain is somewhat atypical. There is no exertional component.. However, she reports this is similar to the discomfort she had prompting the stenting of her right coronary artery. She reports the pain has not seemed to improve with Pepcid that she has been taking at home. Full dose anticoagulation with Lovenox was started in the emergency department We will arrange for nuclear stress testing. However, with history of nitroglycerin use fairly significant over the last several months cardiology consultation will be obtained as well. Serial troponins Continue aspirin, beta-jian, statin, Plavix Status: Acute (2) Dysphagia: Initiate Protonix 40 mg twice daily Consider upper GI, following cardiac evaluation. Status: Acute (3) Atherosclerotic heart disease of [place] coronary artery without angina pectoris: See notation under chest pain above Status: Acute Qualifiers: [place] vs. transplanted heart: [place] heart Qualified Code(s): I25.10 - Atherosclerotic heart disease of [place] coronary artery without angina pectoris Additional A&P Information Hyperlipidemia, continue statin GERD. Escalate to Protonix considering dysphagia History of COPD. Continue home meds Full code Lovenox for DVT prophylaxis Attestations Medical Necessity Statement*: Will need less than 2 midnight stay for evaluation and treatment of chest discomfort. 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 transplanted heart: tling[place] heart
[2020-07-02 16:33] LABS: Troponin 5 2HR Delta 0 ABS# (0-10)
[2020-07-02] MEDS: sodium chloride 0.9% 1,000 ML 50 ML IV (17:23)
--- NOTE | 2020-07-02 17:33 | PM.CONSULT ---
Providers/Reason For Consult Consulting Physican/Specialty*: Cardiology Reason for Consult*: Chest pain Attending Physician: Jimmy Paige MD History of Present Illness History of Present Illness Guillermina Mosquera is a 55 year old female past medical history significant for history of coronary artery disease with unstable angina status post drug-eluting stent to distal RCA in March of this year, history of hypertension hyperlipidemia was in usual state of health post cath when she started noticing recurrence of chest pain off and on basis going on for the last 4 to 5 weeks. She called on to her primary care physician who according to the patient optimize her medicine but did not do anything different. In the last 10 days patient noticed that chest pain started coming back with increased frequency and duration at rest and upon exertion now to the extent that she has been taking nitroglycerin 5-6 times a day. She does notice that nitroglycerin relieves the chest pain. Mild to moderate exertion bring the chest pain on. She has to sit down for 5 to 10 minutes to get over it. It is the reason she decided to come to the ER. She was admitted to rule out for acute coronary syndrome. She denies being noncompliant to the medicine. She thinks pain characteristics is similar to what she had when she had her stent put in. She also gives history of dysphagia but told me that it has never provoked the chest pain. She also told me that she does not have any signs and symptoms of GERD. She would not also like to go through the stress test as she thinks something is going on and then we must look into her coronary arteries. She is very nervous, she thinks she is going to end up in a heart attack. Review of Systems General: Reports: 10 or more systems reviewed and unremarkable except in HPI and below Const: Reports: diaphoresis; Denies: fever(s), chills, body aches, fatigue or malaise Eyes: Denies: change in vision, blurry vision, photophobia, eye discomfort, eye discharge or eye redness ENMT: Denies: throat pain, odynophagia, hoarseness, swelling of lips/tongue, ear or mastoid pain, ear discharge, change in hearing or nasal discharge Card: Reports: chest pain; Denies: palpitations, irregular heart rhythm, edema, lightheadedness, syncope, pre-syncope, dyspnea on exertion or orthopnea Resp: Denies: dyspnea, productive cough, non-productive cough, wheezing, hemoptysis or chest congestion GI: Reports: nausea; Denies: abdominal pain, vomiting, hematemesis, coffee ground emesis, heartburn, diarrhea, constipation, GI cramping, hematochezia or melena : Denies: flank pain, dysuria, urinary frequency, urinary urgency or hematuria Musc: Denies: neck pain, back pain, extremity pain, extremity swelling, joint pain, joint swelling, joint redness, joint warmth or joint stiffness Skin/Breast: Denies: rash, pruritus, erythema or skin tenderness Neuro: Denies: headache(s), numbness in extremities, weakness in extremities, sensory changes, lack of coordination, difficulty walking, dizziness, vertigo, confusion, Slurred speech present or seizure-like activity Psych: Denies: anxiety Endo: Denies: polyuria Nixon/Lymph: Denies: easy bruising, easy bleeding, petechiae, purpura or enlarged lymph nodes All/Imm: Denies: urticaria, throat swelling, tongue swelling, facial swelling or acute wheezing Meds/Allergies Home Medications and Allergies Home Medications Medication Instructions Recorded Confirmed Last Taken Type bupropion HCl (smoking deter) 150 mg PO DAILY 12/26/19 07/02/20 07/02/20 History albuterol sulfate 1 inh INHALATION Q6H PRN #18 gm 04/16/20 07/02/20 07/02/20 Rx aspirin [Adult Aspirin Regimen] 81 mg PO DAILY 30 Days #30 tab 04/16/20 07/02/20 07/02/20 Rx nitroglycerin 0.4 mg SUBLINGUAL Q5M PRN 3 Days 04/16/20 07/02/20 07/02/20 Rx #3 tab umeclidinium 62.5 mcg-vilanterol 1 inh INHALATION Q24H 30 Days #60 04/30/20 07/02/20 07/02/20 Rx 25 mcg/actuation powdr for each inhalation metoprolol tartrate 25 mg tablet 12.5 mg PO BID #90 tab 05/12/20 07/02/20 07/02/20 Rx clopidogrel 75 mg tablet 75 mg PO DAILY #90 tab 05/13/20 07/02/20 07/02/20 Rx rosuvastatin 20 mg tablet 20 mg PO DAILY #90 tab 05/13/20 07/02/2007/01/20 Rx famotidine [Pepcid AC] 20 mg PO DAILY 07/02/20 07/02/20 07/01/20 History Allergies Allergy/AdvReac Type Severity Reaction Status Date / Time morphine Allergy ADR-Vomitin Verified 07/02/20 14:22 g Current Medications Current Medications Generic Name Dose Route Start Last Admin Trade Name Freq PRN Reason Stop Dose Admin Sodium Chloride 1,000 mls @ 50 mls/hr 07/02/20 17:05 07/02/20 17:23 Sodium Chloride 0.9% IV 50 mls/hr .Q20H BRIGITTE Administration Nitroglycerin 0.4 mg 07/02/20 14:05 07/02/20 14:47 Nitrostat SUBLINGUAL 0.4 mg Q5M PRN Administration CHEST PAIN PFSH Acute PFSH: Medical History Atherosclerotic heart disease of [place] coronary artery without angina pectoris Patient had a high-grade lesion of the RCA which was intervened March, Atypical chest pain COPD (chronic obstructive pulmonary disease) ANDERSON (dyspnea on exertion) Dyslipidemia (high LDL; low HDL) GERD (gastroesophageal reflux disease) SOB (shortness of breath) Tobacco abuse Unstable angina Surgical History History of arthroscopic knee surgery History of coronary angiogram Hx of cholecystectomy Family History Father CAD (coronary artery disease) Hyperlipidemia Hypertension Lung disease Other Cancer Stroke Social History Smoking and tobacco status: former smoker Quit status (tobacco): has quit using tobacco Year quit tobacco: 2020 - 0.5 PPD x 40 Years Alcohol intake: never Lives independently: Yes Household members: spouse Marital status: Current occupational status: employed Current occupation: [employer] Current occupational exposures/hazards: No History of recent travel: No Current gender identity: Female Dietary Habits: Current diet type/program: regular Caffeine: Yes Caffeine intake frequency: coffee and tea Vitals/I&O/Wt Last Vital Signs Temp 98.1 F 07/02/20 17:05 Pulse 67 07/02/20 17:05 Resp 18 07/02/20 17:05 BP 112/74 07/02/20 17:05 Pulse Ox 97 07/02/20 17:05 Weight last 48 hrs Weight 188 lb Physical Exam Narrative: EXAM NARRATIVE: GENERAL: Patient is alert, awake and oriented x3. NECK: No jugular vein distension. HEENT: No cyanosis. No icterus. No pallor. HEART: Regular S1 and S2. No murmur, rub or gallop. LUNGS: Clear to auscultate bilaterally. ABDOMEN: Soft, nontender and nondistended. Positive bowel sounds. No guarding, rebound or tenderness. CENTRAL NERVOUS SYSTEM: Grossly nonfocal. EXTREMITIES: Lower extremities without edema bilaterally. Data Labs: Other Labs: SINUS BRADYCARDIA LOW QRS VOLTAGE IN PRECORDIAL LEADS [QRS DEFLECTION < 1.0 mV IN CHEST LEADS] Compared to ECG 07/02/2020 16:02:49 Nonspecific T wave changes Sinus rhythm no longer present Myocardial infarct finding no longer present ST (T wave) deviation no longer present A&P Assessment and plan (1) Chest pain: Worsening of chest pain relieved with nitroglycerin which is increasing frequency duration is suspicious for angina in a female who continues to smoke and history of stent placement few months ago. She has declined stress test however due to high suspicion for unstable angina we may will proceed with coronary angiogram tomorrow. Patient will be n.p.o. after 11 AM for possible 1630. Continue current regimen including beta-jian Plavix, PPI. Add isosorbide mononitrate to the regimen. I have personally explained all risk benefit and alternative for the procedure patient would like to proceed with it Status: Acute Qualifiers: Chest pain type: precordial pain Qualified Code(s): R07.2 - Precordial pain (2) Dysphagia: Continue PPI Status: Acute Qualifiers: Dysphagia type: other dysphagia Qualified Code(s): R13.19 - Other dysphagia (3) Dyslipidemia (high LDL; low HDL): Continue statin Status: Acute Consult Attestations Medical Necessity Statement: Patient require continuation hospitalization for above defined care. 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
[2020-07-02] MEDS: metoprolol tartrate 25 mg Tablet 12.5 MG PO (17:40)
[2020-07-02] MEDS: pantoprazole DR 40 mg Tablet PO (17:40)
--- NOTE | 2020-07-02 17:53 | PC.NURSE ---
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
--- NOTE | 2020-07-02 18:23 | PC.NURSE ---
END OF SHIFT SUMMARY pt arrived on unit at 1705 from ED in a wheelchair with present. pt has personal belongings in room (phone wire charger, change of clothes, and personal inhaler). pt states pain is better and has not experienced pain since on unit. pt able to swallow evening PO meds well and is A/Ox4. pt able to transfer well with 1 assist.
[2020-07-02 19:02] LABS: Thyroid Stimulating Hormone 1.42 uIU/mL (0.27-4.20)
--- NOTE | 2020-07-02 19:53 | ECG_ITS ---
Test Date: 2020-07-02 Pat Name: Guillermina Mosquera Department: Room: 261 Gender: Female Mink Farmer: : 1965 Requested By: Noemi Gunderson Order Number: [id number] Fawn MD: Taylor Robles M.D. Measurements Intervals [place] Rate: -1 P: MN: -1 QRS: 0 QRSD: -1 T: 0 QT: -1 QTc: Interpretive Statements Normal sinus rhythm ATYPICAL ECG Nonspecific T wave changes Poor R wave progression WARNING: DATA QUALITY MAY AFFECT INTERPRETATION Compared to ECG 07/02/2020 18:01:07 Sinus bradycardia no longer present Electronically Signed On 07-02-2020 20:21:55 CDT by Taylor Robles M.D. [id number]
[2020-07-02 21:06] LABS: Troponin 5 6HR Delta 0 ng/L (0-12)
[2020-07-02] MEDS: acetaminophen 325 mg Tablet 650 MG PO (23:18)
[2020-07-03] VITALS (42 sets, daily range): BP systolic 93–136; BP diastolic 57–89; PULSE 62–87; RESP 15–22; TEMP 36.6–36.7; O2SAT 91–97
[2020-07-03] MEDS: enoxaparin 80 mg/0.8 mL Syringe SUBCUT (04:18)
[2020-07-03 05:58] LABS: Basophils # 0.1 10^3/uL (0.0-0.1); Basophils % 0.8 %; Eosinophils # 0.2 10^3/uL (0.0-0.8); Eosinophils % 2.8 %; Hematocrit 37.6 % (37.0-47.0); Hemoglobin 11.9 g/dL (11.5-15.3); Lymphocytes # 3.6 10^3/uL (0.8-4.8); Lymphocytes % 42.1 %; Mean Corpuscular HGB Conc 31.6 g/dL (30.0-36.0); Mean Corpuscular Hemoglobin 29.3 pg (28.0-34.0); Mean Corpuscular Volume 92.6 fL (81-99); Mean Platelet Volume 11.2 fL (7.4-10.4); Monocytes # 0.5 10^3/uL (0.2-0.9); Monocytes % 6.2 %; Neutrophils % 47.9 %; Nucleated Red Blood Cells % 0 %; Platelet Count 290 10^3/cmm (130-400); Red Blood Count 4.06 10^6/uL (4.1-5.3); White Blood Count 8.6 10^3/uL (4.0-10.0)
--- NOTE | 2020-07-03 05:59 | PC.NURSE ---
SHIFT SUMMARY Has had a good night without c/o chest pain. To have cardiac cath today. Signed consent. IV infusing without difficulty
[2020-07-03 06:25] LABS: Partial Thromboplastin Time 39.9 SECONDS (23.9-36.7)
[2020-07-03 06:33] LABS: Anion Gap 11.7 (5-19); Blood Urea Nitrogen 11 mg/dL (6-20); Calcium 8.7 mg/dL (8.5-10.5); Carbon Dioxide 24 mmol/L (22-29); Chloride 106 mmol/L (98-107); Glomerular Filtration Rate 104.2 mL/min (90-130); Glucose 91 mg/dL (65-115); Osmolality Calculated 282 mOsm/kg (285-295); Potassium 3.7 mmol/L (3.5-5.1); Sodium 138 mmol/L (136-145)
[2020-07-03] MEDS: aspirin 81 mg EC Tablet PO (09:26)
[2020-07-03] MEDS: metoprolol tartrate 25 mg Tablet 12.5 MG PO ×2 (09:27→17:18)
[2020-07-03] MEDS: pantoprazole DR 40 mg Tablet PO ×2 (09:31→17:18)
[2020-07-03 09:32] LABS: SARS Covid-2 Antigen Negative (Negative)
[2020-07-03] MEDS: atorvastatin 40 mg Tablet 80 MG PO (09:32)
[2020-07-03] MEDS: clopidogrel 75 mg Tablet PO (09:35)
[2020-07-03] MEDS: sodium chloride 0.9% 1,000 ML 50 ML IV (10:20)
--- NOTE | 2020-07-03 11:19 | XACV_ITS ---
Exam Room: [facility] Ht: 165 cm Wt: 85 kg BSA: 2.01 m2 Gender: Female : 1965 Any Known Allergies: Morphine Exam Priority: Routine Procedure(s): Procedure Description: Diagnostic procedure Procedure Description: Left Heart Catheterization Diagnostic Cath Status: Elective Conclusions Indication for left heart cath: Recurrent visit of emergency room and now admission for chest pain with worsening of shortness of breath and chest pain despite of extensive work-up and optimization of medicine. Patient has history of prior distal RCA stent. She rates pain at the same intensity and of the same characteristics when she had her stent.#1 L eft main is normal #2 LAD is normal#3 LCx is normal#4 RCA has distal patent previously placed stent. Recommendations Continue medical management. Usual postop care. Diagnostic RX Recommendation: medical therapy and/or counseling Clinical Evaluation EBL: 5mL-10mL Procedural Details Procedure Consent Obtained. Admit Source: Out Patient. Pre-Procedure Time Out. Identified patient by full name and date of as verbalized by the patient/guarantor. Does the consent match the physician's order: Yes. Accurate & Complete Informed Consent: Yes. Inpatient/Outpatient History & Physical on Chart: Yes. If H&P is completed, is and addenduem needed: N/A; If yes, is the addendum complete: N/A. Visualize and Verify Site with Patient/Guarantor: N/A. Relevant Radiology Images available: N/A. Pre-op teaching completed and patient verbalized understanding. The risks, benefits, and alternatives of sedation and/or procedure were discussed by physician. The patient agrees to continue. Procedure started. Correct patient, site and procedure confirmed by cath team. PERRLA. Strong, equal hand duty manager bilaterally. Lungs clear x 5 lobes. IV Site on Arrival: 20 gauge in the left anticubital. Pre Procedural Pulses: bilateral dorsalis pedis was 3+. Pre Procedural Pulses: bilateral posterior tibial was 3+. Pre Procedural Pulses: bilateral radial was 3+. Oxygen started at 2liters/min via nasal canula. bilateral groins was prepped with chloroprep then draped in the usual sterile fashion. Baseline sample Acquired. HR: 68 BPM. Physician notified. Physician arrived. Physician scrubbed in. Immediate Pre-Procedure Time Out. Correct Patient: Yes; Correct Procedure: Yes; Correct Site: Yes; Correct Patient Position: Yes; Correct Supplies: Yes; Dried Flammable Prep: Yes; Blood Products Available: N/A;. Lidocaine 1% infiltrated to the right groin. Arterial access obtained with micropuncture set. A 5 maltese JL4 catheter in over wire. Multiple views taken of left coronary artery. Catheter out. A 5 maltese JR4 catheter in over wire. Multiple views taken of right coronary artery. Post Procedure: Pulses reassessed and unchanged. PERRLA. Strong, equal hand duty manager bilaterally. No VTE prophylaxis required. Contrast type used: Omnipaque 300 mgI/mL, 500 mL bottle. Contrast Material : Omnipaque 70 ml. A Mechanical Compression was successful obtaining hemostatsis at the Right Femoral artery insertion site. Sheath(s) sutured into position with 2-0 silk and sterile 4x4's and Op-site applied over the site. No oozing or signs and symptoms of hematoma noted. Arterial sheath flushed and connected to tranducer and pressure bag with heparinized saline. Post-op diagnosis: previous stent, non obstructive CAD. Complications: none. Estimated blood loss: 5mL-10mL. [facility] Clinical Fraility Score: 3: Managing Well. Sap Functional Analyst Indications: New Onset Angina. Chest Pain Symptom Assessment: Atypical Angina. Cardiovascular Instability: No,. Medication's Wasted: Heparin = 1000 units. Medication's Wasted: Lidocaine 1% = 5 mL. Total IV fluids: 75 mL. Procedure completed. Patient transferred by bed to 1st floor. Vital chart was stopped. Site: Right Femoral artery Sheath Size: 6 Fr Hemostasis Method: Mechanical Compression Hemostasis Success: Successful Procedure Medications Start: 11:41 AM Stop: 11:41 AM Medication: Versed Amount: 1 mg Route: I.V. Start: 11:41 AM Stop: 11:41 AM Medication: Fentanyl Amount: 50 mcg Route: I.V. Start: 11:42 AM Stop: 11:42 AM Medication: Versed Amount: 1 mg Route: I.V. Start: 11:42 AM Stop: 11:42 AM Medication: Fentanyl Amount: 50 mcg Route: I.V. I, the attending physician, have reviewed and verified all procedure medications. Yes, all medications given per verbal order History/Risk Factors Hypertension: No Dyslipidemia: Yes Peripheral Arterial Disease (PAD): No Myocardial Infarction (W[place]): No Obesity: Yes Renal Disease: No Tobacco Use: Current/Recent(w/in 1 year) Prior Interventions PCI: Yes CABG: No Valve Surgery: No Date of PCI: 04/02/2020 Report Signatures Finalized by:Reggie Moore MD on 07/15/2020 5:19:08 PM
--- NOTE | 2020-07-03 11:20 | W.PM.OPSUD ---
Surgery/Procedure H&P Update DATE OF PROCEDURE: July 03, 2020 DATE H&P PERFORMED: 07/02/20 H&P UPDATE INFORMATION: I have reviewed H&P completed within last 30 days, I have examined patient prior to procedure and No changes to prior documentation PREOP DIAGNOSIS: Unstable angina PLANNED PROCEDURE: Operation Date: 07/03/20 16:30 Proposed Procedures p Cardiac Catheterization(Left) - Reggie Moore MD PATIENT REASSESSED PRIOR TO SEDATION, WITH NO CHANGE NOTED: Yes PHYSICAL EXAM: alert, oriented x 3, clear to auscultation bilaterally and regular rate & rhythm AIRWAY EVAL/ANESTHESIA PLAN: ASA II, Risks, benefits & alternatives of sedation and/or procedure discussed and Patient agrees to continue as planned
--- NOTE | 2020-07-03 11:21 | P.PN_ITS ---
Subjective Subjective: Interval history: Patient reports no significant chest pain overnight but she suspects that is secondary to the nitroglycerin ointment she had on. Awaiting angiogram today. Medications: Reviewed: Yes Vitals/I&O/Wt Last Vital Signs Temp 97.9 F 07/03/20 08:00 Pulse 87 07/03/20 08:00 Resp 18 07/03/20 08:00 BP 112/74 07/03/20 08:00 Pulse Ox 95 07/03/20 08:00 07/02/20 07/03/20 07/03/20 22:59 06:59 14:59 Intake Total 240 / 240 300 / 540 847.5 / 847.5 Output Total 400 / 400 700 / 1100 Balance -160 / -160 -400 / -560 847.5 / 847.5 Weight last 48 hrs Weight 85.275 kg Physical Exam Narrative: EXAM NARRATIVE: General no apparent distress Cardiovascular regular rate and rhythm without murmur. No pain to palpation. N o S3. Lungs clear no wheezing or crackles Abdomen is soft with positive bowel sounds. No obvious organomegaly Extremities no cyanosis clubbing or edema, cap refill brisk Data : 07/03/20 05:20 07/03/20 05:20 A&P Assessment and plan (1) Atypical chest pain: Chest pain is somewhat atypical. There is no exertional component.. However, she reports this is similar to the discomfort she had prompting the stenting of her right coronary artery. She reports the pain has not seemed to improve with Pepcid that she has been taking at home. Full dose anticoagulation with Lovenox was started in the emergency department Cardiology evaluation has been completed, an angiogram will be performed today. Serial troponins with no elevation and no significant delta Continue aspirin, beta-jian, statin, Plavix Status: Acute (2) Dysphagia: Initiate Protonix 40 mg twice daily Consider upper GI, following cardiac evaluation, possibly as an outpatient Status: Acute Qualifiers: Dysphagia type: other dysphagia Qualified Code(s): R13.19 - Other dysphagia (3) Atherosclerotic heart disease of [place] coronary artery without angina pectoris: See notation under chest pain above Status: Acute Qualifiers: [place] vs. transplanted heart: [place] heart Qualified Code(s): I25.10 - Atherosclerotic heart disease of [place] coronary artery without angina pectoris Additional A&P Information Hyperlipidemia, continue statin GERD. Escalate to Protonix considering dysphagia History of COPD. Continue home meds Full code Lovenox for DVT prophylaxis Attestations Medical Necessity Statement*: Needs continued hospitalization pending definitive evaluation of chest discomfort with coronary angiogram Coding Level of Care Code Acute Custom Bike Builder for Chg Fwd Diagnoses Atypical chest pain R07.89 Dysphagia R13.19 Dysphagia type: other dysphagia Atherosclerotic heart disease of [place] coronary artery without angina pectoris I25.10 [place] vs. transplanted heart: [place] heart
--- NOTE | 2020-07-03 11:39 | PC.NURSE ---
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 Patient prepped for procedure. PO Benadryl not administered. Verbal order from Dr. Moore to discontinue order. Patient stable at this tiem.
--- NOTE | 2020-07-03 12:11 | PM.PN ---
Subjective Subjective: Interval history: Status post coronary angiogram which did not show any significant blockage prior stent to distal RCA was patent. Vitals/I&O/Wt Last Vital Signs Temp 97.9 F 07/03/20 08:00 Pulse 87 07/03/20 08:00 Resp 18 07/03/20 08:00 BP 112/74 07/03/20 08:00 Pulse Ox 95 07/03/20 08:00 07/02/20 07/03/20 07/03/20 22:59 06:59 14:59 Intake Total 240 / 240 300 / 540 847.5 / 847.5 Output Total 400 / 400 700 / 1100 Balance -160 / -160 -400 / -560 847.5 / 847.5 Weight last 48 hrs Weight 188 lb Physical Exam Narrative: EXAM NARRATIVE: GENERAL: Patient is alert, awake and oriented x3. NECK: No jugular vein distension. HEENT: No cyanosis. No icterus. No pallor. HEART: Regular S1 and S2. No murmur, rub or gallop. LUNGS: Clear to auscultate bilaterally. ABDOMEN: Soft, nontender and nondistended. Positive bowel sounds. No guarding, rebound or tenderness. CENTRAL NERVOUS SYSTEM: Grossly nonfocal. EXTREMITIES: Lower extremities without edema bilaterally. Data : 07/03/20 05:20 07/03/20 05:20 A&P Assessment and plan (1) Chest pain: Most likely atypical could be coronary spasm isosorbide mononitrate will be titrated up. Advised quitting smoking Status: Acute Qualifiers: Chest pain type: precordial pain Qualified Code(s): R07.2 - Precordial pain (2) Atherosclerotic heart disease of [place] coronary artery without angina pectoris: Nonobstructive coronary artery disease patent previously placed stent continue current regimen. Continue statin beta-jian aspirin and Plavix. Follow-up with Dr. Robles Status: Acute Qualifiers: [place] vs. transplanted heart: [place] heart Qualified Code(s): I25.10 - Atherosclerotic heart disease of [place] coronary artery without angina pectoris (3) Smoking: Status: Acute Attestations Medical Necessity Statement*: Require continuation hospitalization for post cath care Coding Level of Care Code Established Pt Acute Television News Producer for g Fwd Patient Type Established History Expanded Problem Focused Exam Expanded Problem Focused Medical Decision Making Moderate Complexity Diagnoses Chest pain R07.2 Chest pain type: precordial pain Atherosclerotic heart disease of [place] coronary artery without angina pectoris I25.10 [place] vs. transplanted heart: [place] heart Smoking F17.200
--- NOTE | 2020-07-03 12:15 | PC.NURSE ---
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 2 nurse verification of insertion site, asymptomatic, pressure bag attached. Patient educated on activity restrictions, verbalized understanding of teaching. Nurse to continue to monitor.
--- NOTE | 2020-07-03 13:26 | PC.RESP ---
Pulmonary Rehab information sent to patient.
--- NOTE | 2020-07-03 13:38 | PC.RESP ---
Pulmonary Rehab information to patient.
[2020-07-03] MEDS: fentaNYL 50 mcg/mL INJ 2mL IVP (14:37)
--- NOTE | 2020-07-03 15:15 | PC.NURSE ---
Sheath Pull Sheath pulled at 1445 per order. Direct pressure held for 20 minutes until hemostasis achieved. Site asymptomatic. Patient tolerated well. Neurovascular assessment WNL. Dressing applied. Nurse to continue to monitor.
--- NOTE | 2020-07-03 18:55 | PM.DCS ---
Discharge Providers Date of Admission: 07/02/20 15:16 Date of Discharge: July 03, 2020 Attending Provider at Admission: Jimmy Paige MD Attending Provider at Discharge: Jimmy Paige MD Primary Care Provider: DOCTOR NOT ON FILE Diagnoses at Discharge Discharge Diagnosis (1) Chest pain: Status: Acute Problem details: Angiogram performed July 03. No flow-limiting lesions noted. Qualifiers: Chest pain type: precordial pain Qualified Code(s): R07.2 - Precordial pain (2) Atherosclerotic heart disease of [place] coronary artery without angina pectoris: Status: Acute Problem details: Patient had a high-grade lesion of the RCA which was intervened March, Qualifiers: [place] vs. transplanted heart: [place] heart Qualified Code(s): I25.10 - Atherosclerotic heart disease of [place] coronary artery without angina pectoris (3) Smoking: Status: Acute Reason for Visit Reason for Visit: chest pain Hospital Course Hospital Course: Guillermina is a 55-year-old white female who presented to the hospital with chest discomfort, concerning for possible angina. Troponin was negative. EKG was unchanged from prior. She also gave a history of dysphagia. After review by cardiology, it was thought that angiogram was warranted. This was performed July 03 and demonstrated no flow-limiting lesions. While in the hospital she was placed on Protonix twice daily. At end of hospital stay she was chest discomfort free. It was thought she could be discharged home, for follow-up with her primary care provider for further investigation such as upper GI or referral for endoscopy regarding her dysphagia to solids. Physical Exam Narrative: EXAM NARRATIVE: See exam from prior in the day Distal perfusion of angiogram site intact, and angiogram site without significant hematoma. Discharge Data Data Completed and Pending: Completed Studies During Hospitalization Category Date Time Status XR chest 1V marybeth ble [id number] Urgent Exams 07/02/20 13:52 Completed Pending at discharge Category Date Time Status SYSTEMS ADMINISTRATION ANALYST request for service Routin e Exams 07/03/20 11:19 Ordered Basic Metabolic P livia AM LABS Lab 07/04/20 04:00 Ordered Complete Blood Co unt w/Auto AM LABS Lab 07/04/20 04:00 Ordered Labs from last 24 hours 07/03/20 07/03/20 07/03/20 08:45 05:20 05:20 WBC RBC Hgb Hct MCV MCH MCHC RDW Plt Count MPV Neut % (Auto) Lymph % (Auto) [place] % (Auto) Eos % (Auto) Baso % (Auto) Neut # (Auto) Lymph # (Auto) [place] # (Auto) Eos # (Auto) Baso # (Auto) Nucleated RBC % (a uto) Nucleated RBCs # APTT 39.9 H Sodium 138 Potassium 3.7 Chloride 106 Carbon Dioxide 24 Anion Gap 11.7 BUN 11 Creatinine 0.6 GFR Calculation 104.2 Glucose 91 Calculated Osmolal ity 282 L Calcium 8.7 Troponin T Hi Sens 6Hr Troponin T Hi Sens 6Hr Delta TSH SARS-CoV-2 Ag (Rap id) Negative 07/03/20 07/02/20 07/02/20 05:20 20:20 15:59 WBC 8.6 RBC 4.06 L Hgb 11.9 Hct 37.6 MCV 92.6 MCH 29.3 MCHC 31.6 RDW 13.0 Plt Count 290 MPV 11.2 H Neut % (Auto) 47.9 Lymph % (Auto) 42.1 [place] % (Auto) 6.2 Eos % (Auto) 2.8 Baso % (Auto) 0.8 Neut # (Auto) 4.10 Lymph # (Auto) 3.6 [place] # (Auto) 0.5 Eos # (Auto) 0.2 Baso # (Auto) 0.1 Nucleated RBC % (a uto) 0 Nucleated RBCs # 0.0 APTT Sodium Potassium Chloride Carbon Dioxide Anion Gap BUN Creatinine GFR Calculation Glucose Calculated Osmolal ity Calcium Troponin T Hi Sens 6Hr 6.00 Troponin T Hi Sens 6Hr Delta 0 TSH 1.42 SARS-CoV-2 Ag (Rap id) Vitals: Last Vital Signs Temp 98.1 F 07/03/20 15:21 Pulse 85 07/03/20 16:00 Resp 18 07/03/20 16:00 BP 106/76 07/03/20 16:00 Pulse Ox 91 07/03/20 16:00 Discharge Plan Discharge Patient Disposition: Home Condition: Stable Prescriptions: New pantoprazole [Protonix] 40 mg tablet,delayed release (DR/EC) 40 mg PO BID Qty: 60 RF: 0 Continued Anoro Ellipta 62.5-25 mcg/actuation blister with device 1 inh INHALATION Q24H 30 Days Qty: 60 RF: 2 metoprolol tartrate 25 mg tablet 12.5 mg PO BID Qty: 90 RF: 1 rosuvastatin 20 mg tablet 20 mg PO DAILY Qty: 90 RF: 3 clopidogrel 75 mg tablet 75 mg PO DAILY Qty: 90 RF: 3 bupropion HCl (smoking deter) 150 mg Tablet Extended Release 12 Hr 150 mg PO DAILY RF: 0 albuterol sulfate 90 mcg/actuation HFA aerosol inhaler 1 inh INHALATION Q6H PRN (Reason: shortness of breath or wheezing) Qty: 18 RF: 0 aspirin [Adult Aspirin Regimen] 81 mg tablet,delayed release (DR/EC) 81 mg PO DAILY 30 Days Qty: 30 RF: 0 nitroglycerin 0.4 mg tablet, sublingual 0.4 mg SUBLINGUAL Q5M PRN (Reason: chest pain) 3 Days Qty: 3 RF: 0 Discontinued Pepcid AC 20 mg Tablet 20 mg PO DAILY RF: 0 Discharge Orders: Discharge Order (Routine); Ordered 07/03/20 Ordered By: Jimmy Paige Referrals: Cammy Esposito FNP [Nurse Practitioner] - 1 week ([facility] will be calling to schedule a Post Procedure foillow up with APOLONIA Estrada to be seen in approx. 1 week. If you don't hear from them by tomorrow mid Morning please give them a call (They close at noon). Thank You) Discharge Diet: Cardiac Discharge Activity: Increase activity as tolerated Patient Instructions: Left Heart Catheterization (DC) Activity Restrictions/Additional Instructions: Take all medicine as prescribed Follow-up with your primary care provider in 3 to 5 days, and discuss evaluation of dysphagia Avoid caffeine, anti-inflammatory drugs. Take Protonix as prescribed. Discharge Attestations Time Spent in Discharge Care*: greater than 30 min Quality Metrics Clinical Quality Measures During this hospital stay, did patient experience: None Coding Level of Care Code Acute Scheduling Specialist for Janae Fwkendra Diagnoses Chest pain R07.2 Chest pain type: precordial pain Atherosclerotic heart disease of [place] coronary artery without angina pectoris I25.10 [place] vs. transplanted heart: [place] heart Smoking F17.200
--- NOTE | 2020-07-03 21:11 | PC.NURSE ---
Patient ambulated with nurse. VSS before and after. Right groin dressing/site WNL before and after. Pedal pulses present.
--- NOTE | 2020-07-03 21:30 | PC.NURSE ---
Dr. Vincent notified of patient asking for work excuse note, which was given to patient.
--- NOTE | 2020-07-03 21:48 | PC.NURSE ---
Patient was given discharge instructions and verbalized understanding. IV removed with catheter intact. VSS. Right groin site/dressing WNL. Patient is leaving with .
== END 2020-07-03 21:55 | disposition home or self-care (01) ==
LOC: ER 13:54 → MEDSURG 15:59 → CSU 07-03 10:12
PROVIDERS: Emergency Medicine; Internal Medicine Cardiovascular Disease; Physician Assistant; Admitting Provider Internal Medicine; Visit Provider Internal Medicine
DX: R07.2 Precordial pain (principal); I25.10 Atherosclerotic heart disease of native coronary artery without angina pectoris; R13.19 Other dysphagia; E78.5 Hyperlipidemia, unspecified; J44.9 Chronic obstructive pulmonary disease, unspecified; K21.9 Gastro-esophageal reflux disease without esophagitis; Z79.82 Long term (current) use of aspirin; Z88.5 Allergy status to narcotic agent; Z87.891 Personal history of nicotine dependence; Z95.5 Presence of coronary angioplasty implant and graft; Z82.49 Family history of ischemic heart disease and other diseases of the circulatory system
CPT/HCPCS: 12345; 36415; 71045; 80048; 80053; 83690; 84443; 84484; 85025; 85730; 87426; 93005; 93454; 96360; 96361; 96372; 96374; 96375; 99282; 99283; 99285; C1769; C1887; C1894; G0378; J1170; J1644; J1650; J2250; J3010; J7030; Q9967

== ENCOUNTER → 2020-07-09 09:15 | Outpatient (BNVA) | payer OTHER, SELFPAY | PROVIDERS: PCP Family Medicine; Visit Provider Nurse Practitioner Family | DX: I25.10 Atherosclerotic heart disease of native coronary artery without angina pectoris (principal) | CPT/HCPCS: 80048 ==

== ENCOUNTER 2020-07-16 12:00 | Outpatient (CLI) | payer OTHER, SELFPAY | END 2020-07-16 20:01 | disposition home or self-care (01) | LOC: SLEEP 07-29 14:30 | PROVIDERS: PCP Family Medicine; Visit Provider Internal Medicine Critical Care Medicine | DX: G47.10 Hypersomnia, unspecified (principal) | CPT/HCPCS: G0399 ==

== ENCOUNTER 2020-07-18 11:58 | Outpatient (CLI) | payer OTHER, SELFPAY ==
--- NOTE | 2020-07-18 12:08 | MM_ITS ---
WS: [id number] BILATERAL DIGITAL SCREENING MAMMOGRAPHY WITH CAD CLINICAL INFORMATION: SCREEN HISTORY: Screening mammogram. No current complaints. COMPARISON: January 11, 2019 TECHNIQUE: Bilateral CC and MLO views. FINDINGS: Scattered fibroglandular densities bilaterally. No suspicious focal mass, asymmetry, calcifications, or architectural distortion. No evidence of malignancy. MM/[place] [id number] IMPRESSION: BI-RADS: 1-Negative FOLLOW UP: 1 Year Follow-up Recommend return to annual screening mammography.
== END 2020-07-18 11:59 | disposition home or self-care (01) ==
LOC: RADSHAW 12:01
PROVIDERS: PCP Family Medicine; Visit Provider Family Medicine
DX: Z12.31 Encounter for screening mammogram for malignant neoplasm of breast (principal)
CPT/HCPCS: 77067

== ENCOUNTER 2020-07-25 09:08 | Outpatient (RCR) | payer OTHER, SELFPAY | END 2020-08-23 23:59 | disposition home or self-care (01) | LOC: CR 09:08 | PROVIDERS: Family Provider Family Medicine; PCP Family Medicine; Referring Provider Internal Medicine Cardiovascular Disease; Visit Provider Internal Medicine Cardiovascular Disease | DX: Z95.5 Presence of coronary angioplasty implant and graft (principal) | CPT/HCPCS: 93798 ==

== ENCOUNTER 2020-08-27 21:39 | Observation (INO) | payer OTHER, SELFPAY ==
[2020-08-27 21:42] VITALS: BP 127/73; PULSE 82; RESP 16; TEMP 36.6; O2SAT 96; BMI 32.1
--- NOTE | 2020-08-27 21:56 | XR_ITS ---
WS: [id number] XR chest 1V portable [id number] REASON FOR EXAM: Upper abdominal pain FINDINGS: The chest is unchanged compared to 07/02/2020. The heart and mediastinum are within normal limits. No active pulmonary parenchymal or pleural disease is noted. No significant abnormality of the bony thorax. XR/XR chest 1V portable [id number] IMPRESSION: No acute chest abnormality.
--- NOTE | 2020-08-27 21:57 | ECG_ITS ---
[facility] Test Date: 2020-08-27 Pat Name: Guillermina Mosquera Department: Room: Gender: Female Manifold Builder: : 1965 Requested By: Talita Davsion Order Number: [id number] Reading MD: AVERY TYSON Measurements Intervals [place] Rate: 67 P: FL: -1 QRS: 0 QRSD: 7 T: 0 QT: 107 QTc: 113 Interpretive Statements SINUS RHYTHM WITH 2ND DEGREE AV BLOCK, 2:1 OR MOBITZ TYPE II INDETERMINATE AXIS MARKED ST ELEVATION, CONSIDER ANTEROSEPTAL INJURY [MARKED ST ELEVATION W/O NORMALLY INFLECTED T WAVE IN V1-V4] ACUTE RI Compared to ECG 07/02/2020 19:54:08 Indeterminate axis now present ST (T wave) deviation now present Myocardial infarct finding now present T-wave abnormality no longer present Poor R-wave progression no longer present Electronically Signed On 08-29-2020 19:31:01 COTTON EXPERT by AVERY TYSON [id number]
--- NOTE | 2020-08-27 21:58 | W.ED.ABDPA2 ---
HPI - Abdominal Pain General: Chief Complaint: Abdominal Pain Stated Complaint: abd pain/ cant keep anything down Time Seen by Provider: 08/27/20 21:50 Source: patient Mode of arrival: ambulatory Limitations: no limitations History of Present Illness: HPI narrative: Guillermina is a nice 55-year-old female who comes in complaining of recurrent upper abdominal pain. She describes the pain is epigastric in location. She has had this pain numerous times in the past. Patient states she feels like she has a hard time getting fluids down and sometimes she will vomit. She denies any lower abdominal pain, diarrhea, constipation, urinary frequency urgency, dysuria, and she also denies fevers or chills. Patient denies any chest pain or shortness of breath. Patient states that her pain started about 1130 this morning and just will not resolve. She otherwise denies any new complaints or concerns. Associated Symptoms: Reports nausea and vomiting; Denies chills, coffee ground emesis, constipation, GI cramping, diarrhea, dysuria, fever(s), heartburn, hematochezia, hematuria, hematemesis, melena and syncope Review of Systems Const: Denies: fever(s), chills, body aches, fatigue, malaise or diaphoresis Eyes: Denies: change in vision, blurry vision, photophobia, eye discomfort, eye discharge, eye redness or yellow eyes ENMT: Denies: throat pain, odynophagia, hoarseness, swelling of lips/tongue, ear or mastoid pain, ear discharge, change in hearing or nasal discharge Card: Denies: chest pain, palpitations, irregular heart rhythm, edema, lightheadedness, syncope, pre-syncope, dyspnea on exertion or orthopnea Resp: Denies: dyspnea, productive cough, non-productive cough, wheezing, hemoptysis or chest congestion GI: Reports: abdominal pain, nausea and vomiting; Denies: hematemesis, coffee ground emesis, heartburn, diarrhea, constipation, GI cramping, hematochezia or melena : Denies: flank pain, dysuria, urinary frequency, urinary urgency or hematuria Musc: Denies: neck pain, back pain, extremity pain, extremity swelling, joint pain, joint swelling, joint redness, joint warmth or joint stiffness Skin/Breast: Denies: rash, pruritus, erythema, skin pain or skin tenderness Neuro: Denies: headache(s), numbness in extremities, weakness in extremities, sensory changes, lack of coordination, difficulty walking, dizziness, vertigo, confusion, Slurred speech present or seizure-like activity Nixon/Lymph: Denies: easy bruising, easy bleeding, petechiae, purpura or enlarged lymph nodes All/Imm: Denies: urticaria, throat swelling, tongue swelling, facial swelling or acute wheezing PFSH ED PFSH: Medical History (Updated 08/28/20 @ 01:40 by Talita Romero) Atherosclerotic heart disease of [place] coronary artery without angina pectoris Patient had a high-grade lesion of the RCA which was intervened March, Atypical chest pain Chest pain Angiogram performed July 03. No flow-limiting lesions noted. COPD (chronic obstructive pulmonary disease) ANDERSON (dyspnea on exertion) Dyslipidemia (high LDL; low HDL) GERD (gastroesophageal reflux disease) Smoking SOB (shortness of breath) Tobacco abuse Unstable angina Surgical History History of arthroscopic knee surgery History of coronary angiogram Hx of cholecystectomy Family History Father CAD (coronary artery disease) Hyperlipidemia Hypertension Lung disease Other Cancer Stroke Social History Smoking and tobacco status: former smoker Quit status (tobacco): has quit using tobacco Year quit tobacco: 2019 - 0.5 PPD x 40 Years Alcohol intake: never Lives independently: Yes Household members: spouse Marital status: Current occupational status: employed 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 Current occupational exposures/hazards: No History of recent travel: No Current gender identity: Female Physical Exam Const: COMMON NORMALS: no acute distress, patient oriented x3, no limitations and alert GENERAL APPEARANCE: cooperative HENMT: COMMON NORMALS: normocephalic, atraumatic, external ears normal, EAC's normal and Normal external nose present HEAD & SCALP: normal to inspection, normocephalic and atraumatic FACE & SINUS: normal facial exam and face symmetric NOSE: Normal external nose present and Normal nares present EXTERNAL EAR: Yes external ears normal EXTERNAL AUDITORY CANAL: EAC's normal MOUTH: Normal oral and palatal mucosa present, lip normal and tongue normal Eye: COMMON NORMALS: Equal, round and reactive pupils present and conjunctivae normal GENERAL EYE: appearance normal, both eyes and all related structures ALIGNMENT: Yes alignment normal PERIORBITAL: periorbital findings normal EYELID: eyelids normal CONJUNCTIVA: Yes conjunctivae normal SCLERA: sclerae normal PUPIL: Yes Equal, round and reactive pupils present Neck/C-Spine: COMMON NORMALS: full ROM, no lymphadenopathy, supple, no meningeal signs and no JVD GENERAL: Yes normal visual inspection and Yes trachea midline Chest: COMMONS NORMALS: normal inspection of the chest and normal palpation of entire chest wall Resp: COMMON NORMALS: normal respiratory effort, No retractions, No use of accessory muscles and clear to auscultation bilaterally EFFORT & INSPECTION: Yes able to speak in complete sentences and Yes symmetric chest movement AUSCULTATION: clear to auscultation bilaterally, no crackles, no rales, no rhonchi and no wheezes Cardio: COMMON NORMALS: no JVD, regular rate, regular rhythm, S1 normal heart sound present and S2 normal heart sound present RATE: regular rate RHYTHM: regular rhythm HEART SOUNDS: S1 normal heart sound present, S2 normal heart sound present, no click, no gallops, no murmurs and no rubs GI: COMMON NORMALS: Soft to palpation and No hepatosplenomegaly present PALPATION: Yes Soft to palpation, No Tenderness to palpation present (GI), No Guarding due to palpation present (GI), No Rigid due to palpation, Yes No hepatosplenomegaly present, No Hernia present, No Palpable mass present and No Pulsatile mass present : COMMON NORMALS: Yes no CVA tenderness BLADDER/KIDNEY EXAM: Yes no CVA tenderness EXTERNAL FEMALE EXAM: No Hernia present Back/Pelvis: COMMON NORMALS: no CVA tenderness, thoracic and lumbar spine normal to inspection, no thoracic nor lumbar tenderness and thoraco-lumbar ROM normal Extremity: COMMON NORMALS: normal to inspection, full ROM, capillary refill normal, no joint enlargement, no clubbing, cyanosis or edema and no calf tenderness Neuro: COMMON NORMALS: patient oriented x3, CN's II-XII intact bilaterally, moves all extremities, no focal motor deficits and no sensory deficits noted SENSORIUM/ORIENTATION: Yes alert MENINGEAL SIGNS: Yes no meningeal signs SPEECH: speech normal Psych: COMMON NORMALS: mental status grossly normal, Normal thought process present, cooperative, normal affect, speech normal and activity/motor behavior normal SPEECH: Yes normal speech THOUGHT PROCESS: Normal thought process present Skin: COMMON NORMALS: no rashes or lesions noted, turgor normal, no jaundice, no petechiae and no mottling GENERAL SKIN EXAM: no rashes or lesions noted and turgor normal Course Vital Signs: Vital signs: Vital Signs Temperature 97.8 F 08/27/20 21:42 Pulse Rate 83 08/28/20 01:04 Respiratory Rate 21 H 08/28/20 01:04 Blood Pressure 129/84 08/28/20 01:04 Pulse Oximetry 93 08/28/20 01:04 MDM - Abdominal Pain MDM Narrative: Medical decision making narrative: It appears as though the patient likely has a piece of chicken stuck in her distal esophagus. The patient is a difficult historian as she changes her story and gets very detailed information but it is hard to determine what happened and what order as far as this goes. The patient recurrently gives old information from previous episodes but ultimately at this time it appears as though she has likely recurrent esophageal food impactions that occur. She was able to keep some things down here but now she feels as though everything is coming back up. She is able to handle her own saliva. She has no discomfort at this time. I reviewed the CT findings and the case with Dr. Damico is agreeable to admit and he will likely scope the patient in the a.m. This time she has no discomfort and she is handling all her own secretions. Differential Diagnosis: Differential diagnosis abdominal pain: Likely abdominal pain, diverticulitis, gastroenteritis, pancreatitis and small bowel obstruction Lab Data: Attestation: I reviewed the patient's lab results. Labs: Lab Results 08/27/20 08/27/20 08/27/20 Range/Units 22:15 22:36 22:36 WBC 10.8 H (4.0-10.0) 10^3/ uL RBC 4.98 (4.1-5.3) 10^6/u L Hgb 14.5 (11.5-15.3) g/dL Hct 44.7 (37.0-47.0) % MCV 89.8 (81-99) fL MCH 29.1 (28.0-34.0) pg MCHC 32.4 (30.0-36.0) g/dL RDW 13.3 (12.1-15.1) % Plt Count 329 (130-400) 10^3/c mm MPV 10.9 H (7.4-10.4) fL Neut % (Auto) 64.7 % Lymph % (Auto) 28.7 % [place] % (Auto) 4.7 % Eos % (Auto) 0.9 % Baso % (Auto) 0.7 % Neut # (Auto) 6.96 (1.8-7.7) 10^3/u L Lymph # (Auto) 3.1 (0.8-4.8) 10^3/u L [place] # (Auto) 0.5 (0.2-0.9) 10^3/u L Eos # (Auto) 0.1 (0.0-0.8) 10^3/u L Baso # (Auto) 0.1 (0.0-0.1) 10^3/u L Nucleated RBC % (a uto) 0 % Nucleated RBCs # 0.0 /100WBC Sodium 142 (136-145) mmol/L Potassium 3.5 (3.5-5.1) mmol/L Chloride 106 (98-107) mmol/L Carbon Dioxide 25 (22-29) mmol/L Anion Gap 14.5 (5-19) BUN 8 (6-20) mg/dL Creatinine 0.7 (0.5-0.9) mg/dL GFR Calculation 87.2 L (90-130) mL/min Glucose 109 (65-115) mg/dL Calculated Osmolal ity 293 (285-295) mOsm/k g Calcium 9.7 (8.5-10.5) mg/dL Magnesium 2.3 (1.7-2.3) mg/dL Total Bilirubin 0.7 (0.15-1.2) mg/dL AST 20 (0-32) U/L ALT 21 (0-33) U/L Alkaline Phosphata se 89 (35-105) IU/L Troponin T Baselin e (0-10) ng/L Troponin T 120 Min estrellita (0-10) ng/L Delta Troponin T (0-10) ABS# Total Protein 7.9 (6.6-8.7) g/dL Albumin 4.5 (3.5-5.2) g/dL Globulin 3.4 (1.3-4.6) g/dL Lipase 18 (13-60) U/L Urine Color Yellow (Yellow) Urine Appearance Cloudy A (CLEAR) Urine pH 7.0 (5-7) Ur Specific Gravit y 1.015 (1.005-1.030) Urine Protein Neg (Negative) Urine Glucose (UA) Norm (Normal) Urine Ketones 1+ H (Negative) Urine Blood Neg (Negative) Urine Nitrate Negative (Negative) Urine Bilirubin Neg (Negative) Urine Urobilinogen 1 H (Negative) mg/dL Ur Leukocyte Mary [place] Trace H (Negative) Urine RBC 0-4 H (0-2) /hpf Urine WBC 15-25 H (0-5) /hpf Ur Squamous Epith Cells 5-10 H (0-5) /hpf Amorphous Sediment Not Reportable Urine Bacteria 3+ H (NONE) /hpf H. pylori IgG Anti body (Negative) 08/27/20 08/27/20 08/28/20 Range/Units 22:36 22:36 00:00 WBC (4.0-10.0) 10^3/ uL RBC (4.1-5.3) 10^6/u L Hgb (11.5-15.3) g/dL Hct (37.0-47.0) % MCV (81-99) fL MCH (28.0-34.0) pg MCHC (30.0-36.0) g/dL RDW (12.1-15.1) % Plt Count (130-400) 10^3/c mm MPV (7.4-10.4) fL Neut % (Auto) % Lymph % (Auto) % [place] % (Auto) % Eos % (Auto) % Baso % (Auto) % Neut # (Auto) (1.8-7.7) 10^3/u L Lymph # (Auto) (0.8-4.8) 10^3/u L [place] # (Auto) (0.2-0.9) 10^3/u L Eos # (Auto) (0.0-0.8) 10^3/u L Baso # (Auto) (0.0-0.1) 10^3/u L Nucleated RBC % (a uto) % Nucleated RBCs # /100WBC Sodium (136-145) mmol/L Potassium (3.5-5.1) mmol/L Chloride (98-107) mmol/L Carbon Dioxide (22-29) mmol/L Anion Gap (5-19) BUN (6-20) mg/dL Creatinine (0.5-0.9) mg/dL GFR Calculation (90-130) mL/min Glucose (65-115) mg/dL Calculated Osmolal ity (285-295) mOsm/k g Calcium (8.5-10.5) mg/dL Magnesium (1.7-2.3) mg/dL Total Bilirubin (0.15-1.2) mg/dL AST (0-32) U/L ALT (0-33) U/L Alkaline Phosphata se (35-105) IU/L Troponin T Baselin e 6 (0-10) ng/L Troponin T 120 Min estrellita 6.00 (0-10) ng/L Delta Troponin T 0 (0-10) ABS# Total Protein (6.6-8.7) g/dL Albumin (3.5-5.2) g/dL Globulin (1.3-4.6) g/dL Lipase (13-60) U/L Urine Color (Yellow) Urine Appearance (CLEAR) Urine pH (5-7) Ur Specific Gravit y (1.005-1.030) Urine Protein (Negative) Urine Glucose (UA) (Normal) Urine Ketones (Negative) Urine Blood (Negative) Urine Nitrate (Negative) Urine Bilirubin (Negative) Urine Urobilinogen (Negative) mg/dL Ur Leukocyte Mary ase (Negative) Urine RBC (0-2) /hpf Urine WBC (0-5) /hpf Ur Squamous Epith Cells (0-5) /hpf Amorphous Sediment Urine Bacteria (NONE) /hpf H. pylori IgG Anti body Negative (Negative) Imaging Data ^: CXR: Attestation: I personally reviewed and interpreted this imaging study as follows: My impression: No acute cardiopulmonary findings. CT Chest/Abdomen/Pelvis: Radiologist's impression: [address] [address] [address] Scan Report Signed Patient: Guillermina Mosquera Unit #: [id number] : 1965 Age/Sex: 55 / F ADM Date: 08/27/20 Loc: ER Room/Bed: Attending Dr: Ordering Provider/Ordering MD: Talita Romero DO Date of Service: 08/28/20 Procedure(s): CT angio chest w abd pel w con Accession Number(s): [id number] Report Number: [id number] PROCEDURE INFORMATION: Exam: CT Angiography Chest With Contrast Exam date and time: 08/28/2020 12:05 AM Age: 55 years old Clinical indication: Nausea and vomiting; Abdominal pain; Generalized; Shortness of breath; Chest pain; Type not specified; Prior surgery; Surgery type: Cholecystectomy TECHNIQUE: Imaging protocol: Computed tomographic angiography of the chest with intravenous contrast. 3D rendering (Not supervised by radiologist): MIP and/or 3D reconstructed images were created by the technologist. Radiation optimization: All CT scans at this facility use at least one of these dose optimization techniques: automated exposure control; mA and/or kV adjustment per patient size (includes targeted exams where dose is matched to clinical indication); or iterative reconstruction. Contrast material: OMNI 350; Contrast volume: 95 ml; Contrast route: INTRAVENOUS (IV); COMPARISON: CT angio chest PE protcl [id number] 12/26/2019 9:04 PM RADIATION DOSE METRICS: Total DLP (mGy-cm): 1526.84 FINDINGS: Pulmonary arteries: Normal. No pulmonary emboli. Aorta: Unremarkable. No aortic aneurysm. No aortic dissection. Lungs: Mild emphysema. Pleural space: Unremarkable. No pneumothorax. No pleural effusion. Heart: Unremarkable. No cardiomegaly. No pericardial effusion. Mediastinal space: Fluid and solid or semi-solid material are suggested within the esophagus. There is a question of small hiatal hernia. Lymph nodes: Lymph nodes are unchanged. Bones/joints: No acute fracture. Soft tissues: Unremarkable. IMPRESSION: Solid or semi-solid material at the distal thoracic esophagus raises consideration of impacted food bolus; alternatively, reflux or stasis would be possible. PROCEDURE INFORMATION: Exam: CT Abdomen And Pelvis With Contrast Exam date and time: 08/28/2020 12:05 AM Age: 55 years old Clinical indication: Nausea and vomiting; Abdominal pain; Generalized; Shortness of breath; Chest pain; Type not specified; Prior surgery; Surgery type: Cholecystectomy TECHNIQUE: Imaging protocol: Computed tomography of the abdomen and pelvis with intravenous contrast. Radiation optimization: All CT scans at this facility use at least one of these dose optimization techniques: automated exposure control; mA and/or kV adjustment per patient size (includes targeted exams where dose is matched to clinical indication); or iterative reconstruction. Contrast material: OMNI 350; Contrast volume: 95 ml; Contrast route: INTRAVENOUS (IV); COMPARISON: CT angio chest PE protcl [id number] 12/26/2019 9:04 PM RADIATION DOSE METRICS: Total DLP (mGy-cm): 1526.84 FINDINGS: Liver: Normal. No mass. Gallbladder and bile ducts: Cholecystectomy. Mild prominence of bile ducts can be a normal finding in this setting if there are no clinical or laboratory changes to suggest obstruction. Pancreas: Normal. No ductal dilation. Spleen: Normal. No splenomegaly. Adrenal glands: Low-density left adrenal nodule unchanged. Kidneys and ureters: Bilateral renal lesions are too small to fully characterize but are of doubtful significance. Stomach and bowel: Unremarkable. No obstruction. No mucosal thickening. Appendix: No evidence of appendicitis. Intraperitoneal space: Unremarkable. No free air. No significant fluid collection. Vasculature: Minimal vascular calcifications are noted. No findings of abdominal aortic aneurysm. Lymph nodes: Unremarkable. No enlarged lymph nodes. Urinary bladder: Unremarkable as visualized. Reproductive: Unremarkable as visualized. Bones/joints: No acute fracture. Soft tissues: Unremarkable. CT/CT angio chest w abd pel w con IMPRESSION: No acute findings. COMMENTS: Consistent with the [employer]'s Incidental Findings Committee white paper (J Am Len Radiol 2018): Any incidental renal lesion less than 1 cm or classified as too small to characterize, or any incidental cystic renal lesion characterized as simple-appearing, is likely benign. No follow-up imaging is recommended for these lesions per consensus recommendations based on imaging criteria. Radiation Dose CTDIVOL = (mGy): DLP = 1526.84 1526.84 (mGy-cm) Dictated By: Hansel Solano MD Signed By: Hansel Solano MD Signed Date/Time: 08/28/20123 DD/ 2 EKG Data ^: EKG 1: Attestation: I personally reviewed and interpreted this EKG as follows: EKG interpretation date: 08/27/20 EKG interpretation time: 22:21 Interpretation: Normal sinus rhythm at 68 beats a minute, Q waves inferiorly, mild ST segment depression with T wave inversions in V2 and V3. Nonspecific T wave changes in V4 and V5. Findings similar to previous. EKG 2: Attestation: I personally reviewed and interpreted this EKG as follows: EKG interpretation date: 08/28/20 EKG interpretation time: 00:54 Interpretation: Normal sinus rhythm at 69 beats a minute, Q waves inferiorly, T wave inversions in V2 through V3. Nonspecific ST and T wave changes V4 through V6. All changes similar to previous. 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
[2020-08-27 22:06] VITALS: BP 136/92; PULSE 74; RESP 18; O2SAT 97
--- NOTE | 2020-08-27 22:25 | PC.NURSE ---
Repeat EKG per doctors orders
[2020-08-27 22:40] VITALS: RESP 18; O2SAT 91
[2020-08-27] MEDS: HYDROmorphone 1 mg/mL INJ 1 mL IVP ×2 (22:40→23:44)
[2020-08-27] MEDS: ondansetron 2 mg/ML SDV 2 mL 4 MG IVP (22:41)
[2020-08-27] MEDS: sodium chloride 0.9% 1,000 ML 999 ML IV (22:41)
[2020-08-27 22:43] LABS: Basophils # 0.1 10^3/uL (0.0-0.1); Basophils % 0.7 %; Eosinophils # 0.1 10^3/uL (0.0-0.8); Eosinophils % 0.9 %; Hematocrit 44.7 % (37.0-47.0); Hemoglobin 14.5 g/dL (11.5-15.3); Lymphocytes # 3.1 10^3/uL (0.8-4.8); Lymphocytes % 28.7 %; Mean Corpuscular HGB Conc 32.4 g/dL (30.0-36.0); Mean Corpuscular Hemoglobin 29.1 pg (28.0-34.0); Mean Corpuscular Volume 89.8 fL (81-99); Mean Platelet Volume 10.9 fL (7.4-10.4); Monocytes # 0.5 10^3/uL (0.2-0.9); Monocytes % 4.7 %; Neutrophils # 6.96 10^3/uL (1.8-7.7); Neutrophils % 64.7 %; Nucleated Red Blood Cells % 0 %; Platelet Count 329 10^3/cmm (130-400); Red Blood Count 4.98 10^6/uL (4.1-5.3); Red Cell Distribution Width 13.3 % (12.1-15.1); White Blood Count 10.8 10^3/uL (4.0-10.0)
--- NOTE | 2020-08-27 23:04 | PC.NURSE ---
Patient oxygen dropped to 88%. Patient placed on 2L via nasal cannula. Patient reports that she wears a CPAP at home.
[2020-08-27 23:06] LABS: Bilirubin Urine Neg (Negative); Blood Urine Neg (Negative); Glucose Urine UA Norm (Normal); Ketones Urine 1+ (Negative); Leukocyte Esterase Urine Trace (Negative); Nitrate Urine Negative (Negative); Protein Urine Neg (Negative); Specific Gravity, Urine 1.015 (1.005-1.030); Urine Appearance Cloudy (CLEAR); Urine Color Yellow (Yellow); Urobilinogen Urine 1 mg/dL (Negative)
[2020-08-27 23:07] LABS: Add Urine Microscopic? YES; RBC Urine 0-4 /hpf (0-2); WBC Urine 15-25 /hpf (0-5)
[2020-08-27 23:08] LABS: Add Urine Culture? Yes; Bacteria Urine 3+ /hpf
[2020-08-27 23:23] LABS: Alanine Aminotransferase 21 U/L (0-33); Albumin Level 4.5 g/dL (3.5-5.2); Alkaline Phosphatase 89 IU/L (35-105); Anion Gap 14.5 (5-19); Aspartate Amino Transferase 20 U/L (0-32); Blood Urea Nitrogen 8 mg/dL (6-20); Calcium 9.7 mg/dL (8.5-10.5); Carbon Dioxide 25 mmol/L (22-29); Chloride 106 mmol/L (98-107); Globulin 3.4 g/dL (1.3-4.6); Glomerular Filtration Rate 87.2 mL/min (90-130); Glucose 109 mg/dL (65-115); Lipase 18 U/L (13-60); Magnesium 2.3 mg/dL (1.7-2.3); Osmolality Calculated 293 mOsm/kg (285-295); Potassium 3.5 mmol/L (3.5-5.1); Sodium 142 mmol/L (136-145); Total Bilirubin 0.7 mg/dL (0.15-1.2); Total Protein 7.9 g/dL (6.6-8.7)
[2020-08-27 23:25] LABS: Troponin(5th) Baseline 6 ng/L (0-10)
[2020-08-27 23:30] LABS: H. Pylori IgG Antibody Negative (Negative)
[2020-08-27 23:44] VITALS: RESP 17; O2SAT 98
[2020-08-27 23:47] VITALS: BP 145/81; PULSE 70; RESP 16; O2SAT 98
--- NOTE | 2020-08-27 23:57 | ECG_ITS ---
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: : 1965 Requested By: Talita Davison Order Number: [id number] Fawn MD: AVERY TYSON Measurements Intervals Pierz Rate: 68 P: 14 UT: 198 QRS: -18 QRSD: 85 T: -3 QT: 356 QTc: 379 Interpretive Statements SINUS RHYTHM WITH MARKED RHYTHM IRREGULARITY, POSSIBLE NON-CONDUCTED PAC, SA BLOCK, AV BLOCK, OR SINUS PAUSE LOW QRS VOLTAGE IN PRECORDIAL LEADS [QRS DEFLECTION < 1.0 mV IN CHEST LEADS] POSSIBLE ANTERIOR MYOCARDIAL INFARCTION , OF INDETERMINATE AGE [30 ms Q WAVE IN V3/V4, OR R < 0.2 mV IN V4] CRITICAL TEST RESULT Compared to ECG 08/27/2020 22:01:44 Low QRS voltage now present Indeterminate axis no longer present ST (T wave) deviation no longer present Myocardial infarct finding still present Electronically Signed On 08-29-2020 19:35:31 HOME HEALTH AIDE CAREGIVER by AVERY TYSON [id number]
[2020-08-28] VITALS (17 sets, daily range): BP systolic 103–147; BP diastolic 68–88; PULSE 67–89; RESP 16–21; TEMP 36.3–37.1; O2SAT 90–99
--- NOTE | 2020-08-28 00:02 | CTR_ITS ---
PROCEDURE INFORMATION: Exam: CT Angiography Chest With Contrast Exam date and time: 08/28/2020 12:05 AM Age: 55 years old Clinical indication: Nausea and vomiting; Abdominal pain; Generalized; Shortness of breath; Chest pain; Type not specified; Prior surgery; Surgery type: Cholecystectomy TECHNIQUE: Imaging protocol: Computed tomographic angiography of the chest with intravenous contrast. 3D rendering (Not supervised by radiologist): MIP and/or 3D reconstructed images were created by the technologist. Radiation optimization: All CT scans at this facility use at least one of these dose optimization techniques: automated exposure control; mA and/or kV adjustment per patient size (includes targeted exams where dose is matched to clinical indication); or iterative reconstruction. Contrast material: OMNI 350; Contrast volume: 95 ml; Contrast route: INTRAVENOUS (IV); COMPARISON: CT angio chest PE protcl [id number] 12/26/2019 9:04 PM RADIATION DOSE METRICS: Total DLP (mGy-cm): 1526.84 FINDINGS: Pulmonary arteries: Normal. No pulmonary emboli. Aorta: Unremarkable. No aortic aneurysm. No aortic dissection. Lungs: Mild emphysema. Pleural space: Unremarkable. No pneumothorax. No pleural effusion. Heart: Unremarkable. No cardiomegaly. No pericardial effusion. Mediastinal space: Fluid and solid or semi-solid material are suggested within the esophagus. There is a question of small hiatal hernia. Lymph nodes: Lymph nodes are unchanged. Bones/joints: No acute fracture. Soft tissues: Unremarkable. IMPRESSION: Solid or semi-solid material at the distal thoracic esophagus raises consideration of impacted food bolus; alternatively, reflux or stasis would be possible. PROCEDURE INFORMATION: Exam: CT Abdomen And Pelvis With Contrast Exam date and time: 08/28/2020 12:05 AM Age: 55 years old Clinical indication: Nausea and vomiting; Abdominal pain; Generalized; Shortness of breath; Chest pain; Type not specified; Prior surgery; Surgery type: Cholecystectomy TECHNIQUE: Imaging protocol: Computed tomography of the abdomen and pelvis with intravenous contrast. Radiation optimization: All CT scans at this facility use at least one of these dose optimization techniques: automated exposure control; mA and/or kV adjustment per patient size (includes targeted exams where dose is matched to clinical indication); or iterative reconstruction. Contrast material: OMNI 350; Contrast volume: 95 ml; Contrast route: INTRAVENOUS (IV); COMPARISON: CT angio chest PE protcl [id number] 12/26/2019 9:04 PM RADIATION DOSE METRICS: Total DLP (mGy-cm): 1526.84 FINDINGS: Liver: Normal. No mass. Gallbladder and bile ducts: Cholecystectomy. Mild prominence of bile ducts can be a normal finding in this setting if there are no clinical or laboratory changes to suggest obstruction. Pancreas: Normal. No ductal dilation. Spleen: Normal. No splenomegaly. Adrenal glands: Low-density left adrenal nodule unchanged. Kidneys and ureters: Bilateral renal lesions are too small to fully characterize but are of doubtful significance. Stomach and bowel: Unremarkable. No obstruction. No mucosal thickening. Appendix: No evidence of appendicitis. Intraperitoneal space: Unremarkable. No free air. No significant fluid collection. Vasculature: Minimal vascular calcifications are noted. No findings of abdominal aortic aneurysm. Lymph nodes: Unremarkable. No enlarged lymph nodes. Urinary bladder: Unremarkable as visualized. Reproductive: Unremarkable as visualized. Bones/joints: No acute fracture. Soft tissues: Unremarkable. CT/CT angio chest w abd pel w con IMPRESSION: No acute findings. COMMENTS: Consistent with the [employer] [place] [employer]'s Incidental Findings Committee white paper (J Am Len Radiol 2018): Any incidental renal lesion less than 1 cm or classified as too small to characterize, or any incidental cystic renal lesion characterized as simple-appearing, is likely benign. No follow-up imaging is recommended for these lesions per consensus recommendations based on imaging criteria. Radiation Dose CTDIVOL = (mGy): DLP = 1526.84~1526.84 (mGy-cm)
[2020-08-28] MEDS: lidocaine 2% viscous 15 ML, aluminum-mag hydrox-simethicon 30 ML, sucralfate oral liq 1 GM PO (00:06)
[2020-08-28 00:25] LABS: Troponin 5 2HR Delta 0 ABS# (0-10)
[2020-08-28] MEDS: iohexol 350 mg/mL 100 mL Btl IV (00:31)
[2020-08-28] MEDS: nitroglycerin 0.4 mg sublingual Tablet SUBLINGUAL (01:07)
[2020-08-28] MEDS: sodium chloride 0.9% 1,000 ML 100 ML IV (02:41)
[2020-08-28 04:35] LABS: Basophils # 0.1 10^3/uL (0.0-0.1); Basophils % 0.8 %; Eosinophils # 0.1 10^3/uL (0.0-0.8); Eosinophils % 0.7 %; Hematocrit 41.2 % (37.0-47.0); Hemoglobin 13.2 g/dL (11.5-15.3); Lymphocytes # 2.6 10^3/uL (0.8-4.8); Lymphocytes % 30.4 %; Mean Corpuscular Volume 90.5 fL (81-99); Mean Platelet Volume 11.2 fL (7.4-10.4); Monocytes # 0.5 10^3/uL (0.2-0.9); Monocytes % 5.9 %; Neutrophils # 5.29 10^3/uL (1.8-7.7); Nucleated Red Blood Cells % 0 %; Platelet Count 293 10^3/cmm (130-400); Red Blood Count 4.55 10^6/uL (4.1-5.3); Red Cell Distribution Width 13.4 % (12.1-15.1); White Blood Count 8.5 10^3/uL (4.0-10.0)
[2020-08-28] MEDS: HYDROmorphone 1 mg/mL INJ 1 mL 0.5 MG IVP (05:01)
[2020-08-28 05:05] LABS: Partial Thromboplastin Time 31.5 SECONDS (23.9-36.7)
[2020-08-28 05:11] LABS: Anion Gap 13.6 (5-19); Blood Urea Nitrogen 7 mg/dL (6-20); Calcium 8.9 mg/dL (8.5-10.5); Carbon Dioxide 25 mmol/L (22-29); Chloride 106 mmol/L (98-107); Glomerular Filtration Rate 104.2 mL/min (90-130); Glucose 106 mg/dL (65-115); Osmolality Calculated 290 mOsm/kg (285-295); Potassium 3.6 mmol/L (3.5-5.1); Sodium 141 mmol/L (136-145)
[2020-08-28 05:26] LABS: Troponin 5 6HR Delta 0 ng/L (0-12)
[2020-08-28 06:09] LABS: OR HCG Qualitative Urine Negative (Negative)
--- NOTE | 2020-08-28 06:57 | PM.HP ---
Providers/Chief Complaint Admitting Physician: Charles Damico MD Primary Care Provider: Daria Solano DO Chief Complaint: abd pain/ cant keep anything down History of Present Illness Guillermina Mosquera is a 55 year old female who presented to the ER last night with chest pain, nausea and vomiting. Patient states that she has been having difficulty with eating solid food for the last year and a half. She states that she usually is able to pass it or has to throw up the food when it gets stuck in her esophagus. Denies any significant history of acid reflux hematemesis or melena. She is currently on Pepcid. She states that she had a EGD long time ago after she developed some acid reflux following her cholecystectomy. No prior dilation in the past. Review of Systems General: Reports: 10 or more systems reviewed and unremarkable except in HPI and below Medications/Allergies Home Medications Medication Instructions Recorded Confirmed Last Taken Type bupropion HCl (smoking deter) 150 mg PO DAILY 12/26/19 07/09/20 07/02/20 History albuterol sulfate 1 inh INHALATION Q6H PRN #18 gm 04/16/20 07/09/20 07/02/20 Rx aspirin [Adult Aspirin Regimen] 81 mg PO DAILY 30 Days #30 tab 04/16/20 07/09/20 07/02/20 Rx nitroglycerin 0.4 mg SUBLINGUAL Q5M PRN 3 Days 04/16/20 07/09/20 07/02/20 Rx #3 tab metoprolol tartrate 25 mg tablet 12.5 mg PO BID #90 tab 05/12/20 07/09/20 07/02/20 Rx clopidogrel 75 mg tablet 75 mg PO DAILY #90 tab 05/13/20 07/09/20 07/02/20 Rx isosorbide mononitrate 30 mg 15 mg PO BID #90 tab 07/09/20 07/09/20 Unknown Rx tablet,extended release 24 hr rosuvastatin 20 mg tablet 40 mg PO DAILY tab 07/09/20 07/09/20 Unknown History umeclidinium 62.5 mcg-vilanterol 1 inh INHALATION Q24H 90 Days #180 08/19/20 Unknown Rx 25 mcg/actuation powdr for each inhalation Allergies Allergy/AdvReac Type Severity Reaction Status Date / Time morphine AdvReac ADR-Vomitin Verified 07/09/20 10:25 g pantoprazole AdvReac terrible Verified 07/09/20 10:25 diarrhea PFSH Acute PFSH: Medical History (Updated 08/28/20 @ 07:00 by Charles Damico MD) Atherosclerotic heart disease of [place] coronary artery without angina pectoris Patient had a high-grade lesion of the RCA which was intervened March, COPD (chronic obstructive pulmonary disease) Dyslipidemia (high LDL; low HDL) GERD (gastroesophageal reflux disease) Unstable angina Surgical History (Updated 08/28/20 @ 07:00 by Charles Damico MD) H/O esophagogastroduodenoscopy History of arthroscopic knee surgery History of coronary angiogram Hx of cholecystectomy Status post colonoscopy Family History Father CAD (coronary artery disease) Hyperlipidemia Hypertension Lung disease Other Cancer Stroke Social History Smoking and tobacco status: former smoker Quit status (tobacco): has quit using tobacco Year quit tobacco: 2019 - 0.5 PPD x 40 Years Alcohol intake: never Lives independently: Yes Household members: spouse Marital status: Current occupational status: employed 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 Current occupational exposures/hazards: No History of recent travel: No Current gender identity: Female Vitals/I&O/Wt Last Vital Signs Temp 98.1 F 08/28/20 05:41 Pulse 73 08/28/20 05:41 Resp 18 08/28/20 05:41 BP 115/75 08/28/20 05:41 Pulse Ox 91 08/28/20 05:41 08/27/20 08/27/20 08/28/20 14:59 22:59 06:59 Intake Total 1000 / 1000 Output Total 400 / 400 Balance 600 / 600 Weight last 48 hrs Weight 193 lb Physical Exam Narrative: EXAM NARRATIVE: HEENT: Normocephalic Eye: Sclera /conjunctiva normal Abdomen: Soft to palpation Neurological: Oriented to place person and time Skin: Intact, no lesions appreciated on gross exam Data : 08/28/20 03:55 08/28/20 03:55 A&P Assessment and plan (1) Food impaction of esophagus: 55-year-old female with 1 year history of intermittent dysphagia mainly to solids with now presents with possible food impaction in the esophagus as noted on CT scan. CT abdomen pelvis: Negative ,no evidence of esophageal perforation. Discussed options with the patient Plan for EGD with possible biopsy for disimpaction of food bolus. Discussed with the patient that even if she has a stricture we will most likely bring her back in couple of weeks for formal dilation. 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
--- NOTE | 2020-08-28 07:38 | PC.NURSE ---
i reported the low 02 level to the nurse90%. applied 1lt of 02 and brought it up to 94%
--- NOTE | 2020-08-28 07:58 | P.ANESASSM_ITS ---
Pre-Anesthetic Assessment Pre-Anesthetic Assessment: Height/Weight: Height 1.65 m Weight 87.543 kg Temp Pulse Resp BP Pulse Ox 98.1 F 67 18 109/69 98 08/28/20 07:55 08/28/20 07:55 08/28/20 07:55 08/28/20 07:55 08/28/20 07:55 Preop Diagnosis: food bolus Proposed Procedure: Operation Date: 08/28/20 08:30 Proposed Procedures p EGD(Not Applicable) - Charles Damico MD Familial anesthetic complications: None Was Beta Moses taken within 24 hours: Yes Last intake: Intake Food bolus Last Liquid Date 08/27/20 Last Liquid Time 21:00 Last Solid Date 08/27/20 Last Solid Time 21:00 Social: Social History: Tobacco Exam: Pre-Anes Outpt Exam: alert, oriented x 3, clear to auscultation bilaterally and regular rate & rhythm Airway: Cervical ROM: WNL MP: 2 Dentition: Chipped and Other (missing) Pulmonary: Pulmonary: COPD CV/HEM: CV/HEM: CAD ( S/p stent to RCA in march 2020, wasn't able to swallow her plavix last night) Metabolic: Metabolic: Hyperlipidemia Anesthetic Plan: ASA status: 3E Anesthesia: General Other: RSI for food bolus Risk of > 500 ml blood loss (7ml/kg in children): No Meds/Allergies Current Medications: Current Medications Generic Name Dose Route Start Last Admin Trade Name Freq PRN Reason Stop Dose Admin Hydromorphone HCl 0.5 mg 08/28/20 04:53 08/28/20 05:01 Dilaudid Inj IVP 0.5 mg Q4H PRN Administration PAIN Sodium Chloride 1,000 mls @ 100 m ls/hr 08/28/20 02:33 08/28/20 02:41 Sodium Chloride 0.9% IV 100 mls/hr .Q10H BRIGITTE Administration PFSH Anesthesia PFSH: Medical History (Updated 08/28/20 @ 07:00 by Charles Damico MD) Atherosclerotic heart disease of [place] coronary artery without angina pectoris Patient had a high-grade lesion of the RCA which was intervened March, COPD (chronic obstructive pulmonary disease) Dyslipidemia (high LDL; low HDL) GERD (gastroesophageal reflux disease) Unstable angina Surgical History (Updated 08/28/20 @ 07:00 by Charles Damico MD) H/O esophagogastroduodenoscopy History of arthroscopic knee surgery History of coronary angiogram Hx of cholecystectomy Status post colonoscopy Family History Father CAD (coronary artery disease) Hyperlipidemia Hypertension Lung disease Other Cancer Stroke Social History Smoking and tobacco status: former smoker Quit status (tobacco): has quit using tobacco Year quit tobacco: 2020 - 0.5 PPD x 40 Years Alcohol intake: never Lives independently: Yes Household members: spouse Marital status: Current occupational status: employed Current occupation: [employer] Current occupational exposures/hazards: No History of recent travel: No Current gender identity: Female Data Anesthesia CBC & Chem 7: 08/28/20 03:55 08/28/20 03:55 Other Labs: Laboratory Results - last 48 hr 08/27/20 08/27/20 08/27/20 22:15 22:15 22:36 WBC 10.8 H RBC 4.98 Hgb 14.5 Hct 44.7 MCV 89.8 MCH 29.1 MCHC 32.4 RDW 13.3 Plt Count 329 MPV 10.9 H Neut % (Auto) 64.7 Lymph % (Auto) 28.7 [place] % (Auto) 4.7 Eos % (Auto) 0.9 Baso % (Auto) 0.7 Neut # (Auto) 6.96 Lymph # (Auto) 3.1 [place] # (Auto) 0.5 Eos # (Auto) 0.1 Baso # (Auto) 0.1 Nucleated RBC % (auto) 0 Nucleated RBCs # 0.0 APTT Sodium Potassium Chloride Carbon Dioxide Anion Gap BUN Creatinine GFR Calculation Glucose Calculated Osmolality Calcium Magnesium Total Bilirubin AST ALT Alkaline Phosphatase Troponin T Baseline Troponin T 120 Minute Delta Troponin T Troponin T Hi Sens 6Hr Troponin T Hi Sens 6Hr Delta Total Protein Albumin Globulin Lipase Urine Color Yellow Urine Appearance Cloudy A Urine pH 7.0 Ur Specific [place] 1.015 Urine Protein Neg Urine Glucose (UA) Norm Urine Ketones 1+ H Urine Blood Neg Urine Nitrate Negative Urine Bilirubin Neg Urine Urobilinogen 1 H Ur Leukocyte Esterase Trace H Urine RBC 0-4 H Urine WBC 15-25 H Ur Squamous Epith Cells 5-10 H Amorphous Sediment Not Reportable Urine Bacteria 3+ H Urine HCG, Qual Negative H. pylori IgG Antibody 08/27/20 08/27/20 08/27/20 22:36 22:36 22:36 WBC RBC Hgb Hct MCV MCH MCHC RDW Plt Count MPV Neut % (Auto) Lymph % (Auto) [place] % (Auto) Eos % (Auto) Baso % (Auto) Neut # (Auto) Lymph # (Auto) [place] # (Auto) Eos # (Auto) Baso # (Auto) Nucleated RBC % (auto) Nucleated RBCs # APTT Sodium 142 Potassium 3.5 Chloride 106 Carbon Dioxide 25 Anion Gap 14.5 BUN 8 Creatinine 0.7 GFR Calculation 87.2 L Glucose 109 Calculated Osmolality 293 Calcium 9.7 Magnesium 2.3 Total Bilirubin 0.7 AST 20 ALT 21 Alkaline Phosphatase 89 Troponin T Baseline 6 Troponin T 120 Minute Delta Troponin T Troponin T Hi Sens 6Hr Troponin T Hi Sens 6Hr Delta Total Protein 7.9 Albumin 4.5 Globulin 3.4 Lipase 18 Urine Color Urine Appearance Urine pH Ur Specific [place] Urine Protein Urine Glucose (UA) Urine Ketones Urine Blood Urine Nitrate Urine Bilirubin Urine Urobilinogen Ur Leukocyte Esterase Urine RBC Urine WBC Ur Squamous Epith Cells Amorphous Sediment Urine Bacteria Urine HCG, Qual H. pylori IgG Antibody Negative 08/28/20 08/28/20 08/28/20 00:00 03:55 03:55 WBC 8.5 RBC 4.55 Hgb 13.2 Hct 41.2 MCV 90.5 MCH 29.0 MCHC 32.0 RDW 13.4 Plt Count 293 MPV 11.2 H Neut % (Auto) 62.0 Lymph % (Auto) 30.4 [place] % (Auto) 5.9 Eos % (Auto) 0.7 Baso % (Auto) 0.8 Neut # (Auto) 5.29 Lymph # (Auto) 2.6 [place] # (Auto) 0.5 Eos # (Auto) 0.1 Baso # (Auto) 0.1 Nucleated RBC % (auto) 0 Nucleated RBCs # 0.0 APTT Sodium Potassium Chloride Carbon Dioxide Anion Gap BUN Creatinine GFR Calculation Glucose Calculated Osmolality Calcium Magnesium Total Bilirubin AST ALT Alkaline Phosphatase Troponin T Baseline Troponin T 120 Minute 6.00 Delta Troponin T 0 Troponin T Hi Sens 6Hr 6.00 Troponin T Hi Sens 6Hr Delta 0 Total Protein Albumin Globulin Lipase Urine Color Urine Appearance Urine pH Ur Specific [place] Urine Protein Urine Glucose (UA) Urine Ketones Urine Blood Urine Nitrate Urine Bilirubin Urine Urobilinogen Ur Leukocyte Esterase Urine RBC Urine WBC Ur Squamous Epith Cells Amorphous Sediment Urine Bacteria Urine HCG, Qual H. pylori IgG Antibody 08/28/20 08/28/20 03:55 03:55 WBC RBC Hgb Hct MCV MCH MCHC RDW Plt Count MPV Neut % (Auto) Lymph % (Auto) [place] % (Auto) Eos % (Auto) Baso % (Auto) Neut # (Auto) Lymph # (Auto) [place] # (Auto) Eos # (Auto) Baso # (Auto) Nucleated RBC % (auto) Nucleated RBCs # APTT 31.5 Sodium 141 Potassium 3.6 Chloride 106 Carbon Dioxide 25 Anion Gap 13.6 BUN 7 Creatinine 0.6 GFR Calculation 104.2 Glucose 106 Calculated Osmolality 290 Calcium 8.9 Magnesium Total Bilirubin AST ALT Alkaline Phosphatase Troponin T Baseline Troponin T 120 Minute Delta Troponin T Troponin T Hi Sens 6Hr Troponin T Hi Sens 6Hr Delta Total Protein Albumin Globulin Lipase Urine Color Urine Appearance Urine pH Ur Specific [place] Urine Protein Urine Glucose (UA) Urine Ketones Urine Blood Urine Nitrate Urine Bilirubin Urine Urobilinogen Ur Leukocyte Esterase Urine RBC Urine WBC Ur Squamous Epith Cells Amorphous Sediment Urine Bacteria Urine HCG, Qual H. pylori IgG Antibody Cardiac Studies: No Data to Display
[2020-08-28] MEDS: sodium chloride 0.9% 1,000 ML 30 ML IV (08:01)
--- NOTE | 2020-08-28 10:10 | ANE.PACU2 ---
Inpatient post-anesthesia follow up: Airway intact: Yes Vital signs: Temperature 98.3 F Pulse Rate [Left] 82 Pulse Rate 67 Respiratory Rate 16 Blood Pressure [Le ft Arm] 127/73 Blood Pressure 120/77 Pulse Oximetry 92 Oxygen Delivery Me thod Room Air Oxygen Flow Rate 1 Fraction of Inspir ed Oxygen Hydration adequate: Yes Nausea and vomiting: No Pain level: 1 Mental status: Baseline
--- NOTE | 2020-08-28 10:34 | PC.RESP ---
PULMONARY REHAB INFORMATION SENT TO PATIENT.
--- NOTE | 2020-08-28 10:35 | PC.CHAP ---
Pastoral Care Encounter/Spiritual Assessment Type of Contact [] Declined surveyor chain helper visit [] Patient/Family/Request visit [] Outpatient visit [] Follow-up visit [] Physician referral [] Code/Alert [x] Routine visit [] Staff referral [] Actively dying [] Patient sleeping [] Family support [] [] Out of room [] Palliative care [] [x] Receiving care in room [] Pre-surgical visit [] Trauma [] Long length of stay [] ICU visit [] Other: Relational/Emotional Strength [x] Patient feels connected with others/family/visitors/staff [] Distress [] Loneliness/isolation [] Abandonment Spirituality of Patient [x] Person of Ashley [] Attends Taoism of their Ashley [x] Believes in Prayer [] Reads Bible or Yazidism materials [] There are Spiritual issues to be addressed Salesperson Burial Needs Interventions [x] Prayer [x] Active listening [x] Non-anxious presence [x] Spiritual/emotional support [] Crisis/trauma care [x] Spiritual counseling [] Bereavement support [] Provided bereavement packet [] Provided Bible/devotional materials [] Provided toy/stuffed animal, coloring book to patient or family member [] Provided Communion [] Anointing/[place] [] Salvation [x] Completed spiritual assessment [] Other: Impact on Illness or Injury [] Angry [] Fearful [] Anxious [] Often cries [] Exhaustion [] Unable to work [] Unable to attend christian [] Unable to walk/stand [] Unable to read [] Unable to drive [] Unable to eat/drink [] Unable to sleep [] Unable to be with family [] Patient intubated [] Other: Summary Had a procedure it went well, has a good attitude will be going home to family Time spent with patient 10 mins
[2020-08-28] MEDS: lactated ringers 1,000 ML 100 ML IV (12:01)
--- NOTE | 2020-08-28 12:29 | P.DS_ITS ---
Discharge Providers Date of Admission: 08/28/20 01:41 Date of Discharge: August 28, 2020 Attending Provider at Admission: Charles Damico MD Attending Provider at Discharge: Charles Damico MD Primary Care Provider: Daria Solano DO Diagnoses at Discharge Discharge Diagnosis (1) Food impaction of esophagus: Status: Resolved Qualifiers: Encounter type: initial encounter Qualified Code(s): T18.128A - Food in esophagus causing other injury, initial encounter Reason for Visit Reason for Visit: abd pain/ cant keep anything down Hospital Course Discharge Summary: This is a 55-year-old female who has been dealing with intermittent dysphagia for the last year and a half and presented to the ER yesterday with chest pain nausea and vomiting and was noted to have esophageal obstruction secondary to food bolus. Patient underwent EGD with disimpaction of food bolus. At time of discharge her vital signs are stable and she was t olerating a clear liquid diet Discharge Data Data Completed and Pending: Completed Studies During Hospitalization Category Date Time Status CT angio chest w abd pel w con Stat Cat Scan 08/28/20 00:02 Completed XR chest 1V marybeth ble [id number] Stat Exams 08/27/20 21:56 Completed Pending at discharge Category Date Time Status Urine Culture Sta t Lab 08/27/20 22:15 Received Labs from last 24 hours 08/28/20 08/28/20 08/28/20 03:55 03:55 03:55 WBC 8.5 RBC 4.55 Hgb 13.2 Hct 41.2 MCV 90.5 MCH 29.0 MCHC 32.0 RDW 13.4 Plt Count 293 MPV 11.2 H Neut % (Auto) 62.0 Lymph % (Auto) 30.4 [place] % (Auto) 5.9 Eos % (Auto) 0.7 Baso % (Auto) 0.8 Neut # (Auto) 5.29 Lymph # (Auto) 2.6 [place] # (Auto) 0.5 Eos # (Auto) 0.1 Baso # (Auto) 0.1 Nucleated RBC % (a uto) 0 Nucleated RBCs # 0.0 APTT 31.5 Sodium 141 Potassium 3.6 Chloride 106 Carbon Dioxide 25 Anion Gap 13.6 BUN 7 Creatinine 0.6 GFR Calculation 104.2 Glucose 106 Calculated Osmolal ity 290 Calcium 8.9 Magnesium Total Bilirubin AST ALT Alkaline Phosphata se Troponin T Baselin e Troponin T 120 Min [place] Delta Troponin T Troponin T Hi Sens 6Hr Troponin T Hi Sens 6Hr Delta Total Protein Albumin Globulin Lipase Urine Color Urine Appearance Urine pH Ur Specific [place] y Urine Protein Urine Glucose (UA) Urine Ketones Urine Blood Urine Nitrate Urine Bilirubin Urine Urobilinogen Ur Leukocyte [place] Urine RBC Urine WBC Ur Squamous Epith Cells Amorphous Sediment Urine Bacteria Urine HCG, Qual H. pylori IgG Anti body 08/28/20 08/28/20 08/27/20 03:55 00:00 22:36 WBC RBC Hgb Hct MCV MCH MCHC RDW Plt Count MPV Neut % (Auto) Lymph % (Auto) [place] % (Auto) Eos % (Auto) Baso % (Auto) Neut # (Auto) Lymph # (Auto) [place] # (Auto) Eos # (Auto) Baso # (Auto) Nucleated RBC % (a uto) Nucleated RBCs # APTT Sodium Potassium Chloride Carbon Dioxide Anion Gap BUN Creatinine GFR Calculation Glucose Calculated Osmolal ity Calcium Magnesium Total Bilirubin AST ALT Alkaline Phosphata se Troponin T Baselin e Troponin T 120 Min [place] 6.00 Delta Troponin T 0 Troponin T Hi Sens 6Hr 6.00 Troponin T Hi Sens 6Hr Delta 0 Total Protein Albumin Globulin Lipase Urine Color Urine Appearance Urine pH Ur Specific [place] Urine Protein Urine Glucose (UA) Urine Ketones Urine Blood Urine Nitrate Urine Bilirubin Urine Urobilinogen Ur Leukocyte [place] Urine RBC Urine WBC Ur Squamous Epith Cells Amorphous Sediment Urine Bacteria Urine HCG, Qual H. pylori IgG Anti body Negative 08/27/20 08/27/20 08/27/20 22:36 22:36 22:36 WBC 10.8 H RBC 4.98 Hgb 14.5 Hct 44.7 MCV 89.8 MCH 29.1 MCHC 32.4 RDW 13.3 Plt Count 329 MPV 10.9 H Neut % (Auto) 64.7 Lymph % (Auto) 28.7 [place] % (Auto) 4.7 Eos % (Auto) 0.9 Baso % (Auto) 0.7 Neut # (Auto) 6.96 Lymph # (Auto) 3.1 [place] # (Auto) 0.5 Eos # (Auto) 0.1 Baso # (Auto) 0.1 Nucleated RBC % (a uto) 0 Nucleated RBCs # 0.0 APTT Sodium 142 Potassium 3.5 Chloride 106 Carbon Dioxide 25 Anion Gap 14.5 BUN 8 Creatinine 0.7 GFR Calculation 87.2 L Glucose 109 Calculated Osmolal ity 293 Calcium 9.7 Magnesium 2.3 Total Bilirubin 0.7 AST 20 ALT 21 Alkaline Phosphata se 89 Troponin T Baselin e 6 Troponin T 120 Min [place] Delta Troponin T Troponin T Hi Sens 6Hr Troponin T Hi Sens 6Hr Delta Total Protein 7.9 Albumin 4.5 Globulin 3.4 Lipase 18 Urine Color Urine Appearance Urine pH Ur Specific [place] Urine Protein Urine Glucose (UA) Urine Ketones Urine Blood Urine Nitrate Urine Bilirubin Urine Urobilinogen Ur Leukocyte [place] Urine RBC Urine WBC Ur Squamous Epith Cells Amorphous Sediment Urine Bacteria Urine HCG, Qual H. pylori IgG Anti body 08/27/20 08/27/20 22:15 22:15 WBC RBC Hgb Hct MCV MCH MCHC RDW Plt Count MPV Neut % (Auto) Lymph % (Auto) [place] % (Auto) Eos % (Auto) Baso % (Auto) Neut # (Auto) Lymph # (Auto) [place] # (Auto) Eos # (Auto) Baso # (Auto) Nucleated RBC % (a uto) Nucleated RBCs # APTT Sodium Potassium Chloride Carbon Dioxide Anion Gap BUN Creatinine GFR Calculation Glucose Calculated Osmolal ity Calcium Magnesium Total Bilirubin AST ALT Alkaline Phosphata se Troponin T Baselin e Troponin T 120 Min [place] Delta Troponin T Troponin T Hi Sens 6Hr Troponin T Hi Sens 6Hr Delta Total Protein Albumin Globulin Lipase Urine Color Yellow Urine Appearance Cloudy A Urine pH 7.0 Ur Specific [place] 1.015 Urine Protein Neg Urine Glucose (UA) Norm Urine Ketones 1+ H Urine Blood Neg Urine Nitrate Negative Urine Bilirubin Neg Urine Urobilinogen 1 H Ur Leukocyte [place] Trace H Urine RBC 0-4 H Urine WBC 15-25 H Ur Squamous Epith Cells 5-10 H Amorphous Sediment Not Reportable Urine Bacteria 3+ H Urine HCG, Qual Negative H. pylori IgG Anti body Vitals: Last Vital Signs Temp 98.3 F 08/28/20 11:06 Pulse 67 08/28/20 11:06 Resp 16 08/28/20 11:06 BP 120/77 08/28/20 11:06 Pulse Ox 92 08/28/20 11:06 Discharge Plan Discharge Patient Disposition: Home Condition: Stable Prescriptions: New Protonix 40 mg tablet,delayed release (DR/EC) 40 mg PO BID 42 Days Qty: 84 RF: 3 Continued rosuvastatin 20 mg tablet 40 mg PO DAILY RF: 0 isosorbide mononitrate 30 mg tablet extended release 24 hr 15 mg PO BID Qty: 90 RF: 2 metoprolol tartrate 25 mg tablet 12.5 mg PO BID Qty: 90 RF: 1 clopidogrel 75 mg tablet 75 mg PO DAILY Qty: 90 RF: 3 Anoro Ellipta 62.5-25 mcg/actuation blister with device 1 inh INHALATION Q24H 90 Days Qty: 180 RF: 3 bupropion HCl (smoking deter) 150 mg Tablet Extended Release 12 Hr 150 mg PO DAILY RF: 0 albuterol sulfate 90 mcg/actuation HFA aerosol inhaler 1 inh INHALATION Q6H PRN (Reason: shortness of breath or wheezing) Qty: 18 RF: 0 aspirin [Adult Aspirin Regimen] 81 mg tablet,delayed release (DR/EC) 81 mg PO DAILY 30 Days Qty: 30 RF: 0 nitroglycerin 0.4 mg tablet, sublingual 0.4 mg SUBLINGUAL Q5M PRN (Reason: chest pain) 3 Days Qty: 3 RF: 0 Discharge Orders: Discharge Order (Routine); Ordered 08/28/20 Ordered By: Charles Damico Referrals: Charles Damico MD [Physician] - 09/12/20 9:00 am Daria Solano DO [Primary Care Provider] - 09/05/20 2:45 pm Discharge Diet: Advance as tolerated Discharge Activity: Resume usual activity Patient Instructions: Pantoprazole (By mouth), Upper Gastrointestinal Endoscopy (DC), Food Impaction (GEN) Discharge Attestations Time Spent in Discharge Care*: less than 30 min Quality Metrics Clinical Quality Measures During this hospital stay, did patient experience: None Coding Level of Care Code Acute Tip Stitcher for Chg Fwd Diagnoses Food impaction of esophagus T18.128A Encounter type: initial encounter
--- NOTE | 2020-08-28 13:45 | PC.NURSE ---
DC instructions given,voiced full understanding, IV DC'd cath intact bleeding controlled with 2x2 and coban, patient to main entrance via wheelchair to private vehicle with zero difficulties
== END 2020-08-28 13:45 | disposition home or self-care (01) ==
LOC: ER 08-28 01:40 → MEDSURG 08-28 01:55
PROVIDERS: Emergency Medicine; Admitting Provider Surgery; PCP Family Medicine; Visit Provider Surgery
PROC: 0DJ08ZZ Inspection of Upper Intestinal Tract, Via Natural or Artificial Opening Endoscopic (ICD-10-PCS; CPT 43235; principal; 2020-08-28 08:30)
DX: T18.128A Food in esophagus causing other injury, initial encounter (principal); Z79.82 Long term (current) use of aspirin; J44.9 Chronic obstructive pulmonary disease, unspecified; E78.5 Hyperlipidemia, unspecified; K21.9 Gastro-esophageal reflux disease without esophagitis; Z87.891 Personal history of nicotine dependence; I25.10 Atherosclerotic heart disease of native coronary artery without angina pectoris; Z95.5 Presence of coronary angioplasty implant and graft; Z79.02 Long term (current) use of antithrombotics/antiplatelets
CPT/HCPCS: 12345; 36415; 43239; 71045; 71275; 74177; 80048; 80053; 81001; 83690; 83735; 84484; 84703; 85025; 85730; 86677; 87077; 87086; 87186; 93005; 96360; 96361; 96374; 96375; 96376; 99284; 99285; G0378; J1170; J2405; J7030; Q9967

== ENCOUNTER → 2020-09-19 11:57 | Outpatient (BNVA) | payer OTHER, SELFPAY | PROVIDERS: PCP Family Medicine; Visit Provider Surgery | DX: Z20.828 Contact with and (suspected) exposure to other viral communicable diseases (principal); Z01.812 Encounter for preprocedural laboratory examination | CPT/HCPCS: 87635 ==

== ENCOUNTER 2020-09-25 08:03 | Day surgery (SDC) | payer OTHER, SELFPAY ==
[2020-09-23 13:33] VITALS: BMI 32.9
[2020-09-25 08:19] VITALS: BP 118/83; PULSE 86; RESP 18; TEMP 36.7; O2SAT 95
[2020-09-25] MEDS: sodium chloride 0.9% 1,000 ML 30 ML IV (08:29)
--- NOTE | 2020-09-25 08:30 | ANES.PREANE2 ---
Pre-Anesthetic Assessment Pre-Anesthetic Assessment: Height/Weight: Height 1.65 m Weight 89.811 kg Temp Pulse Resp BP Pulse Ox 98.1 F 86 18 118/83 95 09/25/20 08:19 09/25/20 08:19 09/25/20 08:19 09/25/20 08:19 09/25/20 08:19 Preop Diagnosis: Dysphagia/screening Proposed Procedure: Operation Date: 09/25/20 09:00 Proposed Procedures p EGD Dilation W/ Balloon [id number] R13.19 Z12.11(Not Applicable) - Charles Damico MD s Colonoscopy(Not Applicable) - Charles Damico MD Familial anesthetic complications: None Was Beta Moses taken within 24 hours: N/A Last intake: Intake Last Liquid Date 09/24/20 Last Liquid Time 21:30 Last Solid Date 09/23/20 Last Solid Time 20:00 Social: Comment: quit smoking in 2019 Exam: Pre-Anes Outpt Exam: alert, oriented x 3, clear to auscultation bilaterally and regular rate & rhythm Airway: Cervical ROM: WNL MP: 2 Dentition: Chipped (multiple broken teeth) Pulmonary: Pulmonary: COPD CV/HEM: CV/HEM: CAD (RCA HAIM stent in march 2020 - still taking plavix) GI: GI: GERD Metabolic: Metabolic: Hyperlipidemia Anesthetic Plan: ASA status: 3 Anesthesia: MAC Risk of > 500 ml blood loss (7ml/kg in children): No Meds/Allergies Current Medications: Current Medications Generic Name Dose Route Start Last Admin Trade Name Freq PRN Reason Stop Dose Admin Sodium Chloride 1,000 mls @ 30 ml s/hr 09/25/20 08:15 09/25/20 08:29 Sodium Chloride 0.9% IV 30 mls/hr .Q24H BRIGITTE Administration PFSH Anesthesia PFSH: Medical History Atherosclerotic heart disease of [place] coronary artery without angina pectoris Patient had a high-grade lesion of the RCA which was intervened March, COPD (chronic obstructive pulmonary disease) Dyslipidemia (high LDL; low HDL) GERD (gastroesophageal reflux disease) Surgical History H/O esophagogastroduodenoscopy (08/28/20) History of arthroscopic knee surgery History of coronary angiogram Hx of cholecystectomy Status post colonoscopy More than 10 yearsago Family History Father CAD (coronary artery disease) Hyperlipidemia Hypertension Lung disease Other Cancer Stroke Social History Smoking and tobacco status: former smoker Quit status (tobacco): has quit using tobacco Year quit tobacco: 2019 - 0.5 PPD x 40 Years Alcohol intake: never Lives independently: Yes Household members: spouse Marital status: Current occupational status: employed Current occupation: [employer] Current occupational exposures/hazards: No History of recent travel: No Current gender identity: Female Data Anesthesia Cardiac Studies: No Data to Display
--- NOTE | 2020-09-25 09:10 | W.PM.OPSUD ---
Surgery/Procedure H&P Update DATE OF PROCEDURE: September 25, 2020 DATE H&P PERFORMED: 09/12/20 H&P UPDATE INFORMATION: I have reviewed H&P completed within last 30 days, I have examined patient prior to procedure and No changes to prior documentation PREOP DIAGNOSIS: Dysphagia/screening PLANNED PROCEDURE: Operation Date: 09/25/20 09:00 Proposed Procedures p EGD Dilation W/ Balloon [id number] R13.19 Z12.11(Not Applicable) - Charles Damico MD s Colonoscopy(Not Applicable) - Charles Damico MD
--- NOTE | 2020-09-25 09:24 | PC.NURSE ---
PT BALLOON DIALATED USING 10,11,12, 12,13.5,15 AND 15,16.5,18
[2020-09-25 09:48] VITALS: BP 112/69; PULSE 70; RESP 18; TEMP 36.1; O2SAT 95
--- NOTE | 2020-09-25 09:54 | ANE.PACU2 ---
Inpatient post-anesthesia follow up: Airway intact: Yes Vital signs: Temperature 97.0 F Pulse Rate 70 Respiratory Rate 18 Blood Pressure 112/69 Pulse Oximetry 95 Oxygen Delivery Me thod Nasal Cannula Oxygen Flow Rate 3 Fraction of Inspir ed Oxygen Hydration adequate: Yes Nausea and vomiting: No Pain level: 1 Mental status: Baseline
[2020-09-25 10:03] VITALS: BP 124/85; PULSE 68; RESP 18; TEMP 36.3; O2SAT 97
== END 2020-09-25 10:20 | disposition home or self-care (01) ==
PROVIDERS: PCP Family Medicine; Visit Provider Surgery
PROC: 0DJD8ZZ Inspection of Lower Intestinal Tract, Via Natural or Artificial Opening Endoscopic (ICD-10-PCS; CPT 45378; 2020-09-25 09:00)
DX: Z12.11 Encounter for screening for malignant neoplasm of colon (principal); R13.19 Other dysphagia; I25.110 Atherosclerotic heart disease of native coronary artery with unstable angina pectoris; J44.9 Chronic obstructive pulmonary disease, unspecified; E78.5 Hyperlipidemia, unspecified; K21.9 Gastro-esophageal reflux disease without esophagitis; Z82.49 Family history of ischemic heart disease and other diseases of the circulatory system; Z87.891 Personal history of nicotine dependence; K22.2 Esophageal obstruction; K29.70 Gastritis, unspecified, without bleeding; K57.30 Diverticulosis of large intestine without perforation or abscess without bleeding; K64.8 Other hemorrhoids; I25.10 Atherosclerotic heart disease of native coronary artery without angina pectoris
CPT/HCPCS: 12345; 43235; 43249; 45378; 88305; J2704; J3010; J7030

== ENCOUNTER 2021-03-14 09:28 | Emergency (ER) | payer OTHER, SELFPAY ==
[2021-03-14 09:30] VITALS: BP 153/77; PULSE 81; RESP 16; TEMP 36; O2SAT 96; BMI 32.4
--- NOTE | 2021-03-14 09:37 | ED_ITS ---
HPI - Extremity Problem General: Chief complaint: Extremity Problem,Nontraumatic Stated complaint: left leg swollen Time Seen by Provider: 03/14/21 09:37 Source: patient Mode of arrival: ambulatory Limitations: no limitations History of Present Illness: HPI Narrative: Patient fell and hit her left knee about 7 to 10 days ago. Patient has extensive bruising to her left lower ex tremity. Patient reports no problems with ambulation or walking. Patient reports for the last 2 days she has had increased redness and swelling to the left lower extremity. Complaint: extremity swelling Onset (ago): day(s) Location: left Severity scale (1-10): 2 Quality: dull Review of Systems General: Reports: 10 or more systems reviewed and unremarkable except in HPI and below Musc: Reports: other (Left lower extremity redness and swelling.) PFS ED PFSH: Medical History Atherosclerotic heart disease of [place] coronary artery without angina pectoris Patient had a high-grade lesion of the RCA which was intervened March, COPD (chronic obstructive pulmonary disease) Dyslipidemia (high LDL; low HDL) GERD (gastroesophageal reflux disease) Surgical History H/O esophagogastroduodenoscopy (09/25/20) 08/28/20: disimpaction of food bolus History of arthroscopic knee surgery History of coronary angiogram Hx of cholecystectomy Status post colonoscopy (09/25/20) Family History Father CAD (coronary artery disease) Hyperlipidemia Hypertension Lung disease Clotting disorder Cancer Diabetes Mother Clotting disorder CAD (coronary artery disease) Chronic kidney disease (CKD) Diabetes Denies family history of Dementia Suicide Anesthesia complication Bleeding disorder Stroke Social History Smoking and tobacco status: former smoker Quit status (tobacco): has quit using tobacco Year quit tobacco: 2020 - 0.5 PPD x 40 Years Alcohol intake: never Lives independently: Yes Household members: spouse Marital status: Current occupational status: employed Current occupational exposures/hazards: No History of recent travel: No Current gender identity: Female Physical Exam Const: COMMON NORMALS: no acute distress and patient oriented x3 GENERAL APPEARANCE: cooperative HENMT: COMMON NORMALS: normocephalic and Normal external nose present HEAD & SCALP: normal to inspection and normocephalic NOSE: Normal external nose present Eye: GENERAL EYE: appearance normal, both eyes and all related structures Neck/C-Spine: COMMON NORMALS: full ROM Chest: COMMONS NORMALS: normal inspection of the chest Resp: COMMON NORMALS: normal respiratory effort EFFORT & INSPECTION: Yes able to speak in complete sentences Cardio: COMMON NORMALS: regular rate and regular rhythm RATE: regular rate RHYTHM: regular rhythm GI: COMMON NORMALS: non-tender Back/Pelvis: COMMON NORMALS: thoracic and lumbar spine normal to inspection Extremity: NARRATIVE EXTREMITY EXAM: Ecchymosis to the knee and lower extremity of the left leg, redness is to the anterior aspect of the left lower leg with mild increase in heat. Neuro: COMMON NORMALS: patient oriented x3 and moves all extremities Psych: COMMON NORMALS: mental status grossly normal and cooperative Skin: COMMON NORMALS: no rashes or lesions noted GENERAL SKIN EXAM: no rashes or lesions noted Course Vital Signs: Vital signs: Vital Signs Temperature 96.8 F L 03/14/21 09:30 Pulse Rate 67 03/14/21 11:04 Respiratory Rate 16 03/14/21 11:04 Blood Pressure 110/64 03/14/21 11:04 Pulse Oximetry 95 03/14/21 11:04 MDM - Extremity (Nontraumatic) MDM Narrative: Medical decision making narrative: Patient comes in for redness and swelling with ecchymosis to the left lower extremity. Patient had a injury over a week ago. Patient comes in today due to increased swelling in the extremity. On exam there is a negative Homans' sign. Pulses are intact distally. Significant swelling is noted from the knee to the lower part of the leg including the posterior ankle. Patient ambulates and bears weight without difficulty. Differential diagnosis includes contusion, peripheral vascular disease, DVT. Ultrasound noted no DVT. Reviewed exam with patient with recommendations for treatment with elevation of leg and cephalexin for probable cellulitis. Patient reported understanding of care plan and need for follow-up or return. Discharge Plan Discharge Patient Disposition: Home Clinical Impression: Cellulitis of left anterior lower leg Condition: Stable Prescriptions: New cephalexin 500 mg capsule 500 mg PO Q6H 7 Days Qty: 28 RF: 0 No Action isosorbide mononitrate 30 mg tablet extended release 24 hr 15 mg PO BID Qty: 90 RF: 2 clopidogrel 75 mg tablet 75 mg PO DAILY Qty: 90 RF: 3 Anoro Ellipta 62.5-25 mcg/actuation blister with device 1 inh INHALATION Q24H 90 Days Qty: 180 RF: 3 esomeprazole magnesium [Nexium] 40 mg capsule,delayed release(DR/EC) 40 mg PO QDAY Qty: 30 RF: 3 rosuvastatin 20 mg tablet 40 mg PO DAILY Qty: 90 RF: 3 Dexilant 60 mg capsule,biphase delayed releas 60 mg PO DAILY 90 Days Qty: 90 RF: 0 metoprolol tartrate 25 mg tablet See Rx Instructions .ROUTE .COMPLEX Qty: 90 RF: 3 aspirin 81 mg tablet,delayed release (DR/EC) See Rx Instructions .ROUTE .COMPLEX Qty: 90 RF: 3 albuterol sulfate 90 mcg/actuation HFA aerosol inhaler 1 inh INHALATION Q6H PRN (Reason: shortness of breath or wheezing) Qty: 18 RF: 0 nitroglycerin 0.4 mg tablet, sublingual 0.4 mg SUBLINGUAL Q5M PRN (Reason: chest pain) 3 Days Qty: 3 RF: 0 Discharge Orders: Discharge ED (Routine); Ordered 03/14/21 Ordered By: Nikolay Villa Referrals: Daria Solano DO [Primary Care Provider] - Discharge Diet: Usual diet Discharge Activity: Increase activity as tolerated Patient Instructions: Cellulitis (ED), Opioid Safety Activity Restrictions/Additional Instructions: Elevate leg is much as possible. Use acetaminophen and ibuprofen for pain. Take antibiotics as directed. Follow-up with primary care in 3 to 4 days for re check. Return to the ER for high fever or worsening symptoms. Stand Alone Forms: Work/School Release Coding Level of Care Code ED Engineering Consultant for Janae Fwd Exam Comprehensive
--- NOTE | 2021-03-14 09:41 | USR_ITS ---
PROCEDURE INFORMATION: Exam: US Duplex Left Lower Extremity Veins, Limited Exam date and time: 03/14/2021 10:13 AM Age: 55 years old Clinical indication: Pain; Leg, lower; Left; Prior surgery; Surgery date: 6+ months; Surgery type: Tibia surg to relocate patella in distant past; Patient HX: Fell on lt knee 1 week ago. It is very bruised. Now lower leg is red. ; Additional info: R/O dvt TECHNIQUE: Imaging protocol: Real-time Duplex ultrasound of the Left Lower Extremity with 2-D eric scale, color Doppler flow and spectral waveform analysis with image documentation. Limited exam focused on the left lower extremity veins. COMPARISON: MRI Knee w/o LEFT* [id number] 01/26/2019 6:11 PM FINDINGS: Left deep veins: Unremarkable. The common femoral, femoral, proximal profunda femoral and popliteal veins are patent without thrombus. Normal Doppler waveforms. Normal compressibility and/or augmentation response. Left superficial veins: Unremarkable. Saphenofemoral junction is patent without thrombus. Soft tissues: There is subcutaneous edema in the lower left leg.. US/CV venous duplex [facility] [id number] IMPRESSION: No evidence of deep vein thrombosis.
[2021-03-14 11:04] VITALS: BP 110/64; PULSE 67; RESP 16; O2SAT 95
[2021-03-14 11:31] VITALS: BP 117/74; PULSE 78; RESP 16; O2SAT 96
== END 2021-03-14 11:34 | disposition home or self-care (01) ==
PROVIDERS: Emergency Provider Nurse Practitioner Family; PCP Family Medicine
DX: L03.116 Cellulitis of left lower limb (principal); Z79.82 Long term (current) use of aspirin; Z79.02 Long term (current) use of antithrombotics/antiplatelets; J44.9 Chronic obstructive pulmonary disease, unspecified; E78.5 Hyperlipidemia, unspecified; Z87.891 Personal history of nicotine dependence
CPT/HCPCS: 93971; 99283

== ENCOUNTER 2021-09-04 09:12 | Outpatient (CLI) | payer OTHER, SELFPAY ==
--- NOTE | 2021-09-04 09:19 | CT_ITS ---
WS: [id number] LDCT LUNG CANCER SCREENING TECHNIQUE: Noncontrast CT of the chest with coronal and sagittal reformatted images. CLINICAL INFORMATION: HX OF TOBACCO USE COMPARISON: None. DLP: 56.17 mGy.cm DIvol: 1.[address] scans at [facility] use at least one of these dose optimization techniques: automat ed exposure control; mA and/or kV adjustment per patient size (includes targeted exams where dose is matched to clinical indication); or iterative reconstruction. FINDINGS: Moderate chronic emphysematous changes. No acute pulmonary infiltrates. No suspicious pulmonary paren chymal abnormalities. Coronary calcification. No mediastinal or hilar lymphadenopathy. No axillary ly mphadenopathy. Small to moderate esophageal hiatal hernia. Cholecystectomy clips. Mild thoracic kyphosis. CT/CT lung screening [id number] IMPRESSION: LUNG-RADS: 1-Negative FOLLOW UP: 12 Month: Continue annual screening with LDCT
== END 2021-09-04 09:13 | disposition home or self-care (01) ==
LOC: RAD 09:14
PROVIDERS: PCP Family Medicine; Visit Provider Registered Nurse
DX: Z12.2 Encounter for screening for malignant neoplasm of respiratory organs (principal); Z87.891 Personal history of nicotine dependence
CPT/HCPCS: 71271

== ENCOUNTER 2021-09-29 07:07 | Outpatient (CLI) | payer OTHER, SELFPAY ==
--- NOTE | 2021-09-29 07:11 | USCV_ITS ---
Demetri Guillermina Age: 56 Gender: F : 1965 Exam Date: 09/29/2021 07:27 Ordering Phys: Coral Alexander Technologist: LB Exam Location: [facility] [place] Indication: lower extremity edema, History of RCA stenting BP: / HR: 64 Rhythm: Sinus Technical Quality: Adequate MEASUREMENTS (Male / Female) Normal Values 2D ECHO LV Diastolic Diameter PLAX 3.9 cm 4.2 - 5.9 / 3.9 - 5.3 cm LV Systolic Diameter PLAX 2.5 cm IVS Diastolic Thickness 1.1 cm 0.6 - 1.0 / 0.6 - 0.9 cm IVS Systolic Thickness 1.3 cm LVPW Diastolic Thickness 1.1 cm 0.6 - 1.0 / 0.6 - 0.9 cm LVPW Systolic Thickness 1.3 cm LVOT Diameter 2.1 cm LV Ejection Fraction 2D Teich 67.0 % LV Ejection Fraction MOD 2C 72.5 % LV Ejection Fraction 2C AL 72.6 % LA Diameter 4.0 cm LA Width 3.0 cm LA Height 5.9 cm RA Width 2.9 cm RA Height 4.6 cm Aorta at Sinotubular Diameter 2.9 cm M-MODE Aortic Annulus Diameter 2.8 cm LA Ao Ratio MM 1.5 MV E Point Septal Separation 0.2 cm DOPPLER AV Peak Velocity 121.0 cm/s LVOT Peak Velocity 91.0 cm/s AV Area Cont Eq vti 2.9 cm squared AV Area Cont Eq pk 2.7 cm squared MV Peak Velocity 121.0 cm/s MV Area PHT 3.1 cm squared Mitral E to A Ratio 1.7 MV E' Velocity 62.5 cm/s Mitral E to MV E' Ratio 8.8 Mitral E to LV E' Lateral Ratio 8.3 Mitral E to LV E' Septal Ratio 9.5 TR Peak Velocity 94.0 cm/s TR Peak Gradient 3.5 mmHg TV Peak E Velocity 58.0 cm/s Right Atrial Pressure 3.0 mmHg Pulmonary Artery Systolic Pressu 6.5 mmHg PV Peak Velocity 66.7 cm/s RV Acceleration Time 0.1 s RV Ejection Time 0.4 s RV AcT/ET 0.2 FINDINGS Left Ventricle Normal left ventricular size, systolic function and wall thickness, with no regional wall motion abnormalities. Left ventricular ejection fraction is estimated at 65 %. Normal diastolic function. Right Ventricle Normal right ventricular size and systolic function. Right ventricular systolic pressure 6.5 mmHg. Right Atrium Normal right atrial size. Left Atrium Upper normal left atrial size. Mitral Valve Structurally normal mitral valve. No mitral valve stenosis. Trace mitral valve regurgitation. Aortic Valve Structurally normal trileaflet aortic valve. No aortic valve stenosis. No aortic valve regurgitation. Tricuspid Valve Structurally normal tricuspid valve. No tricuspid valve stenosis. Trace tricuspid valve regurgitation. Pulmonic Valve Structurally normal pulmonic valve. No pulmonary valve stenosis. Trace pulmonary valve regurgitation. Pericardium No pericardial effusion. Aorta Normal size aortic root and proximal ascending aorta. Normal sized inferior vena cava. CONCLUSIONS 1. Normal left ventricular size, systolic function and wall thickness, with no regional wall motion abnormalities. Left ventricular ejection fraction is estimated at 65 %. Normal diastolic function. 2. Trace mitral valve regurgitation. 3. Normal right ventricular size and systolic function. 4. No significant change when compared to previous echocardiogram dated 04/14/20. Lyndsay Wyatt MD (Electronically Signed) Final Date: 01 October 2021 19:49 S
== END 2021-09-29 07:08 | disposition home or self-care (01) ==
LOC: RAD 07:08
PROVIDERS: PCP Family Medicine; Visit Provider Registered Nurse
DX: R60.0 Localized edema (principal); I34.0 Nonrheumatic mitral (valve) insufficiency; Z98.61 Coronary angioplasty status
CPT/HCPCS: 93306

== ENCOUNTER 2022-01-24 19:55 | Observation (INO) | payer OTHER, SELFPAY ==
[2022-01-24] VITALS (8 sets, daily range): BP systolic 126–139; BP diastolic 78–85; PULSE 92–112; RESP 13–24; TEMP 37.7; O2SAT 92–96; BMI 39.4
--- NOTE | 2022-01-24 20:26 | ED_ITS ---
HPI - SOB/Dyspnea General: Chief Complaint: Shortness of Breath/Dyspnea Stated Complaint: SOB O2 Stats 93 Time Seen by Provider: 01/24/22 20:26 History of Present Illness: HPI Narrative: Ms. Mosquera is a 56-year-old lady with significant past medical history of hypertension, hyperlipidemia, COPD with former tobacco use, CAD who presents to the emergency department due to shortness of breath and chest discomfort. Onset of symptoms was yesterday afternoon and subacute. She describes pressure in the middle of her chest without significant radiation associated with shortness of breath and generalized malaise. Symptom intensity has persisted and is modera te. She does have worsening symptoms with exertion and noticed home oxygen saturation in the 80s. She has had cough. Denies sick contacts, was vaccinated against Covid and flu. No other specific changes in health, exacerbating, or alleviating factors identified. Onset (ago): hour(s) Timing: constant Severity: moderate Exacerbating factors: exertion and coughing Relieving factors: nothing Known history of: COPD Review of Systems General: Reports: 10 or more systems reviewed and unremarkable except in HPI and below PFSH ED PFSH: Medical History Atherosclerotic heart disease of [place] coronary artery without angina pectoris Patient had a high-grade lesion of the RCA which was intervened March, COPD (chronic obstructive pulmonary disease) Dyslipidemia (high LDL; low HDL) GERD (gastroesophageal reflux disease) Surgical History H/O esophagogastroduodenoscopy (09/25/20) 08/28/20: disimpaction of food bolus History of arthroscopic knee surgery History of coronary angiogram Hx of cholecystectomy Status post colonoscopy (09/25/20) Family History Father CAD (coronary artery disease) Hyperlipidemia Hypertension Lung disease Clotting disorder Cancer Diabetes Mother Clotting disorder CAD (coronary artery disease) Chronic kidney disease (CKD) Diabetes Denies family history of Dementia Suicide Anesthesia complication Bleeding disorder Stroke Social History Smoking and tobacco status: former smoker Quit status (tobacco): has quit using tobacco Year quit tobacco: 2020 - 0.5 PPD x 40 Years Alcohol intake: never Lives independently: Yes Household members: spouse Marital status: Current occupational status: employed Current occupational exposures/hazards: No History of recent travel: No Current gender identity: Female Physical Exam Const: COMMON NORMALS: alert GENERAL APPEARANCE: cooperative, well developed and ill appearing HENMT: COMMON NORMALS: normocephalic and atraumatic HEAD & SCALP: normocephalic and atraumatic THROAT: posterior oropharynx normal Eye: COMMON NORMALS: conjunctivae normal CONJUNCTIVA: Yes conjunctivae normal SCLERA: sclerae normal Neck/C-Spine: COMMON NORMALS: supple GENERAL: Yes trachea midline Resp: EFFORT & INSPECTION: Yes able to speak in complete sentences AUSCULTATION: diminished lung sounds Cardio: COMMON NORMALS: regular rhythm RATE: tachycardic RHYTHM: regular rhythm GI: COMMON NORMALS: Soft to palpation PALPATION: Yes Soft to palpation and No Tenderness to palpation present (GI) PERCUSSION: normal to percussion Extremity: GENERAL: Yes normal exam except as noted and No edema Neuro: COMMON NORMALS: moves all extremities SENSORIUM/ORIENTATION: Yes alert and No Orientation impaired Psych: COMMON NORMALS: mental status grossly normal and Normal thought process present THOUGHT PROCESS: Normal thought process present Course ED course: - Patient was seen and evaluated by me at bedside - Patient placed on cardiac monitors, IV access obtained - Initial evaluation notable for somewhat ill appearance, as above - Labs and xrays personally interpreted by me. EKG at 2337 recently interpreted by me. Sinus tachycardia, first-degree AV block, nonspecific ST segment abnorm alities. No STEMI. - Aspirin, analgesia, COPD exacerbation treatment ordered. - Labs notable for mild leukocytosis, normal hemoglobin. Metabolic panel with evidence of intravascular depletion. D-dimer elevated. - Imaging notable for no lobar consolidation or pneumothorax on chest x-ray. Patient intermediate [place] and D-dimer elevated therefore CTA was ordered. No acute finding to explain patient's symptoms. - Upon serial reexamination after treatment the patient was similar to minimally improved - Based on patient history, evaluation, and testing as interpreted the most likely cause of the patient's condition is COPD exacerbation and chest pain of unspecified etiology. - The results of ED evaluation were discussed with the patient including possible disposition options. Patient is moderate risk by heart score and intermittently requiring oxygen and therefore warrants inpatient management. I discussed plan for admission due to requirement for level of care not available if discharged to prevent significant worsening/deterioration. - Admitting service was contacted and Dr Pak with the hospitalist service agreed to admit the patient - Patient was admitted without further deterioration or significant events. Note: Click bubbles or prepopulated cain in note writing are used for assistance with data collection and billing and are inherently more limited than narrative and other text portions of this note. Please use narrative for additional clinical history and defer to narrative/free test for any case of contradictory information. If information appears in only free text or click bubble it should be considered present or absent as reported. Please contact note typewriter ribbon winder for clarifications of clinical information or contradictory information. MDM is a brief summary, contradictory or erroneous seeming information should be clarified and full note should be reviewed. Vital Signs: Vital signs: Vital Signs Temperature 98.2 F 01/27/22 14:28 Pulse Rate 81 01/27/22 14:28 Respiratory Rate 18 01/27/22 14:28 Blood Pressure 123/80 01/27/22 14:28 Pulse Oximetry 90 01/27/22 14:28 MDM - SOB/Dyspnea Medical Decision Making 56-year-old lady with history of COPD, hypertension, hyperlipidemia presenting with chest pain and shortness of breath. No clear explanation for symptoms on ED evaluation. Patient moderate risk by heart score and desires inpatient testing. Admitted for inpatient cardiac testing and management of COPD exacerbation. Medical Records I reviewed the patient's medical records. Lab Data I reviewed the patient's lab results. : 01/27/22 04:01 01/27/22 04:01 Labs/Radiology: Radiology Impressions Chest X-Ray 01/24/22 20:27 IMPRESSION: No acute findings. Chest CTA 01/24/22 22:08 IMPRESSION: 1. No pulmonary embolism. 2. Incidental findings above. Laboratory Results WBC 10.3 10^3/uL (4.0-10.0) H 01/24/22 20:34 RBC 4.86 10^6/uL (4.1-5.3) 01/24/22 20:34 Hgb 11.6 g/dL (11.5-15.3) 01/24/22 20:34 Hct 37.5 % (37.0-47.0) 01/24/22 20:34 MCV 77.2 fl (81-99) L 01/24/22 20:34 MCH 23.9 pg (28.0-34.0) L 01/24/22 20:34 MCHC 30.9 g/dL (30.0-36.0) 01/24/22 20:34 RDW 19.5 % (12.1-15.1) H 01/24/22 20:34 Plt Count 314 10^3/cmm (130-400) 01/24/22 20:34 MPV 11.2 fL (7.4-10.4) H 01/24/22 20:34 Neut % (Auto) 60.4 % 01/24/22 20:34 Lymph % (Auto) 30.3 % 01/24/22 20:34 [place] % (Auto) 7.9 % 01/24/22 20:34 Eos % (Auto) 0.5 % 01/24/22 20:34 Baso % (Auto) 0.6 % 01/24/22:34 Neut # (Auto) 6.21 10^3/uL (1.8-7.7) 01/24/22 20:34 Lymph # (Auto) 3.1 10^3/uL (0.8-4.8) 01/24/22 20:34 [place] # (Auto) 0.8 10^3/uL (0.2-0.9) 01/24/22 20:34 Eos # (Auto) 0.1 10^3/uL (0.0-0.8) 01/24/22 20:34 Baso # (Auto) 0.1 10^3/uL (0.0-0.1) 01/24/22 20:34 Nucleated RBC % (auto) 0 % 01/24/22:34 Nucleated RBCs # 0.0 /100WBC 01/24/22:34 D-Dimer 0.73 ug/mIFEU (0-0.59) H 01/24/22 20:39 Sodium 131 mmol/L (136-145) L 01/24/22 20:34 Potassium 3.6 mmol/L (3.5-5.1) 01/24/22 20:34 Chloride 101 mmol/L (98-107) 01/24/22 20:34 Carbon Dioxide 17 mmol/L (22-29) L 01/24/22 20:34 Anion Gap 16.6 (5-19) 01/24/22 20:34 BUN 6 mg/dL (6-20) 01/24/22 20:34 Creatinine 0.6 mg/dL (0.5-0.9) 01/24/22 20:34 GFR Calculation 103.8 mL/min (90-130) 01/24/22 20:34 Glucose 114 mg/dL (65-115) 01/24/22 20:34 Calculated Osmolality 270 mOsm/kg (285-295) L 01/24/22 20:34 Calcium 9.0 mg/dL (8.5-10.5) 01/24/22 20:34 Total Bilirubin 0.9 mg/dL (0.15-1.2) 01/24/22 20:34 AST 10 U/L (0-32) 01/24/22 20:34 ALT 8 U/L (0-33) 01/24/22 20:34 Alkaline Phosphatase 94 IU/L (35-105) 01/24/22 20:34 Troponin T Baseline 6 ng/L (0-10) 01/24/22 20:34 Troponin T 120 Minute 6.00 ng/L (0-10) 01/24/22 23:41 Delta Troponin T Not Reportable 01/24/22 23:41 C-Reactive Protein 156.7 mg/L (0.0-4.9) H 01/24/22 20:34 NT-Pro-B Natriuret Pep 95 pg/mL (0-125) 01/24/22 20:34 Total Protein 7.1 g/dL (6.6-8.7) 01/24/22 20:34 Albumin 3.7 g/dL (3.5-5.2) 01/24/22 20:34 Globulin 3.4 g/dL (1.3-4.6) 01/24/22 20:34 Procalcitonin 0.34 ng/mL (0-0.5) 01/24/22 20:34 TSH 1.17 uIU/mL (0.27-4.20) 01/24/22 20:34 Influenza Type A Ag Negative (Negative) 01/24/22 20:56 Influenza Type B Ag Negative (Negative) 01/24/22 20:56 SARS-CoV-2 Ag (Rapid) Negative (Negative) 01/24/22 20:56 Discharge Plan Discharge Patient Disposition: Placed in Observation Admit Provider: Rafael Pak Clinical Impression: Acute exacerbation of chronic obstructive airways disease, Chest pain Discharge Diet: Cardiac Discharge Activity: Increase activity as tolerated Coding Level of Care Code ED Proof Inspector for Janae Stinson
--- NOTE | 2022-01-24 20:27 | XRR_ITS ---
PROCEDURE INFORMATION: Exam: XR Chest Exam date and time: 01/24/2022 8:42 PM Age: 56 years old Clinical indication: Dyspnea; Additional info: SOB TECHNIQUE: Imaging protocol: XR of the chest. Views: 1 view. COMPARISON: CR XR chest 1V portable [id number] 08/27/2020 10:07 PM FINDINGS: Lungs: There is no consolidation. Pleural spaces: There is no pleural effusion or pneumothorax. Heart/Mediastinum: There is mild enlargement of the cardiac silhouette. Bones/joints: Bones are unremarkable. XR/XR chest 1V portable [id number] IMPRESSION: No acute findings.
--- NOTE | 2022-01-24 20:27 | ECG_ITS ---
[facility] Test Date: 2022-01-24 Pat Name: Guillermina Mosquera Department: Room: 266 Gender: Female Master At Arms: : 1965 Requested By: Zen Gilliland Order Number: [id number] Fawn MD: Polo Blanco M.D. Measurements Intervals [place] Rate: 15 P: -6 MO: 255 QRS: 207 QRSD: 3 T: -61 QT: 411 QTc: 206 Interpretive Statements Sinus rhythm ST depression and T wave inversions lead V1 through V3, possible anterior ischemia LOW QRS VOLTAGE IN EXTREMITY LEADS [QRS DEFLECTION < 0.5 mV IN LIMB LEADS] ST DEVIATION AND MODERATE T-WAVE ABNORMALITY, CONSIDER INFERIOR ISCHEMIA [-0.1+ mV T-WAVE IN II/aVF] CRITICAL TEST RESULT Compared to ECG 08/27/2020 22:21:24 T-wave abnormality now present Possible ischemia now present Myocardial infarct finding no longer present Electronically Signed On 01-26-2022 9:14:50 CDT by Polo Blanco M.D. [id number] f
[2022-01-24 20:39] LABS: Basophils # 0.1 10^3/uL (0.0-0.1); Basophils % 0.6 %; Eosinophils # 0.1 10^3/uL (0.0-0.8); Eosinophils % 0.5 %; Hematocrit 37.5 % (37.0-47.0); Hemoglobin 11.6 g/dL (11.5-15.3); Lymphocytes # 3.1 10^3/uL (0.8-4.8); Lymphocytes % 30.3 %; Mean Corpuscular HGB Conc 30.9 g/dL (30.0-36.0); Mean Corpuscular Hemoglobin 23.9 pg (28.0-34.0); Mean Corpuscular Volume 77.2 fl (81-99); Mean Platelet Volume 11.2 fL (7.4-10.4); Monocytes # 0.8 10^3/uL (0.2-0.9); Monocytes % 7.9 %; Neutrophils # 6.21 10^3/uL (1.8-7.7); Neutrophils % 60.4 %; Nucleated Red Blood Cells % 0 %; Platelet Count 314 10^3/cmm (130-400); Red Blood Count 4.86 10^6/uL (4.1-5.3); Red Cell Distribution Width 19.5 % (12.1-15.1); White Blood Count 10.3 10^3/uL (4.0-10.0)
[2022-01-24] MEDS: aspirin 81 mg Chew Tablet 324 MG PO (20:53)
[2022-01-24] MEDS: fentaNYL 50 mcg/mL INJ 2mL IVP (20:53)
[2022-01-24 21:10] LABS: Troponin(5th) Baseline 6 ng/L (0-10)
[2022-01-24 21:18] LABS: NT Pro B Type Natriuretic Pept 95 pg/mL (0-125); Procalcitonin 0.34 ng/mL (0-0.5); Thyroid Stimulating Hormone 1.17 uIU/mL (0.27-4.20)
[2022-01-24 21:29] LABS: Alanine Aminotransferase 8 U/L (0-33); Albumin Level 3.7 g/dL (3.5-5.2); Alkaline Phosphatase 94 IU/L (35-105); Anion Gap 16.6 (5-19); Aspartate Amino Transferase 10 U/L (0-32); Blood Urea Nitrogen 6 mg/dL (6-20); C Reactive Protein 156.7 mg/L (0.0-4.9); Carbon Dioxide 17 mmol/L (22-29); Chloride 101 mmol/L (98-107); Globulin 3.4 g/dL (1.3-4.6); Glomerular Filtration Rate 103.8 mL/min (90-130); Glucose 114 mg/dL (65-115); Osmolality Calculated 270 mOsm/kg (285-295); Potassium 3.6 mmol/L (3.5-5.1); Sodium 131 mmol/L (136-145); Total Bilirubin 0.9 mg/dL (0.15-1.2); Total Protein 7.1 g/dL (6.6-8.7)
[2022-01-24 21:45] LABS: Influenza A by IFA Negative (Negative); Influenza B by IFA Negative (Negative); SARS Covid-2 Antigen Negative (Negative)
[2022-01-24 22:06] LABS: D Dimer 0.73 ug/mIFEU (0-0.59)
--- NOTE | 2022-01-24 22:08 | CTR_ITS ---
PROCEDURE INFORMATION: Exam: CTA Chest With Contrast Exam date and time: 01/24/2022 11:04 PM Age: 56 years old Clinical indication: Shortness of breath; Patient HX: C/O cp and SOB - tachy w elev d-dimer; Additional info: Chest pain, SOB, tachy, elevated ddimer TECHNIQUE: Imaging protocol: Computed tomographic angiography of the chest with contrast. 3D rendering (Not supervised by radiologist): MIP and/or 3D reconstructed images were created by the technologist. Radiation optimization: All CT scans at this facility use at least one of these dose optimization techniques: automated exposure control; mA and/or kV adjustment per patient size (includes targeted exams where dose is matched to clinical indication); or iterative reconstruction. Contrast material: OMNI 350; Contrast volume: 62 ml; Contrast route: INTRAVENOUS (IV); COMPARISON: CT angio chest w abd pel w con 08/28/2020 12:28 AM RADIATION DOSE METRICS: Total DLP (mGy-cm): 503.19 FINDINGS: Pulmonary arteries: The pulmonary arteries are adequately opacified for evaluation to the subsegmental level. There is no filling defect to suggest embolism. Aorta: The aorta is unremarkable. There is no aneurysm. Lungs: There is subsegmental atelectasis in the lung bases. There is no consolidation. Pleural spaces: Unremarkable. No pneumothorax. No pleural effusion. Heart: There is lipomatous hypertrophy of the interatrial septum. There is mild cardiac enlargement. There is no pericardial effusion. There is moderate coronary artery calcification. Lymph nodes: There is no mediastinal or hilar lymphadenopathy. Diaphragm: There is a small sliding-type hiatal hernia. Spleen: The spleen is mildly enlarged. Bones/joints: Bones are unremarkable. Soft tissues: The extrathoracic soft tissues are unremarkable. CT/CT angio chest PE protcl [id number] IMPRESSION: 1. No pulmonary embolism. 2. Incidental findings above.
[2022-01-24] MEDS: ipratropium-albuterol 3 mL Neb INHALATION (22:24)
--- NOTE | 2022-01-24 22:27 | ECG_ITS ---
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 Measurements Intervals [place] Rate: 113 P: 34 NC: 203 QRS: -3 QRSD: 94 T: -4 QT: 353 QTc: 485 Interpretive Statements SINUS TACHYCARDIA LOW QRS VOLTAGE IN PRECORDIAL LEADS [QRS DEFLECTION < 1.0 mV IN CHEST LEADS] POSSIBLE ANTERIOR MYOCARDIAL INFARCTION , OF INDETERMINATE AGE [30 ms Q WAVE IN V3/V4, OR R < 0.2 mV IN V4] Compared to ECG 08/27/2020 22:21:24 No significant changes Electronically Signed On 01-26-2022 9:22:32 CDT by Polo Blanco M.D. [email or web address] point mature adult care unitZenPayrollcleveland clinic medina hospital.Mtime/store/OM/[id number].pdf
[2022-01-24] MEDS: iohexol 350 mg/mL 100 mL Btl IV (23:11)
[2022-01-25] VITALS (16 sets, daily range): BP systolic 105–120; BP diastolic 65–84; PULSE 76–116; RESP 14–24; TEMP 36.5–37.2; O2SAT 89–96; BMI 38.9
[2022-01-25] MEDS: doxycycline 100 MG in sodium chloride 0.9% (plus) 100 ML IV ×2 (00:33→08:47)
--- NOTE | 2022-01-25 01:09 | P.HP_ITS ---
Providers/Chief Complaint Admitting Physician: Rafael Pak Primary Care Provider: Daria Solano DO Chief Complaint: SOB O2 Stats 93 History of Present Illness Pleasant 56-year-old lady with history of COPD, history of CAD, status post stenting, former smoker, usually not requiring supplemental oxygen, in the last 2-3 days she has been short of breath, having cough productive of small amount of sputum, she could not tell if there was color change to the sputum, and some chest heaviness. On presentation she was found hypoxic in the 80s, required starting of oxygen supplementation by nasal cannula. D-dimer with mild abnormality, she underwent PE protocol CTA which showed no PE, no focal consolidation. Incidentally noted lipomatous hypertrophy of the interatrial septum. Mild cardiac enlargement. No pericardial effusion. Moderate coronary calcification. Both initial and 2-hour troponins are normal. EKG with sinus tachycardia, Q waves in V3. Rapid influenza and COVID-19 negative. TSH normal. CRP 156.7. NT proBNP not elevated. She reports some chronic orthopnea. Nothing worse than usual. Reports this started ever since she was diagnosed with COPD. Some mild lower extremity edema which persists for which he follows with cardiology. She states otherwise she has been doing well. 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 Review of Systems Const: Denies: fever(s), chills, body aches or malaise Eyes: Denies: change in vision, eye discomfort or eye redness ENMT: Denies: throat pain, oral sores or ear or mastoid pain Card: Reports: other (chest tightness); Denies: edema (chronic mild), pre-syncope or dyspnea on exertion Resp: Reports: dyspnea and productive cough; Denies: hemoptysis GI: Denies: abdominal pain, nausea, vomiting, diarrhea, constipation, hematochezia or melena : Denies: flank pain, urinary frequency or hematuria Musc: Denies: back pain, joint swelling or joint redness Skin/Breast: Denies: rash or new lesions Neuro: Denies: headache(s), numbness in extremities, weakness in extremities, dizziness, confusion or seizure-like activity Endo: Denies: polyuria or polydipsia Nixon/Lymph: Denies: easy bleeding or tender lymph nodes All/Imm: Denies: urticaria or tongue swelling Medications/Allergies Home Medications Medication Instructions Recorded Confirmed Last Taken Type albuterol sulfate 90 mcg/actuation 1 inh INHALATION Q6H PRN #18 gm 04/16/20 12/22/21 09/24/20 Rx aerosol inhaler nitroglycerin 0.4 mg sublingual 0.4 mg SUBLINGUAL Q5M PRN 3 Days 04/16/20 12/22/21 1 Week Ago Rx tablet #3 tab ~09/18/20 isosorbide mononitrate 30 mg 15 mg PO BID #90 tab 07/09/20 12/22/21 09/25/20 Rx tablet,extended release 24 hr aspirin 81 mg tablet,delayed See Rx Instructions .ROUTE 12/29/20 12/22/21 Unknown Rx release .COMPLEX #90 tab clopidogrel 75 mg tablet See Rx Instructions .ROUTE 05/04/21 12/22/21 Unknown Rx .COMPLEX #90 tab umeclidinium 62.5 mcg-vilanterol 1 inh INHALATION Q24H 90 Days #180 10/29/21 12/22/21 Unknown Rx 25 mcg/actuation powdr for each inhalation (Anoro Ellipta) rosuvastatin 20 mg tablet 40 mg PO DAILY #180 tab 11/30/21 12/22/21 Unknown Rx esomeprazole magnesium 20 mg 20 mg PO BID cap 12/22/21 12/22/21 Unknown History capsule,delayed release furosemide 20 mg tablet 20 mg PO DAILY tab 12/22/21 12/22/21 Unknown History gabapentin 100 mg capsule 100 mg PO TID cap 12/22/21 12/22/21 Unknown History metformin 500 mg tablet 500 mg PO DAILY tab 12/22/21 12/22/21 Unknown History potassium chloride 10 mEq 10 meq PO DAILY tab 12/22/21 12/22/21 Unknown History tablet,extended release metoprolol tartrate 25 mg tablet See Rx Instructions .ROUTE 12/31/21 Unknown Rx .COMPLEX #90 tab Allergies Allergy/AdvReac Type Severity Reaction Status Date / Time morphine AdvReac ADR-Vomitin Verified 12/22/21 08:55 g pantoprazole AdvReac terrible Verified 12/22/21 08:55 diarrhea PFSH Acute PFSH: Medical History Atherosclerotic heart disease of [place] coronary artery without angina pectoris Patient had a high-grade lesion of the RCA which was intervened March, COPD (chronic obstructive pulmonary disease) Dyslipidemia (high LDL; low HDL) GERD (gastroesophageal reflux disease) Surgical History H/O esophagogastroduodenoscopy (09/25/20) 08/28/20: disimpaction of food bolus History of arthroscopic knee surgery History of coronary angiogram Hx of cholecystectomy Status post colonoscopy (09/25/20) Family History Father CAD (coronary artery disease) Hyperlipidemia Hypertension Lung disease Clotting disorder Cancer Diabetes Mother Clotting disorder CAD (coronary artery disease) Chronic kidney disease (CKD) Diabetes Denies family history of Dementia Suicide Anesthesia complication Bleeding disorder Stroke Social History Smoking and tobacco status: former smoker Quit status (tobacco): has quit using tobacco Year quit tobacco: 2019 - 0.5 PPD x 40 Years Alcohol intake: never Lives independently: Yes Household members: spouse Marital status: Current occupational status: employed Current occupational exposures/hazards: No History of recent travel: No Current gender identity: Female Vitals/I&O/Wt Last Vital Signs Temp 99.8 F H 01/24/22 19:59 Pulse 106 H 01/25/22 00:58 Resp 23 H 01/25/22 00:58 BP 105/65 01/25/22 00:58 Pulse Ox 92 01/25/22 00:58 Weight last 48 hrs Weight 104.326 kg Physical Exam Narrative: at bedside Const: COMMON NORMALS: alert GENERAL APPEARANCE: cooperative NUTRITIONAL APPEARANCE: overweight ORIENTATION/CONSCIOUSNESS: Yes awake HENMT: COMMON NORMALS: normocephalic, EAC's normal, Normal external nose present and moist oral mucous membranes HEAD & SCALP: normocephalic NOSE: Normal external nose present EXTERNAL AUDITORY CANAL: EAC's normal Neck/C-Spine: COMMON NORMALS: no meningeal signs Chest: CHEST: Yes Symmetrical chest wall rise Resp: AUSCULTATION: no rhonchi, no wheezes and diminished lung sounds (Mildly) bilateral Cardio: COMMON NORMALS: regular rate, regular rhythm and No murmurs present (Cardio) RATE: regular rate RHYTHM: regular rhythm GI: COMMON NORMALS: Normal to inspection, nondistended, normoactive bowel sounds present, Soft to palpation and non-tender PALPATION: Yes Soft to palpation Extremity: GENERAL: Yes edema (Trace) Neuro: COMMON NORMALS: moves all extremities SENSORIUM/ORIENTATION: Yes al ert MENINGEAL SIGNS: Yes no meningeal signs Psych: COMMON NORMALS: mental status grossly normal Skin: COMMON NORMALS: no wounds RASHES: no rashes Data : 01/24/22 20:34 01/24/22 20:34 A&P Assessment and plan (1) Hypoxia: Requiring 3 L nasal cannula oxygen. Not normally requiring supplemental oxygen. COPD exacerbation, with dyspnea, hypoxia, productive cough. No PE, no pneumonia noted on CTA. Treat as below. Status: Acute (2) Acute exacerbation of chronic obstructive airways disease: Continue IV steroid, empiric doxycycline. Breathing treatments. Collect sputum culture if she is able to provide a sample. Continue oxygen support, wean down as tolerating. Status: Acute (3) Chest pressure: With [place] CAD, prior stenting in RCA. She feels the nature of the pain is different than the sharp stabbing pain she had during her NE. Complete troponin EKG series. So far normal. Q wave in V3, otherwise sinus tachycardia on EKG. At this time suspicion of acute NE is low. Monitor on Telemetry. Follow-up symptoms. In case of persistence despite improvement in respiratory symptoms consider if needs additional cardiac evaluation. Status: Acute Plan Mild hyponatremia Elevated CRP Attestations Medical Necessity Statement*: Place in observation for additional assessment of management of new hypoxia, COPD exacerbation, chest pressure with history of CAD. Coding Level of Care Code Acute Engagement Quality Consultant for Janae Stinson Diagnoses Hypoxia R09.02 Acute exacerbation of chronic obstructive airways disease J44.1 Chest pressure R07.89
--- NOTE | 2022-01-25 01:24 | PC.NURSE ---
i reported high pulse 107 to nurse
[2022-01-25] MEDS: heparin 5,000 unit/mL INJ 1 mL 5000 UNIT SUBCUT ×3 (02:26→18:00)
--- NOTE | 2022-01-25 02:27 | ECG_ITS ---
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 Measurements Intervals [place] Rate: 97 P: 31 NM: 189 QRS: 34 QRSD: 95 T: 31 QT: 375 QTc: 478 Interpretive Statements SINUS RHYTHM LOW QRS VOLTAGE IN PRECORDIAL LEADS [QRS DEFLECTION < 1.0 mV IN CHEST LEADS] ST DEVIATION AND MODERATE T-WAVE ABNORMALITY, CONSIDER ANTERIOR ISCHEMIA [-0.1+ mV T-WAVE IN V3/V4] Compared to ECG 01/24/2022 23:37:06 T-wave abnormality now present Possible ischemia now present Sinus tachycardia no longer present Myocardial infarct finding no longer present Electronically Signed On 01-26-2022 9:22:48 CDT by Polo Blanco M.D. [id number]
[2022-01-25] MEDS: aspirin 81 mg EC Tablet PO (08:43)
[2022-01-25] MEDS: isosorbide mononitrate ER 30 mg Tablet 15 MG PO ×2 (08:44→17:59)
[2022-01-25] MEDS: FUROsemide 20 mg Tablet PO (08:44)
[2022-01-25] MEDS: metoprolol tartrate 25 mg Tablet 12.5 MG PO ×2 (08:44→20:10)
[2022-01-25] MEDS: gabapentin 100 mg Capsule PO ×3 (08:44→20:10)
[2022-01-25] MEDS: clopidogrel 75 mg Tablet PO (08:44)
[2022-01-25] MEDS: ipratropium-albuterol 3 mL Neb INHALATION ×2 (08:47→14:16)
--- NOTE | 2022-01-25 09:08 | PM.PN ---
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 Travis Elias/I&O/Wt Last Vital Signs Temp 97.9 F 01/25/22 04:00 Pulse 100 01/25/22 08:48 Resp 16 01/25/22 08:48 BP 116/70 01/25/22 04:00 Pulse Ox 93 01/25/22 08:48 01/24/22 01/25/22 01/25/22 22:59 06:59 14:59 Intake Total 100 / 100 Balance 100 / 100 Weight last 48 hrs Weight 106.197 kg Weight 104.326 kg Physical Exam Narrative: Patient looks comfortable No active shortness of breath While I was interviewing her she started complaining of shortness of breath however when I asked her about her writing she was able to compensate without any conversational dyspnea Bilateral breath sounds without adventitious rhonchi or crackles Dry hacking cough Abdomen soft S1, S2 Nonfocal neuro exam Anxious appearing Data : 01/24/22 20:34 01/24/22 20:34 A&P Assessment and plan (1) Chest pressure: Status: Acute (2) Hypoxia: Status: Acute (3) Acute exacerbation of chronic obstructive airways disease: Status: Acute (4) Nicotine addiction: Status: Acute (5) Obstructive sleep apnea: Status: Acute (6) Small airways disease: Status: Acute (7) Chronic bronchitis: Status: Acute Plan Acute hypoxia: Resolved currently patient is on room air saturating 92 to 93% Dry hacking cough Resume visit to [place] Fungal infection? Patient is not endorsing visiting an old building or noticing any mold Afebrile Tachycardic D-dimer 0.7 CTA did not show any PE, no signs of pneumonia The cause of dry hacking cough could be chronic bronchitis, small airway disease which is evident on CT scan as well Plan is to observe her 1 more day and if she remains hemodynamically stable I will discharge her home tomorrow COPD exacerbation: Resolved Troponins unremarkable, EKG without ischemic or infarctive changes No active chest pain Attestations Medical Necessity Statement*: Plan to discharge her tomorrow Time Spent in Patient Care: 20mins Coding Level of Care Code Acute Assistant Plant Controller for Chg Fwd Diagnoses Chest pressure R07.89 Hypoxia R09.02 Acute exacerbation of chronic obstructive airways disease J44.1 Nicotine addiction F17.200 Obstructive sleep apnea G47.33 Small airways disease J98.4 Chronic bronchitis J42
--- NOTE | 2022-01-25 09:14 | USCV_ITS ---
Demetri Guillermina Age: 56 Gender: F : 1965 Exam Date: 01/25/2022 10:56 Ordering Phys: Reggie Anguiano MD Technologist: Nando Genao [place] [facility] [place]: leg pain PROCEDURES: The venous duplex Doppler examination of both lower extremities was performed in the standard fashion. The following venous structures were evaluated: common femoral vein, profunda vein, proximal portion of the greater saphenous vein, superficial femoral vein, and the popliteal vein. In addition, the posterior tibial and peroneal trunk were evaluated. FINDINGS: Normal 2-D Doppler and augmentation and compressibility throughout the lower extremity venous structures. Additional imaging through the proximal calf veins also reveals no thrombus. Limited evaluation of the greater saphenous vein is patent with no thrombus.. CONCLUSIONS No evidence of DVT in the above-mentioned identifiable veins in the bilateral lower extremities. Dr Taylor Robles MD [facility] (Electronically Signed) Final Date: 27 January 2022 22:28 S
--- NOTE | 2022-01-25 09:51 | PC.NURSE ---
PT COMPLAINED OF CHEST DISCOMFORT, VS DR NAKUL NOTIFIED, PTS LABS DR NAKUL ORDER ATIVAN PO FOR PTS ANXIETY
[2022-01-25] MEDS: LORazepam 0.5 mg Tablet PO (09:54)
[2022-01-25] MEDS: predniSONE 20 mg Tablet 40 MG PO (09:54)
--- NOTE | 2022-01-25 10:00 | PC.CHAP ---
Pastoral Care Encounter/Spiritual Assessment Type of Contact [] Declined pulp operator visit [] Patient/Family/Request visit [] Outpatient visit [] Follow-up visit [] Physician referral [] Code/Alert [x] Routine visit [] Staff referral [] Actively dying [] Patient sleeping [] Family support [] [] Out of room [] Palliative care [] [] Receiving care in room [] Pre-surgical visit [] Trauma [] Long length of stay [] ICU visit [] Other: Relational/Emotional Strength [x] Patient feels connected with others/family/visitors/staff [] Distress [] Loneliness/isolation [] Abandonment Spirituality of Patient [x] Person of Ashley [] Attends Restoration of their Ashley [x] Believes in Prayer [] Reads Bible or Sabianist materials [] There are Spiritual issues to be addressed Foam Molder Interventions [x] Prayer [x] Active listening x[] Non-anxious presence [x] Spiritual/emotional support [] Crisis/trauma care [] Spiritual counseling [] Bereavement support [] Provided bereavement packet [] Provided Bible/devotional materials [] Provided toy/stuffed animal, coloring book to patient or family member [] Provided Communion [] Anointing/[place] [] Salvation [x] Completed spiritual assessment [] Other: Impact on Illness or Injury [] Angry [] Fearful [] Anxious [] Often cries [] Exhaustion [] Unable to work [] Unable to attend caodaism [] Unable to walk/stand [] Unable to read [] Unable to drive [] Unable to eat/drink [] Unable to sleep [] Unable to be with family [] Patient intubated [] Other: Summary Time spent with patient 10 min
[2022-01-25 11:31] LABS: Lactate Dehydrogenase 175 U/L (135-214)
[2022-01-25] MEDS: doxycycline 100 mg Tablet PO (17:59)
[2022-01-25] MEDS: atorvastatin 40 mg Tablet PO (20:10)
[2022-01-25] MEDS: acetaminophen 325 mg Tablet 650 MG PO (20:11)
[2022-01-25 20:51] LABS: Glucose Point of Care 139 mg/dL (70-110)
[2022-01-25 20:51] LABS: Glucose Point of Care 146 mg/dL (70-110)
[2022-01-26] VITALS (14 sets, daily range): BP systolic 95–123; BP diastolic 58–76; PULSE 68–101; RESP 16–18; TEMP 36.3–36.9; O2SAT 87–95
[2022-01-26] MEDS: heparin 5,000 unit/mL INJ 1 mL 5000 UNIT SUBCUT ×3 (01:16→17:30)
[2022-01-26 05:06] LABS: Basophils % 0.1 %; Hematocrit 35.1 % (37.0-47.0); Hemoglobin 10.7 g/dL (11.5-15.3); Lymphocytes % 16.6 %; Mean Corpuscular HGB Conc 30.5 g/dL (30.0-36.0); Mean Corpuscular Hemoglobin 23.5 pg (28.0-34.0); Mean Platelet Volume 11.5 fL (7.4-10.4); Monocytes # 0.7 10^3/uL (0.2-0.9); Monocytes % 5.3 %; Neutrophils # 9.52 10^3/uL (1.8-7.7); Neutrophils % 77.5 %; Nucleated Red Blood Cells % 0 %; Platelet Count 327 10^3/cmm (130-400); Red Blood Count 4.56 10^6/uL (4.1-5.3); Red Cell Distribution Width 19.6 % (12.1-15.1); White Blood Count 12.3 10^3/uL (4.0-10.0)
[2022-01-26] MEDS: acetaminophen 325 mg Tablet 650 MG PO ×3 (05:15→18:06)
[2022-01-26] MEDS: ondansetron 2 mg/ML SDV 2 mL 4 MG IVP ×2 (05:26→22:05)
[2022-01-26 05:28] LABS: Anion Gap 15.9 (5-19); Blood Urea Nitrogen 14 mg/dL (6-20); Calcium 9.1 mg/dL (8.5-10.5); Carbon Dioxide 20 mmol/L (22-29); Chloride 104 mmol/L (98-107); Glomerular Filtration Rate 165.7 mL/min (90-130); Glucose 108 mg/dL (65-115); Osmolality Calculated 283 mOsm/kg (285-295); Potassium 3.9 mmol/L (3.5-5.1); Sodium 136 mmol/L (136-145)
[2022-01-26 06:28] LABS: Glucose Point of Care 104 mg/dL (70-110)
[2022-01-26] MEDS: ipratropium-albuterol 3 mL Neb INHALATION ×2 (08:00→14:50)
--- NOTE | 2022-01-26 08:06 | USCV_ITS ---
Demetri Guillermina Age: 56 Gender: F : 1965 Exam Date: 01/26/2022 11:04 Ordering Phys: Reggie Anguiano MD Technologist: Fifi Richard Exam Location: [facility] [place] Indication: CHEST PRESSURE BP: 112 / 74 HR: 85 Rhythm: Sinus Technical Quality: Adequate MEASUREMENTS (Male / Female) Normal Values 2D ECHO LV Diastolic Diameter PLAX 4.2 cm 4.2 - 5.9 / 3.9 - 5.3 cm LV Systolic Diameter PLAX 2.6 cm LV Chamber Size 4.0 cm IVS Diastolic Thickness 0.8 cm 0.6 - 1.0 / 0.6 - 0.9 cm IVS Systolic Thickness 1.2 cm LVPW Diastolic Thickness 1.5 cm 0.6 - 1.0 / 0.6 - 0.9 cm LVPW Systolic Thickness 1.3 cm RV Chamber Size 3.6 cm LVOT Diameter 2.0 cm LV Ejection Fraction 2D Teich 69.1 % LV Ejection Fraction MOD 2C 59.1 % LV Ejection Fraction 2C AL 60.3 % LA Diameter 4.0 cm LA Width 3.4 cm LA Height 5.4 cm RA Width 3.5 cm RA Height 4.9 cm Aorta at Sinotubular Diameter 2.4 cm M-MODE Aortic Annulus Diameter 3.4 cm LA Ao Ratio MM 1.3 MV E Point Septal Separation 0.1 cm DOPPLER AV Peak Velocity 146.0 cm/s LVOT Peak Velocity 91.0 cm/s AV Area Cont Eq vti 2.4 cm squared AV Area Cont Eq pk 2.1 cm squared MV Area PHT 5.0 cm squared Mitral E to A Ratio 1.1 MV E' Velocity 57.0 cm/s Mitral E to MV E' Ratio 8.2 Mitral E to LV E' Lateral Ratio 8.3 Mitral E to LV E' Septal Ratio 8.1 TR Peak Velocity 142.3 cm/s TR Peak Gradient 8.1 mmHg TR Mean Velocity 102.6 cm/s TR Mean Gradient 4.8 mmHg TR Velocity Time Integral 35.1 cm TV Peak E Velocity 62.0 cm/s Right Atrial Pressure 5.0 mmHg Pulmonary Artery Systolic Pressu 13.1 mmHg PV Peak Velocity 70.0 cm/s RV Acceleration Time 0.2 s RV Ejection Time 0.4 s RV AcT/ET 0.4 FINDINGS Left Ventricle Normal left ventricular size, systolic function and wall thickness, with no regional wall motion abnormalities. Left ventricular ejection fraction is estimated at 60 %. Normal diastolic function. Right Ventricle Normal right ventricular size and systolic function. Right ventricular systolic pressure 13.1 mmHg. Right Atrium Normal right atrial size. Left Atrium Normal left atrial size. Mitral Valve Bowing of bilateral mitral valve leaflet. No mitral valve prolapse. No mitral valve stenosis or regurgitation. Aortic Valve Structurally normal trileaflet aortic valve. No aortic valve stenosis. No aortic valve regurgitation. Tricuspid Valve Structurally normal tricuspid valve. No tricuspid valve stenosis. Trace tricuspid valve regurgitation. Pulmonic Valve Structurally normal pulmonic valve. No pulmonary valve stenosis. Trace pulmonary valve regurgitation. Pericardium No pericardial effusion. Aorta Normal size aortic root and proximal ascending aorta. CONCLUSIONS 1. Normal left ventricular size, systolic function and wall thickness, with no regional wall motion abnormalities. Left ventricular ejection fraction is estimated at 60 %. Normal diastolic function. 2. Bowing of bilateral mitral valve leaflet without significant prolapse. 3. When compared to previous echocardiogram dated 09/29/2021, there may not have been any significant change. Lyndsay Wyatt MD (Electronically Signed) Final Date: 26 January 2022 16:57 S
[2022-01-26] MEDS: doxycycline 100 mg Tablet PO ×2 (09:40→17:31)
[2022-01-26] MEDS: gabapentin 100 mg Capsule PO ×3 (09:40→22:02)
[2022-01-26] MEDS: isosorbide mononitrate ER 30 mg Tablet 15 MG PO ×2 (09:40→17:31)
[2022-01-26] MEDS: FUROsemide 20 mg Tablet PO (09:41)
[2022-01-26] MEDS: metoprolol tartrate 25 mg Tablet 12.5 MG PO ×2 (09:41→22:02)
[2022-01-26] MEDS: clopidogrel 75 mg Tablet PO (09:41)
[2022-01-26] MEDS: aspirin 81 mg EC Tablet PO (09:53)
[2022-01-26 10:53] LABS: Glucose Point of Care 145 mg/dL (70-110)
[2022-01-26 10:53] LABS: Glucose Point of Care 155 mg/dL (70-110)
[2022-01-26 10:53] LABS: Glucose Point of Care 155 mg/dL (70-110)
[2022-01-26 11:47] LABS: Glucose Point of Care 98 mg/dL (70-110)
--- NOTE | 2022-01-26 12:07 | ECG_ITS ---
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 Interpretive Statements NAME OF STUDY: LEXISCAN SESTAMIBI STRESS TEST INDICATION: Unstable Angina PROCEDURE: At the baseline, the blood pressure was 110/69 mmHg, oxygen saturation 88% with a heart rate of 81 bpm. The electrocardiogram showed normal sinus rhythm, normal axis with possible old inferior CA. Low QRS voltage in precordial leads. T wave inversion in anterior leads, consider anterior ischemia. Poor anterior R wave progression. The Lexiscan was infused over a period of 20 seconds. A total of 0.4 milligrams of Lexiscan was infused. The stress phase was continued for a total of 5 minutes. Heart rate at the end of the stress phase was 81 bpm, oxygen saturation 91% with a blood pressure of 103/80 mmHg. The EKG at the peak infusion revealed sinus rhythm with no significant ST-T wave changes. The study was terminated due to protocol completion. Sestamibi was injected 20 seconds after the Lexiscan infusion. Blood pressure at the end of the recovery phase was 101/70 mmHg, oxygen saturation 90% with a heart rate of 87 beats per minute. CONCLUSION: 1. No significant EKG changes with the LexiScan infusion. 2. No LexiScan induced chest pain or cardiac arrhythmia. 3. Normal blood pressure and heart rate response. 4. Sestamibi/sestamibi perfusion scan pending; see separate report. Electronically Signed On 01-27-2022 10:52:25 CDT by Lyndsay Wyatt M.D. [id number]
--- NOTE | 2022-01-26 12:07 | P.PN_ITS ---
Subjective Subjective: Patient had 2 episode of chest pain which she describes as pressure-like sensation, EKG without ischemic or infarctive changes, troponin without significant delta I will go ahead and request echo and stress test tomorrow morning Patient is still requiring 2 L of oxygen CTA did not show PE No signs of pneumonia I have sent fungal antigen yesterday, LDH is unremarkable Vitals/I&O/Wt Last Vital Signs Temp 97.6 F 01/26/22 11:28 Pulse 84 01/26/22 11:28 Resp 18 01/26/22 11:28 BP 95/58 01/26/22 11:28 Pulse Ox 88 L 01/26/22 11:41 01/25/22 01/26/22 01/26/22 22:59 06:59 14:59 Intake Total 120 / 555 100 / 655 100 / 100 Output Total 1200 / 1200 Balance 120 / 555 -1100 / -545 100 / 100 Weight last 48 hrs Weight 106.197 kg Weight 104.326 kg Physical Exam Narrative: She was in her recliner No audible stridor or wheezing No active chest pain shortness of breath Neuro: Nonfocal neuro exam ABD soft EOMI PERRLA S1S2 Data : 01/26/22 03:55 01/26/22 03:55 A&P Assessment and plan (1) Chest pressure: Status: Acute (2) Hypoxia: Status: Acute (3) Acute exacerbation of chronic obstructive airways disease: Status: Acute (4) Chest pain: Status: Acute (5) Obstructive sleep apnea: Status: Acute (6) Small airways disease: Status: Acute (7) Chronic bronchitis: Status: Acute Plan Plan for stress test Echo complaining of pressure-like sensations substernally, troponins unremarkable EKG unremarkable Still requiring 2 L of oxygen, wean oxygen to room air This most likely is underlying bronchitis, COPD She has not smoked in last 1 year Most likely she will be discharged tomorrow after her stress test She does appear anxious as well we will keep Ativan for as needed basis Requested venous duplex to rule out DVT Attestations Medical Necessity Statement*: Plan to discharge her after stress test tomorrow Time Spent in Patient Care: 20 Coding Level of Care Code Acute Vp Global Marketing [employer] for g Fwd Diagnoses Chest pressure R07.89 Hypoxia R09.02 Acute exacerbation of chronic obstructive airways disease J44.1 Chest pain R07.9 Obstructive sleep apnea G47.33 Small airways disease J98.4 Chronic bronchitis J42
--- NOTE | 2022-01-26 15:21 | PC.NURSE ---
Patient expressed concerns to me regarding falling at home. Patient says she has not left her house in over a month due to fear of falling and hurting herself. She is requesting to speak with the physician regarding the possibility of home health since she only has 1 vehicle for her home and her uses the car for work. She is wanting to know if she could possibly qualify for a walker. Dr. Anguiano has been notified via [employer] of my conversation with the patient, her concerns, and her request for home health referral, and a walker for home.
[2022-01-26 17:28] LABS: Glucose Point of Care 100 mg/dL (70-110)
[2022-01-26] MEDS: atorvastatin 40 mg Tablet PO (22:01)
[2022-01-26 23:45] LABS: Glucose Point of Care 118 mg/dL (70-110)
[2022-01-27] MEDS: heparin 5,000 unit/mL INJ 1 mL 5000 UNIT SUBCUT (00:55)
[2022-01-27] MEDS: acetaminophen 325 mg Tablet 650 MG PO (00:55)
[2022-01-27 04:00] VITALS: BP 97/63; PULSE 77; RESP 16; TEMP 36.7; O2SAT 90
[2022-01-27 04:23] LABS: Basophils % 0.4 %; Eosinophils # 0.1 10^3/uL (0.0-0.8); Eosinophils % 1.2 %; Hemoglobin 9.7 g/dL (11.5-15.3); Lymphocytes # 4.6 10^3/uL (0.8-4.8); Lymphocytes % 48.6 %; Mean Corpuscular HGB Conc 30.3 g/dL (30.0-36.0); Mean Corpuscular Hemoglobin 23.4 pg (28.0-34.0); Mean Corpuscular Volume 77.3 fl (81-99); Mean Platelet Volume 11.4 fL (7.4-10.4); Monocytes # 0.5 10^3/uL (0.2-0.9); Monocytes % 5.2 %; Neutrophils # 4.22 10^3/uL (1.8-7.7); Neutrophils % 44.4 %; Nucleated Red Blood Cells % 0 %; Platelet Count 333 10^3/cmm (130-400); Red Blood Count 4.14 10^6/uL (4.1-5.3); Red Cell Distribution Width 19.5 % (12.1-15.1); White Blood Count 9.5 10^3/uL (4.0-10.0)
[2022-01-27 04:32] LABS: Anion Gap 14.5 (5-19); Blood Urea Nitrogen 16 mg/dL (6-20); Calcium 8.6 mg/dL (8.5-10.5); Carbon Dioxide 24 mmol/L (22-29); Chloride 105 mmol/L (98-107); Glomerular Filtration Rate 103.8 mL/min (90-130); Glucose 84 mg/dL (65-115); Osmolality Calculated 290 mOsm/kg (285-295); Potassium 3.5 mmol/L (3.5-5.1); Sodium 140 mmol/L (136-145)
[2022-01-27 05:35] VITALS: PULSE 79
[2022-01-27 06:45] LABS: Glucose Point of Care 80 mg/dL (70-110)
[2022-01-27] MEDS: regadenoson 0.4 Mg/5 ml Syringe IVP (07:45)
[2022-01-27 08:01] VITALS: BP 103/63; PULSE 83
--- NOTE | 2022-01-27 09:19 | PC.NURSE ---
Patient was taken to [facility] [place] [facility] for stress test early this morning. Patient is not in her room. Securely messaged Dr. Anguiano and he told me to hold her morning meds.
--- NOTE | 2022-01-27 11:42 | PM.DCS ---
Discharge Providers Date of Admission: 01/24/22 23:52 Date of Discharge: January 27, 2022 Attending Provider at Admission: Rafael Pak Attending Provider at Discharge: Reggie Anguiano MD Primary Care Provider: Daria Solano DO Diagnoses at Discharge Discharge Diagnosis (1) Chest pressure: Status: Acute (2) Hypoxia: Status: Acute (3) Acute exacerbation of chronic obstructive airways disease: Status: Acute (4) Chest pain: Status: Acute (5) Obstructive sleep apnea: Status: Acute (6) Small airways disease: Status: Acute (7) Chronic bronchitis: Status: Acute Reason for Visit Reason for Visit: SOB O2 Stats 93 Hospital Course Hospital Course Admitting note of Dr. Pak Pleasant 56-year-old lady with history of COPD, history of CAD, status post stenting, former smoker, usually not requiring supplemental oxygen, in the last 2-3 days she has been short of breath, having cough productive of small amount of sputum, she could not tell if there was color change to the sputum, and some chest heaviness.? On presentation she was found hypoxic in the 80s, required starting of oxygen supplementation by nasal cannula.? D-dimer with mild abnormality, she underwent PE protocol CTA which showed no PE, no focal consolidation.? Incidentally noted lipomatous hypertrophy of the interatrial septum.? Mild cardiac enlargement.? No pericardial effusion.? Moderate coronary calcification.? Both initial and 2-hour troponins are normal.? EKG with sinus tachycardia, Q waves in V3.? Rapid influenza and COVID-19 negative.? TSH normal.? CRP 156.7.? NT proBNP not elevated. She reports some chronic orthopnea.? Nothing worse than usual.? Reports this started ever since she was diagnosed with COPD.? Some mild lower extremity edema which persists for which he follows with cardiology. She states otherwise she has been doing well.? 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 She was kept on doxycycline throughout her hospitalization. EKG and troponin unremarkable. Echo did not show any wall motion abnormality however stress test is positive for RCA territory small area of reversibility, did speak with Dr. Wyatt who recommended outpatient follow-up with Dr. Robles. Will add Imdur as well antianginal. Keep her on aspirin, Plavix, atorvastatin and metoprolol low-dose her pressure remains between 10 3-1 20mmhg I would recommend outpatient follow-up with Dr. De La Cruz as well within 6 weeks, she is requiring 3 L of oxygen on exertion and 2 L at rest. This is related to chronic bronchitis/COPD. She quit smoking 1 year ago. No active chest pain at the time of discharge. 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 Physical Exam Narrative: She was in her recliner No audible stridor or wheezing No active chest pain shortness of breath Neuro: Nonfocal neuro exam ABD soft EOMI PERRLA S1S2 Discharge Data Studies Completed and Pending Completed Studies During Hospitalization Category Date Time Status CTA chest [CT angio chest PE protcl [id number]] Urgent Cat Scan 01/24/22 22:08 Completed Sestamibi Stress Test Request Routine Exams 01/26/22 12:07 Completed XR chest 1V portable [id number] Urgent Exams 01/24/22 20:27 Completed CV. echo complete* [id number] Routine Ultrasound 01/26/22 08:06 Completed Pending at discharge Category Date Time Status Basic Metabolic Panel AM LABS Lab 01/28/22 04:00 Ordered Complete Blood Count w/Auto AM LABS Lab 01/28/22 04:00 Ordered Fungitell Glucan Assay Routine Lab 01/25/22 10:30 Received Sputum Culture and Gram Stain Routine Lab 01/25/22 01:22 Uncollected NM nikolay perf SPECT r/s* [id number] Routine Nuc Med 01/27/22 12:07 [place] [id number] Routine Ultrasound 01/25/22 09:14 Taken Radiology Impressions Chest X-Ray 01/24/22 20:27 IMPRESSION: No acute findings. Chest CTA 01/24/22 22:08 IMPRESSION: 1. No pulmonary embolism. 2. Incidental findings above. Laboratory Results WBC 9.5 10^3/uL (4.0-10.0) 01/27/22 04:01 RBC 4.14 10^6/uL (4.1-5.3) 01/27/22 04:01 Hgb 9.7 g/dL (11.5-15.3) L 01/27/22 04:01 Hct 32.0 % (37.0-47.0) L 01/27/22 04:01 MCV 77.3 fl (81-99) L 01/27/22 04:01 MCH 23.4 pg (28.0-34.0) L 01/27/22 04:01 MCHC 30.3 g/dL (30.0-36.0) 01/27/22 04:01 RDW 19.5 % (12.1-15.1) H 01/27/22 04:01 Plt Count 333 10^3/cmm (130-400) 01/27/22 04:01 MPV 11.4 fL (7.4-10.4) H 01/27/22 04:01 Neut % (Auto) 44.4 % 01/27/22 04:01 Lymph % (Auto) 48.6 % 01/27/22 04:01 [place] % (Auto) 5.2 % 01/27/22 04:01 Eos % (Auto) 1.2 % 01/27/22 04:01 Baso % (Auto) 0.4 % 01/27/22 04:01 Neut # (Auto) 4.22 10^3/uL (1.8-7.7) 01/27/22 04:01 Lymph # (Auto) 4.6 10^3/uL (0.8-4.8) 01/27/22 04:01 [place] # (Auto) 0.5 10^3/uL (0.2-0.9) 01/27/22 04:01 Eos # (Auto) 0.1 10^3/uL (0.0-0.8) 01/27/22 04:01 Baso # (Auto) 0.0 10^3/uL (0.0-0.1) 01/27/22 04:01 Nucleated RBC % (auto) 0 % 01/27/22 04:01 Nucleated RBCs # 0.0 /100WBC 01/27/22 04:01 D-Dimer 0.73 ug/mIFEU (0-0.59) H 01/24/22 20:39 Sodium 140 mmol/L (136-145) 01/27/22 04:01 Potassium 3.5 mmol/L (3.5-5.1) 01/27/22 04:01 Chloride 105 mmol/L (98-107) 01/27/22 04:01 Carbon Dioxide 24 mmol/L (22-29) 01/27/22 04:01 Anion Gap 14.5 (5-19) 01/27/22 04:01 BUN 16 mg/dL (6-20) 01/27/22 04:01 Creatinine 0.6 mg/dL (0.5-0.9) 01/27/22 04:01 GFR Calculation 103.8 mL/min (90-130) 01/27/22 04:01 Glucose 84 mg/dL (65-115) 01/27/22 04:01 POC Glucose 80 mg/dL (70-110) 01/27/22 06:41 Calculated Osmolality 290 mOsm/kg (285-295) 01/27/22 04:01 Calcium 8.6 mg/dL (8.5-10.5) 01/27/22 04:01 Total Bilirubin 0.9 mg/dL (0.15-1.2) 01/24/22 20:34 AST 10 U/L (0-32) 01/24/22 20:34 ALT 8 U/L (0-33) 01/24/22 20:34 Alkaline Phosphatase 94 IU/L (35-105) 01/24/22 20:34 Lactate Dehydrogenase 175 U/L (135-214) 01/25/22 10:30 Troponin T Baseline 6 ng/L (0-10) 01/24/22 20:34 Troponin T 120 Minute 6.00 ng/L (0-10) 01/24/22 23:41 Delta Troponin T Not Reportable 01/24/22 23:41 Troponin T Hi Sens 6Hr 6.00 ng/L (0-10) 01/25/22 02:32 Troponin T Hi Sens 6Hr Delta Not Reportable 01/25/22 02:32 C-Reactive Protein 156.7 mg/L (0.0-4.9) H 01/24/22 20:34 NT-Pro-B Natriuret Pep 95 pg/mL (0-125) 01/24/22 20:34 Total Protein 7.1 g/dL (6.6-8.7) 01/24/22 20:34 Albumin 3.7 g/dL (3.5-5.2) 01/24/22 20:34 Globulin 3.4 g/dL (1.3-4.6) 01/24/22 20:34 Procalcitonin 0.34 ng/mL (0-0.5) 01/24/22 20:34 TSH 1.17 uIU/mL (0.27-4.20) 01/24/22 20:34 Influenza Type A Ag Negative (Negative) 01/24/22 20:56 Influenza Type B Ag Negative (Negative) 01/24/22 20:56 SARS-CoV-2 Ag (Rapid) Negative (Negative) 01/24/22 20:56 Vitals Last Vital Signs Temp 98.1 F 01/27/22 04:00 Pulse 83 01/27/22 08:01 Resp 16 01/27/22 04:00 BP 103/63 01/27/22 08:01 Pulse Ox 90 01/27/22 04:00 Discharge Plan Discharge Patient Disposition: Home Condition: Stable Prescriptions: New doxycycline monohydrate 100 mg Tablet 100 mg PO BID Qty: 6 0RF isosorbide mononitrate 30 mg tablet extended release 24 hr 30 mg PO DAILY Qty: 20 0RF Continued furosemide 20 mg tablet 20 mg PO QAM 0RF potassium chloride 10 mEq tablet extended release 10 meq PO QAM 0RF metformin 500 mg tablet 500 mg PO QAM 0RF esomeprazole magnesium 20 mg capsule,delayed release(DR/EC) 20 mg PO TID 0RF Anoro Ellipta 62.5-25 mcg/actuation blister with device 1 inh INHALATION Q24H 90 Days Qty: 180 3RF aspirin 81 mg tablet,delayed release (DR/EC) 81 mg PO QAM Qty: 100 3RF nitroglycerin 0.4 mg tablet, sublingual 0.4 mg SUBLINGUAL Q5M PRN (Reason: chest pain) 3 Days Qty: 3 0RF Rx Instructions: until response; do not exceed 3 doses per episode gabapentin 300 mg capsule 300 mg PO TID 0RF clopidogrel 75 mg tablet 75 mg PO QAM 0RF albuterol sulfate 90 mcg/actuation HFA aerosol inhaler 1 puff INHALATION Q6H PRN (Reason: shortness of breath or wheezing) 0RF rosuvastatin 20 mg tablet 40 mg PO BEDTIME 0RF Changed metoprolol tartrate 25 mg tablet 12.5 mg PO BID Qty: 0 0RF Discharge Orders: Discharge Order (Routine); Ordered 01/27/22 Ordered By: Reggie Anguiano Other Ambulatory Orders: DME: Oxygen (Order) Location: None Selected Ordered By: Reggie Anguiano Referrals: Datar,Tong Adkins MD [Physician] - 6 Weeks Taylor Robles MD [Physician] - 1-3 days Daria Solano DO [Primary Care Provider] - 02/01/22 8:40 am (APPOINTMENT WITH [facility]) Discharge Diet: Cardiac Discharge Activity: Increase activity as tolerated Patient Instructions: Opioid Safety Discharge Attestations Time Spent in Discharge Care*: less than 30 min Quality Metrics Clinical Quality Measures [ No reported AMI, CVA or VTE this stay] Coding Level of Care Code Acute Chg FW DC note Diagnoses Chest pressure R07.89 Hypoxia R09.02 Acute exacerbation of chronic obstructive airways disease J44.1 Chest pain R07.9 Obstructive sleep apnea G47.33 Small airways disease J98.4 Chronic bronchitis J42
[2022-01-27 12:00] VITALS: BP 123/80; PULSE 81; RESP 18; TEMP 36.8; O2SAT 90
--- NOTE | 2022-01-27 12:07 | NMCV_ITS ---
NM nikolay perf SPECT r/s* [id number] Guillermina Mosquera Age: 56 Gender: F : 1965 Exam Date: 01/27/2022 12:07 Ordering Phys: Reggie Anguiano MD Technologist: HELENA Nielsen Exam Location: [facility] Indications: CHEST PAIN STRESS TEST Please see separate stress test report in [facility] for full findings IMAGE PROTOCOL Rest/Stress 1 Lexiscan Day Radiopharmaceutical Dose (mCi) Administration Site Administered by Rest: Tc-99m 10.8 IV HELENA Vergara Sestamibi Stress:Tc-99m 32.8 IV HELENA Vergara Sestamibi Rest: 27-Jan-2022 60 Discovery 630 Stress: 27-Jan-2022 30 Discovery 630 0.4mg Lexiscan. Images obtained in supine and prone position. SPECT RESULTS Technical Quality: Excellent Raw Data Analysis: Normal, Breast attenuation Image Corrections: No attenuation or motion correction applied Summed Stress Score: 8 Summed Rest Score: 2 Summed Difference Score: 6 PERFUSION FINDINGS Small sized perfusion abnormality of mild severity of apical inferior wall on rest images with reversibility in basal to apical inferior, mid inferolateral and apical lateral correa on supine stress images. Prone stress images with improved tracer uptake in basal inferior and mid inferolateral correa. FUNCTIONAL RESULTS (calculated via Gated SPECT) Stress Image LV EF (%): 85 Stress EDV (mL):88 TID: 0.94 Stress ESV (mL):13 FUNCTIONAL FINDINGS: The left ventricle is normal in size. Transient Ischemia Dilatation of 0.94. There is hyperdynamic left ventricular global systolic function. The left ventricular ejection fraction is normal with a value of 85%. There is hyperdynamic left ventricular wall thickening. Normal end-diastolic end-systolic volumes. IMPRESSIONS 1. Small sized partially reversible perfusion abnormality of basal to apical inferior and apical lateral correa. This may represent old myocardial infarction in right coronary artery territory with mild mikey-infarct ischemia. 2. Inconsistent perfusion abnormality of inferolateral wall likely represent attenuation artifact. 3. Overall left ventricular systolic function is normal without regional wall motion abnormalities, LVEF=85%. 4. No significant EKG changes with Lexiscan infusion. Please refer to separate report for details. 5. No prior similar studies to compare. Lyndsay Wyatt MD (Electronically Signed) Final Date: 27 January 2022 12:06 S
[2022-01-27 14:28] VITALS: BP 123/80; PULSE 81; RESP 18; TEMP 36.8; O2SAT 90
[2022-01-27 20:20] LABS: Glucose Point of Care 73 mg/dL (70-110)
[2022-01-28 20:27] LABS: Fungitell 1-3-B Glucan Assay <31 pg/mL; Interpretation NEGATIVE
== END 2022-01-27 14:52 | disposition home or self-care (01) ==
LOC: ER 01-25 → MEDSURG 01-25 00:02
PROVIDERS: Admitting Provider Internal Medicine; Emergency Provider Emergency Medicine; PCP Family Medicine; Visit Provider Internal Medicine
DX: R09.02 Hypoxemia (principal); J44.1 Chronic obstructive pulmonary disease with (acute) exacerbation; R07.89 Other chest pain; I25.10 Atherosclerotic heart disease of native coronary artery without angina pectoris; Z95.5 Presence of coronary angioplasty implant and graft; Z87.891 Personal history of nicotine dependence; Z79.82 Long term (current) use of aspirin; E78.5 Hyperlipidemia, unspecified; K21.9 Gastro-esophageal reflux disease without esophagitis; Z83.3 Family history of diabetes mellitus; Z82.49 Family history of ischemic heart disease and other diseases of the circulatory system; G47.33 Obstructive sleep apnea (adult) (pediatric); J42 Unspecified chronic bronchitis; M79.605 Pain in left leg; M79.604 Pain in right leg
CPT/HCPCS: 36415; 36416; 71045; 71275; 78452; 80048; 80053; 82962; 83615; 83880; 84145; 84443; 84484; 85025; 85378; 86140; 87426; 87449; 87804; 93005; 93017; 93306; 93970; 94640; 94664; 96365; 96372; 96375; 97161; 97530; 99285; A9500; G0378; J1644; J2405; J2785; J2920; J2930; J3010; J3490; J7512; J7611; Q9967

== ENCOUNTER 2022-02-21 13:49 | Observation (INO) | payer OTHER, SELFPAY ==
[2022-02-21] VITALS (9 sets, daily range): BP systolic 105–144; BP diastolic 67–99; PULSE 68–83; RESP 15–18; TEMP 36.3–36.8; O2SAT 92–97; BMI 38.9
--- NOTE | 2022-02-21 13:51 | XRR_ITS ---
PROCEDURE INFORMATION: Exam: XR Chest Exam date and time: 02/21/2022 2:25 PM Age: 56 years old Clinical indication: Pain; Chest pressure; Additional info: Physician'S Aide TECHNIQUE: Imaging protocol: XR of the chest. Views: 1 view. Other technique: Frontal portable upright view of the chest. COMPARISON: CR (CHEST, ) 01/24/2022 8:42 PM FINDINGS: Tubes, catheters and devices: EKG leads are present overlying the chest. Lungs: The pulmonary vasculature is normal. The lungs are clear bilaterally. Pleural spaces: No pleural effusion. No pneumothorax. Heart/Mediastinum: Stable borderline cardiomegaly. Mediastinum: Stable. Bones/joints: Stable. XR/XR chest 1V portable [id number] IMPRESSION: No acute cardiopulmonary abnormality identified.
--- NOTE | 2022-02-21 13:52 | ECG_ITS ---
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 Measurements Intervals [place] Rate: 82 P: 89 MD: 213 QRS: -6 QRSD: 81 T: 2 QT: 376 QTc: 441 Interpretive Statements SINUS RHYTHM WITH FIRST DEGREE AV BLOCK WITH OCCASIONAL SUPRAVENTRICULAR PREMATURE COMPLEXES LOW QRS VOLTAGE IN PRECORDIAL LEADS [QRS DEFLECTION < 1.0 mV IN CHEST LEADS] Unusual R wave progression with lack of R waves leads V3, V4 suggesting anterior WI or lead misplacement T wave inversions anterior precordium Compared to ECG 01/25/2022 02:50:30 First degree AV block now present Unusual R wave progression is new. Electronically Signed On 02-21-2022 18:06:02 CDT by Ploo Blanco M.D. [id number]
--- NOTE | 2022-02-21 14:24 | W.ED.CHESTPA ---
HPI - Chest Pain General: Chief Complaint: Chest Pain Stated Complaint: Chest pain Time Seen by Provider: 02/21/22 14:12 Source: patient Mode of arrival: ambulatory Limitations: no limitations History of Present Illness: 56-year-old female states that she woke up this morning having severe centralized chest pain states its worst an 10 out of 10 is currently a 7 out of 10. States pain is a pressure type pain in the center of her chest worse with exertion. States she did have a stress test 1 month ago that was abnormal they are trying to set her up for an outpatient cath. She denies any radiation of her pain denies any diaphoresis. No vomiting or diarrhea. Associated symptoms: Deny abdominal pain, dyspnea, fever(s), nausea or vomiting Review of Systems Const: Denies: fever(s), chills, body aches or change in appetite Eyes: Denies: blurry vision or eye discomfort ENMT: Denies: throat pain or dental pain Card: Reports: chest pain Resp: Denies: dyspnea GI: Denies: abdominal pain, nausea, vomiting or diarrhea : Denies: dysuria Musc: Denies: neck pain or back pain Skin/Breast: Denies: rash Neuro: Denies: headache(s) Psych: Denies: depression Nixon/Lymph: Denies: easy bruising All/Imm: Denies: urticaria PFSH ED PFSH: Medical History Atherosclerotic heart disease of [place] coronary artery without angina pectoris Patient had a high-grade lesion of the RCA which was intervened March, Chest pressure Chronic bronchitis COPD (chronic obstructive pulmonary disease) Dyslipidemia (high LDL; low HDL) GERD (gastroesophageal reflux disease) Nicotine addiction Obstructive sleep apnea Small airways disease Surgical History H/O esophagogastroduodenoscopy (09/25/20) 08/28/20: disimpaction of food bolus History of arthroscopic knee surgery History of coronary angiogram Hx of cholecystectomy Status post colonoscopy (09/25/20) Family History Father CAD (coronary artery disease) Hyperlipidemia Hypertension Lung disease Clotting disorder Cancer Diabetes Mother Clotting disorder CAD (coronary artery disease) Chronic kidney disease (CKD) Diabetes Denies family history of Dementia Suicide Anesthesia complication Bleeding disorder Stroke Social History Smoking and tobacco status: former smoker Quit status (tobacco): has quit using tobacco Year quit tobacco: 2020 - 0.5 PPD x 40 Years Alcohol intake: never Lives independently: Yes Household members: spouse Marital status: Current occupational status: employed Current occupational exposures/hazards: No History of recent travel: No Current gender identity: Female Physical Exam Const: COMMON NORMALS: no acute distress, patient oriented x3 and healthy appearing HENMT: COMMON NORMALS: normocephalic and atraumatic HEAD & SCALP: normocephalic and atraumatic Eye: COMMON NORMALS: Equal, round and reactive pupils present and EOMs intact bilaterally PUPIL: Yes Equal, round and reactive pupils present Neck/C-Spine: COMMON NORMALS: full ROM and supple Chest: COMMONS NORMALS: normal inspection of the chest and normal palpation of entire chest wall Resp: COMMON NORMALS: normal respiratory effort, No retractions, No use of accessory muscles and clear to auscultation bilaterally AUSCULTATION: clear to auscultation bilaterally Cardio: COMMON NORMALS: regular rate, regular rhythm and No murmurs present (Cardio) RATE: regular rate RHYTHM: regular rhythm GI: COMMON NORMALS: Normal to inspection, nondistended, normoactive bowel sounds present, Soft to palpation, non-tender and no masses PALPATION: Yes Soft to palpation Extremity: COMMON NORMALS: normal to inspection and full ROM Neuro: COMMON NORMALS: patient oriented x3, moves all extremities and no focal motor deficits Psych: COMMON NORMALS: mental status grossly normal, Normal thought process present and cooperative THOUGHT PROCESS: Normal thought process present Skin: COMMON NORMALS: no rashes or lesions noted and no wounds GENERAL SKIN EXAM: no rashes or lesions noted Course Vital Signs: Vital signs: Vital Signs Temperature 97.7 F 02/21/22 13:55 Pulse Rate 83 02/21/22 13:55 Respiratory Rate 15 02/21/22 13:55 Blood Pressure 134/86 02/21/22 13:55 Pulse Oximetry 92 02/21/22 13:55 MDM - Chest Pain Medical Decision Making Patient presents here with chest pain initial troponin is normal but she did have an abnormal stress test she has been pain-free here spoke to hospitalist along with 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 Lab Data : 02/21/22 14:26 02/21/22 14:26 Radiology Impressions Chest X-Ray 02/21/22 13:51 IMPRESSION: No acute cardiopulmonary abnormality identified. Laboratory Results WBC 8.0 10^3/uL (4.0-10.0) 02/21/22 14: RBC 4.94 10^6/uL (4.1-5.3) 02/21/22 14:26 Hgb 11.6 g/dL (11.5-15.3) 02/21/22 14:26 Hct 38.1 % (37.0-47.0) 02/21/22 14: MCV 77.1 fl (81-99) L 02/21/22 14: MCH 23.5 pg (28.0-34.0) L 02/21/22 14: MCHC 30.4 g/dL (30.0-36.0) 02/21/22 14: RDW 19.3 % (12.1-15.1) H 02/21/22 14:26 Plt Count 283 10^3/cmm (130-400) 02/21/22 14: MPV 11.0 fL (7.4-10.4) H 02/21/22 14:26 Neut % (Auto) 44.7 % 02/21/22 14:26 Lymph % (Auto) 44.1 % 02/21/22 14:26 [place] % (Auto) 7.1 % 02/21/22 14:26 Eos % (Auto) 3.2 % 02/21/22 14:26 Baso % (Auto) 0.7 % 02/21/22 14:26 Neut # (Auto) 3.57 10^3/uL (1.8-7.7) 02/21/22 14:26 Lymph # (Auto) 3.5 10^3/uL (0.8-4.8) 02/21/22 14:26 [place] # (Auto) 0.6 10^3/uL (0.2-0.9) 02/21/22 14:26 Eos # (Auto) 0.3 10^3/uL (0.0-0.8) 02/21/22 14:26 Baso # (Auto) 0.1 10^3/uL (0.0-0.1) 02/21/22 14:26 Nucleated RBC % (auto) 0 % 02/21/22 14: Nucleated RBCs # 0.0 /100WBC 02/21/22 14:26 Sodium 141 mmol/L (136-145) 02/21/22 14:26 Potassium 3.3 mmol/L (3.5-5.1) L 02/21/22 14:26 Chloride 106 mmol/L (98-107) 02/21/22 14:26 Carbon Dioxide 23 mmol/L (22-29) 02/21/22 14:26 Anion Gap 15.3 (5-19) 02/21/22 14:26 BUN 12 mg/dL (6-20) 02/21/22 14:26 Creatinine 0.7 mg/dL (0.5-0.9) 02/21/22 14:26 GFR Calculation 86.9 mL/min (90-130) L 02/21/22 14:26 Glucose 111 mg/dL (65-115) 02/21/22 14:26 Calculated Osmolality 292 mOsm/kg (285-295) 02/21/22 14:26 Calcium 9.2 mg/dL (8.5-10.5) 02/21/22 14:26 Total Bilirubin 0.4 mg/dL (0.15-1.2) 02/21/22 14:26 AST 13 U/L (0-32) 02/21/22 14:26 ALT 14 U/L (0-33) 02/21/22 14:26 Alkaline Phosphatase 90 IU/L (35-105) 02/21/22 14:26 Troponin T Baseline 6 ng/L (0-10) 02/21/22 14:26 NT-Pro-B Natriuret Pep 81 pg/mL (0-125) 02/21/22 14:26 Total Protein 7.5 g/dL (6.6-8.7) 02/21/22 14:26 Albumin 4.0 g/dL (3.5-5.2) 02/21/22 14:26 Globulin 3.5 g/dL (1.3-4.6) 02/21/22 14:26 EKG Data EKG 1: I personally reviewed and interpreted this EKG as follows: EKG interpretation date: 02/21/22 EKG interpretation time: 14:06 Interpretation: nsr hr [address] elevation t wave inversion iii, v2 unchanged from 01/25/22 qrs 81 qtc 415 Discharge Plan Discharge Patient Disposition: Admitted As Inpatient Clinical Impression: Chest pain Condition: Stable Prescriptions: No Action furosemide 20 mg tablet 20 mg PO QAM 0RF potassium chloride 10 mEq tablet extended release 10 meq PO QAM 0RF metformin 500 mg tablet 500 mg PO QAM 0RF esomeprazole magnesium 20 mg capsule,delayed release(DR/EC) 20 mg PO TID 0RF Anoro Ellipta 62.5-25 mcg/actuation blister with device 1 inh INHALATION Q24H 90 Days Qty: 180 3RF aspirin 81 mg tablet,delayed release (DR/EC) 81 mg PO QAM Qty: 100 3RF rosuvastatin 20 mg tablet 40 mg PO BEDTIME Qty: 180 3RF clopidogrel 75 mg tablet 75 mg PO QAM Qty: 90 3RF isosorbide mononitrate 30 mg tablet extended release 24 hr 30 mg PO DAILY Qty: 90 3RF nitroglycerin 0.4 mg tablet, sublingual 0.4 mg SUBLINGUAL Q5M PRN (Reason: chest pain) 3 Days Qty: 3 0RF Rx Instructions: until response; do not exceed 3 doses per episode gabapentin 300 mg capsule 300 mg PO TID 0RF albuterol sulfate 90 mcg/actuation HFA aerosol inhaler 1 puff INHALATION Q6H PRN (Reason: shortness of breath or wheezing) 0RF doxycycline monohydrate 100 mg Tablet 100 mg PO BID Qty: 6 0RF metoprolol tartrate 25 mg tablet 12.5 mg PO BID Qty: 0 0RF Referrals: Daria Solano DO [Primary Care Provider] - Coding Level of Care Code ED Layout Former for Chg Fwd Exam Comprehensive
[2022-02-21] MEDS: ondansetron 2 mg/ML SDV 2 mL 4 MG IVP (14:31)
[2022-02-21] MEDS: morphine 4 mg/mL SDV 1 mL IVP (14:31)
[2022-02-21 14:34] LABS: Basophils # 0.1 10^3/uL (0.0-0.1); Basophils % 0.7 %; Eosinophils # 0.3 10^3/uL (0.0-0.8); Eosinophils % 3.2 %; Hematocrit 38.1 % (37.0-47.0); Hemoglobin 11.6 g/dL (11.5-15.3); Lymphocytes # 3.5 10^3/uL (0.8-4.8); Lymphocytes % 44.1 %; Mean Corpuscular HGB Conc 30.4 g/dL (30.0-36.0); Mean Corpuscular Hemoglobin 23.5 pg (28.0-34.0); Mean Corpuscular Volume 77.1 fl (81-99); Monocytes # 0.6 10^3/uL (0.2-0.9); Monocytes % 7.1 %; Neutrophils # 3.57 10^3/uL (1.8-7.7); Neutrophils % 44.7 %; Nucleated Red Blood Cells % 0 %; Platelet Count 283 10^3/cmm (130-400); Red Blood Count 4.94 10^6/uL (4.1-5.3); Red Cell Distribution Width 19.3 % (12.1-15.1)
[2022-02-21 14:59] LABS: Troponin(5th) Baseline 6 ng/L (0-10)
[2022-02-21 15:03] LABS: Alanine Aminotransferase 14 U/L (0-33); Alkaline Phosphatase 90 IU/L (35-105); Anion Gap 15.3 (5-19); Aspartate Amino Transferase 13 U/L (0-32); Blood Urea Nitrogen 12 mg/dL (6-20); Calcium 9.2 mg/dL (8.5-10.5); Carbon Dioxide 23 mmol/L (22-29); Chloride 106 mmol/L (98-107); Globulin 3.5 g/dL (1.3-4.6); Glomerular Filtration Rate 86.9 mL/min (90-130); Glucose 111 mg/dL (65-115); NT Pro B Type Natriuretic Pept 81 pg/mL (0-125); Osmolality Calculated 292 mOsm/kg (285-295); Potassium 3.3 mmol/L (3.5-5.1); Sodium 141 mmol/L (136-145); Total Bilirubin 0.4 mg/dL (0.15-1.2); Total Protein 7.5 g/dL (6.6-8.7)
--- NOTE | 2022-02-21 15:52 | ECG_ITS ---
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 Measurements Intervals [place] Rate: 73 P: -22 OK: 193 QRS: -24 QRSD: 90 T: -23 QT: 398 QTc: 440 Interpretive Statements SINUS RHYTHM LOW QRS VOLTAGE IN PRECORDIAL LEADS [QRS DEFLECTION < 1.0 mV IN CHEST LEADS] POSSIBLE ANTERIOR MYOCARDIAL INFARCTION , OF INDETERMINATE AGE [30 ms Q WAVE IN V3/V4, OR R < 0.2 mV IN V4] Compared to ECG 02/21/2022 14:06:13 Myocardial infarct finding now present First degree AV block no longer present Poor R-wave progression no longer present Electronically Signed On 02-22-2022 16:34:13 CDT by Polo Blanco M.D. [id number]
--- NOTE | 2022-02-21 16:52 | PM.HP ---
Providers/Chief Complaint Admitting Physician: Rafael Pak Primary Care Provider: Daria Solano DO Chief Complaint: Chest pain History of Present Illness Pleasant 56-year-old lady with history of CAD, stenting of high grade lesion in RCA in 2019, former smoker, COPD, was admitted earlier this month after presenting with dyspnea, productive cough, hypoxia, chest heaviness, with abnormal D-dimer was assessed by CTA, which noted no PE, no focal consolidation, with mild cardiac enlargement, incidentally noted lipomatous hypertrophy of interatrial septum. Echocardiogram showed normal ejection fraction, no R WMA. Stress test showed small size reversible perfusion abnormality of basal to apical inferior and apical lateral correa, possible old NV in RCA territory with mild mikey-infarct ischemia. She was continued on aspirin, Plavix, statin, beta-jian, asked to follow-up with cardiology, pulmonology. She has chronic bilateral lower extremity edema for which she takes Lasix, elevate her legs, and has tried compression stockings. She had no DVT on venous duplex during her last admission. Per cardiology documentation she has been having chest pain and dyspnea with activity with plans being made for assessment by cardiac catheterization. She presents to the hospital due to severe chest pressure this morning, also with intermittent sharp stabbing pain, initially radiating to her neck, and then later also to her left arm. She took 4 nitroglycerin with mild relief. She denies exertional component. Denies fever chills, worse cough than usual, or other symptoms. In ER she is having heartburn which she did not have during the initial episode. Symptoms are slightly better in ER, but with some persistence of chest pressure. She had also head some palpitations when the chest pressure had initially begun this morning around 7 AM. She had been awake since 5. Her initial morning is not elevated. EKG with Q waves in 1, V3, V4. First-degree AV block. NT proBNP not elevated. Chest x-ray without acute cardiopulmonary abnormality. Review of Systems Const: Denies: fever(s), chills, body aches or malaise Eyes: Denies: change in vision, eye discomfort or eye redness ENMT: Denies: throat pain, oral sores or ear or mastoid pain Card: Reports: chest pain; Denies: pre-syncope Resp: Reports: productive cough (chronic); Denies: dyspnea, change in phlegm color or hemoptysis GI: Denies: abdominal pain, nausea, vomiting, diarrhea, constipation, hematochezia or melena : Denies: flank pain, urinary frequency or hematuria Musc: Reports: extremity swelling (Chronic BL LE edema); Denies: back pain, joint swelling or joint redness Skin/Breast: Denies: rash or new lesions Neuro: Denies: headache(s), numbness in extremities, weakness in extremities, dizziness, confusion or seizure-like activity Endo: Denies: polyuria or polydipsia Nixon/Lymph: Denies: easy bleeding or tender lymph nodes All/Imm: Denies: urticaria or tongue swelling Medications/Allergies Home Medications Medication Instructions Recorded Confirmed Last Taken Type nitroglycerin 0.4 mg sublingual 0.4 mg SUBLINGUAL Q5M PRN 3 Days 04/16/20 02/21/22 02/21/22 Rx tablet #3 tab 4 tabs umeclidinium 62.5 mcg-vilanterol 1 inh INHALATION Q24H 90 Days #180 10/29/21 02/21/22 02/21/22 Rx 25 mcg/actuation powdr for each inhalation (Anoro Ellipta) esomeprazole magnesium 20 mg 20 mg PO BID cap 12/22/21 02/21/22 02/21/22 History capsule,delayed release furosemide 20 mg tablet 20 mg PO QAM tab 12/22/21 02/21/22 02/21/22 History potassium chloride 10 mEq 10 meq PO QAM tab 12/22/21 02/21/22 02/21/22 History tablet,extended release albuterol sulfate 90 mcg/actuation 1 puff INHALATION Q6H PRN 01/25/22 02/21/22 Unknown History aerosol inhaler aspirin 81 mg tablet,delayed 81 mg PO QAM #100 tab 01/25/22 02/21/22 02/21/22 Rx release gabapentin 300 mg capsule 600 mg PO TID 01/25/22 02/21/22 02/21/22 History metoprolol tartrate 25 mg tablet 12.5 mg PO BID #0 tab 01/27/22 02/21/22 02/21/22 Rx rosuvastatin 20 mg tablet 40 mg PO BEDTIME #180 tab 02/15/22 02/21/22 02/20/22 Rx clopidogrel 75 mg tablet 75 mg PO QAM #90 tab 02/16/22 02/21/22 02/21/22 Rx isosorbide mononitrate 30 mg 30 mg PO DAILY #90 tab 02/18/22 02/21/22 02/21/22 Rx tablet,extended release 24 hr Allergies Allergy/AdvReac Type Severity Reaction Status Date / Time morphine AdvReac ADR-Vomitin Verified 02/04/22 09:40 g pantoprazole AdvReac terrible Verified 02/04/22 09:40 diarrhea PFSH Acute PFSH: Medical History (Updated 02/21/22 @ 17:14 by Rafael Pak MD) Atherosclerotic heart disease of [place] coronary artery without angina pectoris Patient had a high-grade lesion of the RCA which was intervened March, Chest pressure Chronic bronchitis COPD (chronic obstructive pulmonary disease) Dyslipidemia (high LDL; low HDL) GERD (gastroesophageal reflux disease) Nicotine addiction Obstructive sleep apnea Small airways disease Surgical History H/O esophagogastroduodenoscopy (09/25/20) 08/28/20: disimpaction of food bolus History of arthroscopic knee surgery History of coronary angiogram Hx of cholecystectomy Status post colonoscopy (09/25/20) Family History Father CAD (coronary artery disease) Hyperlipidemia Hypertension Lung disease Clotting disorder Cancer Diabetes Mother Clotting disorder CAD (coronary artery disease) Chronic kidney disease (CKD) Diabetes Denies family history of Dementia Suicide Anesthesia complication Bleeding disorder Stroke Social History Smoking and tobacco status: former smoker Quit status (tobacco): has quit using tobacco Year quit tobacco: 2020 - 0.5 PPD x 40 Years Alcohol intake: never Lives independently: Yes Household members: spouse Marital status: Current occupational status: employed Current occupational exposures/hazards: No History of recent travel: No Current gender identity: Female Vitals/I&O/Wt Last Vital Signs Temp 97.7 F 02/21/22 13:55 Pulse 68 02/21/22 16:36 Resp 16 02/21/22 16:36 BP 134/78 02/21/22 16:36 Pulse Ox 95 02/21/22 16:36 Weight last 48 hrs Weight 106.141 kg Physical Exam Narrative: at bedside. Const: COMMON NORMALS: alert GENERAL APPEARANCE: cooperative NUTRITIONAL APPEARANCE: obese ORIENTATION/CONSCIOUSNESS: Yes awake HENMT: COMMON NORMALS: normocephalic, EAC's normal, Normal external nose present and moist oral mucous membranes HEAD & SCALP: normocephalic NOSE: Normal external nose present EXTERNAL AUDITORY CANAL: EAC's normal Neck/C-Spine: COMMON NORMALS: no meningeal signs Chest: CHEST: Yes Symmetrical chest wall rise Resp: COMMON NORMALS: clear to auscultation bilaterally AUSCULTATION: clear to auscultation bilaterally and diminished lung sounds Cardio: COMMON NORMALS: regular rate, regular rhythm and No murmurs present (Cardio) RATE: regular rate RHYTHM: regular rhythm GI: COMMON NORMALS: Normal to inspection, nondistended, normoactive bowel sounds present, Soft to palpation and non-tender PALPATION: Yes Soft to palpation Extremity: GENERAL: Yes edema (2+ BL LE edema, distal erythema above ankles (chronic)) Neuro: COMMON NORMALS: moves all extremities SENSORIUM/ORIENTATION: Yes alert MENINGEAL SIGNS: Yes no meningeal signs Psych: COMMON NORMALS: mental status grossly normal Skin: COMMON NORMALS: no wounds RASHES: no rashes Data : 02/21/22 14:26 02/21/22 14:26 A&P Assessment and plan (1) Chest pain: With coronary disease, recently progressive symptoms, arrangements for assessment by cardiac catheterization, with known coronary disease, stenting of high-grade lesion of RCA in March 2020, with symptoms of chest pressure with intermittent stabbing pain radiating to the neck, later left arm, with partial relief from nitroglycerin, possible unstable angina. Will give aspirin, anticoagulate with Lovenox. Continue Plavix and see if she is already on it. Continue beta-jian, statin. Pending additional assessment by cardiology. Monitor on telemetry. Status: Acute (2) Abnormal nuclear stress test: January 25 1. Small sized partially reversible perfusion abnormality of? basal to apical ?inferior and apical lateral correa.? This may represent old myocardial ?infarction in right coronary artery territory with mild mikey-infarct ischemia. ?2. Inconsistent perfusion abnormality of inferolateral wall likely represent ?attenuation artifact. ?3. Overall left ventricular systolic function is normal without regional wall ?motion abnormalities, LVEF=85%. ?4. No significant EKG changes with Lexiscan infusion.? Please refer to separate ?report for details. ?5. No prior similar studies to compare. Status: Acute (3) CAD (coronary artery disease): Stenting of high-grade lesion of RCA in March 2020 Status: Acute (4) GERD (gastroesophageal reflux disease): Heartburn after nitroglycerin. She is intolerant of Protonix. We will give famotidine for now but discussed can resume esomeprazole if her can bring her medication. Status: Acute (5) Bilateral lower extremity edema: Chronic lower extremity edema with bilateral venous stasis erythema, she states unchanged. She takes low-dose Lasix, elevate lower extremities. States tried graduated compression stockings. Status: Acute Plan COPD, small airway disease HLD BIJAL Attestations Medical Necessity Statement*: Place in observation for further assessment of management of recurrent/progressive/persistent episode of chest pressure and pain, possible unstable angina. Coding Level of Care Code Acute Business Law Instructor for Chg Fwd Diagnoses Chest pain R07.9 Abnormal nuclear stress test R94.39 CAD (coronary artery disease) I25.10 GERD (gastroesophageal reflux disease) K21.9 Bilateral lower extremity edema R60.0
[2022-02-21 17:18] LABS: Troponin 5 2HR Delta 0 ABS# (0-10)
[2022-02-21] MEDS: enoxaparin 100 mg/mL Syringe SUBCUT (17:45)
[2022-02-21] MEDS: aspirin 325 mg Tablet PO (17:45)
--- NOTE | 2022-02-21 18:35 | PM.CONSULT ---
Providers/Reason For Consult Consulting Physician/Specialty*: Cardiovascular medicine Reason for Consult*: Chest pain Requesting Physician: Hospitalist Attending Physician: Rafael Pak Primary Care Provider: Daria Solano DO History of Present Illness History of Present Illness Guillermina Mosquera is a 56 year old female who was admitted to the hospital with chest pain. Her cardiac history is having had a stent placed to her mid posterior descending artery about 2 years ago by me. After the procedure she continued to have almost constant chest pain and 3 months later she had repeat angiography because of the continued chest pain. Angiogram revealed no significant coronary anomalies. She has a number of medical problems including tobacco abuse, COPD, dyslipidemia, sleep apnea and GERD. About a year ago she started complaining of lower extremity edema. Echoes have been unremarkable. About 2 or 3 months ago she started complaining of chest pain again. She describes it as a sharp stabbing pain like somebody sticking her with a knife. This has been increasing in intensity. She states she uses 1 nitroglycerin a day and intermittently gets relief. She saw Dr. Robles a little over 2 weeks ago. Stress testing and echocardiography was repeated. The stress test revealed what appears to be a scar in the distribution of the right coronary artery with some possible mikey-infarct ischemia. This is a very small area. Echo remains unremarkable. Cardiac catheterization was requested as an outpatient because of the continued chest pain. Apparently her insurance company denied it to begin with and then it went to a peer review process. Apparently it has still not been approved. She has now begun to have chest pain several times a day. This morning she noticed it around 10:00. It started as a pressure sensation and then transformed into a sharp stabbing pain. She took 4 nitroglycerin and then came to the emergency room. Her troponins are negative. Her EKG shows some unusual R wave progression in the anterior precordial leads. Currently she is not having any discomfort. Review of Systems Narrative: Chronic shortness of breath, chronic lower extremity edema, chronic dyspepsia Medications/Allergies Home Medications Medication Instructions Recorded Confirmed Last Taken Type nitroglycerin 0.4 mg sublingual 0.4 mg SUBLINGUAL Q5M PRN 3 Days 04/16/20 02/21/22 02/21/22 Rx tablet #3 tab 4 tabs umeclidinium 62.5 mcg-vilanterol 1 inh INHALATION Q24H 90 Days #180 10/29/21 02/21/22 02/21/22 Rx 25 mcg/actuation powdr for each inhalation (Anoro Ellipta) esomeprazole magnesium 20 mg 20 mg PO BID cap 12/22/21 02/21/22 02/21/22 History capsule,delayed release furosemide 20 mg tablet 20 mg PO QAM tab 12/22/21 02/21/22 02/21/22 History potassium chloride 10 mEq 10 meq PO QAM tab 12/22/21 02/21/22 02/21/22 History tablet,extended release albuterol sulfate 90 mcg/actuation 1 puff INHALATION Q6H PRN 01/25/22 02/21/22 Unknown History aerosol inhaler aspirin 81 mg tablet,delayed 81 mg PO QAM #100 tab 01/25/22 02/21/22 02/21/22 Rx release gabapentin 300 mg capsule 600 mg PO TID 01/25/22 02/21/22 02/21/22 History metoprolol tartrate 25 mg tablet 12.5 mg PO BID #0 tab 01/27/22 02/21/22 02/21/22 Rx rosuvastatin 20 mg tablet 40 mg PO BEDTIME #180 tab 02/15/22 02/21/22 02/20/22 Rx clopidogrel 75 mg tablet 75 mg PO QAM #90 tab 02/16/22 02/21/22 02/21/22 Rx isosorbide mononitrate 30 mg 30 mg PO DAILY #90 tab 02/18/22 02/21/22 02/21/22 Rx tablet,extended release 24 hr Allergies Allergy/AdvReac Type Severity Reaction Status Date / Time morphine AdvReac ADR-Vomitin Verified 02/04/22 09:40 g pantoprazole AdvReac terrible Verified 02/04/22 09:40 diarrhea Current Medications Generic Name Dose Route Start Last Admin Trade Name Freq PRN Reason Stop Dose Admin Aspirin 325 mg 02/21/22 17:15 02/21/22 17:45 Aspirin 325 Mg Tablet PO 325 mg DAILY BRIGITTE Administration Atorvastatin Calcium 80 mg 02/21/22 21:00 02/21/22 17:42 Atorvastatin 40 Mg Tablet PO Not Given BEDTIME BRIGITTE Enoxaparin Sodium 100 mg 02/21/22 17:30 02/21/22 17:45 Enoxaparin 100 Mg/Ml Syringe SUBCUT 100 mg Q12H [facility] Administration Famotidine 20 mg 02/21/22 18:00 02/21/22 17:39 Famotidine 20 Mg Tablet PO Not Given BID [facility] Gabapentin 600 mg 02/21/22 21:00 02/21/22 17:42 Gabapentin 300 Mg Capsule PO Not Given TID [facility] Metoprolol Tartrate 12.5 mg 02/21/22 18:00 02/21/22 17:41 Metoprolol Tartrate 25 Mg Tablet PO Not Given BID [facility] Non-Formulary Medication 1 inh 02/21/22 17:15 02/21/22 17:39 Umeclidinium-Vilanterol [Anoro Ellipta] INHALATION Not Given Q24H [facility] PFSH Acute PFSH: Medical History (Updated 02/21/22 @ 17:14 by Rafael Pak MD) Atherosclerotic heart disease of belk[place]ski coronary artery without angina pectoris Patient had a high-grade lesion of the RCA which was intervened March, Chest pressure Chronic bronchitis COPD (chronic obstructive pulmonary disease) Dyslipidemia (high LDL; low HDL) GERD (gastroesophageal reflux disease) Nicotine addiction Obstructive sleep apnea Small airways disease Surgical History H/O esophagogastroduodenoscopy (09/25/20) 08/28/20: disimpaction of food bolus History of arthroscopic knee surgery History of coronary angiogram Hx of cholecystectomy Status post colonoscopy (09/25/20) Family History Father CAD (coronary artery disease) Hyperlipidemia Hypertension Lung disease Clotting disorder Cancer Diabetes Mother Clotting disorder CAD (coronary artery disease) Chronic kidney disease (CKD) Diabetes Denies family history of Dementia Suicide Anesthesia complication Bleeding disorder Stroke Social History Smoking and tobacco status: former smoker Quit status (tobacco): has quit using tobacco Year quit tobacco: 2019 - 0.5 PPD x 40 Years Alcohol intake: never Lives independently: Yes Household members: spouse Marital status: Current occupational status: employed Current occupational exposures/hazards: No History of recent travel: No Current gender identity: Female Vitals/I&O/Wt Last Vital Signs Temp 97.7 F 02/21/22 17:20 Pulse 77 02/21/22 17:20 Resp 18 02/21/22 17:20 BP 139/82 02/21/22 17:20 Pulse Ox 95 02/21/22 17:20 Weight last 48 hrs Weight 234 lb Physical Exam Narrative: GENERAL: Comfortable at rest without chest pain and in no distress HEENT: Exam within normal limits. NECK: Supple without jugular vein distention. The carotid upstroke is normal without bruits. BACK: Exam normal. LUNGS: Clear. HEART: Regular rate and rhythm. ABDOMEN: Benign without organomegaly or tenderness. EXTREMITIES: Trace to 1+ lower extremity edema with redness of the skin of the anterior tibial area NEUROLOGIC: Exam normal. SKIN: Unremarkable. Data : 02/21/22 14:26 02/21/22 14:26 A&P Assessment and plan (1) Bilateral lower extremity edema: Status: Acute (2) GERD (gastroesophageal reflux disease): Status: Acute (3) CAD (coronary artery disease): Status: Acute (4) Chest pain: Status: Acute (5) Abnormal nuclear stress test: Status: Acute (6) Shortness of breath: Status: Acute Plan She needs coronary angiography. The schedule is full so we will try to get this arranged in the next day or 2. In the meantime she may continue to eat. Coding Level of Care Code New Pt Acute Proof Technician Helper for Janae Stinson Patient Type New History Detailed Exam Detailed Medical Decision Making Moderate Complexity Diagnoses Bilateral lower extremity edema R60.0 GERD (gastroesophageal reflux disease) K21.9 CAD (coronary artery disease) I25.10 Chest pain R07.9 Abnormal nuclear stress test R94.39 Shortness of breath R06.02
--- NOTE | 2022-02-21 19:52 | ECG_ITS ---
[facility] Test Date: 2022-02-21 Pat Name: Guillermina Mosquera Department: Room: 252 Gender: Female Manager Public: : 1965 Requested By: Yarelis Elmore Order Number: [id number] Reading MD: Polo Blanco M.D. Measurements Intervals [place] Rate: 73 P: 17 SC: 213 QRS: -7 QRSD: 88 T: 1 QT: 413 QTc: 457 Interpretive Statements SINUS RHYTHM WITH FIRST DEGREE AV BLOCK LOW QRS VOLTAGE IN PRECORDIAL LEADS [QRS DEFLECTION < 1.0 mV IN CHEST LEADS] POSSIBLE ANTERIOR MYOCARDIAL INFARCTION , OF INDETERMINATE AGE [30 ms Q WAVE IN V3/V4, OR R < 0.2 mV IN V4] WARNING: DATA QUALITY MAY AFFECT INTERPRETATION Compared to ECG 02/21/2022 18:21:24 First degree AV block now present Myocardial infarct finding still present Electronically Signed On 02-22-2022 16:34:29 CDT by Polo Blanco M.D. [id number]
--- NOTE | 2022-02-21 20:07 | PC.NURSE ---
CONSENT Dr Blanco was in this evening to talk with pt about cardiac angiogram. Consent obtained at this time. Pt expressing understanding of procedure and says answered all her questions. This will be my third one
[2022-02-22] VITALS (17 sets, daily range): BP systolic 104–129; BP diastolic 65–80; PULSE 67–87; RESP 13–20; TEMP 36.6–36.8; O2SAT 91–97
[2022-02-22] MEDS: enoxaparin 100 mg/mL Syringe SUBCUT (05:11)
[2022-02-22] MEDS: clopidogrel 75 mg Tablet PO (05:11)
[2022-02-22 05:12] LABS: Basophils # 0.1 10^3/uL (0.0-0.1); Eosinophils # 0.2 10^3/uL (0.0-0.8); Eosinophils % 3.4 %; Hematocrit 35.6 % (37.0-47.0); Hemoglobin 10.5 g/dL (11.5-15.3); Lymphocytes # 3.1 10^3/uL (0.8-4.8); Lymphocytes % 50.2 %; Mean Corpuscular HGB Conc 29.5 g/dL (30.0-36.0); Mean Corpuscular Hemoglobin 23.2 pg (28.0-34.0); Mean Corpuscular Volume 78.8 fl (81-99); Mean Platelet Volume 11.5 fL (7.4-10.4); Monocytes # 0.4 10^3/uL (0.2-0.9); Monocytes % 7.2 %; Neutrophils # 2.33 10^3/uL (1.8-7.7); Nucleated Red Blood Cells % 0 %; Platelet Count 273 10^3/cmm (130-400); Red Blood Count 4.52 10^6/uL (4.1-5.3); Red Cell Distribution Width 19.5 % (12.1-15.1); White Blood Count 6.1 10^3/uL (4.0-10.0)
[2022-02-22] MEDS: sodium chloride 0.9% 1,000 ML 50 ML IV (05:12)
--- NOTE | 2022-02-22 05:29 | PC.NURSE ---
SHIFT SUMMARY/PREP FOR CARDIAC CATH Pt has been NPO since midnight. Has rested without c/o chest pain. Up to BSC for voiding. Bilat groins shaved this am. Pedal pulses marked. Chlorhexadine scrub done with new gown on. IV fluids of NS started at 50ml/hr rate. Has name & allergy bands on. Lab results on chart. Has no jewelry on or dentures. Given am Lovenox and Plavix. po Lasix held until after procedure.
[2022-02-22 05:30] LABS: Blood Urea Nitrogen 14 mg/dL (6-20); Calcium 8.2 mg/dL (8.5-10.5); Carbon Dioxide 24 mmol/L (22-29); Chloride 106 mmol/L (98-107); Glomerular Filtration Rate 103.8 mL/min (90-130); Glucose 87 mg/dL (65-115); Osmolality Calculated 292 mOsm/kg (285-295); Sodium 141 mmol/L (136-145)
--- NOTE | 2022-02-22 06:35 | XACV_ITS ---
Exam Room: [facility] Ht: 165 cm Wt: 106 kg BSA: 2.26 m2 Gender: Female : 1965 Any Known Allergies: Other Exam Priority: Routine Procedure(s): Procedure Description: Diagnostic procedure Procedure Description: Left Heart Catheterization Procedure Description: Left ventriculography Procedure Description: Coronary Angiography Diagnostic Cath Status: Elective Diagnostic Findings * This patient has a history of a distal right coronary artery stent placed a little over 2 years ago. After this she continued to have chest pain and angiography 3 months later revealed normal coronary arteries with a patent stent. She now has had chest pain for several weeks. A stress test showed a very minor abnormality. Despite that she continues to have frequent episodes of chest pain. Angiography was scheduled but was originally denied by the insurance company. She then entered the hospital yesterday. EKGs are unchanged and troponins are negative. Angiography was indicated because of recurrent visits for chest pain. * Coronary angiography reveals right coronary artery dominance. The left main is normal. The LAD and circumflex are normal. The right coronary artery is relatively small artery and is normal. The previously placed stent is widely patent without any restenosis. Conclusions 1. Normal coronary arteries with widely patent previously placed right coronary artery stent. Recommendations * None. Interventional RX Recommendation: medical therapy and/or counseling Diagnostic RX Recommendation: medical therapy and/or counseling Ventriculography Ejection Fraction: 60.0 % Pressures Phase:Rest AO : 97 / 63 ( 78 ) @ 10:26:00 AM 93 / 59 ( 74 ) @ 10:28:00 AM 115 / 66 ( 88 ) @ 10:34:00 AM 117 / 69 ( 90 ) @ 10:34:00 AM LV : 124 / @ 10:32:00 AM 121 / 0 / 26 @ 10:33:00 AM 121 / / @ 10:34:00 AM Valves Phase:DefaultPhase AV : 5.0 @ 9:51:25 AM AV Mean Gradient: 8.0 @ 9:51:25 AM Clinical Evaluation EBL: 5mL-10mL Procedural Details Procedure Consent Obtained. Current Diagnosis : Chest Pain. Pre-Procedure Time Out. Identified patient by full name and date of as verbalized by the patient/guarantor. Does the consent match the physician's order: Yes. Accurate & Complete Informed Consent: Yes. Inpatient/Outpatient History & Physical on Chart: Yes. If H&P is completed, is and addenduem needed: No; If yes, is the addendum complete: N/A. Visualize and Verify Site with Patient/Guarantor: N/A. Relevant Radiology Images available: Yes. Pre-op teaching completed and patient verbalized understanding. The risks, benefits, and alternatives of sedation and/or procedure were discussed by physician. The patient agrees to continue. Procedure started. Physician arrived. Physician scrubbed in. Immediate Pre-Procedure Time Out. Correct Patient: Yes; Correct Procedure: Yes; Correct Site: Yes; Correct Patient Position: Yes; Correct Supplies: Yes; Dried Flammable Prep: Yes; Blood Products Available: N/A;. Lidocaine 1% infiltrated to the right groin. Arterial access obtained. A 6 belgian JL4 catheter in over wire. Multiple views taken of left coronary artery. Catheter out. A 6 belgian JR4 catheter in over wire. Multiple views taken of right coronary artery. Catheter out. A 6 belgian Angled Pig catheter in over wire. EDP Sample taken: LV 124/1,26; HR: 84 BPM; SpO2: 93%. LV gram performed in VALDEZ @ 10 mL/second for a total of 30 mL. EDP Sample taken: LV 121/0,26; HR: 82 BPM; SpO2: 93%. Pullback taken: LV 121/1,27; AO 115/66(88); Mean: 8mmHg, Peak to Peak: 5mmHg, SEP: 25sec/min; HR: 81 BPM; SpO2: 93%. Catheter out. A Manual Compression was successful obtaining hemostatsis at the Right Femoral artery insertion site. Post Procedure: Pulses reassessed and unchanged. PERRLA. Strong, equal hand bellows filler bilaterally. No VTE prophylaxis required. Total IV fluids: 29 mL. Medication's Wasted: Heparin = 1000 units. Complications: None. Estimated blood loss: 5mL-10mL. Responsiveness - Normal response to verbal stimuli; alert and oriented, PERRLA. Airway - Unaffected, no intervention required; spontaneous ventilation. Circulation: W/N/L, pulses unchanged. Nausea/Vomiting: No. Procedure completed. Patient transferred by bed to ICU. Vital chart was stopped. Access Site Site: Right Femoral artery Sheath Size: 6 Fr Hemostasis Method: Manual Compression Hemostasis Success: Successful Procedure Medications Start: 9:17 AM Stop: 9:17 AM Medication: Versed Amount: 1 mg Route: I.V. Start: 9:17 AM Stop: 9:17 AM Medication: Fentanyl Amount: 50 mcg Route: I.V. I, the attending physician, have reviewed and verified all procedure medications. Yes, all medications given per verbal order History/Risk Factors Hypertension: No Dyslipidemia: Yes Peripheral Arterial Disease (PAD): No Myocardial Infarction (DC): No Obesity: No Renal Disease: No Prior Interventions PCI: Yes CABG: No Valve Surgery: No Date of PCI: 04/15/2020 Report Signatures Finalized by Dr. Polo Blanco MD on 02/22/2022 10:34 AM
[2022-02-22] MEDS: gabapentin 300 mg Capsule 600 MG PO ×2 (08:28→15:54)
[2022-02-22] MEDS: metoprolol tartrate 25 mg Tablet 12.5 MG PO (08:28)
[2022-02-22] MEDS: famotidine 20 mg Tablet PO (08:28)
--- NOTE | 2022-02-22 11:11 | PC.NURSE ---
Pt was transferred to ICU at 1000 via bed on 3L NC. Dressing in place covering right groin site with a small amount of brown blood under dressing. No hematoma noted. All pulses present.
--- NOTE | 2022-02-22 11:28 | XRR_ITS ---
PROCEDURE INFORMATION: Exam: XR Lumbosacral Spine Exam date and time: 02/22/2022 11:55 AM Age: 56 years old Clinical indication: Low back pain. Limited images due to patient inability to move/be moved so soon after procedure. Peripheral neuropathy. TECHNIQUE: Imaging protocol: XR of the lumbosacral spine. Views: 2 or 3 views. COMPARISON: CT angio chest w abd pel w con 08/28/2020 12:28 AM FINDINGS: Bones/joints: There are 5 lumbar type vertebral bodies. The lumbar lordosis is grossly maintained. Minimal degenerative disc disease is seen in the lumbar spine. No gross acute fracture. The sacroiliac joints are grossly symmetric. The sacrum is partially obscured by overlying bowel gas/stool. Soft tissues: No gross soft tissue swelling. XR/XR lumbar spine 2-3V* [id number] IMPRESSION: 1. No acute fracture is identified. 2. Minimal degenerative disc disease is seen in the lumbar spine. 3. Consider MRI to further assess if clinically warranted.
--- NOTE | 2022-02-22 11:35 | PM.DCS ---
Discharge Providers Date of Admission: 02/21/22 15:22 Date of Discharge: February 22, 2022 Attending Provider at Admission: Rafael Pak Attending Provider at Discharge: Johnson Reyes MD Primary Care Provider: Daria Solano DO Diagnoses at Discharge Discharge Diagnosis (1) Bilateral lower extremity edema: Status: Acute (2) GERD (gastroesophageal reflux disease): Status: Acute (3) CAD (coronary artery disease): Status: Acute (4) Chest pain: Status: Acute (5) Abnormal nuclear stress test: Status: Acute (6) Shortness of breath: Status: Acute Reason for Visit Reason for Visit: Chest pain Hospital Course Hospital Course This is a 56-year-old female with a past medical history of CAD, COPD, dyslipidemia, GERD, BIJAL, who presents to [facility] due to chest pain. Patient had a positive outpatient stress test, cardiology was consulted, patient underwent cardiac catheterization, which showed patent RCA stent, normal coronary arteries. Patient has new onset peripheral neuropathy, multiple joint pains, anterior chest pain. Possible systemic disorder. Her primary care provider ordered an MRI to evaluate for multiple sclerosis which was unremarkable. TSH ordered through primary care provider has been unremarkable. The rest of the blood work she tells me was also within normal limits so she is seeing a neurologist in [place]. She has new onset bilateral peripheral neuropathy, no history of diabetes, B12 within normal limits s, she has joint pains, anterior chest discomfort. It seems like it might be a serositis or a spondyloarthropathy. Nonetheless I have ordered SPEP, UPEP, rheumatoid panel, blood lupus panel, x-ray of the lumbar spine. I have instructed patient to follow-up with her primary care provider for test results. Follow-up with neurology for consideration of nerve conduction studies Physical Exam Const: COMMON NORMALS: no acute distress and patient oriented x3 Resp: COMMON NORMALS: normal respiratory effort, No retractions, No use of accessory muscles and clear to auscultation bilaterally AUSCULTATION: clear to auscultation bilaterally Cardio: COMMON NORMALS: regular rate, regular rhythm, S1 normal heart sound present and S2 normal heart sound present RATE: regular rate RHYTHM: regular rhythm HEART SOUNDS: S1 normal heart sound present and S2 normal heart sound present GI: COMMON NORMALS: Normal to inspection, nondistended, normoactive bowel sounds present, Soft to palpation, non-tender and No hepatosplenomegaly present PALPATION: Yes Soft to palpation and Yes No hepatosplenomegaly present Extremity: COMMON NORMALS: no pedal edema Neuro: COMMON NORMALS: patient oriented x3 Psych: COMMON NORMALS: mental status grossly normal Discharge Data Studies Completed and Pending Completed Studies During Hospitalization Category Date Time Status COMMUTATOR INSPECTOR request for service Routine Exams 02/22/22 06:35 Completed XR chest 1V portable [id number] Stat Exams 02/21/22 13:51 Completed Pending at discharge Category Date Time Status XR lumbar spine 2-3V* [id number] Routine Exams 02/22/22 11:28 Ordered AZEB Profile Rheumatology Stat Lab 02/22/22 11:28 Ordered Basic Metabolic Panel AM LABS Lab 02/23/22 04:00 Ordered Basic Metabolic Panel AM LABS Lab 02/24/22 04:00 Ordered CRP [C Reactive Protein] Routine Lab 02/22/22 11:28 Ordered Complete Blood Count w/Auto AM LABS Lab 02/23/22 04:00 Ordered Complete Blood Count w/Auto AM LABS Lab 02/24/22 04:00 Ordered Erythrocyte Sedimentation Rate Routine Lab 02/22/22 11:28 Ordered Ferritin Routine Lab 02/22/22 11:28 Ordered LAB Peripheral Smear Stat Lab 02/22/22 11:28 Ordered Rheumatoid Factor Routine Lab 02/22/22 11:28 Ordered SPEP [Total Protein Electrophoresis] Routine Lab 02/22/22 11:28 Ordered Urine Protein Electrop Random Routine Lab 02/22/22 11:28 Uncollected Radiology Impressions Chest X-Ray 02/21/22 13:51 IMPRESSION: No acute cardiopulmonary abnormality identified. Laboratory Results WBC 6.1 10^3/uL (4.0-10.0) 02/22/22 04:21 RBC 4.52 10^6/uL (4.1-5.3) 02/22/22 04:21 Hgb 10.5 g/dL (11.5-15.3) L 02/22/22 04:21 Hct 35.6 % (37.0-47.0) L 02/22/22 04:21 MCV 78.8 fl (81-99) L 02/22/22 04:21 MCH 23.2 pg (28.0-34.0) L 02/22/22 04:21 MCHC 29.5 g/dL (30.0-36.0) L 02/22/22 04:21 RDW 19.5 % (12.1-15.1) H 02/22/22 04:21 Plt Count 273 10^3/cmm (130-400) 02/22/22 04:21 MPV 11.5 fL (7.4-10.4) H 02/22/22 04:21 Neut % (Auto) 38.0 % 02/22/22 04:21 Lymph % (Auto) 50.2 % 02/22/22 04:21 [place] % (Auto) 7.2 % 02/22/22 04:21 Eos % (Auto) 3.4 % 02/22/22 04:21 Baso % (Auto) 1.0 % 02/22/22 04:21 Neut # (Auto) 2.33 10^3/uL (1.8-7.7) 02/22/22 04:21 Lymph # (Auto) 3.1 10^3/uL (0.8-4.8) 02/22/22 04:21 [place] # (Auto) 0.4 10^3/uL (0.2-0.9) 02/22/22 04:21 Eos # (Auto) 0.2 10^3/uL (0.0-0.8) 02/22/22 04:21 Baso # (Auto) 0.1 10^3/uL (0.0-0.1) 02/22/22 04:21 Nucleated RBC % (auto) 0 % 02/22/22 04:21 Nucleated RBCs # 0.0 /100WBC 02/22/22 04:21 Sodium 141 mmol/L (136-145) 02/22/22 04:21 Potassium 4.0 mmol/L (3.5-5.1) 02/22/22 04:21 Chloride 106 mmol/L (98-107) 02/22/22 04:21 Carbon Dioxide 24 mmol/L (22-29) 02/22/22 04:21 Anion Gap 15.0 (5-19) 02/22/22 04:21 BUN 14 mg/dL (6-20) 02/22/22 04:21 Creatinine 0.6 mg/dL (0.5-0.9) 02/22/22 04:21 GFR Calculation 103.8 mL/min (90-130) 02/22/22 04:21 Glucose 87 mg/dL (65-115) 02/22/22 04:21 Calculated Osmolality 292 mOsm/kg (285-295) 02/22/22 04:21 Calcium 8.2 mg/dL (8.5-10.5) L 02/22/22 04:21 Total Bilirubin 0.4 mg/dL (0.15-1.2) 02/21/22 14:26 AST 13 U/L (0-32) 02/21/22 14:26 ALT 14 U/L (0-33) 02/21/22 14:26 Alkaline Phosphatase 90 IU/L (35-105) 02/21/22 14:26 Troponin T Baseline 6 ng/L (0-10) 02/21/22 14:26 Troponin T 120 Minute 6.00 ng/L (0-10) 02/21/22 16:40 Delta Troponin T 0 ABS# (0-10) 02/21/22 16:40 Troponin T Hi Sens 6Hr 6.00 ng/L (0-10) 02/21/22 19:34 Troponin T Hi Sens 6Hr Delta Not Reportable 02/21/22 19:34 NT-Pro-B Natriuret Pep 81 pg/mL (0-125) 02/21/22 14:26 Total Protein 7.5 g/dL (6.6-8.7) 02/21/22 14:26 Albumin 4.0 g/dL (3.5-5.2) 02/21/22 14:26 Globulin 3.5 g/dL (1.3-4.6) 02/21/22 14:26 Vitals Last Vital Signs Temp 98.2 F 02/22/22 10:00 Pulse 70 02/22/22 11:00 Resp 16 02/22/22 11:00 BP 104/80 02/22/22 11:00 Pulse Ox 94 02/22/22 11:00 Discharge Plan Discharge Patient Disposition: Home Condition: Stable Prescriptions: Continued furosemide 20 mg tablet 20 mg PO QAM 0RF potassium chloride 10 mEq tablet extended release 10 meq PO QAM 0RF esomeprazole magnesium 20 mg capsule,delayed release(DR/EC) 20 mg PO BID 0RF Anoro Ellipta 62.5-25 mcg/actuation blister with device 1 inh INHALATION Q24H 90 Days Qty: 180 3RF aspirin 81 mg tablet,delayed release (DR/EC) 81 mg PO QAM Qty: 100 3RF rosuvastatin 20 mg tablet 40 mg PO BEDTIME Qty: 180 3RF clopidogrel 75 mg tablet 75 mg PO QAM Qty: 90 3RF isosorbide mononitrate 30 mg tablet extended release 24 hr 30 mg PO DAILY Qty: 90 3RF nitroglycerin 0.4 mg tablet, sublingual 0.4 mg SUBLINGUAL Q5M PRN (Reason: chest pain) 3 Days Qty: 3 0RF Rx Instructions: until response; do not exceed 3 doses per episode gabapentin 300 mg capsule 600 mg PO TID 0RF albuterol sulfate 90 mcg/actuation HFA aerosol inhaler 1 puff INHALATION Q6H PRN (Reason: shortness of breath or wheezing) 0RF metoprolol tartrate 25 mg tablet 12.5 mg PO BID Qty: 0 0RF Discharge Orders: Discharge Order (Routine); Ordered 02/22/22 Ordered By: Johnson Reyes Referrals: Daria Solano DO [Primary Care Provider] - Discharge Diet: Cardiac Discharge Activity: Resume usual activity Patient Instructions: Opioid Safety Activity Restrictions/Additional Instructions: - Please follow-up with Dr. Solano -Follow-up with blood work with primary care Discharge Attestations Time Spent in Discharge Care*: less than 30 min Quality Metrics Clinical Quality Measures [ No reported AMI, CVA or VTE this stay] Coding Level of Care Code Acute Chg FW DC note Diagnoses Bilateral lower extremity edema R60.0 GERD (gastroesophageal reflux disease) K21.9 CAD (coronary artery disease) I25.10 Chest pain R07.9 Abnormal nuclear stress test R94.39 Shortness of breath R06.02
[2022-02-22] MEDS: acetaminophen 325 mg Tablet 650 MG PO (11:42)
[2022-02-22 12:01] LABS: LAB Peripheral Smear Sent for Review
[2022-02-22 12:12] LABS: Erythrocyte Sedimentation Rate 23 mm/hr (0-15)
[2022-02-22 12:15] LABS: Ferritin 15 ng/mL (15-150)
--- NOTE | 2022-02-22 12:35 | P.MISC_ITS ---
Miscellaneous Note Note: Patient underwent coronary angiography this morning for recurrent episodes of chest pain lasting several weeks. Her coronary arteries are completely normal with normal left ventricular function. The previously placed stent in the right coronary artery is widely patent. Provided her groin is s table she may go home later today. I would recommend discontinuing the long- acting nitrate since her coronary arteries are normal. She also does not need the Plavix. She should stay on aspirin and the other medications as currently prescribed. We will schedule her to see the nurse practitioner in a week for follow-up to include a groin check and chemistry panel. She should see Dr. Robles in 6 months to 1 year.
--- NOTE | 2022-02-22 16:00 | PC.NURSE ---
Pt was discharged with all education in hand via wheelchair at 1600. Dressing was intact over a non bleeding site with no hematoma noted.
[2022-02-23 13:13] LABS: COMPLEMENT COMPONENT C3C 104 mg/dL (83-193); COMPLEMENT COMPONENT C4C 25 mg/dL (15-57)
[2022-02-23 13:45] LABS: THYROID PEROXIDASE ANTIBODIES 1 IU/mL (<9)
[2022-02-23 15:27] LABS: CENTROMERE B ANTIBODY <1.0 NEG AI (<1.0 NEG); JO-1 ANTIBODY <1.0 NEG AI (<1.0 NEG); RNP ANTIBODY <1.0 NEG AI (<1.0 NEG); SCL-70 ANTIBODY <1.0 NEG AI (<1.0 NEG); SJOGREN'S ANTIBODY (SS-A) <1.0 NEG AI (<1.0 NEG); SM ANTIBODY <1.0 NEG AI (<1.0 NEG); SS-B <1.0 NEG AI (<1.0 NEG)
[2022-02-23 17:03] LABS: ALBUMIN 2.9 g/dL (3.8-4.8); ALPHA 1 GLOBULIN 0.4 g/dL (0.2-0.3); ALPHA 2 GLOBULIN 0.7 g/dL (0.5-0.9); BETA 1 GLOBULIN 0.3 g/dL (0.4-0.6); BETA 2 GLOBULIN 0.2 g/dL (0.2-0.5); GAMMA GLOBULIN 0.5 g/dL (0.8-1.7)
[2022-02-23 17:43] LABS: ANA SCREEN, IFA NEGATIVE (NEGATIVE)
[2022-02-24 13:28] LABS: COMPLEMENT, TOTAL (CH50) >60 U/mL (31-60)
[2022-02-25 15:47] LABS: DNA AB (DS) CRITHIDIA,IFA NEGATIVE (NEGATIVE)
== END 2022-02-22 16:00 | disposition home or self-care (01) ==
LOC: ER 15:30 → MEDSURG 19:19 → ICU 02-22 09:52
PROVIDERS: Internal Medicine Cardiovascular Disease; Admitting Provider Internal Medicine; Emergency Provider Emergency Medicine; PCP Family Medicine; Visit Provider Family Medicine
DX: R07.9 Chest pain, unspecified (principal); R60.0 Localized edema; K21.9 Gastro-esophageal reflux disease without esophagitis; I25.10 Atherosclerotic heart disease of native coronary artery without angina pectoris; R94.39 Abnormal result of other cardiovascular function study; R06.02 Shortness of breath; J44.9 Chronic obstructive pulmonary disease, unspecified; E78.5 Hyperlipidemia, unspecified; G47.33 Obstructive sleep apnea (adult) (pediatric); G62.9 Polyneuropathy, unspecified; Z79.82 Long term (current) use of aspirin; Z95.5 Presence of coronary angioplasty implant and graft; Z82.49 Family history of ischemic heart disease and other diseases of the circulatory system
CPT/HCPCS: 36415; 71045; 72100; 80048; 80053; 80503; 82728; 83880; 84155; 84165; 84484; 85025; 85651; 86140; 86160; 86162; 86235; 86255; 86376; 86431; 93005; 93452; 93458; 94664; 96360; 96361; 96372; 96374; 96375; 99152; 99153; 99285; C1769; C1887; C1894; G0378; J1644; J1650; J2250; J2270; J2405; J3010; J7030; Q9967

== ENCOUNTER → 2022-05-13 10:20 | Outpatient (BNVA) | payer OTHER, SELFPAY | PROVIDERS: PCP Family Medicine; Visit Provider Internal Medicine | DX: R60.9 Edema, unspecified (principal); R76.8 Other specified abnormal immunological findings in serum; M25.50 Pain in unspecified joint; R53.83 Other fatigue; R26.89 Other abnormalities of gait and mobility; D50.9 Iron deficiency anemia, unspecified | CPT/HCPCS: 36415; 73120; 82550; 82607; 82728; 83516; 83540; 83735; 84100; 86140; 86160; 86162; 86235; 86255; 86376; 86431; 86704; 86803; 87340 ==

== ENCOUNTER → 2022-07-29 13:00 | Outpatient (BNVA) | payer OTHER, SELFPAY | PROVIDERS: PCP Family Medicine; Visit Provider Internal Medicine Pulmonary Disease | DX: R06.09 Other forms of dyspnea (principal); T78.40XA Allergy, unspecified, initial encounter; R06.02 Shortness of breath; J44.9 Chronic obstructive pulmonary disease, unspecified; J42 Unspecified chronic bronchitis; I25.10 Atherosclerotic heart disease of native coronary artery without angina pectoris; J43.9 Emphysema, unspecified; G47.33 Obstructive sleep apnea (adult) (pediatric) | CPT/HCPCS: 36415; 82785; 85025; 86003 ==

== ENCOUNTER 2022-08-19 07:12 | Outpatient (CLI) | payer OTHER, SELFPAY | END 2022-08-19 07:13 | disposition home or self-care (01) | PROVIDERS: PCP Family Medicine; Visit Provider Internal Medicine Pulmonary Disease | DX: J44.9 Chronic obstructive pulmonary disease, unspecified (principal); F17.210 Nicotine dependence, cigarettes, uncomplicated | CPT/HCPCS: 94010; 94618; 94726; 94729 ==

== ENCOUNTER 2022-09-24 08:58 | Outpatient (CLI) | payer OTHER, SELFPAY ==
--- NOTE | 2022-09-24 09:30 | USCV_ITS ---
Guillermina Mosquera Age: 57 Gender: F : 1965 Exam Date: 09/24/2022 09:42 Ordering Phys: Cammy Esposito Technologist: CT Exam Location: [facility] – [place] Indication: HISTORY: PROCEDURES: Bilateral duplex Venous Insufficiency study of the Deep and Superficial systems was carried out according to normal protocol with the patient in supine positon for deep system and dependent position for the superficial system. FINDINGS: All deep veins demonstrated compressibility without evidence of intraluminal thrombus or increased echogenicity. Spectral analysis of Doppler signals demonstrates normal response to compression maneuvers indicating patency without obstruction. Reflux determinations were made with the patient in the dependent position, the weight being on the contralateral leg. There is a bakers cyst on the right side and significant reflux in the left great saphenous vein segment CONCLUSIONS 1. No evidence of DVT in the above-mentioned identifiable veins. 2. No significant reflux in the deep veins, bilaterally. 3. No significant venous reflux in the superficial veins on the right side 4. Significant venous reflux of greater than 500 ms were noted at the proximal, mid, and distal and below-knee segments of the greater saphenous vein on the left side. These venous segments were found to be greater than 1 cm deep from the surface and were measuring anywhere from 0.43 to 0[address] Taylor Robles MD [facility] (Electronically Signed) Final Date: 01 October 2022 17:30 S
== END 2022-09-24 08:59 | disposition home or self-care (01) ==
LOC: RAD 09:00
PROVIDERS: PCP Family Medicine; Visit Provider Nurse Practitioner Family
DX: R60.0 Localized edema (principal); I87.2 Venous insufficiency (chronic) (peripheral)
CPT/HCPCS: 93970

== ENCOUNTER 2022-10-06 16:45 | Outpatient (CLI) | payer OTHER, SELFPAY | END 2022-10-06 16:46 | disposition home or self-care (01) | LOC: SLEEP 10-07 16:51 | PROVIDERS: PCP Family Medicine; Visit Provider Internal Medicine Pulmonary Disease | DX: G47.33 Obstructive sleep apnea (adult) (pediatric) (principal); J44.9 Chronic obstructive pulmonary disease, unspecified | CPT/HCPCS: 94762 ==

== ENCOUNTER → 2022-10-28 16:00 | Outpatient (BNVA) | payer OTHER, SELFPAY | PROVIDERS: PCP Family Medicine; Visit Provider Internal Medicine | DX: R76.8 Other specified abnormal immunological findings in serum (principal); M25.50 Pain in unspecified joint; R53.83 Other fatigue | CPT/HCPCS: 36415; 80053; 85025; 85651; 86140 ==

== ENCOUNTER 2023-01-21 08:52 | Outpatient (CLI) | payer OTHER, SELFPAY ==
[2023-01-21 09:30] LABS: Basophils # 0.1 10^3/uL (0.0-0.1); Eosinophils # 0.2 10^3/uL (0.0-0.8); Eosinophils % 2.2 %; Hematocrit 46.6 % (37.0-47.0); Hemoglobin 14.4 g/dL (11.5-15.3); Lymphocytes # 3.8 10^3/uL (0.8-4.8); Lymphocytes % 46.8 %; Mean Corpuscular HGB Conc 30.9 g/dL (30.0-36.0); Mean Corpuscular Hemoglobin 26.8 pg (28.0-34.0); Mean Corpuscular Volume 86.6 fl (81-99); Mean Platelet Volume 11.9 fL (7.4-10.4); Monocytes # 0.5 10^3/uL (0.2-0.9); Monocytes % 6.5 %; Neutrophils # 3.51 10^3/uL (1.8-7.7); Neutrophils % 43.4 %; Nucleated Red Blood Cells % 0 %; Platelet Count 266 10^3/cmm (130-400); Red Blood Count 5.38 10^6/uL (4.1-5.3); Red Cell Distribution Width 16.3 % (12.1-15.1); White Blood Count 8.1 10^3/uL (4.0-10.0)
[2023-01-21 09:34] LABS: Erythrocyte Sedimentation Rate 38 mm/hr (0-15)
[2023-01-21 09:49] LABS: Alanine Aminotransferase 12 U/L (0-33); Albumin Level 4.2 g/dL (3.5-5.2); Alkaline Phosphatase 79 U/L (35-105); Anion Gap 13.9 (5-19); Aspartate Amino Transferase 15 U/L (0-32); Blood Urea Nitrogen 8 mg/dL (6-20); Calcium 8.6 mg/dL (8.5-10.5); Carbon Dioxide 26 mmol/L (22-29); Chloride 105 mmol/L (98-107); Globulin 3.4 g/dL (1.3-4.6); Glomerular Filtration Rate 103.4 mL/min (90-130); Glucose 77 mg/dL (65-115); Osmolality Calculated 289 mOsm/kg (285-295); Potassium 3.9 mmol/L (3.5-5.1); Sodium 141 mmol/L (136-145); Total Bilirubin 0.5 mg/dL (0.15-1.2); Total Protein 7.6 g/dL (6.6-8.7)
== END 2023-01-21 08:53 | disposition home or self-care (01) ==
LOC: LAB 08:59
PROVIDERS: PCP Family Medicine; Visit Provider Internal Medicine
DX: M25.50 Pain in unspecified joint (principal)
CPT/HCPCS: 36415; 80053; 85025; 85651; 86140

== ENCOUNTER 2023-01-28 12:01 | Outpatient (CLI) | payer OTHER, SELFPAY ==
--- NOTE | 2023-01-28 12:15 | CT_ITS ---
WS: [id number] LDCT LUNG CANCER SCREENING HISTORY: lung cancer screening TECHNIQUE: Axial imaging performed from the apices to 1 cm below the costophrenic angles. Coronal and sagittal reformats are submitted with axial MIP series. All CT scans at [facility] use at least one of these dose optimization techniques: automated exposure control; mA and/or kV adjustment per patient size (includes targeted exams where dose is matched to clinical indication); or iterativ e reconstruction. DLP: 78.11 mGy.cm DIvol: Mean CTDIvol: 1.60 (mGy) COMPARISON: 01/24/2022, 09/04/2021 Diagnostic quality: Satisfactory Lungs: Severe centrilobular emphysema. No pulmonary mass or nodule. No endobronchial lesion. Heart: Minimal enlargement of the heart. No pericardial effusion. Mild scattered coronary artery calc ification. Other findings: Normal size aorta. No mediastinal or hilar adenopathy. Prior cholecystectomy. CT/CT lung screening [id number] IMPRESSION: LUNG-RADS: 1-Negative FOLLOW UP: 12 Month: Continue annual screening with LDCT OTHER FINDINGS (S MODIFIER): None.
== END 2023-01-28 12:02 | disposition home or self-care (01) ==
LOC: RAD 12:06
PROVIDERS: PCP Family Medicine; Visit Provider Internal Medicine Pulmonary Disease
DX: Z12.2 Encounter for screening for malignant neoplasm of respiratory organs (principal); J44.9 Chronic obstructive pulmonary disease, unspecified; Z87.891 Personal history of nicotine dependence
CPT/HCPCS: 71271

== ENCOUNTER 2023-03-10 20:00 | Outpatient (CLI) | payer OTHER, SELFPAY | END 2023-03-10 20:01 | disposition home or self-care (01) | LOC: SLEEP 03-11 05:49 | PROVIDERS: PCP Family Medicine; Visit Provider Internal Medicine Pulmonary Disease | DX: G47.33 Obstructive sleep apnea (adult) (pediatric) (principal); J43.9 Emphysema, unspecified | CPT/HCPCS: 95811 ==

== ENCOUNTER 2023-06-09 14:51 | Emergency (ER) | payer OTHER, SELFPAY ==
[2023-06-09 14:55] VITALS: BP 116/83; PULSE 78; RESP 17; O2SAT 91
--- NOTE | 2023-06-09 15:47 | XR_ITS ---
WS: [id number] Right ankle, 3 views, 06/09/2023 Clinical Data: heel pain Comparison: None. Findings: No fractures or dislocations are seen. The ankle mortise is normal. The talus and calcaneus are unrem arkable. No soft tissue swelling over the medial or lateral malleolus is seen. Impression: Negative right ankle.
--- NOTE | 2023-06-09 16:04 | W.ED.EXTPRO ---
HPI - Extremity Problem General: Chief complaint: Extremity Injury, Lower Stated complaint: Right ankle and heel swelling Time Seen by Provider: 06/09/23 15:20 Source: patient Mode of arrival: wheelchair Limitations: no limitations History of Present Illness: Patient presents to the emergency department today for evaluation treatment of right heel/ankle pain. Patient denies any known injury but does have chronic neuropathy. Patient reports worsening pain in this area which is what brings her in today. Patient has a history of leaky valve in the vasculature primarily on the left side. She is not complaining of any shortness of breath or chest pains and is chronically anticoagulated. Patient reports pain-especially at night while trying to rest and, any weightbearing causes increase in discomfort as well. Patient denies any previous history of gout and states she does not drink alcohol, denies any excessive red meat intake or shellfish recently. Incidentally, patient does have positive inflammatory markers with positive AZEB and RF where she is followed by endocrinology and is currently taking hydroxychloroquine for RA. Review of Systems General: Reports: 10 or more systems reviewed and unremarkable except in HPI and below PFSH ED PFSH: Medical History Atherosclerotic heart disease of [place] coronary artery without angina pectoris Patient had a high-grade lesion of the RCA which was intervened March, Chest pressure Chronic bronchitis COPD (chronic obstructive pulmonary disease) Dyslipidemia (high LDL; low HDL) GERD (gastroesophageal reflux disease) Microcytic anemia Nicotine addiction Obstructive sleep apnea Small airways disease Varicose veins of lower extremity Surgical History H/O esophagogastroduodenoscopy (09/25/20) 08/28/20: disimpaction of food bolus History of arthroscopic knee surgery History of coronary angiogram Hx of cholecystectomy Status post colonoscopy (09/25/20) Family History Father CAD (coronary artery disease) Hyperlipidemia Hypertension Lung disease Clotting disorder Cancer Diabetes Mother Clotting disorder CAD (coronary artery disease) Chronic kidney disease (CKD) Diabetes Denies family history of Dementia Suicide Anesthesia complication Bleeding disorder Stroke Social History Smoking and tobacco status: former smoker Quit status (tobacco): has quit using tobacco Year quit tobacco: 2020 - 0.5 PPD x 40 Years Alcohol intake: never Substance/Drug Use: never Lives independently: Yes Household members: spouse Marital status: Current occupational status: employed Current occupational exposures/hazards: No Do you think of yourself as: Straight/Heterosexual Current gender identity: Female Physical Exam Const: COMMON NORMALS: no acute distress, patient oriented x3 and alert HENMT: COMMON NORMALS: normocephalic, atraumatic and hearing grossly normal bilaterally HEAD & SCALP: normocephalic and atraumatic Eye: COMMON NORMALS: Equal, round and reactive pupils present, EOMs intact bilaterally and conjunctivae normal CONJUNCTIVA: Yes conjunctivae normal PUPIL: Yes Equal, round and reactive pupils present Neck/C-Spine: COMMON NORMALS: full ROM and no JVD Lymph: LYMPHATIC: no lymphadenopathy noted Resp: COMMON NORMALS: normal respiratory effort, No retractions and No use of accessory muscles Cardio: COMMON NORMALS: no JVD and regular rate RATE: regular rate Extremity: NARRATIVE EXTREMITY EXAM: Patient is tender on palpation in the posterior heel and inferior posterior right ankle. Patient has diffuse swelling of the right lower extremity affecting the ankle and the midfoot. Patient has similar swelling noted to the left lower extremity though patient's foot is less swollen. There is no pitting edema appreciated. Patient is nontender to palpation along the posterior right lower extremity. She is Homans negative. No popliteal pain on palpation. No significant erythema in the region. No significant joint warmth. Patient still with full flexion extension capabilities of the toes and ability to plantarflex and dorsiflex the right ankle. Neuro: COMMON NORMALS: patient oriented x3 SENSORIUM/ORIENTATION: Yes alert Psych: COMMON NORMALS: mental status grossly normal, Normal thought process present, cooperative and normal affect THOUGHT PROCESS: Normal thought process present Skin: COMMON NORMALS: no rashes or lesions noted and turgor normal GENERAL SKIN EXAM: no rashes or lesions noted and turgor normal Course Vital Signs: Vital signs: Vital Signs Pulse Rate 74 06/09/23 17:09 Respiratory Rate 17 06/09/23 14:55 Blood Pressure 154/96 06/09/23 17:09 Pulse Oximetry 93 06/09/23 17:09 Oxygen Delivery Me thod Room Air 06/09/23 17:09 MDM - Extremity (Nontraumatic) Medical Decision Making Patient is x-rays negative for signs of any acute fracture which could have occurred due to patient's neuropathy. Patient's uric acid levels within normal limits. For that reason, we will assume this is an RA flareup and, patient will be treated with low-dose steroids for several weeks. Incidentally, patient has an upcoming appointment with her director clinical pharmacology which she can discuss her evaluation here in the emergency department. Still, she was given strict return precautions for any redness of the joint, new onset fever or change in pain or sensation into the foot. Informational handout regarding RA provided to the patient for further reference at home. Patient verbalized understanding and agreement to treatment plan. Differential Diagnosis Likely gout, cellulitis and lower extremity edema; Unlikely herpes zoster or deep vein thrombosis of lower extremity Lab Data Laboratory Results Uric Acid 3.7 mg/dL (2.4-5.7) 06/09/23 16:02 Discharge Plan Discharge Patient Disposition: Home Clinical Impression: Arthralgia, AZEB positive, Rheumatoid factor positive Condition: Stable Prescriptions: New prednisone 10 mg tablet 10 mg PO DIRECTED Qty: 21 0RF Rx Instructions: see taper instructions No Action furosemide 20 mg tablet 20 mg PO QAM potassium chloride 10 mEq tablet extended release 10 meq PO QAM esomeprazole magnesium 20 mg capsule,delayed release(DR/EC) 20 mg PO BID pregabalin [Lyrica] 75 mg capsule 125 mg PO TID Anoro Ellipta 62.5-25 mcg/actuation blister with device 1 inh INHALATION Q24H 90 Days Qty: 180 3RF clopidogrel 75 mg tablet 75 mg PO QAM Qty: 90 1RF meloxicam 15 mg tablet 15 mg PO DAILY Qty: 30 0RF metoprolol tartrate 25 mg tablet 12.5 mg PO BID Qty: 90 3RF rosuvastatin 20 mg tablet 40 mg PO BEDTIME Qty: 180 3RF hydroxychloroquine 200 mg tablet 200 mg PO BID Qty: 60 3RF nitroglycerin 0.4 mg tablet, sublingual 0.4 mg SUBLINGUAL Q5M PRN (Reason: chest pain) 3 Days Qty: 3 0RF Rx Instructions: until response; do not exceed 3 doses per episode albuterol sulfate 90 mcg/actuation HFA aerosol inhaler 1 puff INHALATION Q6H PRN (Reason: shortness of breath or wheezing) Super B Complex Capsule 1 cap PO DAILY duloxetine 60 mg capsule,delayed release(DR/EC) 60 mg PO DAILY 28 mg iron- 800 mcg Tablet 1 tab PO DAILY Discharge Orders: Discharge ED (Routine); Ordered 06/09/23 Ordered By: Becky Sandy Referrals: Draia Solano DO [Primary Care Provider] - Discharge Diet: Usual diet Patient Instructions: Rheumatoid Arthritis (ED) Activity Restrictions/Additional Instructions: X-ray today shows no signs of acute bony injury or connective tissue injury secondary to concerns for damage from neuropathy. Also, your uric acid levels are within normal limits which rules out concerns for gout at this time. Plus, you have minimal underlying factors concerning for a gout flare. At this time, with your history of elevated AZEB, RF, and diagnosis of rheumatoid arthritis, I do think you may be having an RA flare. As we discussed, treatment is typically with a very low-dose prednisone for a few weeks. Continue taking your other chronic medications as prescribed. Follow-up with your director clinical pharmacology tomorrow at your scheduled appointment and continue monitoring for any change or worsening in condition including redness of the joint, new onset fevers, or decreased range of motion. If these agree should be seen and reevaluated. Coding Level of Care Code ED Import/Export Agent for Janae Stinson
[2023-06-09 16:28] LABS: Uric Acid 3.7 mg/dL (2.4-5.7)
[2023-06-09] MEDS: dexamethasone 10 mg/mL INJ IM (17:04)
[2023-06-09 17:09] VITALS: BP 154/96; PULSE 74; O2SAT 93
== END 2023-06-09 17:10 | disposition home or self-care (01) ==
PROVIDERS: Emergency Provider Physician Assistant; PCP Family Medicine
DX: M25.571 Pain in right ankle and joints of right foot (principal); M06.9 Rheumatoid arthritis, unspecified; Z79.02 Long term (current) use of antithrombotics/antiplatelets; Z87.891 Personal history of nicotine dependence; I25.10 Atherosclerotic heart disease of native coronary artery without angina pectoris; J44.9 Chronic obstructive pulmonary disease, unspecified; E78.5 Hyperlipidemia, unspecified
CPT/HCPCS: 36415; 73610; 84550; 96372; 99284; J1100

== ENCOUNTER → 2023-06-10 10:50 | Outpatient (BNVA) | payer OTHER, SELFPAY | PROVIDERS: PCP Family Medicine; Visit Provider Internal Medicine | DX: R76.8 Other specified abnormal immunological findings in serum (principal); M25.50 Pain in unspecified joint; R53.83 Other fatigue; G47.33 Obstructive sleep apnea (adult) (pediatric); I25.10 Atherosclerotic heart disease of native coronary artery without angina pectoris; K21.9 Gastro-esophageal reflux disease without esophagitis; E55.9 Vitamin D deficiency, unspecified | CPT/HCPCS: 36415; 80053; 81001; 82306; 82550; 82728; 83520; 83540; 83735; 84100; 84182; 84439; 84443; 86140; 86200; 86235; 86480; 87077; 87086; 87186 ==

== ENCOUNTER 2023-06-11 12:50 | Outpatient (CLI) | payer OTHER, SELFPAY ==
[2023-06-11 13:41] LABS: Basophils # 0.1 10^3/uL (0.0-0.1); Basophils % 0.7 %; Eosinophils # 0.2 10^3/uL (0.0-0.8); Eosinophils % 2.3 %; Hemoglobin 14.9 g/dL (11.5-15.3); Lymphocytes # 4.9 10^3/uL (0.8-4.8); Mean Corpuscular HGB Conc 32.4 g/dL (30.0-36.0); Mean Corpuscular Hemoglobin 28.4 pg (28.0-34.0); Mean Corpuscular Volume 87.8 fl (81-99); Mean Platelet Volume 11.4 fL (7.4-10.4); Monocytes # 0.7 10^3/uL (0.2-0.9); Monocytes % 6.8 %; Neutrophils % 38.9 %; Nucleated Red Blood Cells % 0 %; Platelet Count 231 10^3/cmm (130-400); Red Blood Count 5.24 10^6/uL (4.1-5.3); Red Cell Distribution Width 14.6 % (12.1-15.1); White Blood Count 9.5 10^3/uL (4.0-10.0)
[2023-06-11 13:47] LABS: Erythrocyte Sedimentation Rate 8 mm/hr (0-15)
== END 2023-06-11 12:51 | disposition home or self-care (01) ==
PROVIDERS: PCP Family Medicine; Visit Provider Internal Medicine
DX: G47.33 Obstructive sleep apnea (adult) (pediatric) (principal); I25.10 Atherosclerotic heart disease of native coronary artery without angina pectoris; K21.9 Gastro-esophageal reflux disease without esophagitis; M25.50 Pain in unspecified joint; R53.83 Other fatigue; R76.8 Other specified abnormal immunological findings in serum
CPT/HCPCS: 36415; 85025; 85651

== ENCOUNTER 2023-07-26 15:04 | Outpatient (CLI) | payer OTHER, SELFPAY ==
[2023-07-29 14:40] LABS: Aldolase 4.3 U/L (< OR = 8.1)
== END 2023-07-26 15:05 | disposition home or self-care (01) ==
PROVIDERS: PCP Family Medicine
DX: G60.3 Idiopathic progressive neuropathy (principal)
CPT/HCPCS: 36415; 82085

== ENCOUNTER → 2023-10-04 14:26 | Outpatient (BNVA) | payer OTHER, SELFPAY | PROVIDERS: PCP Family Medicine; Visit Provider Internal Medicine | DX: R76.8 Other specified abnormal immunological findings in serum (principal); I83.90 Asymptomatic varicose veins of unspecified lower extremity; J42 Unspecified chronic bronchitis; D50.9 Iron deficiency anemia, unspecified; M25.50 Pain in unspecified joint; R53.83 Other fatigue; G47.10 Hypersomnia, unspecified; J43.9 Emphysema, unspecified; E78.5 Hyperlipidemia, unspecified; M79.10 Myalgia, unspecified site | CPT/HCPCS: 36415; 80053; 82550; 83735; 84100; 85025; 85651; 86140 ==

== ENCOUNTER 2023-10-20 07:00 | Outpatient (CLI) | payer OTHER, SELFPAY | END 2023-10-20 07:01 | disposition home or self-care (01) | PROVIDERS: PCP Family Medicine; Visit Provider Internal Medicine Pulmonary Disease | DX: J44.9 Chronic obstructive pulmonary disease, unspecified (principal) | CPT/HCPCS: 94010; 94618; 94726; 94729 ==

== ENCOUNTER → 2023-10-25 11:47 | Outpatient (BNVA) | payer OTHER, SELFPAY | PROVIDERS: PCP Family Medicine; Visit Provider Internal Medicine Cardiovascular Disease | DX: R07.9 Chest pain, unspecified (principal); R00.2 Palpitations | CPT/HCPCS: 93005 ==

== ENCOUNTER 2024-01-06 13:51 | Outpatient (CLI) | payer OTHER, SELFPAY ==
[2024-01-06 14:27] LABS: Basophils # 0.1 10^3/uL (0.0-0.1); Basophils % 0.6 %; Eosinophils # 0.2 10^3/uL (0.0-0.8); Eosinophils % 1.9 %; Hematocrit 44.9 % (36-47); Lymphocytes # 3.2 10^3/uL (0.8-4.8); Lymphocytes % 32.3 %; Mean Corpuscular HGB Conc 32.5 g/dL (30-55); Mean Corpuscular Hemoglobin 29.3 pg (27-33); Mean Platelet Volume 11.5 fL (7.4-10.4); Monocytes # 0.6 10^3/uL (0.2-0.9); Monocytes % 5.7 %; Neutrophils # 5.86 10^3/uL (1.8-7.7); Neutrophils % 59.3 %; Nucleated Red Blood Cells % 0 %; Platelet Count 249 10^3/cmm (157-399); Red Blood Count 4.99 10^6/uL (3.85-5.65); Red Cell Distribution Width 15.6 % (12.1-15.1); White Blood Count 9.88 10^3/uL (3.29-11.43)
[2024-01-06 14:56] LABS: Alanine Aminotransferase 18 U/L (0-33); Albumin Level 4.1 g/dL (3.5-5.2); Alkaline Phosphatase 75 U/L (35-105); Anion Gap 15.1 (5-19); Aspartate Amino Transferase 15 U/L (0-32); Blood Urea Nitrogen 11 mg/dL (6-20); Carbon Dioxide 25 mmol/L (22-29); Chloride 104 mmol/L (98-107); Globulin 3.3 g/dL (1.3-4.6); Glucose 90 mg/dL (65-115); Osmolality Calculated 289 mOsm/kg (285-295); Potassium 4.1 mmol/L (3.5-5.1); Sodium 140 mmol/L (136-145); Total Bilirubin 0.7 mg/dL (0.15-1.2); Total Protein 7.4 g/dL (6.6-8.7)
== END 2024-01-06 13:52 | disposition home or self-care (01) ==
LOC: LAB 13:52
PROVIDERS: PCP Family Medicine; Visit Provider Internal Medicine
DX: E78.5 Hyperlipidemia, unspecified (principal)
CPT/HCPCS: 36415; 80053; 85025

== ENCOUNTER 2024-02-03 09:56 | Outpatient (CLI) | payer OTHER, SELFPAY ==
--- NOTE | 2024-02-03 10:00 | CT_ITS ---
WS: [id number] LDCT LUNG CANCER SCREENING HISTORY: Cancer Screen TECHNIQUE: Axial imaging performed from the apices to 1 cm below the costophrenic angles. Coronal and sagittal reformats are submitted with axial MIP series. All CT scans at [facility] use at least one of these dose optimization techniques: automated exposure control; mA and/or kV adjustment per patient size (includes targeted exams where dose is matched to clinical indication); or iterativ e reconstruction. DLP: 154.41 mGy.cm DIvol: Mean CTDIvol: 3.80 (mGy) COMPARISON: 01/28/2023 Diagnostic quality: Satisfactory Lungs: Severe centrilobular emphysema. No mass or pneumonia. No nodules. Focal linear scar or atelect asis at the lingula. No endobronchial lesions. Heart: Normal size heart with no pericardial effusion.. Increased fat deposition in the intra-atrial septum is stable. Other findings: Normal size aorta and pulmonary artery. No adenopathy. Mild thickening of the LEFT ad renal gland with negative Hounsfield units. Prior cholecystectomy. IMPRESSION: CT/CT lung screening [id number] LUNG-RADS: 1-Negative FOLLOW UP: 12 Month: Continue annual screening with LDCT OTHER FINDINGS (S MODIFIER): None.
== END 2024-02-03 09:57 | disposition home or self-care (01) ==
LOC: RAD 09:56
PROVIDERS: PCP Family Medicine; Visit Provider Internal Medicine Pulmonary Disease
DX: Z87.891 Personal history of nicotine dependence (principal); Z12.2 Encounter for screening for malignant neoplasm of respiratory organs
CPT/HCPCS: 71271

== ENCOUNTER → 2024-04-24 16:45 | Outpatient (BNVA) | payer OTHER, SELFPAY | PROVIDERS: PCP Family Medicine; Visit Provider Internal Medicine Cardiovascular Disease | DX: R06.02 Shortness of breath (principal); I25.10 Atherosclerotic heart disease of native coronary artery without angina pectoris | CPT/HCPCS: 36415; 80048; 83880 ==

== ENCOUNTER 2024-06-13 14:52 | Emergency (ER) | payer OTHER, SELFPAY ==
--- NOTE | 2024-06-13 14:52 | ECG_ITS ---
[facility] Test Date: 2024-06-13 Pat Name: Guillermina Mosquera Department: Room: Gender: Female Hedis Coordinator: : 1965 Requested By: Yarelis Elmore Order Number: [id number] Reading MD: Taylor Robles M.D. Measurements Intervals [place] Rate: 61 P: -28 TN: 156 QRS: -7 QRSD: 95 T: -2 QT: 378 QTc: 381 Interpretive Statements SINUS RHYTHM WITH OCCASIONAL SUPRAVENTRICULAR PREMATURE COMPLEXES LOW QRS VOLTAGE IN PRECORDIAL LEADS [QRS DEFLECTION < 1.0 mV IN CHEST LEADS] ANTERIOR MYOCARDIAL INFARCTION , PROBABLY OLD [40+ ms Q WAVE AND/OR ST/T ABNORMALITY IN V3/V4] INFERIOR MYOCARDIAL INFARCTION , PROBABLY OLD [40+ ms Q WAVE AND/OR ST/T ABNORMALITY IN II/aVF] Compared to ECG 10/25/2023 11:53:49 First degree AV block no longer present Myocardial infarct finding still present Electronically Signed On 06-14-2024 0:18:53 CDT by Taylor Robles M.D. [email or web address]
--- NOTE | 2024-06-13 14:57 | XRR_ITS ---
PROCEDURE INFORMATION: Exam: XR Chest Exam date and time: 06/13/2024 3:19 PM Age: 59 years old Clinical indication: Pain; Angina pectoris; Additional info: Cp TECHNIQUE: Imaging protocol: Radiologic exam of the chest. Views: 1 view. COMPARISON: CT lung screening [id number] 02/03/2024 10:26 AM FINDINGS: Lungs: See Heart/Mediastinum finding. Pleural spaces: Unremarkable. No pleural effusion. No pneumothorax. Heart/Mediastinum: Right hemidiaphragm is elevated. Low lung volumes with bronchovascular crowding and accentuation of the cardiac silhouette. Mediastinal contours unremarkable. No focal consolidation. Robust epicardial fat over the left mid/lower lung. Bones/joints: Unremarkable. XR/XR chest 1V portable [id number] IMPRESSION: Low lung volumes with bronchovascular crowding and accentuation of the cardiac silhouette.
[2024-06-13 15:00] VITALS: BP 133/76; PULSE 78; RESP 20; O2SAT 90; BMI 42.4
--- NOTE | 2024-06-13 15:09 | ED_ITS ---
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 Symptoms started yesterday. Central chest. Parents breathing. Aches. She said nitro did not help. No lower extremity swelling. Some dry cough. She says she feels short of breath. Thinks maybe her lungs are acting up Related Data Home Medications Medication Instructions Recorded Confirmed esomeprazole magnesium 20 mg 20 mg PO BID 12/22/21 12/29/23 capsule,delayed release furosemide 20 mg tablet 20 mg PO QAM 12/22/21 12/29/23 potassium chloride 10 mEq 10 meq PO QAM 12/22/21 12/29/23 tablet,extended release albuterol sulfate 90 mcg/actuation 1 puff inhalation Q6H PRN 01/25/22 12/29/23 aerosol inhaler shortness of breath or wheezing pregabalin 75 mg capsule (Lyrica) 125 mg PO TID 07/23/22 12/29/23 vit no.95-ferrous 1 tab PO DAILY 06/09/23 12/29/23 fumarate 28 mg-folic acid 800 mcg tablet () vitamin B complex 1 cap PO DAILY 06/09/23 12/29/23 duloxetine 60 mg capsule,delayed 90 mg PO DAILY 10/06/23 12/29/23 release Previous Rx's Medication Instructions Recorded nitroglycerin 0.4 mg sublingual 0.4 mg sublingual Q5M PRN chest 04/16/20 tablet pain 30 days #3 tabs meloxicam 15 mg tablet 15 mg PO DAILY #30 tabs 02/01/23 folic acid 1 mg tablet 1 mg PO DAILY #90 tabs 06/28/23 hydroxychloroquine 200 mg tablet 200 mg PO BID #60 tabs 10/04/23 methotrexate sodium 2.5 mg tablet 12.5 mg (5 x 2.5 mg) PO .qweek #30 10/04/23 tabs prednisone 5 mg tablet 5 mg PO DAILY #30 tabs 11/02/23 fluticasone fur. 200 mcg-umeclid 1 inh inhalation DAILY #60 ea 03/07/24 62.5 mcg-vilant 25 mcg inhalat.powder (Trelegy Ellipta) prednisone 10 mg tablet 10 mg PO DAILY #11 tabs 12/29/23 metoprolol tartrate 25 mg tablet See Rx Instructions PO BID #90 tabs 03/13/24 clopidogrel 75 mg tablet 75 mg PO QAM #90 tabs 03/15/24 rosuvastatin 20 mg tablet See Rx Instructions .Route 04/23/24 .COMPLEX #180 tabs azithromycin 250 mg tablet See Rx Instructions PO .COMPLEX #6 06/13/24 (Zithromax Z-Asael) tabs prednisone 20 mg tablet 60 mg (3 x 20 mg) PO DAILY 5 days 06/13/24 #15 tabs Allergies Allergy/AdvReac Type Severity Reaction Status Date / Time morphine AdvReac ADR-Vomitin Verified 12/29/23 08:25 g pantoprazole AdvReac terrible Verified 12/29/23 08:25 diarrhea Review of Systems 2 Narrative: Constitutional symptoms: Negative except as documented in HPI. Skin symptoms: Negative except as documented in HPI. Eye symptoms: Negative except as documented in HPI. ENMT symptoms: Negative except as documented in HPI. Respiratory symptoms: Negative except as documented in HPI. Cardiovascular symptoms: Negative except as documented in HPI. Gastrointestinal symptoms: Negative except as documented in HPI. Genitourinary symptoms: Negative except as documented in HPI. Musculoskeletal symptoms: Negative except as documented in HPI. Neurologic symptoms: Negative except as documented in HPI. Psychiatric symptoms: Negative except as documented in HPI. Endocrine symptoms: Negative except as documented in HPI. PFSH ED 2 PFSH: Medical History Varicose veins of lower extremity Microcytic anemia Chest pressure Nicotine addiction Obstructive sleep apnea Small airways disease Chronic bronchitis GERD (gastroesophageal reflux disease) COPD (chronic obstructive pulmonary disease) Dyslipidemia (high LDL; low HDL) Atherosclerotic heart disease of [place] coronary artery without angina pectoris Patient had a high-grade lesion of the RCA which was intervened March, Surgical History H/O esophagogastroduodenoscopy (09/25/20) 08/28/20: disimpaction of food bolus Status post colonoscopy (09/25/20) History of coronary angiogram History of arthroscopic knee surgery Hx of cholecystectomy Family History Father CAD (coronary artery disease) Hyperlipidemia Hypertension Lung disease Clotting disorder Cancer Diabetes Mother Clotting disorder CAD (coronary artery disease) Chronic kidney disease (CKD) Diabetes Denies family history of Dementia Suicide Anesthesia complication Bleeding disorder Stroke Social History Smoking and tobacco/nicotine status: former use of tobacco/nicotine Quit status (tobacco/nicotine): has quit using Year quit tobacco: 2020 - 0.5 PPD x 40 Years Alcohol intake: never Substance/Drug Use: never Lives independently: Yes Household members: spouse Marital status: Current occupational status: employed Current occupational exposures/hazards: No Do you think of yourself as: Straight/Heterosexual Current gender identity: Female Physical Exam 2 Narrative: EXAM NARRATIVE: General: Alert, no acute distress. Skin: Warm, dry. Head: Normocephalic, atraumatic. Neck: Supple, trachea midline. Eye: Extraocular movements are intact. Ears, nose, mouth and throat: Oral mucosa moist. Cardiovascular: Regular rate and rhythm, Normal peripheral perfusion. Respiratory: some expiratory wheeze, mild increased wob, breath sounds are equal, Symmetrical chest wall expansion. Gastrointestinal: Soft, Nontender, Non distended, Normal bowel sounds. Musculoskeletal: Normal ROM, no deformity. Neurological: Alert and oriented to person, place, time, and situation, No focal neurological deficit observed. Psychiatric: Cooperative, appropriate mood & affect. Course 2 Vital Signs: Vital signs: Vital Signs Pulse Rate 73 06/13/24 16:33 Respiratory Rate 16 06/13/24 16:33 Blood Pressure 122/77 06/13/24 16:33 Pulse Oximetry 93 06/13/24 16:33 Oxygen Delivery Me thod Nasal Cannula 06/13/24 16:00 Oxygen Flow Rate 3 06/13/24 16:00 MDM - Chest Pain Medical Decision Making Differential diagnosis for patient with chest pain includes but is not limited to and based on the above HPI, review of systems and physical exam: Pneumonia. unstable angina. angina. Acute coronary syndrome / RI. Pulmonary embolism. Costochondritis / musculoskeletal. Pleurisy. Pericarditis. Esophageal spasm. Pancreatis. Cholecystitis. Orders placed to evaluate differential diagnosis based on the above differential, HPI and physical exam EKG: Time 1453. Rate 61. Normal sinus rhythm, some ST depression in V1 and V2 that are unchanged from EKG in October., PVC, normal [place] & QRS intervals, This was reviewed and interpreted by myself the ER physician at 1455. Lab Review: Laboratory results were reviewed and interpreted by myself the emergency room physician. No leukocytosis. No anemia. No renal failure. Troponin is negative. Patient has been having pain since yesterday-says it does not feel like her normal cardiac pain still not doing serial markers. Chest x-ray: No acute process. No infiltrate. No pneumothorax. This was reviewed and interpreted by myself the ER physician. I reviewed the patient's medical record. Reexamination: Patient says she feels somewhat better after updraft and steroids. Wheezing is improved. No altered mental status. No focal motor deficits. Assessment and plan: COPD exacerbation Noncardiac chest pain -Toradol, Solu-Medrol, and DuoNeb in the emergency room - Discharged home - Discussed plan with patient. Answered any questions. - Evaluation and treatment of this problem were appropriate in the emergency setting. Lab Data 06/13/24 15:08 06/13/24 15:08 Radiology Impressions Chest X-Ray 06/13/24 14:57 IMPRESSION: Low lung volumes with bronchovascular crowding and accentuation of the cardiac silhouette. Laboratory Results WBC 7.51 10^3/uL (3.29-11.43) 06/13/24 15:08 RBC 4.79 10^6/uL (3.85-5.65) 06/13/24 15:08 Hgb 14.00 g/dL (11.27-16.99) 06/13/24 15:08 Hct 44.0 % (36-47) 06/13/24 15:08 MCV 91.9 fl (85-98) 06/13/24 15:08 MCH 29.2 pg (27-33) 06/13/24 15:08 MCHC 31.8 g/dL (30-55) 06/13/24 15:08 RDW 15.9 % (12.1-15.1) H 06/13/24 15:08 Plt Count 230 10^3/cmm (157-399) 06/13/24 15:08 MPV 11.6 fL (7.4-10.4) H 06/13/24 15:08 Neut % (Auto) 48.3 % 06/13/24 15:08 Lymph % (Auto) 41.0 % 06/13/24 15:08 [place] % (Auto) 7.5 % 06/13/24 15:08 Eos % (Auto) 2.1 % 06/13/24 15:08 Baso % (Auto) 0.8 % 06/13/24 15:08 Neut # (Auto) 3.63 10^3/uL (1.8-7.7) 06/13/24 15:08 Lymph # (Auto) 3.1 10^3/uL (0.8-4.8) 06/13/24 15:08 [place] # (Auto) 0.6 10^3/uL (0.2-0.9) 06/13/24 15:08 Eos # (Auto) 0.2 10^3/uL (0.0-0.8) 06/13/24 15:08 Baso # (Auto) 0.1 10^3/uL (0.0-0.1) 06/13/24 15:08 Nucleated RBC % (auto) 0 % 06/13/24 15:08 Nucleated RBCs # 0.0 /100WBC 06/13/24 15:08 Sodium 138 mmol/L (136-145) 06/13/24 15:08 Potassium 3.9 mmol/L (3.5-5.1) 06/13/24 15:08 Chloride 106 mmol/L (98-107) 06/13/24 15:08 Carbon Dioxide 21 mmol/L (22-29) L 06/13/24 15:08 Anion Gap 14.9 (5-19) 06/13/24 15:08 BUN 9 mg/dL (6-20) 06/13/24 15:08 Creatinine 0.5 mg/dL (0.5-0.9) 06/13/24 15:08 GFR Calculation 126.7 mL/min (90-130) 06/13/24 15:08 Glucose 97 mg/dL (65-115) 06/13/24 15:08 Calculated Osmolality 285 mOsm/kg (285-295) 06/13/24 15:08 Calcium 8.7 mg/dL (8.5-10.5) 06/13/24 15:08 Total Bilirubin 0.6 mg/dL (0.15-1.2) 06/13/24 15:08 AST 16 U/L (0-32) 06/13/24 15:08 ALT 15 U/L (0-33) 06/13/24 15:08 Alkaline Phosphatase 76 U/L (35-105) 06/13/24 15:08 Troponin T Baseline < 6 ng/L (0-10) 06/13/24 15:08 NT-Pro-B Natriuret Pep 51 pg/mL (0-125) 06/13/24 15:08 Total Protein 7.1 g/dL (6.6-8.7) 06/13/24 15:08 Albumin 3.8 g/dL (3.5-5.2) 06/13/24 15:08 Globulin 3.3 g/dL (1.3-4.6) 06/13/24 15:08 Lipase 17 U/L (13-60) 06/13/24 15:08 All radiology interpretation(s) finalized by discharge Discharge Plan Discharge Patient Disposition: Home Clinical Impression: COPD with acute exacerbation, Non-cardiac chest pain Condition: Stable Prescriptions: New Zithromax Z-Asael 250 mg tablet See Rx Instructions .ROUTE .COMPLEX Qty: 6 0RF Rx Instructions: For 250 mg dose pack: take 500 mg today (day 1), then 250 mg for 4 days (days 2-5) prednisone 20 mg tablet 60 mg PO DAILY 5 Days Qty: 15 0RF No Action furosemide 20 mg tablet 20 mg PO QAM potassium chloride 10 mEq tablet extended release 10 meq PO QAM esomeprazole magnesium 20 mg capsule,delayed release(DR/EC) 20 mg PO BID pregabalin [Lyrica] 75 mg capsule 125 mg PO TID methotrexate sodium 2.5 mg tablet 12.5 mg PO .qweek Qty: 30 3RF hydroxychloroquine 200 mg tablet 200 mg PO BID Qty: 60 3RF prednisone 10 mg tablet 10 mg PO DAILY Qty: 11 0RF Rx Instructions: 2 tabs x 10 mg = 20 mg x 3 days 1 tab x 10 mg = 10 mg x 5 days Trelegy Ellipta 200-62.5-25 mcg blister with device 1 inh inhalation DAILY Qty: 60 3RF meloxicam 15 mg tablet 15 mg PO DAILY Qty: 30 0RF folic acid 1 mg tablet 1 mg PO DAILY Qty: 90 0RF prednisone 5 mg tablet 5 mg PO DAILY Qty: 30 0RF metoprolol tartrate 25 mg tablet See Rx Instructions PO BID Qty: 90 3RF Dose Instruction: TAKE 1/2 TABLET BY MOUTH TWICE DAILY Rx Instructions: Take 25 mg BID clopidogrel 75 mg tablet 75 mg PO QAM Qty: 90 1RF rosuvastatin 20 mg tablet See Rx Instructions .ROUTE .COMPLEX Qty: 180 3RF Dose Instruction: TAKE 2 TABS BY MOUTH AT BEDTIME Rx Instructions: TAKE 2 TABS BY MOUTH AT BEDTIME nitroglycerin 0.4 mg tablet, sublingual 0.4 mg SUBLINGUAL Q5M PRN (Reason: chest pain) 3 Days Qty: 3 0RF Rx Instructions: until response; do not exceed 3 doses per episode albuterol sulfate 90 mcg/actuation HFA aerosol inhaler 1 puff INHALATION Q6H PRN (Reason: shortness of breath or wheezing) Super B Complex Capsule 1 cap PO DAILY 28 mg iron- 800 mcg Tablet 1 tab PO DAILY duloxetine 60 mg capsule,delayed release(DR/EC) 90 mg PO DAILY Discharge Orders: Discharge ED (Routine); Ordered 06/13/24 Ordered By: Ina Rodas Referrals: Daria Solano DO [Primary Care Provider] - Discharge Diet: Usual diet Discharge Activity: Increase activity as tolerated Patient Instructions: COPD (Chronic Obstructive Pulmonary Disease) (ED), Noncardiac Chest Pain (ED) Activity Restrictions/Additional Instructions: Thank you for choosing [facility] for your healthcare needs today. Please realize this is an emergency room and that we are providing you with a medical screening exam and this may not be complete and all inclusive of all the testing and or work up that you may need to determine your ailment or severity of your illness. You have been screened and evaluated and felt safe for discharge. Health conditions do change or evolve sometimes and as such it is important that you follow up with your Primary Doctor to be re checked, 3-5 days is a general good time frame for follow up. You are always welcome to return to the ED for re assessment if your symptoms are worsening or you have new concerns Coding Level of Care Code ED Customer Account Coordinator for Janae Stinson
[2024-06-13 15:24] LABS: Basophils # 0.1 10^3/uL (0.0-0.1); Basophils % 0.8 %; Eosinophils # 0.2 10^3/uL (0.0-0.8); Eosinophils % 2.1 %; Lymphocytes # 3.1 10^3/uL (0.8-4.8); Mean Corpuscular HGB Conc 31.8 g/dL (30-55); Mean Corpuscular Hemoglobin 29.2 pg (27-33); Mean Corpuscular Volume 91.9 fl (85-98); Mean Platelet Volume 11.6 fL (7.4-10.4); Monocytes # 0.6 10^3/uL (0.2-0.9); Monocytes % 7.5 %; Neutrophils # 3.63 10^3/uL (1.8-7.7); Neutrophils % 48.3 %; Nucleated Red Blood Cells % 0 %; Platelet Count 230 10^3/cmm (157-399); Red Blood Count 4.79 10^6/uL (3.85-5.65); Red Cell Distribution Width 15.9 % (12.1-15.1); White Blood Count 7.51 10^3/uL (3.29-11.43)
[2024-06-13] MEDS: methylPREDNISolone sod succ 125 mg/2 mL INJ IVP (15:39)
[2024-06-13 15:49] LABS: Troponin(5th) Baseline < 6 ng/L (0-10)
[2024-06-13 15:56] LABS: Alanine Aminotransferase 15 U/L (0-33); Albumin Level 3.8 g/dL (3.5-5.2); Alkaline Phosphatase 76 U/L (35-105); Aspartate Amino Transferase 16 U/L (0-32); Blood Urea Nitrogen 9 mg/dL (6-20); Calcium 8.7 mg/dL (8.5-10.5); Carbon Dioxide 21 mmol/L (22-29); Chloride 106 mmol/L (98-107); Creatinine Clr Calc Pharmacy 155.7919; Globulin 3.3 g/dL (1.3-4.6); Glomerular Filtration Rate 126.7 mL/min (90-130); Glucose 97 mg/dL (65-115); Lipase 17 U/L (13-60); NT Pro B Type Natriuretic Pept 51 pg/mL (0-125); Osmolality Calculated 285 mOsm/kg (285-295); Sodium 138 mmol/L (136-145); Total Bilirubin 0.6 mg/dL (0.15-1.2); Total Protein 7.1 g/dL (6.6-8.7)
[2024-06-13 16:00] VITALS: PULSE 70; RESP 20; O2SAT 88
[2024-06-13] MEDS: ipratropium-albuterol 3 mL Neb INHALATION (16:00)
[2024-06-13 16:04] LABS: Anion Gap 14.9 (5-19); Potassium 3.9 mmol/L (3.5-5.1)
[2024-06-13 16:10] VITALS: PULSE 72; RESP 20
[2024-06-13] MEDS: ketorolac 30 mg/mL INJ IVP (16:32)
[2024-06-13 16:33] VITALS: BP 122/77; PULSE 73; RESP 16; O2SAT 93
== END 2024-06-13 16:50 | disposition home or self-care (01) ==
PROVIDERS: Emergency Medicine; Emergency Provider Emergency Medicine; PCP Family Medicine
DX: J44.1 Chronic obstructive pulmonary disease with (acute) exacerbation (principal); R07.89 Other chest pain; Z79.02 Long term (current) use of antithrombotics/antiplatelets; Z87.891 Personal history of nicotine dependence; E78.5 Hyperlipidemia, unspecified; I25.10 Atherosclerotic heart disease of native coronary artery without angina pectoris
CPT/HCPCS: 71045; 80053; 83690; 83880; 84484; 85025; 93005; 94640; 96374; 96375; 99285; J1885; J2919

== ENCOUNTER 2024-09-03 09:45 | Outpatient (CLI) | payer OTHER, SELFPAY ==
--- NOTE | 2024-09-03 09:55 | USCV_ITS ---
Guillermina Mosquera Age: 59 Gender: F : 1965 Exam Date: 09/03/2024 10:12 Ordering Phys: Daria Solano DO Technologist: CT Exam Location: [facility] [place] Indication: chf BP: 108 / 72 HR: 72 Rhythm: Sinus Technical Quality: Poor because of body habitus MEASUREMENTS (Male / Female) Normal Values 2D ECHO LVOT Diameter 2.1 cm LV Ejection Fraction MOD 4C 74.2 % LV Ejection Fraction MOD 2C 62.1 % LV Ejection Fraction 2C AL 64.9 % LA Diameter 4.8 cm RA Systolic Volume 4C AL 85.8 ml RA Systolic Volume 4C MOD 83.1 ml LA Sys Volume AL 69.1 cm cubed LA Sys Volume Index AL 28.6 cm cubed/m squared Aorta at Sinotubular Diameter 2.6 cm M-MODE LA Ao Ratio MM 1.7 AV Cusp Separation MM 2.0 cm DOPPLER AV Peak Velocity 152.0 cm/s LVOT Peak Velocity 97.0 cm/s AV Area Cont Eq vti 2.3 cm squared AV Area Cont Eq pk 2.3 cm squared MV Peak Velocity 85.0 cm/s MV Area PHT 3.5 cm squared Mitral E to A Ratio 1.1 TR Peak Velocity 143.0 cm/s TR Peak Gradient 8.2 mmHg TV Peak E Velocity 66.0 cm/s Right Atrial Pressure 3.0 mmHg Pulmonary Artery Systolic Pressu 11.2 mmHg PV Peak Velocity 107.5 cm/s FINDINGS Left Ventricle Normal left ventricular size, systolic function and wall thickness, with no regional wall motion abnormalities. Left ventricular ejection fraction is estimated at 60 %. Normal diastolic function. Right Ventricle The right ventricle is normal in size and function. Right Atrium The right atrium is normal in size. Left Atrium The left atrium is normal in size. Mitral Valve Structurally normal mitral valve without significant stenosis or prolapse. There is no mitral regurgitation. Aortic Valve Structurally normal aortic valve without significant sclerosis or stenosis. There is no aortic regurgitation. Tricuspid Valve Structurally normal tricuspid valve without significant stenosis or regurgitation. Pulmonary artery systolic pressure is normal. Pulmonic Valve Structurally normal pulmonic valve without significant stenosis. There is no pulmonic regurgitation. Pericardium Normal pericardium without effusion. Aorta Normal ascending aorta dimension. IVC The inferior vena cava appears normal. CONCLUSIONS CONCLUSIONS: 1. Normal left ventricular size, systolic function and wall thickness, with no regional wall motion abnormalities. Left ventricular ejection fraction is estimated at 60 %. Normal left ventricular wall thickness. Normal diastolic filling pattern. 2. No significant chamber abnormalities. 3. No sigificant valve abnormalities. 4. There is no pericardial effusion. 5. There are no intracardiac masses. 6. Pulmonary artery systolic pressure is within normal limits. 7. Right atrial pressure is around 5 mm of mercury. 8. There are no prior echocardiogram studies to compare. Reggie Moore MD (Electronically Signed) Final Date: 03 September 2024 19:07 S
== END 2024-09-03 09:46 | disposition home or self-care (01) ==
LOC: RAD 09:45
PROVIDERS: PCP Family Medicine; Visit Provider Family Medicine
DX: R09.89 Other specified symptoms and signs involving the circulatory and respiratory systems (principal)
CPT/HCPCS: 93306

== ENCOUNTER → 2025-05-06 15:28 | Outpatient (BNVA) | payer OTHER, SELFPAY | PROVIDERS: PCP Family Medicine; Visit Provider Internal Medicine Cardiovascular Disease | DX: R06.02 Shortness of breath (principal) | CPT/HCPCS: 36415; 80048; 83880 ==

== ENCOUNTER 2025-05-16 10:31 | Outpatient (CLI) | payer OTHER, SELFPAY ==
--- NOTE | 2025-05-16 11:00 | USR_ITS ---
PROCEDURE INFORMATION: Exam: US Duplex Bilateral Lower Extremity Arteries Exam date and time: 05/16/2025 10:43 AM Age: 60 years old Clinical indication: Pain; Leg, lower; Left; Additional info: Leg pain TECHNIQUE: Imaging protocol: Real-time ultrasound scan of the arteries of the bilateral lower extremities with 2-D eric scale, color Doppler flow and spectral waveform analysis. Images documented and saved. COMPARISON: MR knee LT wo con* [id number] 01/26/2019 6:11 PM FINDINGS: Right common femoral artery: Peak systolic velocity is 141 cm/sec No occlusion or significant stenosis. Normal waveform. Right superficial femoral artery: Peak systolic velocity is 148 cm/sec in the mid portions. No occlusion or significant stenosis. Normal waveform. Right popliteal artery: Peak systolic velocity is 84 cm/sec. No occlusion or significant stenosis. Normal waveform. Right calf/foot arteries: Peak systolic velocity in the right posterior tibial artery is 61 cm/sec. Peak systolic velocity in the dorsalis pedis is 88 cm/sec. No occlusion or significant stenosis in the visualized arteries. Normal waveforms. Dorsalis pedis artery is patent. Right CALE:1.0 Left common femoral artery: Peak systolic velocity is 114 cm/sec. No occlusion or significant stenosis. Normal waveform. Left superficial femoral artery: Peak systolic velocity is 99 cm/sec in the proximal portion. No occlusion or significant stenosis. Normal waveform. Left popliteal artery: Peak systolic velocity is 60 cm/sec. No occlusion or significant stenosis. Normal waveform. Left calf/foot arteries: Peak systolic velocity is 75 cm/sec in the posterior tibial artery. Peak systolic velocity in the dorsalis pedis artery is 46 cm/sec. No occlusion or significant stenosis in the visualized arteries. Normal waveforms. Dorsalis pedis artery is patent. Left CALE: 1.0 US/[place] [id number] IMPRESSION: No stenosis or occlusion. Peak systolic velocities as detailed in the body of the report.
== END 2025-05-16 10:32 | disposition home or self-care (01) ==
LOC: RAD 10:31
PROVIDERS: PCP Family Medicine; Visit Provider Internal Medicine Cardiovascular Disease
DX: I73.9 Peripheral vascular disease, unspecified (principal)
CPT/HCPCS: 93925